=== PATIENT | female | born 1945 | race Caucasian/White ===

== ENCOUNTER 2016-05-06 16:01 | Inpatient (IN) | payer MEDICARE, BC ==
[2016-05-06] MEDS ORDERED: DILTIAZEM 5 MG/ML 5 ML VIAL IVP STA (16:42)
[2016-05-06] MEDS ORDERED: ADENOSINE 3 MG/ML 2 ML VIAL IVP STA ×3 (16:45→16:46)
[2016-05-06 16:58] LABS: Basophils % (A) 0 %; CH 30.1; CHCM 34.2; Eosinophils # (A) 0.5 k/uL (0-0.7); Eosinophils % (A) 5 %; HCT 41.1 % (34.0-46.0); HDW 2.51; HGB 13.8 gm/dL (11.4-16.0); Luc # (Auto) 0.26; Luc % (Auto) 2; Lymphocytes # (A) 2.5 k/uL (1.0-4.8); Lymphocytes % (A) 23 %; MCH 29.7 pg (25.0-35.0); MCHC 33.7 g/dL (31.0-37.0); MCV 88.3 fL (80.0-100.0); Mean Platelet Volume 8.7; Monocytes # (A) 0.5 k/uL (0-1.0); Monocytes % (A) 4 %; Neutrophils # (A) 6.9 k/uL (1.3-7.7); Neutrophils % (A) 65 %; RBC 4.66 m/uL (3.80-5.40); RDW 12.4 % (11.5-15.5); WBC 10.6 k/uL (3.8-10.6); WBC (Perox) 10.64
--- NOTE | 2016-05-06 16:59 | ED ---
General Adult HPI - General Chief complaint: Arrhythmia/Palpitations Stated complaint: Papitaltions Time Seen by Provider: 05/06/16 16:25 Source: patient, family, RN notes reviewed Mode of arrival: ambulatory Limitations: no limitations - History of Present Illness Initial comments: The chief complaint and history of present illness this is a 71-year-old female here with . The patient has had on-again off-again rapid heart beats. She's never been able to catch it in the doctor's office today when he started she's come the emergency room. Her heart rate was between 175 and 225. EKG shows what appears to be SVT. Patient was compared to receive a Adinosyn with crash cart at bedside. She reports she takes lisinopril with hydrochlorothiazide. She also takes alprazolam on occasion for nerves, she took it approximately 3 hours ago. No chest pain no sweats no dizziness only slight sensation of shortness of breath. This first started 18 months ago. Lately has been more frequent. - Related Data Home Medications Medication Instructions Recorded Confirmed ALPRAZolam [Xanax] 0.25 mg PO DAILY PRN 05/06/16 05/06/16 Aspirin EC [Ecotrin] 325 mg PO DAILY PRN 05/06/16 05/06/16 Lisinopril-Hctz 20-25 mg 1 tab PO DAILY 05/06/16 05/06/16 [Zestoretic 20-25] Allergies Allergy/AdvReac Type Severity Reaction Status Date / Time No Known Allergies Allergy Verified 05/06/16 17:04 Review of Systems ROS Statement: Those systems with pertinent positive or pertinent negative responses have been documented in the HPI. Review of systems no complaint of visual acuity changes no dizziness no headache no stiff neck no chest pain slight shortness of breath but not with exertion. Again no chest pain no radiation or chest pain. Mild low back discomfort. No nausea no vomiting no neuro deficits all systems were reviewed. Patient denies any chronic medical problems. Takes medication for high blood pressure only lisinopril with HCTZ. Alprazolam for anxiety as needed. She reports these episodes have happened in the past usually stop on their own 30- 60 minutes after it starts. She states she normally is on the anxious side prior to the beginning of such episodes. Patient denies diabetes cancer stroke or asthma. Denies any surgeries. Only history noncontributory. ALLERGIES none. Nonsmoker nondrinker ROS Other: All systems not noted in ROS Statement are negative. Past Medical History Past Medical History: Hypertension History of Any Multi-Drug Resistant Organisms: None Reported Past Surgical History: No Surgical Hx Reported Past Psychological History: Anxiety Smoking Status: Never smoker Past Alcohol Use History: None Reported Past Drug Use History: None Reported General Exam - General Exam Comments Initial Comments: General: The patient is awake and alert, complains of slight shortness of breath with rapid heart rate. Initial heart rate was between 125 and 225. Temp 97.4, respiratory rate 18 pulse ox 90% room air blood pressure 122/67.. Eye: Pupils are equal, round and reactive to light, extra-ocular movements are intact ; there is normal conjunctiva bilaterally. No signs of icterus. Ears, nose, mouth and throat: There are moist mucous membranes and no oral lesions. Neck: The neck is supple, there is no tenderness or JVD. Cardiovascular: Rapid heart rate, 175-225. Respiratory: Lungs are clear to auscultation, respirations are non-labored, breath sounds are equal. No wheezes, stridor, rales, or rhonchi. Gastrointestinal: Soft, non-distended, non-tender abdomen without masses or organomegaly noted. There is no rebound or guarding present. No CVA tenderness. Bowel sounds are unremarkable. Back: There is no tenderness to palpation in the midline. There is no obvious deformity. No rashes noted. Musculoskeletal: Normal ROM, no tenderness, There is no pedal edema. There is no calf tenderness or swelling. Sensation intact. Pulses equal bilaterally 2+. Neurological: CN II-XII intact, There are no obvious motor or sensory deficits. Coordination appears grossly intact. Speech is normal. Skin: Skin is warm and dry and no rashes or lesions are noted. Limitations: no limitations Course Vital Signs 05/06/16 05/06/16 05/06/16 16:09 16:25 17:04 Temperature 97.4 F L Pulse Rate 71 170 H Pulse Rate [ 203 H Installation Technician ] Respiratory 18 18 Rate Blood Pressure 122/67 102/72 O2 Sat by Pulse 98 96 Oximetry EKG Findings - EKG Comments: EKG Findings:: EKG was done at 1620 showing what appeared to be either SVT or A. fib. Rate 202. Nonspecific ST changes. QRS duration 78 QT to [address] Pablo Medical Decision Making - Medical Decision Making Received adenosin first 6 mg and [id number] and 12mg again.. After the second 12mg heart rate did slow, it appears the patient was in A. fib. No P waves are noted. The patient has been started on Cardizem, she received 10 mg slow IV push, followed by 5 mg IV drip. Her heart rate was already starting to slow in the 140-150 range. The case discussed with on-call power transmission engineer Dr. palma. EKGs to be sent to him at the office. Consultation requested. Patient will be started on low- dose heparin for new onset A. fib with RVR Patient was seen by Dr. Gupta in the emergency room. He recommends in addition of the Cardizem drip and amiodarone 150 with 0.5 mg/kg per hour until she converts to normal sinus rhythm. His heart rate drops to 16 Cardizem to be stopped as well. Labs show white count of 10 hemoglobin 13 hematocrit of 40, INR 1.0, potassium 4.0, BUN 21 creatinine 0.77 with a GFR greater than 60. Glucose 144. Troponin less than 0.012 Thyroid panel still pending this will be checked by the attendings. - Lab Data Result diagrams: 05/06/16 16:30 05/06/16 16:30 Lab Results 05/06/16 05/06/16 05/06/16 Range/Units 16:30 16:30 16:30 WBC 10.6 (3.8-10.6) k/uL RBC 4.66 (3.80-5.40) m/uL Hgb 13.8 (11.4-16.0) gm/dL Hct 41.1 (34.0-46.0) % MCV 88.3 (80.0-100.0) fL MCH 29.7 (25.0-35.0) pg MCHC 33.7 (31.0-37.0) g/dL RDW 12.4 (11.5-15.5) % Plt Count 286 (150-450) k/uL Neutrophils % 65 % Lymphocytes % 23 % Monocytes % 4 % Eosinophils % 5 % Basophils % 0 % Neutrophils # 6.9 (1.3-7.7) k/uL Lymphocytes # 2.5 (1.0-4.8) k/uL Monocytes # 0.5 (0-1.0) k/uL Eosinophils # 0.5 (0-0.7) k/uL Basophils # 0.0 (0-0.2) k/uL PT (9.0-12.0) sec INR (<1.1) APTT (22.0-30.0) sec Sodium 139 (137-145) mmol/L Potassium 4.0 (3.5-5.1) mmol/L Chloride 102 (98-107) mmol/L Carbon Dioxide 24 (22-30) mmol/L Anion Gap 13 mmol/L BUN 21 H (7-17) mg/dL Creatinine 0.77 (0.52-1.04) mg/dL Est GFR (MDRD) Af Amer >60 (>60 ml/min/1.73 sqM) Est GFR (MDRD) Non-Af >60 (>60 ml/min/1.73 sqM) Glucose 144 H (74-99) mg/dL Calcium 9.4 (8.4-10.2) mg/dL Magnesium 2.0 (1.6-2.3) mg/dL Total Bilirubin 0.9 (0.2-1.3) mg/dL AST 19 (14-36) U/L ALT 33 (9-52) U/L Alkaline Phosphatase 179 H (38-126) U/L Total Creatine Kinase 57 (30-135) U/L CK-MB (CK-2) 0.4 (0.0-2.4) ng/mL CK-MB (CK-2) Rel Index 0.7 Troponin I <0.012 (0.000-0.034) ng/mL Total Protein 7.4 (6.3-8.2) g/dL Albumin 4.1 (3.5-5.0) g/dL TSH 1.380 (0.465-4.680) mIU/L 05/06/16 Range/Units 16:30 WBC (3.8-10.6) k/uL RBC (3.80-5.40) m/uL Hgb (11.4-16.0) gm/dL Hct (34.0-46.0) % MCV (80.0-100.0) fL MCH (25.0-35.0) pg MCHC (31.0-37.0) g/dL RDW (11.5-15.5) % Plt Count (150-450) k/uL Neutrophils % % Lymphocytes % % Monocytes % % Eosinophils % % Basophils % % Neutrophils # (1.3-7.7) k/uL Lymphocytes # (1.0-4.8) k/uL Monocytes # (0-1.0) k/uL Eosinophils # (0-0.7) k/uL Basophils # (0-0.2) k/uL PT 10.3 (9.0-12.0) sec INR 1.0 (<1.1) APTT 24.0 (22.0-30.0) sec Sodium (137-145) mmol/L Potassium (3.5-5.1) mmol/L Chloride (98-107) mmol/L Carbon Dioxide (22-30) mmol/L Anion Gap mmol/L BUN (7-17) mg/dL Creatinine (0.52-1.04) mg/dL Est GFR (MDRD) Af Amer (>60 ml/min/1.73 sqM) Est GFR (MDRD) Non-Af (>60 ml/min/1.73 sqM) Glucose (74-99) mg/dL Calcium (8.4-10.2) mg/dL Magnesium (1.6-2.3) mg/dL Total Bilirubin (0.2-1.3) mg/dL AST (14-36) U/L ALT (9-52) U/L Alkaline Phosphatase (38-126) U/L Total Creatine Kinase (30-135) U/L CK-MB (CK-2) (0.0-2.4) ng/mL CK-MB (CK-2) Rel Index Troponin I (0.000-0.034) ng/mL Total Protein (6.3-8.2) g/dL Albumin (3.5-5.0) g/dL TSH (0.465-4.680) mIU/L Disposition Clinical Impression: Paroxysmal atrial fibrillation with rapid ventricular response Disposition: ADMITTED IP TO THIS HOSP Condition: Fair
[2016-05-06] MEDS ORDERED: DILTIAZEM 125 MG in SODIUM CHLORIDE 0.9% 100 ML IV ONE (17:00)
[2016-05-06 17:03] LABS: Prothrombin Time 10.3 sec (9.0-12.0)
[2016-05-06 17:09] LABS: ALT 33 U/L (9-52); AST 19 U/L (14-36); Alkaline Phosphatase 179 U/L (38-126); Anion Gap 13 mmol/L; Blood Urea Nitrogen 21 mg/dL (7-17); Calcium 9.4 mg/dL (8.4-10.2); Carbon Dioxide 24 mmol/L (22-30); Chloride 102 mmol/L (98-107); Glucose 144 mg/dL (74-99); Non-African American GFR(MDRD) >60 (>60 ml/min/1.73 sqM); Sodium 139 mmol/L (137-145); Total Bilirubin 0.9 mg/dL (0.2-1.3); Total Protein 7.4 g/dL (6.3-8.2)
[2016-05-06] MEDS ORDERED: HEPARIN SODIUM,PORCINE 5,000 UNIT/ML 1 ML VIAL IV ONE (17:13)
[2016-05-06] MEDS ORDERED: HEPARIN SODIUM,PORCINE/D5W PMX 25,000 UNIT in DEXTROSE/WATER 1 500ML.BAG IV SCH (17:15)
[2016-05-06 17:17] LABS: Creatine Kinase 57 U/L (30-135)
--- NOTE | 2016-05-06 17:29 | XR ---
EXAMINATION TYPE: XR chest 1V portable DATE OF EXAM: 05/06/2016 5:18 PM COMPARISON: NONE HISTORY: Palpitations and dysrhythmia TECHNIQUE: Single frontal view of the chest is obtained. FINDINGS: There is no heart failure nor confluent pneumonic infiltrate. There are no hilar masses. T here are chest leads. Costophrenic angles are clear. Bony thorax is intact. IMPRESSION: No active cardiopulmonary disease.
[2016-05-06 17:30] LABS: Creatine Kinase MB 0.4 ng/mL (0.0-2.4); Troponin I <0.012 ng/mL (0.000-0.034)
[2016-05-06] MEDS ORDERED: AMIODARONE 450 MG in DEXTROSE 5% IN WATER 250 ML IV ONE ×2 (17:40)
[2016-05-06] MEDS ORDERED: DEXTROSE 5% IN WATER 100 ML with AMIODARONE 150 MG IV ONE (17:40)
[2016-05-06] MEDS ORDERED: ACETAMINOPHEN TAB 325 MG TAB PO PRN (17:55)
[2016-05-06] MEDS ORDERED: NALOXONE 0.4 MG/ML 1 ML VIAL IV PRN (17:55)
[2016-05-06] MEDS ORDERED: ASPIRIN 325 MG TAB PO PRN (18:00)
[2016-05-06] MEDS ORDERED: ALPRAZolam 0.25 MG TAB PO PRN (18:00)
[2016-05-06] MEDS: SODIUM CHLORIDE 0.9% 1,000 ML IV SCH (19:10)
--- NOTE | 2016-05-06 20:01 | ED ---
Medical Decision Making - Lab Data Result diagrams: 05/06/16 16:30 05/06/16 16:30 Lab Results 05/06/16 05/06/16 05/06/16 Range/Units 16:30 16:30 16:30 WBC 10.6 (3.8-10.6) k/uL RBC 4.66 (3.80-5.40) m/uL Hgb 13.8 (11.4-16.0) gm/dL Hct 41.1 (34.0-46.0) % MCV 88.3 (80.0-100.0) fL MCH 29.7 (25.0-35.0) pg MCHC 33.7 (31.0-37.0) g/dL RDW 12.4 (11.5-15.5) % Plt Count 286 (150-450) k/uL Neutrophils % 65 % Lymphocytes % 23 % Monocytes % 4 % Eosinophils % 5 % Basophils % 0 % Neutrophils # 6.9 (1.3-7.7) k/uL Lymphocytes # 2.5 (1.0-4.8) k/uL Monocytes # 0.5 (0-1.0) k/uL Eosinophils # 0.5 (0-0.7) k/uL Basophils # 0.0 (0-0.2) k/uL PT (9.0-12.0) sec INR (<1.1) APTT (22.0-30.0) sec Sodium 139 (137-145) mmol/L Potassium 4.0 (3.5-5.1) mmol/L Chloride 102 (98-107) mmol/L Carbon Dioxide 24 (22-30) mmol/L Anion Gap 13 mmol/L BUN 21 H (7-17) mg/dL Creatinine 0.77 (0.52-1.04) mg/dL Est GFR (MDRD) Af Amer >60 (>60 ml/min/1.73 sqM) Est GFR (MDRD) Non-Af >60 (>60 ml/min/1.73 sqM) Glucose 144 H (74-99) mg/dL Calcium 9.4 (8.4-10.2) mg/dL Magnesium 2.0 (1.6-2.3) mg/dL Total Bilirubin 0.9 (0.2-1.3) mg/dL AST 19 (14-36) U/L ALT 33 (9-52) U/L Alkaline Phosphatase 179 H (38-126) U/L Total Creatine Kinase 57 (30-135) U/L CK-MB (CK-2) 0.4 (0.0-2.4) ng/mL CK-MB (CK-2) Rel Index 0.7 Troponin I <0.012 (0.000-0.034) ng/mL Total Protein 7.4 (6.3-8.2) g/dL Albumin 4.1 (3.5-5.0) g/dL TSH 1.380 (0.465-4.680) mIU/L 05/06/16 Range/Units 16:30 WBC (3.8-10.6) k/uL RBC (3.80-5.40) m/uL Hgb (11.4-16.0) gm/dL Hct (34.0-46.0) % MCV (80.0-100.0) fL MCH (25.0-35.0) pg MCHC (31.0-37.0) g/dL RDW (11.5-15.5) % Plt Count (150-450) k/uL Neutrophils % % Lymphocytes % % Monocytes % % Eosinophils % % Basophils % % Neutrophils # (1.3-7.7) k/uL Lymphocytes # (1.0-4.8) k/uL Monocytes # (0-1.0) k/uL Eosinophils # (0-0.7) k/uL Basophils # (0-0.2) k/uL PT 10.3 (9.0-12.0) sec INR 1.0 (<1.1) APTT 24.0 (22.0-30.0) sec Sodium (137-145) mmol/L Potassium (3.5-5.1) mmol/L Chloride (98-107) mmol/L Carbon Dioxide (22-30) mmol/L Anion Gap mmol/L BUN (7-17) mg/dL Creatinine (0.52-1.04) mg/dL Est GFR (MDRD) Af Amer (>60 ml/min/1.73 sqM) Est GFR (MDRD) Non-Af (>60 ml/min/1.73 sqM) Glucose (74-99) mg/dL Calcium (8.4-10.2) mg/dL Magnesium (1.6-2.3) mg/dL Total Bilirubin (0.2-1.3) mg/dL AST (14-36) U/L ALT (9-52) U/L Alkaline Phosphatase (38-126) U/L Total Creatine Kinase (30-135) U/L CK-MB (CK-2) (0.0-2.4) ng/mL CK-MB (CK-2) Rel Index Troponin I (0.000-0.034) ng/mL Total Protein (6.3-8.2) g/dL Albumin (3.5-5.0) g/dL TSH (0.465-4.680) mIU/L Critical Care Time Critical Care Time: Yes (Spoke with the attending, as well as kennel manager, at bedside multiple time) Total Critical Care Time: 40 Disposition Clinical Impression: Paroxysmal atrial fibrillation with rapid ventricular response Disposition: ADMITTED IP TO THIS HOSP Condition: Fair
[2016-05-06 20:59] VITALS: BMI 31.6
--- NOTE | 2016-05-06 21:06 | P.CRDCN ---
History of Present Illness Consult date: 05/06/16 History of present illness: This is a 71-year-old female with history of long-standing hypertension who has been experiencing intermittent palpitations for several months. These episodes will last for several minutes. However these episodes were never caught in the doctor's office. Today patient came with complaints of palpitations lasting about 3 hours. She was found to be in atrial fibrillation with rapid ventricular response. She was treated with IV Cardizem. Patient is still going at the rate of 170. I advised the emergency room to start patient on IV amiodarone with a bolus followed by drip. Patient denied any chest pain or shortness of breath. No history of any dizziness or syncope. Patient has history of anxiety and was being treated with exam and asked. She was also being treated with lisinopril hydrochlorothiazide for hypertension. She is also being initiated on IV heparin therapy. I discussed with patient and family about the need for long-term anticoagulation. She is a 66-year-old female with history of hypertension. Review of Systems As per the chart Past Medical History Past Medical History: Hypertension History of Any Multi-Drug Resistant Organisms: None Reported Past Surgical History: No Surgical Hx Reported Past Anesthesia/Blood Transfusion Reactions: No Reported Reaction Past Psychological History: Anxiety Smoking Status: Never smoker Past Alcohol Use History: None Reported Past Drug Use History: None Reported - Past Family History Brother(s) Family Medical History: Cancer, Diabetes Mellitus Additional Family Medical History / Comment(s): Colon cancer, at 58 Medications and Allergies Home Medications Medication Instructions Recorded Confirmed Type ALPRAZolam [Xanax] 0.25 mg PO DAILY PRN 05/06/16 05/06/16 History Aspirin EC [Ecotrin] 325 mg PO DAILY PRN 05/06/16 05/06/16 History Lisinopril-Hctz 20-25 mg 1 tab PO DAILY 05/06/16 05/06/16 History [Zestoretic 20-25] Allergies Allergy/AdvReac Type Severity Reaction Status Date / Time No Known Allergies Allergy Verified 05/06/16 17:04 Physical Exam Vitals: Vital Signs Temp Pulse Pulse Resp BP BP Pulse Ox 05/06/16 19:33 97.8 F 76 16 116/59 94 L 05/06/16 19:13 97.4 F L 86 18 108/57 97 05/06/16 18:51 80 18 100/57 97 05/06/16 18:38 160 H 18 96/63 95 05/06/16 18:00 170 H 18 125/54 97 Intake and Output 05/06/16 05/06/16 05/06/16 06:59 14:59 22:59 Other: Weight 88.9 kg Patient Weight 05/07/16 06:59 Weight 88.9 kg GENERAL EXAM: Patient is alert and oriented and doesn't appear to be in any acute distress HEENT: Normocephalic. Normal reaction of pupils, equal size, normal range of extraocular motion. No erythema or exudates in the throat. NECK: No masses, no nuchal rigidity. CHEST: No chest wall deformity. LUNGS: Equal air entry with no crackles or wheeze. HEART: S1 and S2 normal with no audible mumurs or gallops. Irregular rhythm. ABDOMEN: No hepatosplenomegaly, normal bowel sounds, no guarding or rigidity. SKIN: No rashes CENTRAL NERVOUS SYSTEM: No focal deficits. EXTREMITIES: No cyanosis, clubbing or edema. Results 05/06/16 16:30 05/06/16 16:30 Current Medications Generic Name Dose Route Start Last Admin Trade Name Freq PRN Reason Stop Dose Admin Acetaminophen 650 mg 05/06/16 17:55 Tylenol Tab PO Q6HR PRN Mild Pain or Fever > 100.5 Alprazolam 0.25 mg 05/06/16 18:00 Xanax PO DAILY PRN Anxiety Aspirin 325 mg 05/06/16 18:00 Aspirin PO DAILY PRN Pain Lisinopril/HCTZ 1 each 05/07/16 09:00 Zestoretic 20-25 PO DAILY DICK Diltiazem HCl 125 mg/ Sodium 125 mls @ 5 mls/hr 05/06/16 17:00 05/06/16 17:00 Chloride IV 05/07/16 16:59 5 mg/hr .Q24H ONE 5 mls/hr 5 MG/HR Administration Heparin Sodium/Dextrose 25,000 500 mls @ 19.59 mls/hr 05/06/16 17:15 18:11 unit/ IV Solution IV 12 units/kg/hr .Q24H DICK 19.59 mls/hr Protocol Administration 12 UNITS/KG/HR Amiodarone HCl 450 mg/ 259 mls @ 34.53 mls/hr 05/06/16 17:40 05/06/16 18:18 Dextrose/Water IV 05/07/16 01:10 1 mg/min .Q7H31M ONE 34.53 mls/hr Protocol Administration 1 MG/MIN Sodium Chloride 1,000 mls @ 80 mls/hr 05/06/16 18:00 05/06/16 19:10 Saline 0.9% IV 80 mls/hr .[id number] DICK Administration Naloxone HCl 0.2 mg 05/06/16 17:55 Narcan IV Q2M PRN Opioid Reversal Pantoprazole Sodium 40 mg 05/07/16 09:00 Protonix IV DAILY DICK Intake and Output 05/06/16 05/06/16 05/06/16 06:59 14:59 22:59 Other: Weight 88.9 kg Patient Weight 05/07/16 06:59 Weight 88.9 kg EKG Interpretations (text) Atrial fibrillation with rapid ventricular response Assessment and Plan (1) Hypertension Status: Acute (2) Paroxysmal atrial fibrillation with rapid ventricular response Status: Chronic (3) Chronic anxiety Status: Chronic Plan: Patient is on IV heparin and Cardizem. I'm going to give her a bolus of amiodarone followed by drip. Echocardiogram will be done. Thyroid function studies will be obtained. Patient most probably be started on a new anticoagulant therapy. If things are stable and if she were to convert to sinus rhythm, patient could be discharged home tomorrow. May consider for either Rythmol or flecainide in the long-run for prevention of atrial fibrillation.
[2016-05-06 23:38] LABS: Creatine Kinase 48 U/L (30-135)
[2016-05-06 23:51] LABS: Creatine Kinase MB 0.6 ng/mL (0.0-2.4); Troponin I <0.012 ng/mL (0.000-0.034)
[2016-05-07] MEDS ORDERED: HEPARIN SODIUM,PORCINE 5,000 UNIT/ML 1 ML VIAL IV PRN (02:38)
[2016-05-07] MEDS ORDERED: AMIODARONE 450 MG in DEXTROSE 5% IN WATER 250 ML IV SCH ×2 (02:45)
[2016-05-07] MEDS: SODIUM CHLORIDE 0.9% 1,000 ML IV SCH (07:17)
[2016-05-07 07:27] LABS: Creatine Kinase 44 U/L (30-135)
[2016-05-07 07:38] LABS: Creatine Kinase MB 0.6 ng/mL (0.0-2.4); Troponin I <0.012 ng/mL (0.000-0.034)
[2016-05-07] MEDS ORDERED: PANTOPRAZOLE 40 MG/10 ML VIAL IV SCH (09:00)
[2016-05-07] MEDS ORDERED: LISINOPRIL-HCTZ 20-25 MG 1 EACH TAB PO SCH (09:00)
[2016-05-07] MEDS: PROPAFENONE 150 MG TAB PO SCH ×2 (09:56→16:39)
--- NOTE | 2016-05-07 10:15 | ECHOF ---
Referral Reason:Atrial Fib MEASUREMENTS -------- HEIGHT: 167.6 cm WEIGHT: 88.5 kg BP: 104/56 RVIDd: 3.0 cm (< 3.3) IVSd: 0.8 cm (0.6 - 1.1) LVIDd: 5.0 cm (3.9 - 5.3) LVPWd: 0.8 cm (0.6 - 1.1) IVSs: 1.6 cm LVIDs: 3.2 cm LVPWs: 1.4 cm LA Diam: 3.4 cm (2.7 - 3.8) LAESV Index (A-L): 20.32 ml/m Ao Diam: 2.8 cm (2.0 - 3.7) AV Cusp: 1.8 cm (1.5 - 2.6) LA Diam: 3.2 cm (2.7 - 3.8) MV EXCURSION: 13.536 mm (> 18.000) MV EF SLOPE: 107 mm/s (70 - 150) EPSS: 0.2 cm MV E Deep: 1.16 m/s MV DecT: 185 ms MV A Deep: 1.07 m/s MV E/A Ratio: 1.08 RAP: 5.00 mmHg RVSP: 33.54 mmHg FINDINGS -------- Sinus rhythm. This was a technically good study. Left ventricular wall thickness is normal. Overall left ventricular systolic function is normal with, an EF between 55 - 60 %. The right ventricle is normal in size. Normal LA size by volume 22+/-6 ml/m2. The right atrium is normal in size. The aortic valve is trileaflet and appears structurally normal. Mild mitral annular calcification present. Mild mitral regurgitation is present. Mild tricuspid regurgitation present. Right ventricular systolic pressure is normal at < 35 mmHg. Pulmonic valve appears structurally normal. The aortic root size is normal. Normal inferior vena cava with normal inspiratory collapse consistent with estimated right atrial pressure of 5 mmHg. There is no pericardial effusion. CONCLUSIONS -------- 1. Sinus rhythm. 2. Mild mitral regurgitation is present. 3. Mild tricuspid regurgitation present. 4. Right ventricular systolic pressure is normal at < 35 mmHg. 5. Pulmonic valve appears structurally normal. 6. The aortic root size is normal. 7. There is no pericardial effusion. 8. This was a technically good study. 9. Left ventricular wall thickness is normal. 10. Overall left ventricular systolic function is normal with, an EF between 55 - 60 %. 11. The right ventricle is normal in size. 12. Normal LA size by volume 22+/-6 ml/m2. 13. The right atrium is normal in size. 14. The aortic valve is trileaflet and appears structurally normal. 15. Mild mitral annular calcification present. ADVISORY INTERN: Anita Swan RDCS
[2016-05-07 11:42] VITALS: TEMP 97.7
[2016-05-07] MEDS ORDERED: RIVAROXABAN 10 MG TAB PO SCH ×2 (12:15→17:30)
--- NOTE | 2016-05-07 12:21 | P.PN ---
Subjective Principal diagnosis: Urbano francis This is a 72-year-old female with history of hypertension, who has been experiencing intermittent palpitations for several months. On presentation here patient was found to be in atrial fibrillation with a rapid ventricular response. She was treated with adenosine as well as IV Cardizem, currently in normal sinus rhythm. She was initiated on IV amiodarone through the night last night along with IV heparin. Echocardiogram with Doppler study was performed which revealed normal left ventricular systolic function. At the time of my examination this morning, patient feels well, denies any palpitations , breathing is stable. We will start the patient on Rythmol 150 mg by mouth 3 times a day along with xarelto 20 mg daily. She may be able to be discharged home later today to follow-up with Dr. Machado in the office post discharge. Objective - Vital Signs Vital signs: Vital Signs Temp 97.7 F 05/07/16 11:00 Pulse 65 05/07/16 11:00 Resp 19 05/07/16 11:00 BP 116/63 05/07/16 11:00 Pulse Ox 100 05/07/16 11:00 Intake & Output 05/06/16 05/07/16 05/07/16 18:59 06:59 18:59 Intake Total 1731.598 118 Output Total 1175 400 Balance 556.598 -282 Weight 88.9 kg Intake: IV 760 Sodium Chloride 0.9% 1, 760 000 ml @ 80 mls/hr IV . [id number] [facility] Rx#:[id number] Intake, IV Titration 449.598 Amount Amiodarone 450 mg In 206.029 Dextrose 5% in Water 250 ml @ 1 MG/MIN 34.53 mls/ hr IV .Q7H31M [facility] Rx#: [id number] Heparin Sodium,Porcine/ 243.569 D5w Pmx 25,000 unit In Dextrose/Water 1 500ml. bag @ 12 UNITS/KG/HR 19. 59 mls/hr IV .Q24H [facility] Rx #:[id number] Oral 522 118 Output: Urine 1175 400 Other: Voiding Method Toilet Toilet - Exam PHYSICAL EXAMINATION: HEENT: Head is atraumatic, normocephalic. Pupils equal, round. Neck is supple. There is no elevated jugular venous pressure. HEART EXAMINATION: Heart S1, S2 normal. No murmur or gallop heard. CHEST EXAMINATION: Lungs are clear to auscultation and precussion. No chest wall tenderness is noted on palpation or with deep breathing. ABDOMEN: Soft, nontender. Bowel sounds are heard. No organomegaly noted. EXTREMITIES: 2+ peripheral pulses with no evidence of peripheral edema and no calf tenderness noted. NEUROLOGIC patient is awake, alert and oriented -3. . - Labs CBC & Chem 7: 05/06/16 16:30 05/06/16 16:30 Labs: Abnormal Lab Results - Last 24 Hours (Table) 05/07/16 05/07/16 Range/Units 00:54 08:21 APTT 32.2 H 46.4 H (22.0-30.0) sec Assessment and Plan (1) Hypertension Status: Acute (2) Paroxysmal atrial fibrillation with rapid ventricular response Status: Chronic Plan: Cardiology's perspective, patient has been started on Rythmol 150 mg by mouth every 8 hourly along with xarelto 20 mg daily. Once the amiodarone drip has infused, patient may be able to be discharged today, a follow-up appointment will be made with Dr. Machado in the office post discharge. DNP note has been reviewed, I agree with a documented findings and plan of care. Patient was seen and examined.
--- NOTE | 2016-05-07 12:24 | HP ---
DATE OF ADMISSION: 05/06/2016 PRESENTING COMPLAINT: Palpitation. HISTORY OF PRESENTING COMPLAINT: This is a very pleasant 71-year-old patient of Dr. Chandu Burton. Chronic stable conditions include hypertension, anxiety. Patient has had palpitations off and on since seeing Dr. Burton, but never could be captured. The patient had a long stretch yesterday of the same with the heart racing, some chest tightness. Presented to the ER and found to be in atrial flutter fibrillation. The patient was put on a Cardizem drip and also given Adenocard in the ER and also was put on amiodarone drip. Patient later converted to sinus rhythm. Patient has also been started on Xarelto. REVIEW OF SYSTEMS: CONSTITUTIONAL: Tired. HEENT: None. RESPIRATORY: As above. CARDIOVASCULAR: As above. GASTROINTESTINAL: None. GENITOURINARY: None. MUSCULOSKELETAL: None. DERMATOLOGICAL: None. HEMATOLOGICAL: None. LYMPHATICS: None. PSYCHIATRY: None. NEUROLOGICAL: None. Past medical history of hypertension, anxiety. PAST SURGICAL HISTORY: None. SOCIAL HISTORY: . Retired from [employer]. Does not smoke or drink alcohol. FAMILY HISTORY: Diabetes, colon cancer. HOME MEDICATIONS: 1. Zestoretic 20/25 one tablet daily. 2. Xanax 0.25 p.o. daily p.r.n. ALLERGIES: None. On examination, temperature 97.4, pulse 170 on presentation, respirations 18, blood pressure 102/72, pulse ox 96% on 2 L. GENERAL APPEARANCE: Sitting up, not in distress. EYES: Pupils equal. Conjunctivae normal. HEENT: External appearance of the nose and ears normal. Oral cavity normal. NECK: JVD not raised. Mass not palpable. RESPIRATORY: Effort normal. Lungs are clear. CARDIOVASCULAR: First and second sounds normal. No edema. ABDOMEN: Soft, nontender. Liver and spleen not palpable. LYMPHATIC: No lymph nodes palpable of the neck or axillae. PSYCHIATRY: Alert and oriented x3. Mood and affect normal. NEUROLOGICAL: Pupils equal. Cranial nerves grossly intact. Power and sensation grossly intact. INVESTIGATIONS: White count 10.6. Potassium 4. BUN 21, creatinine 0.77. Troponin negative. TSH normal. EKG atrial fibrillation. ASSESSMENT: 1. Paroxysmal atrial fibrillation with rapid ventricular rate, has been recurrent for a while. 2. Essential hypertension. 3. Anxiety, not otherwise specified. 4. Obesity; body mass index 31.6. PLAN: Patient was initially put on Cardizem drip then IV amiodarone and patient subsequently converted to sinus rhythm. The patient started on Xarelto. Seen by Cardiology. Care was discussed with the patient. Questions were answered.
[2016-05-07 18:15] VITALS: BP 122/73; RESP 18
[2016-05-07 18:17] VITALS: PULSE 75
[2016-05-08] MEDS ORDERED: PANTOPRAZOLE 40 MG TABLET PO SCH (07:30)
--- NOTE | 2016-05-09 08:46 | DS ---
DATE OF ADMISSION: 05/06/2016 DATE OF DISCHARGE: 05/07/2016 FINAL DIAGNOSES: 1. Paroxysmal atrial fibrillation with rapid ventricular rate, present on admission. 2. Essential hypertension. 3. Anxiety, not otherwise specified. 4. Obesity, body mass index of 31.6. CONSULTATIONS: Dr. Mendenhall. HOSPITAL COURSE: This patient presented with atrial fibrillation with rapid ventricular rate, did get Cardizem and amiodarone. switched back to normal sinus rhythm. A 2-D echocardiogram, ejection fraction of 55% to 60%. TSH was normal. On exam, lungs are clear. CARDIOVASCULAR: First and second seconds are normal. DISCHARGE MEDICATIONS: 1. Xanax 0.25 p.o. daily p.r.n. 2. Zestoretic 20/25 one tablet p.o. daily. 3. Rythmol 150 mg p.o. q.8. 4. Xarelto 20 mg with supper. Follow up with Dr. Burton in 1 week; follow up with Dr. Machado in 1 week. Lungs are clear. CARDIOVASCULAR: First and second sounds are normal.
== END 2016-05-07 19:00 | disposition home or self-care (01) | DRG 310 ==
LOC: EC 16:01 → 6SEL 17:56
PROVIDERS: ADMIT Hospitalist; ATTEND Hospitalist
DX: I48.0 Paroxysmal atrial fibrillation (principal); I48.92 Unspecified atrial flutter; I10 Essential (primary) hypertension; F41.9 Anxiety disorder, unspecified; E66.9 Obesity, unspecified; Z68.31 Body mass index [BMI] 31.0-31.9, adult; Z79.82 Long term (current) use of aspirin; Z79.899 Other long term (current) drug therapy
CPT/HCPCS: 36415; 71010; 80053; 82550; 82553; 83735; 84443; 84484; 85025; 85610; 85730; 93005; 93306; 94760; 96365; 96366; 96367; 96368; 96375; 96376; 99291

== ENCOUNTER → 2019-12-29 | Outpatient (CLI) | payer MEDICARE ==
--- NOTE | 2019-12-29 09:40 | US ---
EXAMINATION TYPE: US liver DATE OF EXAM: 12/29/2019 COMPARISON: NONE CLINICAL HISTORY: R74.8 ABN LIVER ENZYMES. EXAM MEASUREMENTS: Liver Length: 13.4 cm Gallbladder Wall: 0.3 cm CBD: 0.4 cm Right Kidney: 9.8 x 4.6 x 5.7 cm Pancreas: Tail obscured by overlying bowel gas Liver: wnl Gallbladder: wnl Evidence for sonographic Callahan's sign: No CBD: wnl Right Kidney: No hydronephrosis or masses seen IMPRESSION: No distinct abnormality appreciated.
== END | disposition home or self-care (01) ==
LOC: RADUSWWP 09:00
PROVIDERS: ATTEND Internal Medicine
DX: R74.8 Abnormal levels of other serum enzymes (principal)
CPT/HCPCS: 76705

== ENCOUNTER 2020-06-23 03:11 | Inpatient (IN) | payer MEDICARE ==
[2020-06-23] MEDS ORDERED: ACETAMINOPHEN TAB 500 MG TAB PO STA (03:42)
[2020-06-23] MEDS ORDERED: DEXAMETHASONE SOD PHOSPHATE 10 MG/ML 1 ML VIAL IV STA (03:42)
[2020-06-23] MEDS ORDERED: ALBUTEROL HFA INHALER INHALATION STA (03:42)
[2020-06-23] MEDS ORDERED: KETOROLAC 15 MG/ML 1 ML VIAL IVP STA (03:42)
[2020-06-23] MEDS ORDERED: ONDANSETRON 4 MG/2 ML VIAL IVP STA (03:42)
--- NOTE | 2020-06-23 03:46 | ED ---
Nausea/Vomiting/Diarrhea HPI - General Chief complaint: Nausea/Vomiting/Diarrhea Stated complaint: Abd Pain,nausea Time Seen by Provider: 06/23/20 03:31 Source: patient, RN notes reviewed, old records reviewed Mode of arrival: ambulatory Limitations: no limitations - History of Present Illness Initial comments: This is a 75-year-old female with persistent nausea vomiting diarrhea and. No abdominal pain. No cough or shortness of breath. She does have known sick contacts. Patient's been hot since Friday. MD complaint: nausea, vomiting, diarrhea, other (fever) Description of Vomiting: food contents Description of Diarrhea: water Location: diffuse Severity: moderate Severity scale (1-10): 4 Quality: cramping Consistency: constant Improves with: none Worsens with: none Associated Symptoms: nausea/vomiting, weakness - Related Data Home Medications Medication Instructions Recorded Confirmed ALPRAZolam [Xanax] 0.25 mg PO DAILY PRN 05/06/16 05/06/16 Lisinopril-Hctz 20-25 mg 1 tab PO DAILY 05/06/16 05/06/16 [Zestoretic 20-25] Previous Rx's Medication Instructions Recorded Propafenone [Rythmol] 150 mg PO Q8HR #90 tab 05/07/16 Rivaroxaban [Xarelto] 20 mg PO W/SUPPER #30 tab 05/07/16 Allergies Allergy/AdvReac Type Severity Reaction Status Date / Time No Known Allergies Allergy Verified 06/23/20 03:24 Review of Systems ROS Statement: Those systems with pertinent positive or pertinent negative responses have been documented in the HPI. ROS Other: All systems not noted in ROS Statement are negative. Past Medical History Past Medical History: Atrial Fibrillation, Hypertension History of Any Multi-Drug Resistant Organisms: None Reported Past Surgical History: No Surgical Hx Reported Past Anesthesia/Blood Transfusion Reactions: No Reported Reaction Past Psychological History: Anxiety Smoking Status: Never smoker Past Alcohol Use History: None Reported Past Drug Use History: None Reported - Past Family History Brother(s) Family Medical History: Cancer, Diabetes Mellitus Additional Family Medical History / Comment(s): Colon cancer, at 58 General Exam Limitations: no limitations General appearance: alert, in no apparent distress Head exam: Present: atraumatic, normocephalic, normal inspection Eye exam: Present: normal appearance, PERRL, EOMI. Absent: scleral icterus, conjunctival injection, periorbital swelling ENT exam: Present: normal exam, mucous membranes moist Neck exam: Present: normal inspection. Absent: tenderness, meningismus, lymphadenopathy Respiratory exam: Present: normal lung sounds bilaterally. Absent: respiratory distress, wheezes, rales, rhonchi, stridor Cardiovascular Exam: Present: normal rhythm, tachycardia, normal heart sounds. Absent: systolic murmur, diastolic murmur, rubs, gallop, clicks GI/Abdominal exam: Present: soft, normal bowel sounds. Absent: distended, tenderness, guarding, rebound, rigid Extremities exam: Present: normal inspection, full ROM, normal capillary refill. Absent: tenderness, pedal edema, joint swelling, calf tenderness Back exam: Present: normal inspection Neurological exam: Present: alert, oriented X3, CN II-XII intact Psychiatric exam: Present: normal affect, normal mood Skin exam: Present: warm, dry, intact, normal color. Absent: rash Course Vital Signs 06/23/20 03:25 Temperature 102.1 F H Pulse Rate 105 H Respiratory 20 Rate Blood Pressure 117/68 O2 Sat by Pulse 91 L Oximetry - Reevaluation(s) Reevaluation #1: 06/23/20 03:45 Medical record is reviewed Reevaluation #2: 06/23/20 04:46 Patient does have positive coronavirus, patient is informed questions answered Reevaluation #3: 06/23/20 04:46 Patient is improved with symptom management Medical Decision Making - Medical Decision Making 75 female with fever positive coronavirus hypoxic short of breath. Patient will be admitted for coronavirus nausea vomiting diarrhea, symptom management - Lab Data Result diagrams: 06/23/20 04:05 Lab Results 06/23/20 06/23/20 06/23/20 Range/Units 04:05 04:05 04:05 WBC 6.7 (3.8-10.6) k/uL RBC 4.37 (3.80-5.40) m/uL Hgb 13.6 (11.4-16.0) gm/dL Hct 38.5 (34.0-46.0) % MCV 88.1 (80.0-100.0) fL MCH 31.1 (25.0-35.0) pg MCHC 35.3 (31.0-37.0) g/dL RDW 11.6 (11.5-15.5) % Plt Count 183 (150-450) k/uL MPV 9.1 Neutrophils % 85 % Lymphocytes % 9 % Monocytes % 5 % Eosinophils % 0 % Basophils % 0 % Neutrophils # 5.7 (1.3-7.7) k/uL Lymphocytes # 0.6 L (1.0-4.8) k/uL Monocytes # 0.3 (0-1.0) k/uL Eosinophils # 0.0 (0-0.7) k/uL Basophils # 0.0 (0-0.2) k/uL PT 10.4 (9.0-12.0) sec INR 1.0 (<1.2) APTT 24.9 (22.0-30.0) sec Coronavirus (PCR) Detected A (Not Detectd) - EKG Data -: EKG Interpreted by Me (EKG shows sinus rhythm 83 TX 1:30 QRS 88 QTc 427) - Radiology Data Radiology results: report reviewed (Chest x-rays coronavirus pneumonia), image reviewed Disposition Clinical Impression: Coronavirus infection, Pneumonia due to COVID-19 virus, Fever, Hypoxia Disposition: ADMITTED IP TO THIS HOSP Condition: Fair Is patient prescribed a controlled substance at d/c from ED?: No Referrals: Chandu Burton MD [Primary Care Provider] - 1-2 days
[2020-06-23] MEDS ORDERED: ACETAMINOPHEN TAB 325 MG TAB PO PRN (03:59)
[2020-06-23] MEDS ORDERED: NALOXONE 0.4 MG/ML 1 ML VIAL IV PRN ×3 (03:59→14:06)
[2020-06-23] MEDS ORDERED: ONDANSETRON 4 MG/2 ML VIAL IVP PRN ×2 (03:59→07:29)
[2020-06-23] MEDS ORDERED: SODIUM CHLORIDE 0.9% 1,000 ML IV SCH (04:00)
[2020-06-23 04:25] LABS: Basophils % (A) 0 %; Eosinophils % (A) 0 %; HCT 38.5 % (34.0-46.0); HGB 13.6 gm/dL (11.4-16.0); Lymphocytes # (A) 0.6 k/uL (1.0-4.8); Lymphocytes % (A) 9 %; MCH 31.1 pg (25.0-35.0); MCHC 35.3 g/dL (31.0-37.0); MCV 88.1 fL (80.0-100.0); Mean Platelet Volume 9.1; Monocytes # (A) 0.3 k/uL (0-1.0); Monocytes % (A) 5 %; Neutrophils # (A) 5.7 k/uL (1.3-7.7); Neutrophils % (A) 85 %; Platelet Count 183 k/uL (150-450); RBC 4.37 m/uL (3.80-5.40); RDW 11.6 % (11.5-15.5); WBC 6.7 k/uL (3.8-10.6)
[2020-06-23 04:37] LABS: Partial Thromboplastin Time 24.9 sec (22.0-30.0); Prothrombin Time 10.4 sec (9.0-12.0)
[2020-06-23 04:52] LABS: ALT 17 U/L (4-34); AST 33 U/L (14-36); African American GFR (CKD) >90 (>60 ml/min/1.73 sqM); Albumin 3.7 g/dL (3.5-5.0); Alkaline Phosphatase 148 U/L (38-126); Anion Gap 9 mmol/L; Blood Urea Nitrogen 21 mg/dL (7-17); Calcium 8.4 mg/dL (8.4-10.2); Carbon Dioxide 25 mmol/L (22-30); Chloride 94 mmol/L (98-107); Glucose 131 mg/dL (74-99); LDH 606 U/L (313-618); Magnesium 1.8 mg/dL (1.6-2.3); Non-African American GFR(CKD) 81 (>60 ml/min/1.73 sqM); Potassium 3.8 mmol/L (3.5-5.1); Sodium 128 mmol/L (137-145); Total Protein 6.8 g/dL (6.3-8.2)
--- NOTE | 2020-06-23 05:09 | ED ---
Medical Decision Making - Medical Decision Making 75 female with coronavirus. With further consideration patient would rather receive ALEXSANDER treatment and discharged home, patient does not want hospital admission - Lab Data Result diagrams: 06/23/20 04:05 Lab Results 06/23/20 06/23/20 06/23/20 Range/Units 04:05 04:05 04:05 WBC 6.7 (3.8-10.6) k/uL RBC 4.37 (3.80-5.40) m/uL Hgb 13.6 (11.4-16.0) gm/dL Hct 38.5 (34.0-46.0) % MCV 88.1 (80.0-100.0) fL MCH 31.1 (25.0-35.0) pg MCHC 35.3 (31.0-37.0) g/dL RDW 11.6 (11.5-15.5) % Plt Count 183 (150-450) k/uL MPV 9.1 Neutrophils % 85 % Lymphocytes % 9 % Monocytes % 5 % Eosinophils % 0 % Basophils % 0 % Neutrophils # 5.7 (1.3-7.7) k/uL Lymphocytes # 0.6 L (1.0-4.8) k/uL Monocytes # 0.3 (0-1.0) k/uL Eosinophils # 0.0 (0-0.7) k/uL Basophils # 0.0 (0-0.2) k/uL PT 10.4 (9.0-12.0) sec INR 1.0 (<1.2) APTT 24.9 (22.0-30.0) sec Plasma Lactic Acid Terence 0.8 (0.7-2.0) mmol/L Coronavirus (PCR) (Not Detectd) 06/23/20 Range/Units 04:05 WBC (3.8-10.6) k/uL RBC (3.80-5.40) m/uL Hgb (11.4-16.0) gm/dL Hct (34.0-46.0) % MCV (80.0-100.0) fL MCH (25.0-35.0) pg MCHC (31.0-37.0) g/dL RDW (11.5-15.5) % Plt Count (150-450) k/uL MPV Neutrophils % % Lymphocytes % % Monocytes % % Eosinophils % % Basophils % % Neutrophils # (1.3-7.7) k/uL Lymphocytes # (1.0-4.8) k/uL Monocytes # (0-1.0) k/uL Eosinophils # (0-0.7) k/uL Basophils # (0-0.2) k/uL PT (9.0-12.0) sec INR (<1.2) APTT (22.0-30.0) sec Plasma Lactic Acid Terence (0.7-2.0) mmol/L Coronavirus (PCR) Detected A (Not Detectd) Disposition Clinical Impression: Coronavirus infection, Pneumonia due to COVID-19 virus, Fever, Hypoxia Disposition: ADMITTED IP TO THIS HOSP Condition: Fair Is patient prescribed a controlled substance at d/c from ED?: No Referrals: Chandu Burton MD [Primary Care Provider] - 1-2 days
[2020-06-23 05:12] LABS: C Reactive Protein 150.7 mg/L (<10.0)
--- NOTE | 2020-06-23 05:24 | XR ---
EXAM: XR Chest, 1 View CLINICAL HISTORY: Suspected COVID-19 pneumonia TECHNIQUE: Frontal view of the chest. COMPARISON: 05/06/16 FINDINGS: Lungs: Left basilar atelectasis and/or infiltrates with small left effusion. Pleural space: See above. Heart: The heart is at the upper limits of normal/mildly enlarged. Mediastinum: Unremarkable. Bones/joints: Unremarkable. IMPRESSION: 1. The heart is at the upper limits of normal/mildly enlarged. 2. Left basilar atelectasis and/or infiltrates with small left pleural effusion. PA and lateral views of the recommended for further evaluation.
[2020-06-23] MEDS ORDERED: BAMLANIVIMAB (EUA) 700 MG, ETESEVIMAB (EUA) 1,400 MG in SODIUM CHLORIDE 0.9% 50 ML IVPB ONE (06:00)
[2020-06-23] MEDS ORDERED: IBUPROFEN 400 MG TAB PO PRN ×2 (06:00→07:29)
--- NOTE | 2020-06-23 07:29 | ED ---
Medical Decision Making - Medical Decision Making 75 female to the ER for evaluation patient presents today for evaluation regards to coronavirus. Patient will be admitted if she is failing discharged with low blood pressure and low oxygen saturation - Lab Data Result diagrams: 06/23/20 04:05 06/23/20 04:05 Critical Care Time Critical Care Time: Yes Total Critical Care Time: 31 Disposition Clinical Impression: Coronavirus infection, Pneumonia due to COVID-19 virus, Fever, Hypoxia Disposition: ADMITTED IP TO THIS HOSP Condition: Fair
[2020-06-23] MEDS ORDERED: SODIUM CHLORIDE 0.9% 500 ML 500 ML IV ONE (07:30)
[2020-06-23] MEDS ORDERED: SODIUM CHLORIDE 0.9% 1,000 ML IV ONE (07:30)
[2020-06-23] MEDS: ENOXAPARIN 40 MG/0.4 ML SYRINGE SQ SCH (09:59)
[2020-06-23] MEDS: SODIUM CHLORIDE 0.9% 1,000 ML IV SCH ×3 (09:59→21:44)
--- NOTE | 2020-06-23 13:40 | P.CNPUL ---
History of Present Illness Consult date: 06/23/20 Requesting physician: Ayan Knutson Reason for consult: other Chief complaint: Nausea, vomiting, abdominal cramping. History of present illness: 75-year-old female who presented to the emergency department on June 23, with complaints of nausea, vomiting, diarrhea. She has not been feeling well for about 5 days. She initially thought she had the flu. Currently, she is on 2 L, and receiving some saline IV. Her symptoms started on Friday. She denies any shortness of breath, cough, chest pain, or other complaints like this. Because these GI complaints getting worse, she came in to be evaluated. She's also having some abdominal pain and cramping. She's not been able to hold much down in the way of food or fluid. The patient has a history of hypertension, and atrial fibrillation. She is on Rythmol, Xarelto, Zestoretic, and Xanax. White count 6.7, hemoglobin 13.6, hematocrit 38.5, platelet count 183,000. PT INR and PTT are normal. Sodium is 128, potassium 3.8, chloride 94, CO2 25, anion gap 9, BUN 21 and creatinine 0.74. LDH is 606. C-reactive protein is 151. For some reason I cannot pull up the x-ray to look at it but the report says that the heart is the upper limits of normal/mildly enlarged, and there is left basilar atelectasis and/or infiltrates with small left-sided effusion. Although, she is not having any pulmonary complaints at this time, she may be developing a COVID 19 pneumonitis. Review of Systems REVIEW OF SYSTEMS: CONSTITUTIONAL: Weakness, dehydration. NEUROLOGIC: [ Negative.] HEENT: [ Negative.] CARDIAC: [Negative.] PULMONARY: [Negative.] GI: Nausea, vomiting, and diarrhea. Poor oral intake. : [Negative.] RHEUMATOLOGIC: [ Negative.] IMMUNOLOGIC: [ Negative.] ENDOCRINE: [Negative. ] DERMATOLOGIC: [Negative.] Past Medical History Past Medical History: Atrial Fibrillation, Hypertension History of Any Multi-Drug Resistant Organisms: None Reported Past Surgical History: No Surgical Hx Reported Past Anesthesia/Blood Transfusion Reactions: No Reported Reaction Past Psychological History: Anxiety Smoking Status: Never smoker Past Alcohol Use History: None Reported Past Drug Use History: None Reported - Past Family History Brother(s) Family Medical History: Cancer, Diabetes Mellitus Additional Family Medical History / Comment(s): Colon cancer, at 58 Medications and Allergies Home Medications Medication Instructions Recorded Confirmed Type Lisinopril-Hctz 20-25 mg 1 tab PO DAILY 05/06/16 06/23/20 History [Zestoretic 20-25] Propafenone [Rythmol] 150 mg PO Q8HR #90 tab 05/07/16 06/23/20 Rx Rivaroxaban [Xarelto] 20 mg PO W/SUPPER #30 tab 05/07/16 06/23/20 Rx Allergies Allergy/AdvReac Type Severity Reaction Status Date / Time No Known Allergies Allergy Verified 06/23/20 08:07 Physical Exam Osteopathic Statement: *. No significant issues noted on an osteopathic structural exam other than those noted in the History and Physical/Consult. Vitals: Vital Signs Temp Pulse Resp BP Pulse Ox 06/23/20 10:30 66 16 90/47 95 06/23/20 10:00 67 19 111/61 95 06/23/20 09:30 71 14 107/54 95 06/23/20 09:00 73 19 93/56 94 L 06/23/20 08:30 76 10 L 90/45 93 L 06/23/20 08:00 78 17 103/65 95 06/23/20 07:30 74 18 80/53 95 06/23/20 07:29 93 L 06/23/20 07:27 98.0 F 74 18 80/53 89 L 06/23/20 07:00 75 28 H 84/49 85 L 06/23/20 05:50 99.4 F 75 18 91/46 91 L 06/23/20 03:25 102.1 F H 105 H 20 117/68 91 L Intake and Output 06/22/20 06/23/20 06/23/20 22:59 06:59 14:59 Other: Weight 84.368 kg No acute distress, oriented 3. Patient on O2 at 2 L, with saturations of 93%. HEENT examination is grossly unremarkable. Mucous membranes are moist. No oral lesions. Neck supple. Full range of motion. No adenopathy thyromegaly or neck vein distention. Cardiovascular examination reveals regular rhythm rate. S1-S2 normal. No S3 or S4. No discernible murmur noted. Heart rate 66 bpm. Lungs reveal clear breath sounds. Her sounds are equal bilaterally. No adventitious lung sounds including wheezes rhonchi or crackles. Abdomen soft, with hyperactive bowel sounds. No masses or tenderness. Extremities are intact. No cyanosis clubbing or edema. Skin is without rash or lesion. Neurologic examination is brief but nonfocal. Results - Laboratory Findings CBC and BMP: 06/23/20 04:05 06/23/20 04:05 PT/INR, D-dimer PT 10.4 sec (9.0-12.0) 06/23/20 04:05 INR 1.0 (<1.2) 06/23/20 04:05 Abnormal lab findings: Abnormal Labs 06/23/20 06/23/20 06/23/20 04:05 04:05 04:05 Lymphocytes # 0.6 L Sodium 128 L Chloride 94 L BUN 21 H Glucose 131 H Alkaline Phosphatase 148 H C-Reactive Protein 150.7 H Coronavirus (PCR) Detected A - Diagnostic Findings Chest x-ray: image reviewed Assessment and Plan Assessment: COVID 19 infection, with primary GI complaints. History of atrial fibrillation. History of hypertension. Lifelong nontobacco user. Hypovolemic hyponatremia. Plan: Plan dated 06/23/2020. The patient apparently received BAM/ETE. The patient also received Lovenox, albuterol inhaler, and Zofran. The patient should be hydrated. The patient might be able to be discharged from the emergency department if she's feeling better. She's really is not having any lung complaints at this time. Her oxygen might be able to be weaned off. Additional recommendations and suggestions are forthcoming. Prognosis is guarded. Time with Patient: Greater than 30
--- NOTE | 2020-06-23 14:06 | P.HPIM ---
History of Present Illness H&P Date: 06/23/20 Chief Complaint: vomiting This is a 75-year-old female with hx of hypertension, and atrial fibrillation presented with persistent nausea, vomiting as well as diarrhea for the past 5 days. No abdominal pain. No cough or shortness of breath. She's not been able to hold much food down over the past few days. Evaluation in the ER showed O2 sats dropping to 85% on RA, went up to the 90s on NC. White count 6.7, hemoglobin 13.6, hematocrit 38.5, platelet count 183,000. PT INR and PTT are normal. Sodium is 128, potassium 3.8, chloride 94, CO2 25, anion gap 9, BUN 21 and creatinine 0.74. LDH is 606. C-reactive protein is 151. CXR showed left basilar atelectasis and/or infiltrates with small left-sided effusion. Review of Systems Complete review of system was performed, pertinent positives per HPI, otherwise negative Past Medical History Past Medical History: Atrial Fibrillation, Hypertension History of Any Multi-Drug Resistant Organisms: None Reported Past Surgical History: No Surgical Hx Reported Past Anesthesia/Blood Transfusion Reactions: No Reported Reaction Past Psychological History: Anxiety Smoking Status: Never smoker Past Alcohol Use History: None Reported Past Drug Use History: None Reported - Past Family History Brother(s) Family Medical History: Cancer, Diabetes Mellitus Additional Family Medical History / Comment(s): Colon cancer, at 58 Medications and Allergies Home Medications Medication Instructions Recorded Confirmed Type Lisinopril-Hctz 20-25 mg 1 tab PO DAILY 05/06/16 06/23/20 History [Zestoretic 20-25] Propafenone [Rythmol] 150 mg PO Q8HR #90 tab 05/07/16 06/23/20 Rx Rivaroxaban [Xarelto] 20 mg PO W/SUPPER #30 tab 05/07/16 06/23/20 Rx Allergies Allergy/AdvReac Type Severity Reaction Status Date / Time No Known Allergies Allergy Verified 06/23/20 08:07 Physical Exam Vitals: Vital Signs Temp Pulse Resp BP Pulse Ox 06/23/20 07:29 93 L 06/23/20 07:27 98.0 F 74 18 80/53 89 L 06/23/20 05:50 99.4 F 75 18 91/46 91 L 06/23/20 03:25 102.1 F H 105 H 20 117/68 91 L Intake and Output 06/22/20 06/23/20 06/23/20 22:59 06:59 14:59 Other: Weight 84.368 kg Constitutional: No acute distress, conversant, pleasant Eyes:Anicteric sclerae, moist conjunctiva, no lid-lag, PERRLA, ENMT: Oropharynx clear, no erythema, exudates Neck: Supple, FROM, no masses, or JVD, No carotid bruits, No thyromegaly Lungs: Clear to auscultation, Clear to percussion, Normal respiratory effort, no accessory muscle use Cardiovascular: Heart regular in rate and rhythm, No murmurs, gallops, or rubs, No peripheral edema Abdominal: Soft, Nontender, no guarding, rebound or rigidity, Normoactive bowel sounds, No hepatomegaly, No splenomegaly, No palpable mass Skin: Normal temperature, tone, texture, turgor, no induration, No subcutaneous nodules, No rash, lesions, No ulcers Extremities: No digital cyanosis, No clubbing, Pedal pulses intact and symmetrical, Radial pulses intact and symmetrical, No calf tenderness Psychiatric: Alert and oriented to person, place and time, appropriate affect, intact judgement Neuro: Muscles Strength 5/5 in all 4 extremities, Sensation to light touch grossly present throughout, Cranial nerves II-XII grossly intact, no focal sensory deficits Results CBC & Chem 7: 06/23/20 04:05 06/23/20 04:05 Labs: Abnormal Lab Results - Last 24 Hours (Table) 06/23/20 06/23/20 06/23/20 Range/Units 04:05 04:05 04:05 Lymphocytes # 0.6 L (1.0-4.8) k/uL Sodium 128 L (137-145) mmol/L Chloride 94 L (98-107) mmol/L BUN 21 H (7-17) mg/dL Glucose 131 H (74-99) mg/dL Alkaline Phosphatase 148 H (38-126) U/L C-Reactive Protein 150.7 H (<10.0) mg/L Coronavirus (PCR) Detected A (Not Detectd) Assessment and Plan Plan: Covid 19 pneumonia Acute respiratory failure with hypoxia O2 to keep sats above 92% Pulm consulted, following. Decadron Nausea and diarrhea Symptomatic treatment Hyponatremia Likely due to above IV fluids Follow Na in am. Hypotension Hold bp meds for now Chronic atrial fibrillation Stable continue meds Admitted to inpatient expected length of stay more than 2 midnights. Anticipated discharge: 2-3 days. Anticipated disposition: home
[2020-06-23] MEDS: ALBUTEROL HFA INHALER INHALATION PRN (20:08)
[2020-06-23] MEDS: RIVAROXABAN 20 MG TAB PO SCH (20:17)
[2020-06-23] MEDS: ACETAMINOPHEN TAB 325 MG TAB PO PRN (20:17)
[2020-06-23] MEDS: PROPAFENONE 150 MG TAB PO SCH (20:17)
[2020-06-24] MEDS: PROPAFENONE 150 MG TAB PO SCH ×3 (02:00→17:57)
[2020-06-24] MEDS: SODIUM CHLORIDE 0.9% 1,000 ML IV SCH ×3 (02:00→14:36)
[2020-06-24] MEDS: DEXAMETHASONE SOD PHOSPHATE 10 MG/ML 1 ML VIAL IV SCH (07:14)
[2020-06-24] MEDS: ENOXAPARIN 40 MG/0.4 ML SYRINGE SQ SCH (07:14)
[2020-06-24] MEDS: ACETAMINOPHEN TAB 325 MG TAB PO PRN (07:14)
[2020-06-24] MEDS: ALBUTEROL HFA INHALER INHALATION PRN ×2 (07:52→21:16)
[2020-06-24 10:59] LABS: Basophils % (A) 0 %; Eosinophils % (A) 0 %; HCT 31.2 % (34.0-46.0); HGB 11.2 gm/dL (11.4-16.0); Lymphocytes # (A) 0.6 k/uL (1.0-4.8); Lymphocytes % (A) 7 %; MCH 32.4 pg (25.0-35.0); MCHC 35.8 g/dL (31.0-37.0); MCV 90.5 fL (80.0-100.0); Mean Platelet Volume 9.2; Monocytes # (A) 0.3 k/uL (0-1.0); Monocytes % (A) 3 %; Neutrophils # (A) 7.4 k/uL (1.3-7.7); Neutrophils % (A) 89 %; Platelet Count 159 k/uL (150-450); RBC 3.44 m/uL (3.80-5.40); RDW 11.7 % (11.5-15.5); WBC 8.3 k/uL (3.8-10.6)
[2020-06-24 11:12] LABS: ALT 14 U/L (4-34); AST 39 U/L (14-36); African American GFR (CKD) >90 (>60 ml/min/1.73 sqM); Albumin 2.4 g/dL (3.5-5.0); Alkaline Phosphatase 93 U/L (38-126); Anion Gap 4 mmol/L; Blood Urea Nitrogen 14 mg/dL (7-17); Calcium 7.3 mg/dL (8.4-10.2); Carbon Dioxide 24 mmol/L (22-30); Chloride 107 mmol/L (98-107); Glucose 107 mg/dL (74-99); Magnesium 1.9 mg/dL (1.6-2.3); Non-African American GFR(CKD) 86 (>60 ml/min/1.73 sqM); Phosphorus 2.2 mg/dL (2.5-4.5); Potassium 4.2 mmol/L (3.5-5.1); Sodium 135 mmol/L (137-145); Total Bilirubin 0.5 mg/dL (0.2-1.3)
--- NOTE | 2020-06-24 12:56 | P.PN ---
Subjective Progress Note Date: 06/24/20 Principal diagnosis: shortness of breath Patient is a 75-year-old female with A. fib anticoagulated on Xarelto and hypertension who presented to the ER with complaints of nausea, vomiting, and diarrhea. In the ER she underwent an extensive evaluation was ultimately found to be hypoxic with an O2 sat of 85% on room air. Labs were also unremarkable for sodium of 128. Chest x-ray showed left basilar atelectasis and infiltrate with a small left-sided pleural effusion. She tested positive for cough at 19. Inflammatory markers were mildly elevated. Initially the plan had been to discharge the patient home she was not hypoxic and she received Bam + ETE. However due to the hypoxemia and she was monitored overnight. She did receive to cope with vaccinations however the last one was on 06/22. She was started on Decadron, Lovenox, and bronchodilators. Pulmonary was consulted and agreed with current management. By the morning of 06/24 her sodium level had improved but her oxygen levels remained 86% on room air. He was determined that she would require further monitoring. Patient seen and examined at bedside. She states her breathing is better and she feels better than yesterday, denies any nausea, vomiting, or diarrhea. Understands that she needs to continue to be observed in the hospital. General: ill appearing, mild distress, appears at stated age Derm: warm, dry Head: atraumatic, normocephalic, symmetric Eyes: EOMI, no lid lag, anicteric sclera Mouth: no lip lesion, mucus membranes dry Cardiovascular: S1S2 reg, no murmur, positive posterior tibial pulse bilateral, Lungs: Decreased bs bilateral, no rhonchi, no rales , no accessory muscle use Abdominal: soft, nontender to palpation, no guarding, no appreciable organomegaly Ext: no gross muscle atrophy, no edema, no contractures Neuro: CN II-XI grossly intact, no focal neuro deficits Psych: Alert, oriented, appropriate affect COVID 19 pneumonitis, Acute hypoxic respiratory failure -Decadron -Pulmonary recommendations: With hypoxemia could consider Remdesivir -zinc, Vit C, Vit D - Xarelto Hyponatremia likely secondary to dehydration from diarrhea and nausea and vomiting - improved -Hydrochlorothiazide on hold -IV fluids decrease -Follow sodium levels Paroxysmal A. fib -Xarelto -Rythmol DVT prophylaxis: Xarelto Discussed with: Patient, nursing Anticipated discharge: 2-[address]: home A total of 35 minutes was spent on the care of this complex patient more than 50% of the time was spent in counseling and care coordination. Objective - Vital Signs Vital signs: Vital Signs Temp 99.8 F H 06/24/20 04:00 Pulse 72 06/24/20 04:00 Resp 17 06/24/20 04:00 BP 94/59 06/24/20 04:00 Pulse Ox 97 06/24/20 04:00 Intake & Output 06/23/20 06/24/20 06/24/20 18:59 06:59 18:59 Intake Total 1350 Balance 1350 Weight 84.368 kg Intake: Intake, IV Titration 1350 Amount Sodium Chloride 0.9% 1, 1350 000 ml @ 150 mls/hr IV . Q6H40M [facility] Rx#:[id number] Other: Voiding Method Toilet # Voids 1 - Labs CBC & Chem 7: 06/24/20 10:00 06/24/20 10:00
--- NOTE | 2020-06-24 14:33 | P.PN ---
Subjective Progress Note Date: 06/24/20 Principal diagnosis: Acute hypoxic respiratory failure secondary to covid 19 pneumonitis 75-year-old female who presented to the emergency department on June 23, with complaints of nausea, vomiting, diarrhea. She has not been feeling well for about 5 days. She initially thought she had the flu. Currently, she is on 2 L, and receiving some saline IV. Her symptoms started on Friday. She denies any shortness of breath, cough, chest pain, or other complaints like this. Because these GI complaints getting worse, she came in to be evaluated. She's also having some abdominal pain and cramping. She's not been able to hold much down in the way of food or fluid. The patient has a history of hypertension, and atrial fibrillation. She is on Rythmol, Xarelto, Zestoretic, and Xanax. White count 6.7, hemoglobin 13.6, hematocrit 38.5, platelet count 183,000. PT INR and PTT are normal. Sodium is 128, potassium 3.8, chloride 94, CO2 25, anion gap 9, BUN 21 and creatinine 0.74. LDH is 606. C-reactive protein is 151. For some reason I cannot pull up the x-ray to look at it but the report says that the heart is the upper limits of normal/mildly enlarged, and there is left basilar atelectasis and/or infiltrates with small left-sided effusion. Although, she is not having any pulmonary complaints at this time, she may be developing a COVID 19 pneumonitis. Patient was reevaluated today on 06/23/2020, remains in the observation unit, patient was seen by Dr. Quintero yesterday. Patient remains on 3 L nasal cannula, and when she was switched to room air her O2 saturation dropped down to 86%. Hence she is not quite ready to be discharged home today, we will reassess in the next 24 hours, and decide whether the patient would benefit from having home oxygen. Clinically, the patient feels great, she is relatively asymptomatic. CBC is relatively normal hemoglobin is 11.2. D-dimer 0.20. A left lites are normal. Again the patient has no clinical symptoms. Objective - Vital Signs Vital signs: Vital Signs Temp 98.0 F 06/24/20 10:12 Pulse 72 06/24/20 10:12 Resp 16 06/24/20 10:12 BP 97/61 06/24/20 10:12 Pulse Ox 86 L 06/24/20 10:12 Intake & Output 06/23/20 06/24/20 06/24/20 18:59 06:59 18:59 Intake Total 1350 Balance 1350 Weight 84.368 kg Intake: Intake, IV Titration 1350 Amount Sodium Chloride 0.9% 1, 1350 000 ml @ 150 mls/hr IV . Q6H40M [facility] Rx#:[id number] Other: Voiding Method Toilet # Voids 1 - Exam Physical Exam revealed a 75-year-old female in no distress. On 3 L nasal cannula. Head: Atraumatic, normocephalic. HEENT:[Neck is supple.] [No neck masses.] [No thyromegaly.] [No JVD.] Chest: [No medical chest expansion, crackles at the bases, no rhonchi and no wheezes. Cardiac Exam: [Normal S1 and S2, no S3 gallop, no murmur.] Abdomen: [Soft, nontender, no megaly, no rebound, no guarding, normal bowel sounds.] Extremities: [No clubbing, no edema, no cyanosis.] Neurological Exam: [No focal neurologic deficit.] - Labs CBC & Chem 7: 06/24/20 10:00 06/24/20 10:00 Labs: Abnormal Lab Results - Last 24 Hours (Table) 06/24/20 06/24/20 Range/Units 10:00 10:00 RBC 3.44 L (3.80-5.40) m/uL Hgb 11.2 L (11.4-16.0) gm/dL Hct 31.2 L (34.0-46.0) % Lymphocytes # 0.6 L (1.0-4.8) k/uL Sodium 135 L (137-145) mmol/L Glucose 107 H (74-99) mg/dL Calcium 7.3 L (8.4-10.2) mg/dL Phosphorus 2.2 L (2.5-4.5) mg/dL AST 39 H (14-36) U/L Total Protein 5.0 L (6.3-8.2) g/dL Albumin 2.4 L (3.5-5.0) g/dL Assessment and Plan Assessment: Impression: Acute hypoxic respiratory failure secondary to covid 19 pneumonitis. Hypovolemic hyponatremia. Paroxysmal atrial fibrillation. Benign essential hypertension. Lifelong nonsmoker. Recommendation: Continue oxygen Continue to Covid 19 cocktail. Patient did receive the BAM Patient is not ready to be discharged home mostly because of her low oxygen saturation and because of her fever. Consider discharge planning in the next 24 hours Time with Patient: Less than 30
[2020-06-24] MEDS: RIVAROXABAN 20 MG TAB PO SCH (17:57)
[2020-06-25] MEDS: PROPAFENONE 150 MG TAB PO SCH ×3 (00:49→17:21)
[2020-06-25] MEDS: SODIUM CHLORIDE 0.9% 1,000 ML IV SCH (01:58)
[2020-06-25] MEDS: ALPRAZolam 0.25 MG TAB PO PRN (09:03)
[2020-06-25] MEDS: SODIUM PHOSPHATE 10 MMOL in SODIUM CHLORIDE 0.9% 250 ML IVPB SCH ×2 (09:03→14:05)
[2020-06-25] MEDS: DEXAMETHASONE SOD PHOSPHATE 10 MG/ML 1 ML VIAL IV SCH (09:04)
[2020-06-25 09:14] LABS: HCT 31.6 % (37.2-46.3); HGB 10.5 g/dL (12.0-15.0); MCH 30.6 pg (27.0-32.0); MCHC 33.2 g/dL (32.0-37.0); MCV 92.1 fL (80.0-97.0); Mean Platelet Volume 11.6 fL (9.5-12.2); Platelet Count 175 X 10*3/uL (140-440); RBC 3.43 X 10*6/uL (4.10-5.20); RDW 11.8 % (11.5-14.5); WBC 8.52 X 10*3/uL (4.50-10.00)
[2020-06-25] MEDS: ALBUTEROL HFA INHALER INHALATION PRN ×2 (09:14→17:14)
[2020-06-25 09:20] VITALS: RESP 16
[2020-06-25 10:24] LABS: African American GFR (CKD) 104.1 (60.0-200.0); Albumin/Globulin Ratio 1.58 (1.60-3.17); BUN/Creat Ratio 21.67 Ratio (12.00-20.00); Calcium 7.9 mg/dL (8.7-10.3); Globulin 1.9 g/dL (1.6-3.3); Non-African American GFR(CKD) 89.8 (60.0-200.0); Potassium 3.7 mmol/L (3.5-5.5); Total Bilirubin 0.5 mg/dL (0.2-1.2); Total Protein 4.9 g/dL (6.2-8.2)
--- NOTE | 2020-06-25 11:40 | P.PN ---
Subjective Progress Note Date: 06/25/20 (delayed charting seen at 0900) Principal diagnosis: shortness of breath Patient is a 75-year-old female with A. fib anticoagulated on Xarelto and hypertension who presented to the ER with complaints of nausea, vomiting, and diarrhea. In the ER she underwent an extensive evaluation was ultimately found to be hypoxic with an O2 sat of 85% on room air. Labs were also unremarkable for sodium of 128. Chest x-ray showed left basilar atelectasis and infiltrate with a small left-sided pleural effusion. She tested positive for cough at 19. Inflammatory markers were mildly elevated. Initially the plan had been to discharge the patient home she was not hypoxic and she received Bam + ETE. However due to the hypoxemia and she was monitored overnight. She did receive her COVID vaccinations however the last one was on 06/22. She was started on Decadron, Lovenox, and bronchodilators. Pulmonary was consulted and agreed with current management. By the morning of 06/24 her sodium level had improved but her oxygen levels remained 86% on room air. He was determined that she would require further monitoring she was transitioned to inpatient. She continued to require 2L NC and was 83 % on RA on 06/24. Patient seen and examined at bedside. Upset, anxious, did not sleep well last night, does not want to be in the hospital anymore. We discussed the importance of monitoring her nutritional 24 hours to ensure that her oxygen levels do not worsen. If she continues to do well she'll be discharged home tomorrow with home oxygen. General: non toxic, no distress, appears at stated age Derm: warm, dry Head: atraumatic, normocephalic, symmetric Eyes: EOMI, no lid lag, anicteric sclera Mouth: no lip lesion, mucus membranes dry Cardiovascular: S1S2 reg, no murmur, positive posterior tibial pulse bilateral, Lungs: Decreased bs bilateral, no rhonchi, no rales , no accessory muscle use Abdominal: soft, nontender to palpation, no guarding, no appreciable organomegaly Ext: no gross muscle atrophy, no edema, no contractures Neuro: CN II-XI grossly intact, no focal neuro deficits Psych: Alert, oriented, appropriate affect COVID 19 pneumonitis, Acute hypoxic respiratory failure -Decadron -Pulmonary recommendations -zinc, Vit C, Vit D - Xarelto Hyponatremia likely secondary to dehydration from diarrhea and nausea and vomiting - improved -Hydrochlorothiazide on hold -IV fluids decrease -Follow sodium levels Paroxysmal A. fib -Xarelto -Rythmol DVT prophylaxis: Xarelto Discussed with: Patient, nursing Anticipated discharge: in AM Anticipated discharge place: home with oxygen A total of 25 minutes was spent on the care of this complex patient more than 50% of the time was spent in counseling and care coordination. Objective - Vital Signs Vital signs: Vital Signs Temp 98.0 F 06/25/20 08:00 Pulse 83 06/25/20 08:00 Resp 16 06/25/20 08:00 BP 103/65 06/25/20 08:00 Pulse Ox 92 L 06/25/20 08:00 Intake & Output 06/24/20 06/25/20 06/25/20 18:59 06:59 18:59 Other: # Voids 1 - Labs CBC & Chem 7: 06/25/20 05:49 06/25/20 05:49 Labs: Abnormal Lab Results - Last 24 Hours (Table) 06/24/20 06/25/20 06/25/20 Range/Units 10:00 05:49 05:49 RBC 3.43 L (4.10-5.20) X 10*6/uL Hgb 10.5 L (12.0-15.0) g/dL Hct 31.6 L (37.2-46.3) % BUN/Creatinine Ratio 21.67 H (12.00-20.00) Ratio Calcium 7.9 L (8.7-10.3) mg/dL Lactate Dehydrogenase 256 H (120-246) U/L Total Protein 4.9 L (6.2-8.2) g/dL Albumin 3.00 L (3.80-4.90) g/dL Albumin/Globulin Ratio 1.58 L (1.60-3.17) g/dL Procalcitonin 0.57 H (0.02-0.09) ng/mL
[2020-06-25 12:16] LABS: Anion Gap 7.7 mmol/L (4.00-12.00); C Reactive Protein 9.5 mg/dL (0.0-0.8); Carbon Dioxide 24.3 mmol/L (21.6-31.8)
--- NOTE | 2020-06-25 13:36 | P.PN ---
Subjective Progress Note Date: 06/25/20 Principal diagnosis: COVID 19 infection. 75-year-old female who presented to the emergency department on June 23, with complaints of nausea, vomiting, diarrhea. She has not been feeling well for about 5 days. She initially thought she had the flu. Currently, she is on 2 L, and receiving some saline IV. Her symptoms started on Friday. She denies any shortness of breath, cough, chest pain, or other complaints like this. Because these GI complaints getting worse, she came in to be evaluated. She's also having some abdominal pain and cramping. She's not been able to hold much down in the way of food or fluid. The patient has a history of hypertension, and atrial fibrillation. She is on Rythmol, Xarelto, Zestoretic, and Xanax. White count 6.7, hemoglobin 13.6, hematocrit 38.5, platelet count 183,000. PT INR and PTT are normal. Sodium is 128, potassium 3.8, chloride 94, CO2 25, anion gap 9, BUN 21 and creatinine 0.74. LDH is 606. C-reactive protein is 151. For some reason I cannot pull up the x-ray to look at it but the report says that the heart is the upper limits of normal/mildly enlarged, and there is left basilar atelectasis and/or infiltrates with small left-sided effusion. Although, she is not having any pulmonary complaints at this time, she may be developing a COVID 19 pneumonitis. Patient was reevaluated today on 06/23/2020, remains in the observation unit, patient was seen by Dr. Quintero yesterday. Patient remains on 3 L nasal cannula, and when she was switched to room air her O2 saturation dropped down to 86%. Hence she is not quite ready to be discharged home today, we will reassess in the next 24 hours, and decide whether the patient would benefit from having home oxygen. Clinically, the patient feels great, she is relatively asymptomatic. CBC is relatively normal hemoglobin is 11.2. D-dimer 0.20. A left lites are normal. Again the patient has no clinical symptoms. Progress note dated 06/25/2020. The patient was seen by me on June 23, and consultation. The patient came in with primarily GI complaints including nausea, vomiting, and diarrhea. She really did not have any pulmonary issues at all. She did test positive for coronavirus. She was seen by my partner yesterday. Clinically, she's feeling better. She is on 2 L. She is receiving saline at 75 mL an hour. Her only complaint today was that she was having issues with sleeping at night. White count 3.52, he will become 0.5, hematocrit 31.6, and platelet count 175,000. Sodium 138, potassium 3.7, chlorides 106, CO2 24, anion gap is 8, BUN 13, and creatinine 0.6. LDH is down to 256 from 606, and C-reactive protein is 9.5, down from 151. Objective - Vital Signs Vital signs: Vital Signs Temp 98.0 F 06/25/20 08:00 Pulse 83 06/25/20 08:00 Resp 16 06/25/20 08:00 BP 103/65 06/25/20 08:00 Pulse Ox 92 L 06/25/20 08:00 Intake & Output 06/24/20 06/25/20 06/25/20 18:59 06:59 18:59 Other: # Voids 1 - Exam No acute distress, oriented 3. Saturations 92% on 2 L. Respiratory distress. HEENT examination is grossly unremarkable. Mucous membranes are moist. No oral lesions. Neck supple. Full range of motion. No adenopathy thyromegaly or neck vein distention. Cardiovascular examination reveals regular rhythm rate. S1-S2 normal. No S3 or S4. No discernible murmur noted. Heart rate 83 bpm. Lungs reveal clear bilateral breath sounds. Breath sounds are equal bilaterally. There are no wheezes, rhonchi, or crackles. Abdomen soft bowel sounds are heard. No masses or tenderness. Extremities are intact. No cyanosis clubbing or edema. Skin is without rash or lesion. Neurologic examination is brief but nonfocal. - Labs CBC & Chem 7: 06/25/20 05:49 06/25/20 05:49 Labs: Abnormal Lab Results - Last 24 Hours (Table) 06/24/20 06/25/20 06/25/20 Range/Units 10:00 05:49 05:49 RBC 3.43 L (4.10-5.20) X 10*6/uL Hgb 10.5 L (12.0-15.0) g/dL Hct 31.6 L (37.2-46.3) % BUN/Creatinine Ratio 21.67 H (12.00-20.00) Ratio Calcium 7.9 L (8.7-10.3) mg/dL Lactate Dehydrogenase 256 H (120-246) U/L C-Reactive Protein 9.5 H (0.0-0.8) mg/dL Total Protein 4.9 L (6.2-8.2) g/dL Albumin 3.00 L (3.80-4.90) g/dL Albumin/Globulin Ratio 1.58 L (1.60-3.17) g/dL Procalcitonin 0.57 H (0.02-0.09) ng/mL Assessment and Plan Assessment: COVID 19 infection, with primary GI complaints. History of atrial fibrillation. History of hypertension. Lifelong nontobacco user. Hypovolemic hyponatremia. Plan: Plan dated 06/23/2020. The patient apparently received BAM/ETE. The patient also received Lovenox, albuterol inhaler, and Zofran. The patient should be hydrated. The patient might be able to be discharged from the emergency department if she's feeling better. She's really is not having any lung complaints at this time. Her o xygen might be able to be weaned off. Additional recommendations and suggestions are forthcoming. Prognosis is guarded. Plan dated 06/25/2020. The patient remains on oxygen therapy. Saturations are in the low 90s. He is really not having much in the way of pulmonary complaints. Most of her issues with GI in nature. They have improved is wall. The patient did receive BAM. She remains on the appropriate medications. We'll continue to follow. She is on Decadron. Time with Patient: Less than 30
[2020-06-25] MEDS: RIVAROXABAN 20 MG TAB PO SCH (17:21)
[2020-06-26] MEDS: PROPAFENONE 150 MG TAB PO SCH ×2 (00:07→08:12)
[2020-06-26] MEDS: ALPRAZolam 0.25 MG TAB PO PRN (00:14)
[2020-06-26 02:54] VITALS: PULSE 70
[2020-06-26] MEDS: DEXAMETHASONE SOD PHOSPHATE 10 MG/ML 1 ML VIAL IV SCH (08:12)
[2020-06-26 08:47] VITALS: BP 132/76; TEMP 97.7
[2020-06-26] MEDS: ALBUTEROL HFA INHALER INHALATION PRN (11:52)
--- NOTE | 2020-06-26 14:14 | P.PN ---
Subjective Progress Note Date: 06/26/20 Principal diagnosis: Acute hypoxic respiratory failure secondary to covid 19 pneumonitis 75-year-old female who presented to the emergency department on June 23, with complaints of nausea, vomiting, diarrhea. She has not been feeling well for about 5 days. She initially thought she had the flu. Currently, she is on 2 L, and receiving some saline IV. Her symptoms started on Friday. She denies any shortness of breath, cough, chest pain, or other complaints like this. Because these GI complaints getting worse, she came in to be evaluated. She's also having some abdominal pain and cramping. She's not been able to hold much down in the way of food or fluid. The patient has a history of hypertension, and atrial fibrillation. She is on Rythmol, Xarelto, Zestoretic, and Xanax. White count 6.7, hemoglobin 13.6, hematocrit 38.5, platelet count 183,000. PT INR and PTT are normal. Sodium is 128, potassium 3.8, chloride 94, CO2 25, anion gap 9, BUN 21 and creatinine 0.74. LDH is 606. C-reactive protein is 151. For some reason I cannot pull up the x-ray to look at it but the report says that the heart is the upper limits of normal/mildly enlarged, and there is left basilar atelectasis and/or infiltrates with small left-sided effusion. Although, she is not having any pulmonary complaints at this time, she may be developing a COVID 19 pneumonitis. Patient was reevaluated today on 06/23/2020, remains in the observation unit, patient was seen by Dr. Quintero yesterday. Patient remains on 3 L nasal cannula, and when she was switched to room air her O2 saturation dropped down to 86%. Hence she is not quite ready to be discharged home today, we will reassess in the next 24 hours, and decide whether the patient would benefit from having home oxygen. Clinically, the patient feels great, she is relatively asymptomatic. CBC is relatively normal hemoglobin is 11.2. D-dimer 0.20. A left lites are normal. Again the patient has no clinical symptoms. The patient was seen by me on June 23, and consultation. The patient came in with primarily GI complaints including nausea, vomiting, and diarrhea. She really did not have any pulmonary issues at all. She did test positive for coronavirus. She was seen by my partner yesterday. Clinically, she's feeling better. She is on 2 L. She is receiving saline at 75 mL an hour. Her only complaint today was that she was having issues with sleeping at night. White count 3.52, he will become 0.5, hematocrit 31.6, and platelet count 175,000. Sodium 138, potassium 3.7, chlorides 106, CO2 24, anion gap is 8, BUN 13, and creatinine 0.6. LDH is down to 256 from 606, and C-reactive protein is 9.5, down from 151. Reevaluated today on 06/26/2020, patient seems to be doing better, her O2 saturations 92% on 2 L. Patient is relatively asymptomatic. CBC is relatively normal hemoglobin is 10.5. electrlytes are normal. LDH is 256 and pro- calcitonin 0.57. Chest x-ray showed minimal left basilar atelectasis or infiltrate, this was her chest x-ray on admission, no follow-up chest x-ray was done since the patient is clinically improving. Patient is going to be discharged home today, and I believe she would benefit from having home oxygen. Objective - Vital Signs Vital signs: Vital Signs Temp 97.7 F 06/26/20 08:46 Pulse 70 06/26/20 08:46 Resp 16 06/26/20 08:46 BP 132/76 06/26/20 08:46 Pulse Ox 92 L 06/26/20 09:13 Intake & Output 06/25/20 06/26/20 06/26/20 18:59 06:59 18:59 Other: Voiding Method Toilet # Voids 2 - Exam Physical Exam revealed a 75-year-old female in no distress. On 2 L nasal cannula. Head: Atraumatic, normocephalic. HEENT:[Neck is supple.] [No neck masses.] [No thyromegaly.] [No JVD.] Chest: [Symmetrical chest expansion, crackles at the bases, no rhonchi and no wheezes. Cardiac Exam: [Normal S1 and S2, no S3 gallop, no murmur.] Abdomen: [Soft, nontender, no megaly, no rebound, no guarding, normal bowel sounds.] Extremities: [No clubbing, no edema, no cyanosis.] Neurological Exam: [No focal neurologic deficit.] Psychiatric: Normal mood affect and normal mental status examination. Skin: No rashes. - Labs CBC & Chem 7: 06/25/20 05:49 06/25/20 05:49 Assessment and Plan Assessment: Impression: Acute hypoxic respiratory failure secondary to covid 19 pneumonitis. Hypovolemic hyponatremia. Paroxysmal atrial fibrillation. Benign essential hypertension. Lifelong nonsmoker. Recommendation: Continue oxygen Continue to Covid 19 cocktail. Patient did receive the BAM Follow-up on outpatient basis in 2 weeks cleared to be discharged home on oxygen and continue the Covid 19 cocktail. Time with Patient: Less than 30
--- NOTE | 2020-06-27 22:10 | P.DS ---
Providers Date of admission: 06/23/20 14:06 Expected date of discharge: 06/26/20 Attending physician: Gage Arvizu Consults: 06/23/20 03:59 Consult Physician Routine Consulting Provider: Ghanshyam Noonan Consult Reason/Comments: covid Do you want consulting provider notified?: Yes Primary care physician: [facility] Course: Presenting complaint: shortness of breath Hospital course Patient is a 75-year-old female, who follows with with A. fib anticoagulated on Xarelto and hypertension who presented to the ER with complaints of nausea, vomiting, and diarrhea. In the ER she underwent an extensive evaluation was ultimately found to be hypoxic with an O2 sat of 85% on room air. Labs were also unremarkable for sodium of 128. Chest x-ray showed left basilar atelectasis and infiltrate with a small left-sided pleural effusion. She tested positive for COVID 19. Inflammatory markers were mildly elevated. Initially the plan had been to discharge the patient home she was not hypoxic and she received Bam + ETE. However due to the hypoxemia and she was monitored overnight. She did receive her COVID vaccinations however the last one was on 06/22. She was started on Decadron, Lovenox, and bronchodilators. Pulmonary was consulted and agreed with current management. By the morning of 06/24 her sodium level had improved but her oxygen levels remained 86% on room air. He was determined that she would require further monitoring she was transitioned to inpatient. She continued to require 2L NC and was 83 % on RA on 06/24. Today: Feeling much better. Oral intake fair. Pulse ox 92% on 2 L keen to go home. Care discussed with the patient. Coordinated with counseling case manager for home oxygen. Discussion and discharge planning more than 35 minutes Consultation: Dr. Quintero and partners from pulmonary On exam: Vitals: 97.7, 70, 16, 132/76, 92% on 2 L General appearance: Sitting up, comfortable Psychiatry: AO 3 Lungs: Fair air entry INVESTIGATIONS, reviewed in the clinical context: WBC 8.5 hemoglobin 10.5 platelets 135 potassium 3.7 creatinine 0.6 D-dimer 0.2 pro-calcitonin 0.57 CRP 9.5 Coronavirus [PCR] detected EKG: Nonspecific ST-T segment changes Assessment and plan: COVID 19 pneumonitis, causing Acute hypoxic respiratory failure -Decadron zinc, Vit C, Vit D Xarelto Acute hypoxic respiratory failure secondary to: 19 pneumonitis. Supplement oxygen. Hyponatremia likely secondary to dehydration from diarrhea and nausea and vomiting Improved with IV fluids Paroxysmal A. fib -Xarelto,Rythmol Normocytic anemia secondary to acute COVID 19 pneumonitis Hypoalbuminemia, acute phase reactant Disposition: Home Patient Condition at Discharge: Fair Plan - Discharge Summary Discharge Rx Participant: No New Discharge Prescriptions: New Ascorbic Acid [Vitamin C] 1,000 mg PO DAILY #30 tablet Ergocalciferol (Vitamin D2) [Vitamin D2 (400 Iu)] 10 mcg PO DAILY #30 tab dexAMETHasone [Dexamethasone] 6 mg PO DAILY #21 tablet Albuterol Inhaler [Ventolin Hfa Inhaler] 2 puff INHALATION RT-Q6H PRN #1 puff PRN Reason: Shortness Of Breath Or Wheezing Zinc Sulfate 50 mg PO DAILY #30 capsule Continue Propafenone [Rythmol] 150 mg PO Q8HR #90 tab Rivaroxaban [Xarelto] 20 mg PO W/SUPPER #30 tab No Action Lisinopril-Hctz 20-25 mg [Zestoretic 20-25] 1 tab PO DAILY Discharge Medication List Lisinopril-Hctz 20-25 mg [Zestoretic 20-25] 1 tab PO DAILY 05/06/16 [History] Propafenone [Rythmol] 150 mg PO Q8HR #90 tab 05/07/16 [Rx] Rivaroxaban [Xarelto] 20 mg PO W/SUPPER #30 tab 05/07/16 [Rx] Albuterol Inhaler [Ventolin Hfa Inhaler] 2 puff INHALATION RT-Q6H PRN #1 puff 06/26/20 [Rx] Ascorbic Acid [Vitamin C] 1,000 mg PO DAILY #30 tablet 06/26/20 [Rx] Ergocalciferol (Vitamin D2) [Vitamin D2 (400 Iu)] 10 mcg PO DAILY #30 tab 06/26/20 [Rx] Zinc Sulfate 50 mg PO DAILY #30 capsule 06/26/20 [Rx] dexAMETHasone [Dexamethasone] 6 mg PO DAILY #21 tablet 06/26/20 [Rx] Follow up Appointment(s)/Referral(s): [facility] [NON-STAFF] - As Needed (Supplier of Home Oxygen) Chay Quintero DO [Doctor of Osteopathic Medicine] - 07/25/20 10:00 am Eve Forman MD [STAFF PHYSICIAN] - 1-2 Days Patient Instructions/Handouts: Albuterol (By breathing), Zinc Sulfate (By mouth), Ascorbic Acid (By mouth), Ergocalciferol (By mouth), Dexamethasone (By mouth), Coronavirus Disease 2019 (COVID-19), Hypoxia (GEN) Activity/Diet/Wound Care/Special Instructions: isolation instructions incentive spirometer home oxygen - 3 l
--- NOTE | 2020-07-07 08:21 | CDI ---
Documentation Clarification Form Date: 07/07/20 From: Maddison Malloy Phone: Admit Date: 06/23/2020 02:06:00 PM Patient Name: Krystyna Braun Visit Number: [id number] Discharge Date: 06/26/2020 12:50:00 PM ATTENTION: The Clinical Documentation Specialists (CDI) and [facility] Coding Staff appreciate your assistance in clarifying documentation. Please respond to the clarification below the line at the bottom and electronically sign. The CDI & [facility] Coding staff will review the response and follow-up if needed. Please note: Queries are made part of the Legal Health Record. If you have any questions, please contact the author of this message via ITS. Dr. Gage Arvizu, Diarrhea is documented in the ED Note and H&P and patient is noted to have COVID. Please clarify if there is a relationship between the diagnosis and COVID. History/Risk Factors: HTN, A fib Clinical Indicators: This is a 75-year-old female with hx of hypertension, and atrial fibrillation presented with persistent nausea, vomiting as well as diarrhea for the past 5 days. Treatment: IV Bamlanivimab, IV Dexamethasone, IV fluids Please clarify the relationship, if any, which is clinically appropriate for this patient: [ ] COVID gastroenteritis [ ] Diarrhea [ ] Other explanation of clinical findings (please specify) [ ] Unable to determine (no explanation for clinical findings) Possible COVID gastroenteritis MTDD
== END 2020-06-26 12:50 | disposition home or self-care (01) | DRG 177 ==
LOC: EC 03:11 → 5NMEDONC 03:59 → INTOOBSV 03:59 → OBSVTOIN 14:06 → 1SOBS 17:47 → 6NMEDSUR 06-24 14:19
PROVIDERS: ADMIT Hospitalist; ATTEND Hospitalist
PROC: XW033F6 Introduction of Bamlanivimab Monoclonal Antibody into Peripheral Vein, Percutaneous Approach, New Technology Group 6 (ICD-10-PCS; principal; 2020-06-23)
DX: U07.1 COVID-19 (principal); J12.82 Pneumonia due to coronavirus disease 2019; J96.01 Acute respiratory failure with hypoxia; E87.1 Hypo-osmolality and hyponatremia; J90 Pleural effusion, not elsewhere classified; A08.39 Other viral enteritis; E88.09 Other disorders of plasma-protein metabolism, not elsewhere classified; I95.9 Hypotension, unspecified; I48.0 Paroxysmal atrial fibrillation; E86.1 Hypovolemia; E86.0 Dehydration; I10 Essential (primary) hypertension; D64.9 Anemia, unspecified; F41.9 Anxiety disorder, unspecified; Z79.01 Long term (current) use of anticoagulants; Z79.899 Other long term (current) drug therapy; Z80.0 Family history of malignant neoplasm of digestive organs; Z83.3 Family history of diabetes mellitus
CPT/HCPCS: 36415; 71045; 80053; 83605; 83615; 83735; 84100; 84145; 85025; 85027; 85379; 85610; 85730; 86140; 87635; 93005; 94640; 94760; 96361; 96372; 96374; 96375; 99285

== ENCOUNTER 2023-02-14 05:49 | Emergency (ER) | payer MEDICARE ==
[2023-02-14] MEDS ORDERED: ORPHENADRINE 30 MG/ML 2 ML VIAL IVP STA (06:20)
[2023-02-14] MEDS ORDERED: DEXAMETHASONE SOD PHOSPHATE 10 MG/ML 1 ML VIAL IVP STA (06:20)
[2023-02-14] MEDS ORDERED: KETOROLAC 15 MG/ML 1 ML VIAL IVP STA (06:20)
[2023-02-14 06:39] VITALS: RESP 18; TEMP 98.3
[2023-02-14 06:42] LABS: Basophils % (A) 0 %; Eosinophils # (A) 0.4 k/uL (0-0.7); Eosinophils % (A) 3 %; HGB 11.6 gm/dL (11.4-16.0); Lymphocytes # (A) 1.7 k/uL (1.0-4.8); Lymphocytes % (A) 14 %; MCH 29.5 pg (25.0-35.0); MCHC 33.2 g/dL (31.0-37.0); MCV 88.9 fL (80.0-100.0); Mean Platelet Volume 8.7; Monocytes # (A) 0.6 k/uL (0-1.0); Monocytes % (A) 5 %; Neutrophils # (A) 9.6 k/uL (1.3-7.7); Neutrophils % (A) 77 %; Platelet Count 321 k/uL (150-450); RBC 3.94 m/uL (3.80-5.40); RDW 14.1 % (11.5-15.5); WBC 12.5 k/uL (3.8-10.6)
--- NOTE | 2023-02-14 06:43 | ED ---
Arrhythmia/Palpitations HPI - General Chief Complaint: Arrhythmia/Palpitations Stated Complaint: A-Fib, Headache Time Seen by Provider: 02/14/23 06:07 Source: patient, RN notes reviewed Mode of arrival: wheelchair Limitations: no limitations - History of Present Illness Initial Comments: This is a 78-year-old female who presents to the emergency department with palpitations and right groin pain. States that she was diagnosed with sciatica 3 weeks ago and the pain has since persisted. She was given a prescription for prednisone, however symptoms have not improved. Pain is in the right groin. She does have some radiation down the back of the leg terminating above the knee. However, pain is primarily in the right groin. Denies any pain in the ba ck. Denies any injuries or history of sciatica. She states that this morning the pain became severe and she felt like her heart was racing and she is concerned that she went into atrial fibrillation. She was diagnosed with atrial fibrillation for 5 years ago, but has not had any recent problems with this. States that she just saw her ship manager, Dr. Hand, 2 weeks ago, and she was found to be doing well. She is taking [id number] ibuprofen and Tylenol with no relief in symptoms. MD Complaint: rapid heart beat, palpitations - Related Data Home Medications Medication Instructions Recorded Confirmed Lisinopril-Hctz 20-25 mg 1 tab PO DAILY 05/06/16 02/14/23 [Zestoretic 20-25] Nystatin 100,000 Unit/gm Powd 1 applic TOPICAL BID PRN 02/14/23 02/14/23 [Mycostatin Powder] Previous Rx's Medication Instructions Recorded Propafenone [Rythmol] 150 mg PO Q8HR #90 tab 05/07/16 Rivaroxaban [Xarelto] 20 mg PO W/SUPPER #30 tab 05/07/16 Albuterol Inhaler [Ventolin Hfa 2 puff INHALATION RT-Q6H PRN #1 06/26/20 Inhaler] puff Ketorolac [Toradol] 10 mg PO Q6HR PRN #15 tab 02/14/23 methocarbamoL [Robaxin-750] 1,500 mg PO TID PRN #30 tab 02/14/23 Allergies Allergy/AdvReac Type Severity Reaction Status Date / Time No Known Allergies Allergy Verified 02/14/23 09:41 Review of Systems ROS Statement: Those systems with pertinent positive or pertinent negative responses have been documented in the HPI. ROS Other: All systems not noted in ROS Statement are negative. Past Medical History Past Medical History: Atrial Fibrillation, Hypertension History of Any Multi-Drug Resistant Organisms: None Reported Past Surgical History: No Surgical Hx Reported Past Anesthesia/Blood Transfusion Reactions: No Reported Reaction Past Psychological History: Anxiety Smoking Status: Never smoker Past Alcohol Use History: None Reported Past Drug Use History: None Reported - Past Family History Brother(s) Family Medical History: Cancer, Diabetes Mellitus Additional Family Medical History / Comment(s): Colon cancer, at 58 General Exam Limitations: no limitations General appearance: alert, in no apparent distress Head exam: Present: atraumatic, normocephalic, normal inspection Respiratory exam: Present: normal lung sounds bilaterally. Absent: respiratory distress, wheezes, rales, rhonchi, stridor Cardiovascular Exam: Present: regular rate, normal rhythm, normal heart sounds. Absent: systolic murmur, diastolic murmur, rubs, gallop, clicks GI/Abdominal exam: Present: soft, tenderness (Right groin), normal bowel sounds. Absent: distended Back exam: Present: normal inspection, full ROM. Absent: tenderness Neurological exam: Present: alert, oriented X3, CN II-XII intact Psychiatric exam: Present: normal affect, normal mood Skin exam: Present: warm, dry, intact, normal color. Absent: rash Course Vital Signs 02/14/23 02/14/23 02/14/23 06:01 07:38 10:02 Temperature 98.3 F Pulse Rate 85 75 87 Respiratory 18 18 18 Rate Blood Pressure 135/66 125/69 106/64 O2 Sat by Pulse 98 96 93 L Oximetry Medical Decision Making - Medical Decision Making This is a 78-year-old female who presents to the emergency department for pain in the right groin and palpitations. Was pt. sent in by a medical professional or institution? @ -No Did you speak to anyone other than the patient for history? @ -No Did you review nursing and triage notes? @ -Yes, and I agree, it is accurate with regards to the patient's symptoms. Were old charts reviewed? @ -No Differential Diagnosis? @ -Differential Palpitations: Ventricular arrhythmias, atrial arrhythmias, myocardial infarction, anemia, thyrotoxicosis, electrolyte imbalance, hypokalemia, pulmonary embolism, pulmonary disease, drugs, alcohol, anxiety, stress.... This is not meant to be an all-inclusive list. EKG interpreted by me (3pts min.)? @ -EKG interpreted by me demonstrating the following: Sinus rhythm. V entricular rate 74 beats per minute, PA interval 147 ms, QRS duration 86 ms, QTc 412 ms. X-rays interpreted by me (1pt min.)? @ -Chest x-ray obtained, my interpretation identifies no localized consolidations or infiltrates. CT interpreted by me (1pt min.)? @ -Computed tomography scan of the abdomen and pelvis and right hip obtained. My interpretation identifies thickening of the right obturator with fat stranding. I did not identify any evidence of bowel wall thickening or free air. U/S interpreted by me (1pt. min.)? @ -Not obtained What testing was considered but not performed? (CT, X-rays, U/S, labs)? Why? @ -None What meds were considered but not given? Why? @ -None Did you discuss the management of the patient with other professionals? @ -Yes, Dr. Callahan, orthopedics, who did not believe computed tomography scan findings to be related to an infection, and advised that this is likely related to a muscle strain. Did you reconcile home meds? @ -No Was smoking cessation discussed for >3mins.? @ -No Was critical care preformed (if so, how long)? @ -No Were there social determinants of health that impacted care today? How? (Homelessness, low income, unemployed, alcoholism, drug addiction, transportation, low edu. Level, literacy, decrease access to med. care, fci, rehab)? @ -No Was there de-escalation of care discussed even if they declined? (Discuss DNR or withdrawal of care, Hospice)? @ -No What co-morbidities impacted this encounter? (DM, HTN, Smoking, COPD, CAD, Cancer, CVA, Hep., AIDS, mental health diagnosis, sleep apnea, morbid obesity)? @ -Atrial fibrillation, HTN Was patient admitted / discharged? @ -Discharged. Lab work obtained revealing leukocytosis. CRP elevated at 6.3. Alkaline phosphatase is mildly elevated, however it has been elevated in the past. Lab work was otherwise unremarkable. Given that her symptoms are worsening with no improvement in any medications, and because pain is primarily in the lower abdomen and groin, will proceed with a computed tomography scan of the abdomen and pelvis to evaluate for any other irregularities. CT scan demonstrates asymmetric wall thickening of the right obturator internus with mild fat stranding. There is some fat stranding extending into the lateral right adnexa, right external iliac chain, and upper right adductors. The etiology is unclear. They advised consideration of soft tissue injury/muscle strain. There are no specific features to suggest a septic arthritis. There is noted to be right inguinal adenopathy measuring up to 2.2 cm and consideration of neoplasm/lymphoma is advised. Case discussed with Dr. Callahan, orthopedics. He did not believe findings related to infection and states that this is likely a soft tissue injury. Findings reviewed with the patient. Her symptoms are well controlled in the emergency department and she felt stable for discharge home. Rx for Toradol and Robaxin provided with dosing instructions reviewed. She was given very strict return parameters and information for orthopedic follow-up. Patient discharged home in stable condition. Undiagnosed new problem with uncertain prognosis? @ -None Drug Therapy requiring intensive monitoring for toxicity (Heparin, Nitro, Insulin, Cardizem)? @ -None Were any procedures done? @ -None Diagnosis/symptom? @ -Right groin pain, muscle inflammation Acute, or Chronic, or Acute on Chronic? @ -Acute Uncomplicated (without systemic symptoms) or Complicated (systemic symptoms)? @ -Uncomplicated Side effects of treatment? @ -None Exacerbation, Progression, or Severe Exacerbation] @ -Not applicable Poses a threat to life or bodily function? @ -Unlikely, however this will depend on the severity of her pain. Return precautions reviewed in depth, the patient is instructed to return to the emergency department with any new, worsening, or concerning symptoms. Patient verbalized understanding. This case was discussed in detail with the attending ED physician, Dr. Rodriguez. Presentation, findings, and treatment plan discussed in detail as well. - Lab Data Result diagrams: 02/14/23 06:31 02/14/23 06:31 Lab Results 02/14/23 02/14/23 02/14/23 Range/Units 06:31 06:31 06:31 WBC 12.5 H (3.8-10.6) k/uL RBC 3.94 (3.80-5.40) m/uL Hgb 11.6 (11.4-16.0) gm/dL Hct 35.0 (34.0-46.0) % MCV 88.9 (80.0-100.0) fL MCH 29.5 (25.0-35.0) pg MCHC 33.2 (31.0-37.0) g/dL RDW 14.1 (11.5-15.5) % Plt Count 321 (150-450) k/uL MPV 8.7 Neutrophils % 77 % Lymphocytes % 14 % Monocytes % 5 % Eosinophils % 3 % Basophils % 0 % Neutrophils # 9.6 H (1.3-7.7) k/uL Lymphocytes # 1.7 (1.0-4.8) k/uL Monocytes # 0.6 (0-1.0) k/uL Eosinophils # 0.4 (0-0.7) k/uL Basophils # 0.0 (0-0.2) k/uL ESR (0-30) mm/Hr PT 11.4 (10.0-12.5) sec INR 1.0 (<1.2) APTT 26.1 (22.0-30.0) sec Sodium (137-145) mmol/L Potassium (3.5-5.1) mmol/L Chloride (98-107) mmol/L Carbon Dioxide (22-30) mmol/L Anion Gap mmol/L BUN (7-17) mg/dL Creatinine (0.52-1.04) mg/dL Est GFR (CKD-EPI)AfAm (>60 ml/min/1.73 sqM) Est GFR (CKD-EPI)NonAf (>60 ml/min/1.73 sqM) Glucose (74-99) mg/dL Calcium (8.4-10.2) mg/dL Magnesium (1.6-2.3) mg/dL Total Bilirubin (0.2-1.3) mg/dL AST (14-36) U/L ALT (4-34) U/L Alkaline Phosphatase (38-126) U/L Troponin I (0.000-0.034) ng/mL C-Reactive Protein (<1.0) mg/dL Total Protein (6.3-8.2) g/dL Albumin (3.5-5.0) g/dL Urine Color Light Yellow Urine Appearance Clear (Clear) Urine pH 5.5 (5.0-8.0) Ur Specific Hamer >1.050 H (1.001-1.035) Urine Protein Negative (Negative) Urine Glucose (UA) Negative (Negative) Urine Ketones Negative (Negative) Urine Blood Negative (Negative) Urine Nitrite Negative (Negative) Urine Bilirubin Negative (Negative) Urine Urobilinogen <2.0 (<2.0) mg/dL Ur Leukocyte Esterase Large H (Negative) Urine RBC 6 H (0-5) /hpf Urine WBC 12 H (0-5) /hpf Ur Squamous Epith Cells 1 (0-4) /hpf Urine Mucus Rare H (None) /hpf 02/14/23 02/14/23 02/14/23 Range/Units 06:31 06:31 06:31 WBC (3.8-10.6) k/uL RBC (3.80-5.40) m/uL Hgb (11.4-16.0) gm/dL Hct (34.0-46.0) % MCV (80.0-100.0) fL MCH (25.0-35.0) pg MCHC (31.0-37.0) g/dL RDW (11.5-15.5) % Plt Count (150-450) k/uL MPV Neutrophils % % Lymphocytes % % Monocytes % % Eosinophils % % Basophils % % Neutrophils # (1.3-7.7) k/uL Lymphocytes # (1.0-4.8) k/uL Monocytes # (0-1.0) k/uL Eosinophils # (0-0.7) k/uL Basophils # (0-0.2) k/uL ESR 61 H (0-30) mm/Hr PT (10.0-12.5) sec INR (<1.2) APTT (22.0-30.0) sec Sodium 136 L (137-145) mmol/L Potassium 3.8 (3.5-5.1) mmol/L Chloride 101 (98-107) mmol/L Carbon Dioxide 25 (22-30) mmol/L Anion Gap 10 mmol/L BUN 20 H (7-17) mg/dL Creatinine 0.85 (0.52-1.04) mg/dL Est GFR (CKD-EPI)AfAm 77 (>60 ml/min/1.73 sqM) Est GFR (CKD-EPI)NonAf 67 (>60 ml/min/1.73 sqM) Glucose 105 H (74-99) mg/dL Calcium 9.1 (8.4-10.2) mg/dL Magnesium 2.0 (1.6-2.3) mg/dL Total Bilirubin 0.7 (0.2-1.3) mg/dL AST 26 (14-36) U/L ALT 30 (4-34) U/L Alkaline Phosphatase 215 H (38-126) U/L Troponin I <0.012 (0.000-0.034) ng/mL C-Reactive Protein (<1.0) mg/dL Total Protein 6.5 (6.3-8.2) g/dL Albumin 3.5 (3.5-5.0) g/dL Urine Color Urine Appearance (Clear) Urine pH (5.0-8.0) Ur Specific Hamer (1.001-1.035) Urine Protein (Negative) Urine Glucose (UA) (Negative) Urine Ketones (Negative) Urine Blood (Negative) Urine Nitrite (Negative) Urine Bilirubin (Negative) Urine Urobilinogen (<2.0) mg/dL Ur Leukocyte Esterase (Negative) Urine RBC (0-5) /hpf Urine WBC (0-5) /hpf Ur Squamous Epith Cells (0-4) /hpf Urine Mucus (None) /hpf 02/14/23 Range/Units 06:31 WBC (3.8-10.6) k/uL RBC (3.80-5.40) m/uL Hgb (11.4-16.0) gm/dL Hct (34.0-46.0) % MCV (80.0-100.0) fL MCH (25.0-35.0) pg MCHC (31.0-37.0) g/dL RDW (11.5-15.5) % Plt Count (150-450) k/uL MPV Neutrophils % % Lymphocytes % % Monocytes % % Eosinophils % % Basophils % % Neutrophils # (1.3-7.7) k/uL Lymphocytes # (1.0-4.8) k/uL Monocytes # (0-1.0) k/uL Eosinophils # (0-0.7) k/uL Basophils # (0-0.2) k/uL ESR (0-30) mm/Hr PT (10.0-12.5) sec INR (<1.2) APTT (22.0-30.0) sec Sodium (137-145) mmol/L Potassium (3.5-5.1) mmol/L Chloride (98-107) mmol/L Carbon Dioxide (22-30) mmol/L Anion Gap mmol/L BUN (7-17) mg/dL Creatinine (0.52-1.04) mg/dL Est GFR (CKD-EPI)AfAm (>60 ml/min/1.73 sqM) Est GFR (CKD-EPI)NonAf (>60 ml/min/1.73 sqM) Glucose (74-99) mg/dL Calcium (8.4-10.2) mg/dL Magnesium (1.6-2.3) mg/dL Total Bilirubin (0.2-1.3) mg/dL AST (14-36) U/L ALT (4-34) U/L Alkaline Phosphatase (38-126) U/L Troponin I (0.000-0.034) ng/mL C-Reactive Protein 6.3 H (<1.0) mg/dL Total Protein (6.3-8.2) g/dL Albumin (3.5-5.0) g/dL Urine Color Urine Appearance (Clear) Urine pH (5.0-8.0) Ur Specific Hamer (1.001-1.035) Urine Protein (Negative) Urine Glucose (UA) (Negative) Urine Ketones (Negative) Urine Blood (Negative) Urine Nitrite (Negative) Urine Bilirubin (Negative) Urine Urobilinogen (<2.0) mg/dL Ur Leukocyte Esterase (Negative) Urine RBC (0-5) /hpf Urine WBC (0-5) /hpf Ur Squamous Epith Cells (0-4) /hpf Urine Mucus (None) /hpf - Radiology Data Radiology results: report reviewed, image reviewed Disposition Clinical Impression: Atrial fibrillation, Right groin pain, Muscle inflammation Disposition: HOME SELF-CARE Instructions (If sedation given, give patient instructions): Groin Pain (ED) Additional Instructions: Return to the emergency department with any new, worsening, or concerning symptoms. Take the Toradol with Tylenol as needed for pain relief. If you duke se to take the Toradol, do not take any other anti-inflammatories such as ibuprofen, take one or the other. You can take the Robaxin as 1-2 tablets 3-4 times daily for pain relief. Be aware that both the Robaxin may make you drowsy. Contact orthopedics as listed below for a follow-up appointment. Follow up with your primary care provider in 1-2 days. Prescriptions: methocarbamoL [Robaxin-750] 1,500 mg PO TID PRN #30 tab PRN Reason: Pain Ketorolac [Toradol] 10 mg PO Q6HR PRN #15 tab PRN Reason: Pain Is patient prescribed a controlled substance at d/c from ED?: No Referrals: Yordan Prescott MD [Primary Care Provider] - 1-2 days Rosendo Callahan MD [STAFF PHYSICIAN] - 1-2 days
[2023-02-14 06:51] LABS: ALT 30 U/L (4-34); AST 26 U/L (14-36); African American GFR (CKD) 77 (>60 ml/min/1.73 sqM); Albumin 3.5 g/dL (3.5-5.0); Alkaline Phosphatase 215 U/L (38-126); Anion Gap 10 mmol/L; Blood Urea Nitrogen 20 mg/dL (7-17); Calcium 9.1 mg/dL (8.4-10.2); Carbon Dioxide 25 mmol/L (22-30); Chloride 101 mmol/L (98-107); Glucose 105 mg/dL (74-99); Non-African American GFR(CKD) 67 (>60 ml/min/1.73 sqM); Partial Thromboplastin Time 26.1 sec (22.0-30.0); Potassium 3.8 mmol/L (3.5-5.1); Prothrombin Time 11.4 sec (10.0-12.5); Sodium 136 mmol/L (137-145); Total Bilirubin 0.7 mg/dL (0.2-1.3); Total Protein 6.5 g/dL (6.3-8.2)
--- NOTE | 2023-02-14 07:40 | XR ---
EXAMINATION TYPE: XR chest 2V DATE OF EXAM: 02/14/2023 COMPARISON: 08/05/2021 HISTORY: Shortness of breath TECHNIQUE: Frontal and lateral views of the chest are obtained. FINDINGS: Scattered senescent parenchymal changes noted. Hyperinflation compatible with COPD. No evidence for infiltrate. No evidence for atelectasis. Heart size is stable. Mediastinal structures are stable and grossly unremarkable. No evidence for hilar prominence. Degenerative changes dorsal spine. IMPRESSION: 1. No evidence for acute pulmonary disease.
--- NOTE | 2023-02-14 08:30 | CT ---
EXAMINATION TYPE: CT abdomen pelvis w con, CT hip RT wo con DATE OF EXAM: 02/14/2023 COMPARISON: NONE HISTORY: 78-year-old female RLQ pain, Right groin pain TECHNIQUE: Contiguous axial scanning of the abdomen and pelvis following administration of 100 ml Iso evette 300 IV contrast. Additional scanning of the right hip without contrast. Delayed images through th e kidneys and coronal/sagittal reconstructions performed. CT DLP: 1656.1 (accession [id number]), 683.1 (accession [id number]) mGycm Automated exposure control for dose reduction was used. FINDINGS: ABDOMEN AND PELVIS: LUNG BASES: Heart borderline in size. Strandy atelectasis in both lower lungs. No pleural effusion. LIVER/GB: No significant abnormality is appreciated. PANCREAS: No significant abnormality is seen. SPLEEN: Nonspecific 1.2 cm calcification. Also, a 1.2 cm hypodense lesion inferiorly, possible cyst. ADRENALS: No significant abnormality is seen. KIDNEYS: No significant abnormality is seen. BOWEL: Small hiatal hernia. No dilated small bowel, free fluid, free air. Mild to moderate stool alexx en. Normal appendix. Sigmoid diverticulosis. No pericolonic inflammatory change. LYMPH NODES: Some clustered midabdominal mesenteric lymph nodes measuring up to 1.1 cm thick. Mild sc attered harry mesentery throughout. Retroperitoneal adenopathy especially below the level of the renal arteries measuring up to 1.8 cm. Right common iliac chain lymph node 1.2 cm. Left external iliac chain lymph node 1.2 cm. Right internal iliac chain lymph node 1.0 cm. Right external iliac chain lymph node 1.6 cm. Right inguinal lymph node 2.2 cm. OTHER: No significant abnormality is seen. PELVIS: Mild fat stranding right external iliac chain region and right adnexa. Mild asymmetric thicke aryan right obturator internus muscle up to 1.7 cm versus 1.0 cm on the contralateral side. Mild fat s tranding in the region of the upper right adductors. Bladder is urine distended. Uterus small antever sergio. Both ovaries are visualized. BONES: Hypertrophic facet arthropathy mid to lower lumbar spine. Baastrup's disease. Moderate degenerative d isc disease L5-S1. Degenerative grade 1 anterolisthesis L4-L5. RIGHT HIP: Asymmetric fat stranding and some soft tissue thickening of right-sided structures as mentioned above . No significant joint effusion is seen. There is mild degenerative change at the right hip. No acute fracture, subluxation, dislocation identified. IMPRESSION: 1. ASYMMETRIC THICKENING OF THE RIGHT OBTURATOR INTERNUS WITH MILD FAT STRANDING. SOME FAT STRANDING EXTENDS INTO THE LATERAL RIGHT ADNEXA, RIGHT EXTERNAL ILIAC CHAIN, AND UPPER RIGHT ADDUCTORS. THE NEVIN OLOGY IS UNCLEAR. CONSIDER SOFT TISSUE INJURY/MUSCLE STRAIN. INFECTIOUS ETIOLOGY CAN'T BE EXCLUDED ON CLINICAL BASIS. NOTE THAT THERE ARE NO SPECIFIC FEATURES THAT WOULD INDICATE SEPTIC ARTHRITIS OF THE RIGHT HIP AT THIS TIME. FOLLOW-UP CLINICALLY INDICATED. 2. HOWEVER, GIVEN THE MESENTERIC, RETROPERITONEAL, RIGHT ILIAC CHAIN, RIGHT-SIDED PELVIC, AND RIGHT I NGUINAL ADENOPATHY MEASURING UP TO 2.2 CM, CONSIDER NEOPLASM/LYMPHOMA A POSSIBLE ETIOLOGY. 3. SIGMOID DIVERTICULOSIS WITHOUT ACUTE DIVERTICULITIS.
[2023-02-14] MEDS ORDERED: MORPHINE SULFATE 4 MG/ML SYRINGE IVP STA (09:43)
[2023-02-14 10:09] VITALS: BP 106/64; PULSE 87
[2023-02-14 10:28] LABS: Appearance,Urine Clear (Clear); Bilirubin,Urine Negative (Negative); Blood,Urine Negative (Negative); Color,Urine Light Yellow; Glucose,Urine (UA) Negative (Negative); Ketones,Urine Negative (Negative); Leukocyte Esterase,Urine Large (Negative); Mucus,Urine Rare /hpf; Nitrite,Urine Negative (Negative); PH, Urine 5.5 (5.0-8.0); Protein,Urine Negative (Negative); RBC,Urine 6 /hpf (0-5); Squamous Epithelial Cell,Urine 1 /hpf (0-4); Urobilinogen,Urine <2.0 mg/dL (<2.0); WBC,Urine 12 /hpf (0-5)
[2023-02-14 10:33] LABS: Specific Gravity,Urine >1.050 (1.001-1.035)
== END 2023-02-14 10:27 | disposition home or self-care (01) ==
LOC: EC 05:49
DX: I48.91 Unspecified atrial fibrillation (principal); R10.30 Lower abdominal pain, unspecified; M60.9 Myositis, unspecified; I10 Essential (primary) hypertension; F41.9 Anxiety disorder, unspecified; Z79.899 Other long term (current) drug therapy
CPT/HCPCS: 36415; 93005; 80053; 85652; 83735; 84484; 85025; 85610; 85730; 86140; 81001; 71046; 74177; 73700; 99285; 96374; 96375 ×3; J2270; J1100; J2360; J1885; Q9967

== ENCOUNTER 2023-02-18 06:39 | Observation (INO) | payer MEDICARE ==
[2023-02-18] MEDS ORDERED: HYDROmorphone 0.5 MG/0.5 ML SYRINGE IVP STA (07:23)
[2023-02-18] MEDS ORDERED: KETOROLAC 15 MG/ML 1 ML VIAL IVP STA (07:23)
--- NOTE | 2023-02-18 07:31 | ED ---
General Adult HPI - General Chief complaint: Extremity Problem,Nontraumatic Stated complaint: Right hip pain Time Seen by Provider: 02/18/23 07:00 Source: patient, RN notes reviewed, old records reviewed Mode of arrival: wheelchair Limitations: no limitations - History of Present Illness Initial comments: This is a 78-year-old female who presents to the emergency department complaining of right groin pain for a month. Patient states slowly gotten wor se. Patient states she's tried steroids and has not helped. Patient states that a CT of her abdomen and pelvis as well as her hip. Patient states she saw an orthopedic surgeon who told her that if it doesn't get better she's to come to the emergency department and get admitted so that they can order an MRI. Patient denies any fever chills. Patient denies any injury. Patient states she's been on [place] and that is only helped a very short period of time. Patient states so bad that she thinks she can no longer lay down for an MRI she has some pain medicines. - Related Data Home Medications Medication Instructions Recorded Confirmed Lisinopril-Hctz 20-25 mg 1 tab PO DAILY 05/06/16 02/14/23 [Zestoretic 20-25] Nystatin 100,000 Unit/gm Powd 1 applic TOPICAL BID PRN 02/14/23 02/14/23 [Mycostatin Powder] Previous Rx's Medication Instructions Recorded Propafenone [Rythmol] 150 mg PO Q8HR #90 tab 05/07/16 Rivaroxaban [Xarelto] 20 mg PO W/SUPPER #30 tab 05/07/16 Albuterol Inhaler [Ventolin Hfa 2 puff INHALATION RT-Q6H PRN #1 06/26/20 Inhaler] puff Ketorolac [Toradol] 10 mg PO Q6HR PRN #15 tab 02/14/23 methocarbamoL [Robaxin-750] 1,500 mg PO TID PRN #30 tab 02/14/23 Allergies Allergy/AdvReac Type Severity Reaction Status Date / Time sulfamethoxazole Allergy Nausea & Verified 02/18/23 07:02 [From Bactrim] Vomiting & Diarrhea trimethoprim [From Bactrim] Allergy Nausea & Verified 02/18/23 07:02 Vomiting & Diarrhea Review of Systems ROS Statement: Those systems with pertinent positive or pertinent negative responses have been documented in the HPI. ROS Other: All systems not noted in ROS Statement are negative. Past Medical History Past Medical History: Atrial Fibrillation, Hypertension History of Any Multi-Drug Resistant Organisms: None Reported Past Surgical History: No Surgical Hx Reported Past Anesthesia/Blood Transfusion Reactions: No Reported Reaction Past Psychological History: Anxiety Smoking Status: Never smoker Past Alcohol Use History: None Reported Past Drug Use History: None Reported - Past Family History Brother(s) Family Medical History: Cancer, Diabetes Mellitus Additional Family Medical History / Comment(s): Colon cancer, at 58 General Exam - General Exam Comments Initial Comments: GENERAL: Patient is well-developed and well-nourished. Patient is nontoxic and well- hydrated and is in moderate distress. ENT: Neck is soft and supple. No significant lymphadenopathy is noted. Oropharynx is clear. Moist mucous membranes. Neck has full range of motion without eliciting any pain. EYES: The sclera were anicteric and conjunctiva were pink and moist. Extraocular movements were intact and pupils were equal round and reactive to light. Eyelids were unremarkable. PULMONARY: Unlabored respirations. Good breath sounds bilaterally. No audible rales rhonchi or wheezing was noted. CARDIOVASCULAR: There is a regular rate and rhythm without any murmurs gallops or rubs. ABDOMEN: Soft and nontender with normal bowel sounds. SKIN: Skin is clear with no lesions or rashes and otherwise unremarkable. NEUROLOGIC: Patient is alert and oriented x3. Cranial nerves II through XII are grossly intact. Motor and sensory are also intact. Normal speech, volume and content. Symmetrical smile. Straight leg test is negative. MUSCULOSKELETAL: Normal extremities with adequate strength and full range of motion. Any movement of the right hip seems to hurt her however she does have full range of motion with pain LYMPHATICS: No significant lymphadenopathy is noted PSYCHIATRIC: Normal psychiatric evaluation. Limitations: no limitations Course Vital Signs 02/18/23 02/18/23 07:00 08:34 Temperature 98.5 F Pulse Rate 79 84 Respiratory 18 18 Rate Blood Pressure 125/75 116/74 O2 Sat by Pulse 96 95 Oximetry Medical Decision Making - Medical Decision Making Was pt. sent in by a medical professional or institution (, [facility], PBX INSTALLER, urgent care, hospital, or fdc...) When possible be specific @ -Patient was sent in by Dr. Pasia Did you speak to anyone other than the patient for history (EMS, parent, family, police, friend...)? What history was obtained from this source @ -No Did you review nursing and triage notes (agree or disagree)? Why? @ -I reviewed and agree with nursing and triage notes Were old charts reviewed (outside hosp., previous admission, EMS record, old EKG, old radiological studies, urgent care reports/EKG's, fdc records)? Report findings @ -I reviewed prior charts prior laboratory prior CAT scans in this patient Differential Diagnosis (chest pain, altered mental status, abdominal pain women, abdominal pain men, vaginal bleeding, weakness, fever, dyspnea, syncope, headache, dizziness, GI bleed, back pain, seizure, CVA, palpatations, mental health, musculoskeletal)? @ -Differential Musculoskeletal Muscular strain, contusion, ligament sprain, fracture, arthritis, septic arthritis, bursitis, cellulitis, muscle spasm, nerve compression, DVT, arterial occlusion, herpes zoster, electrolyte abnormality, tumor.... This is not meant to be in all inclusive list EKG interpreted by me (3pts min.). @ -As above X-rays interpreted by me (1pt min.). @ -None done CT interpreted by me (1pt min.). @ -None done U/S interpreted by me (1pt. min.). @ -None done What testing was considered but not performed or refused? (CT, X-rays, U/S, labs)? Why? @ -None What meds were considered but not given or refused? Why? @ -None Did you discuss the management of the patient with other professionals (professionals i.e. , PA, PBX INSTALLER, lab, RT, psych nurse, social services designee, mortgage advisor, teacher, commissioned fire officer, nurse outreach case manager)? Give summary @ -Spoke with some physicians he agreed to admit the patient and the patient wrote admitting orders Was smoking cessation discussed for >3mins.? @ -No Was critical care preformed (if so, how long)? @ -No Were there social determinants of health that impacted care today? How? (Homelessness, low income, unemployed, alcoholism, drug addiction, transportation, low edu. Level, literacy, decrease access to med. care, care home, rehab)? @ -No Was there de-escalation of care discussed even if they declined (Discuss DNR or withdrawal of care, Hospice)? DNR status @ -No What co-morbidities impacted this encounter? (DM, HTN, Smoking, COPD, CAD, Cancer, CVA, ARF, Chemo, Hep., AIDS, mental health diagnosis, sleep apnea, morbid obesity)? @ -None Was patient admitted / discharged? Hospital course, mention meds given and route, prescriptions, significant lab abnormalities, going to OR and other pertinent info. @ -Patient's CAT scan was reviewed which shows some stranding around the muscles it could be infectious in nature since her symptoms started him on Friday gotten progressively worse and it was decided that the patient will be admitted Dr. Crowder will see an inpatient order an MRI and I will also consult Dr. Camacho the infectious disease doctor. Undiagnosed new problem with uncertain prognosis? @ -No Drug Therapy requiring intensive monitoring for toxicity (Heparin, Nitro, Insulin, Cardizem)? @ -No Were any procedures done? @ -No Diagnosis/symptom? @ -Leg pain Acute, or Chronic, or Acute on Chronic? @ -Acute Uncomplicated (without systemic symptoms) or Complicated (systemic symptoms)? @ -Complicated Side effects of treatment? @ -No Exacerbation, Progression, or Severe Exacerbation? @ -No Poses a threat to life or bodily function? How? (Chest pain, [place], [place], pneumonia, PE, COPD, DKA, ARF, appy, cholecystitis, CVA, Diverticulitis, Homicidal, Suicidal, threat to staff... and all critical care pts) @ -No - Lab Data Result diagrams: 02/18/23 07:44 02/18/23 07:44 Lab Results 02/18/23 02/18/23 Range/Units 07:44 07:44 WBC 10.8 H (3.8-10.6) k/uL RBC 3.81 (3.80-5.40) m/uL Hgb 11.3 L (11.4-16.0) gm/dL Hct 34.1 (34.0-46.0) % MCV 89.4 (80.0-100.0) fL MCH 29.7 (25.0-35.0) pg MCHC 33.2 (31.0-37.0) g/dL RDW 13.9 (11.5-15.5) % Plt Count 285 (150-450) k/uL MPV 8.7 Neutrophils % 78 % Lymphocytes % 11 % Monocytes % 5 % Eosinophils % 4 % Basophils % 0 % Neutrophils # 8.5 H (1.3-7.7) k/uL Lymphocytes # 1.2 (1.0-4.8) k/uL Monocytes # 0.6 (0-1.0) k/uL Eosinophils # 0.4 (0-0.7) k/uL Basophils # 0.0 (0-0.2) k/uL Sodium 133 L (137-145) mmol/L Potassium 3.9 (3.5-5.1) mmol/L Chloride 100 (98-107) mmol/L Carbon Dioxide 26 (22-30) mmol/L Anion Gap 7 mmol/L BUN 23 H (7-17) mg/dL Creatinine 0.76 (0.52-1.04) mg/dL Est GFR (CKD-EPI)AfAm 88 (>60 ml/min/1.73 sqM) Est GFR (CKD-EPI)NonAf 76 (>60 ml/min/1.73 sqM) Glucose 101 H (74-99) mg/dL Calcium 8.7 (8.4-10.2) mg/dL Total Bilirubin 0.9 (0.2-1.3) mg/dL AST 23 (14-36) U/L ALT 20 (4-34) U/L Alkaline Phosphatase 193 H (38-126) U/L C-Reactive Protein 13.0 H (<1.0) mg/dL Total Protein 6.2 L (6.3-8.2) g/dL Albumin 3.3 L (3.5-5.0) g/dL Disposition Clinical Impression: Inguinal pain Disposition: ADMITTED IP TO THIS HOSP Referrals: Yordan Prescott MD [Primary Care Provider] - 1-2 days Time of Disposition: 10:37
[2023-02-18 08:03] LABS: Basophils % (A) 0 %; Eosinophils # (A) 0.4 k/uL (0-0.7); Eosinophils % (A) 4 %; HCT 34.1 % (34.0-46.0); HGB 11.3 gm/dL (11.4-16.0); Lymphocytes # (A) 1.2 k/uL (1.0-4.8); Lymphocytes % (A) 11 %; MCH 29.7 pg (25.0-35.0); MCHC 33.2 g/dL (31.0-37.0); MCV 89.4 fL (80.0-100.0); Mean Platelet Volume 8.7; Monocytes # (A) 0.6 k/uL (0-1.0); Monocytes % (A) 5 %; Neutrophils # (A) 8.5 k/uL (1.3-7.7); Neutrophils % (A) 78 %; Platelet Count 285 k/uL (150-450); RBC 3.81 m/uL (3.80-5.40); RDW 13.9 % (11.5-15.5); WBC 10.8 k/uL (3.8-10.6)
[2023-02-18 08:22] LABS: ALT 20 U/L (4-34); AST 23 U/L (14-36); African American GFR (CKD) 88 (>60 ml/min/1.73 sqM); Albumin 3.3 g/dL (3.5-5.0); Alkaline Phosphatase 193 U/L (38-126); Anion Gap 7 mmol/L; Blood Urea Nitrogen 23 mg/dL (7-17); Calcium 8.7 mg/dL (8.4-10.2); Carbon Dioxide 26 mmol/L (22-30); Chloride 100 mmol/L (98-107); Glucose 101 mg/dL (74-99); Non-African American GFR(CKD) 76 (>60 ml/min/1.73 sqM); Potassium 3.9 mmol/L (3.5-5.1); Sodium 133 mmol/L (137-145); Total Bilirubin 0.9 mg/dL (0.2-1.3); Total Protein 6.2 g/dL (6.3-8.2)
[2023-02-18] MEDS ORDERED: SODIUM CHLORIDE 0.9% 1,000 ML IV ONE (10:37)
[2023-02-18] MEDS: KETOROLAC 15 MG/ML 1 ML VIAL IVP SCH ×2 (11:20→18:44)
--- NOTE | 2023-02-18 11:28 | P.CNOR ---
History of Present Illness - [facility] Consult date: 02/18/23 History of present illness: The patient is a very pleasant relatively healthy 78-year-old female who is presently in the emergency department with intractable right side hip, buttock and leg pain. I saw the patient in the office yesterday in regards to these complaints. According to the patient she has had several weeks of progressively worsening, atraumatic right hip and buttock pain. She was seen in the ER previously were x-rays and a computed tomography scan showed no structural pathology but there was some concern about the possibility of septic arthritis as well as multiple enlarged lymph nodes. The patient was discharged from the emergency department. I first met the patient and was made aware of the patient yesterday when she presented to my office with the previously mentioned complaints. She had pain out of proportion. She had pain with any attempts at passive range of motion of the hip. She had no other systemic symptoms or immunosuppressive issues putting her to higher risk for infection. She has never had any surgery on her right hip. Our plan yesterday was to proceed with an MRI of the hip, lab work, and a referral to a spine doctor. The patient had progressively worsening pain and instructed to present to the ER. At the time of my evaluation the patient is resting comfortably as she states she is just had pain medication. She continues to have right-sided hip, groin, and buttock pain. She denies fevers or chills. Past Medical History Past Medical History: Atrial Fibrillation, Hypertension History of Any Multi-Drug Resistant Organisms: None Reported Past Surgical History: No Surgical Hx Reported Past Anesthesia/Blood Transfusion Reactions: No Reported Reaction Past Psychological History: Anxiety Smoking Status: Never smoker Past Alcohol Use History: None Reported Past Drug Use History: None Reported - Past Family History Brother(s) Family Medical History: Cancer, Diabetes Mellitus Additional Family Medical History / Comment(s): Colon cancer, at 58 Medications and Allergies Home Medications Medication Instructions Recorded Confirmed Type Lisinopril-Hctz 20-25 mg 1 tab PO DAILY 05/06/16 02/18/23 History [Zestoretic 20-25] Propafenone [Rythmol] 150 mg PO Q8HR #90 tab 05/07/16 02/18/23 Rx Rivaroxaban [Xarelto] 20 mg PO W/SUPPER #30 tab 05/07/16 02/18/23 Rx Albuterol Inhaler [Ventolin Hfa 2 puff INHALATION RT-Q6H PRN #1 06/26/20 02/18/23 Rx Inhaler] puff Ketorolac [Toradol] 10 mg PO Q6HR PRN #15 tab 02/14/23 02/18/23 Rx Nystatin 100,000 Unit/gm Powd 1 applic TOPICAL BID PRN 02/14/23 02/18/23 History [Mycostatin Powder] methocarbamoL [Robaxin-750] 1,500 mg PO TID PRN #30 tab 02/14/23 02/18/23 Rx Allergies Allergy/AdvReac Type Severity Reaction Status Date / Time sulfamethoxazole Allergy Nausea & Verified 02/18/23 11:10 [From Bactrim] Vomiting & Diarrhea trimethoprim [From Bactrim] Allergy Nausea & Verified 02/18/23 11:10 Vomiting & Diarrhea Physical Examination The patient is resting comfortably on the [facility]. She is alert and able to answer questions. She is in minimal distress. Her head is normocephalic and atraumatic. She demonstrates nonlabored breathing with symmetric chest expansion. Her abdomen is nonobese. A focused examination the right lower extremity was conducted. On inspection there is no erythema or warmth of the skin overlying the anterior lateral aspect of the hip. There are no surgical scars. She has minimal pain with logroll of the hip. She does have some discomfort with flexion of the hip to 90 and passive internal and external rotation. Her thigh and calf are soft. She is able to actively plantarflex and dorsiflex her ankle and her toes. Results I reviewed the imaging of the hip from my office as well as her prior computed tomography scan. These show minimal arthritic changes, no fracture and no sign of metastatic disease. The radiologist on the report of the computed tomography scan noted multiple enlarged lymph nodes and could not rule out malignancy. Her lab work was also reviewed and showed a slightly elevated white count, elevated CRP, and elevated alkaline phosphatase. - Labs Labs: Abnormal Lab Results - Last 24 Hours (Table) 02/18/23 02/18/23 Range/Units 07:44 07:44 WBC 10.8 H (3.8-10.6) k/uL Hgb 11.3 L (11.4-16.0) gm/dL Neutrophils # 8.5 H (1.3-7.7) k/uL Sodium 133 L (137-145) mmol/L BUN 23 H (7-17) mg/dL Glucose 101 H (74-99) mg/dL Alkaline Phosphatase 193 H (38-126) U/L C-Reactive Protein 13.0 H (<1.0) mg/dL Total Protein 6.2 L (6.3-8.2) g/dL Albumin 3.3 L (3.5-5.0) g/dL H & H 02/18/23 Range/Units 07:44 Hgb 11.3 L (11.4-16.0) gm/dL Hct 34.1 (34.0-46.0) % Result Diagrams: 02/18/23 07:44 02/18/23 07:44 Assessment and Plan Assessment: Intractable right hip and buttock pain, atraumatic Plan: I had a long discussion on the potential causes of the patient's intractable hip pain. I would like to proceed with an MRI with and without contrast of the right hip to rule out structural pathology around the hip. I think it is u nlikely that the patient has a spontaneously septic hip joint, but if the MRI shows an effusion I would recommend an interventional radiology consultation for aspiration of the hip joint. If the MRI is normal I would recommend a spine consultation to rule out her back as a potential source of referred pain to her leg. I will also defer to the primary service regarding workup of the enlarged lymph nodes seen on the computed tomography scan ordered at her previous ER visit as this could also be a potential source of her intractable pain. We will continue to follow and make recommendations as her imaging studies become available. Time with Patient: Greater than 30
[2023-02-18] MEDS ORDERED: MORPHINE SULFATE 2 MG/ML SYRINGE IVP PRN (14:50)
[2023-02-18] MEDS ORDERED: LORazepam 2 MG/ML INJ IV PRN (14:50)
--- NOTE | 2023-02-18 15:00 | P.HPIM ---
History of Present Illness H&P Date: 02/18/23 78-year-old female with PMH of hypertension, atrial fibrillation presents to the ED for right lower extremity pain. Pain ongoing for the past month progressively getting worse. Describes the pain as dull in nature in the inguinal region. Pain is 10/10 in severity. Aggravated with weight bearing. Sometimes experiences sharp and stabbing pain behind the buttocks radiating down the leg. Reports some nausea but no vomiting. No fever or chills. No weight loss. No changes in urination or bowel habits. No C-scope, mammogram or PAP smear. Underwent recent CT which showed retroperitoneal adenopathy. R common ilac 1.2 cm. L exernal iliac 1.2 cm. R internal iliac 1.0 cm. R external iliac node 1.6 cm. R inguinal node 2.2 cm. Also showed L5 S1 DJD, grade 1 anterolisthesis L4 L5. Asymmetric thickening right obturator internus with fat stranding. CBC showed WBC count 10.8. CMP Na 133, BUN 23, glu 101, alk phos 193, alb 3.3 CRP 13 Pertinent positives and negatives as discussed in HPI, a complete review of systems was performed and all other systems are negative. General: non toxic, no distress, appears at stated age Derm: warm, dry Head: atraumatic, normocephalic, symmetric Eyes: EOMI, no lid lag, anicteric sclera Cardiovascular: S1S2 reg, no murmur Lungs: CTA bilateral, no rhonchi, no rales , no accessory muscle use Ext: no gross muscle atrophy, no edema, no contractures Neuro: no focal neuro defi in the leftcits Psych: Alert, oriented, appropriate affect Based on my assessment of this patient, this patient meets a high complexity level of care. Patient has an acute diagnosis of intractable RLE pain that poses a threat to life or bodily function. Found to have right obturator iternus thickening and retroperitoneal LAD. Left lower extremity pain: Differentials include sciatica, septic arthritis of the hip, OA of the hip, malignancy, infectious cause. Elevated inflammatory markers (CRP). MRI R hip w/wo ordered. Add MRI A/P w/wo contrast. No clear indication for antibiotics for now. Morphine 2 mg IV Q4H PRN. Orthopedic surgery and ID consulted. Retroperitoneal adenopathy: May need IR biopsy. Thickened right obturator inturnus L5 S1 DJD Leukocytosis: No clear source of infection. Atrial fibrillation: Xarelto 20 mg PO QHS. Propagenone 150 mg PO TID. Hypertension CODE STATUS: FULL CODE DVT Prophylaxis: Xarelto GI Prophylaxis: Designated medical POA if patient is not able to make medical decisions for themselves: . I have reviewed the following cost consultant notes: I have reviewed the results of the following tests: As above. I have ordered the following tests: MRI A/P I have discussed the care of this patient with the following independent histor que: I have independently interpreted the following test below: I have discussed the management of this patient with the following physician: This patient has a high risk of morbidity due to the following reasons: Patient requires IV narcotics which requires intensive monitoring for respiratory depression. Past Medical History Past Medical History: Atrial Fibrillation, Hypertension History of Any Multi-Drug Resistant Organisms: None Reported Past Surgical History: No Surgical Hx Reported Past Anesthesia/Blood Transfusion Reactions: No Reported Reaction Past Psychological History: Anxiety Smoking Status: Never smoker Past Alcohol Use History: None Reported Past Drug Use History: None Reported - Past Family History Brother(s) Family Medical History: Cancer, Diabetes Mellitus Additional Family Medical History / Comment(s): Colon cancer, at 58 Medications and Allergies Home Medications Medication Instructions Recorded Confirmed Type Lisinopril-Hctz 20-25 mg 1 tab PO DAILY 05/06/16 02/18/23 History [Zestoretic 20-25] Propafenone [Rythmol] 150 mg PO Q8HR #90 tab 05/07/16 02/18/23 Rx Rivaroxaban [Xarelto] 20 mg PO W/SUPPER #30 tab 05/07/16 02/18/23 Rx Albuterol Inhaler [Ventolin Hfa 2 puff INHALATION RT-Q6H PRN #1 06/26/20 02/18/23 Rx Inhaler] puff Ketorolac [Toradol] 10 mg PO Q6HR PRN #15 tab 02/14/23 02/18/23 Rx Nystatin 100,000 Unit/gm Powd 1 applic TOPICAL BID PRN 02/14/23 02/18/23 History [Mycostatin Powder] methocarbamoL [Robaxin-750] 1,500 mg PO TID PRN #30 tab 02/14/23 02/18/23 Rx Allergies Allergy/AdvReac Type Severity Reaction Status Date / Time sulfamethoxazole Allergy Nausea & Verified 02/18/23 11:10 [From Bactrim] Vomiting & Diarrhea trimethoprim [From Bactrim] Allergy Nausea & Verified 02/18/23 11:10 Vomiting & Diarrhea Physical Exam Vitals: Vital Signs Temp Pulse Resp BP Pulse Ox 02/18/23 08:34 84 18 116/74 95 02/18/23 07:00 98.5 F 79 18 125/75 96 Intake and Output 02/17/23 02/18/23 02/18/23 22:59 06:59 14:59 Other: Weight 77.111 kg Results CBC & Chem 7: 02/18/23 07:44 02/18/23 07:44 Labs: Abnormal Lab Results - Last 24 Hours (Table) 02/18/23 02/18/23 Range/Units 07:44 07:44 WBC 10.8 H (3.8-10.6) k/uL Hgb 11.3 L (11.4-16.0) gm/dL Neutrophils # 8.5 H (1.3-7.7) k/uL Sodium 133 L (137-145) mmol/L BUN 23 H (7-17) mg/dL Glucose 101 H (74-99) mg/dL Alkaline Phosphatase 193 H (38-126) U/L C-Reactive Protein 13.0 H (<1.0) mg/dL Total Protein 6.2 L (6.3-8.2) g/dL Albumin 3.3 L (3.5-5.0) g/dL
[2023-02-18] MEDS: HYDROmorphone 0.5 MG/0.5 ML SYRINGE IVP PRN (15:54)
[2023-02-18] MEDS: PROPAFENONE 150 MG TAB PO SCH (17:25)
[2023-02-18] MEDS ORDERED: RIVAROXABAN 20 MG TAB PO SCH (17:30)
--- NOTE | 2023-02-18 20:40 | MR ---
EXAM: MR hip RT wo/w con DATE OF EXAM: 02/18/2023 COMPARISON: CT abdomen pelvis and CT right hip 02/14/2023 HISTORY: Pain out of proportion, Evaluate for pathology TECHNIQUE: Multiplanar, multisequence images of the bony pelvis and right hip were acquired without a nd with contrast. FINDINGS: BONES/MARROW: Abnormal nonlinear patchy low T1 signal and intermediate/high T2 signal throughout the right hemipelvis, demonstrating mild postcontrast enhancement, most consistent with neoplasm. No line ar signal abnormality to suggest radiographically occult fracture. The bilateral femurs, left hemipel vis, and visualized lumbar spine demonstrate normal bone marrow signal and enhancement pattern. No lashawn int effusion. LABRUM: Grossly intact, given the limitations of a nonarthrographic exam. SOFT TISSUES: Within the right hemipelvis adjacent to the medial wall of the acetabulum, there is an enhancing soft tissue mass with approximate measurements of 4.0 x 1.2 x 6.6 cm (AP x TV x CC), most c onsistent with neoplasm. Large degree of reactive edema in the iliacus and adductor musculature. Incr eased signal of the gluteus medius/minimus tendons, relating to tendinosis. No bursal distention. No fluid collection. NEUROVASCULAR: Visualized neurovascular structures are normal. OTHER: Visualized intraperitoneal structures are normal.. No mass. Redemonstration of multiple enlarg ed right iliac and right inguinal lymph nodes, the largest measuring approximately 1.9 cm in short ax is located within the right inguinal region; lymphadenopathy better evaluated on the recent CT. IMPRESSION: 1. 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 Correlate with medical history. 2. Right iliac and inguinal lymphadenopathy, some of which are amenable to image guided biopsy. 3. No discrete linear insufficiency fracture. 4. Reactive edema throughout the right iliacus and right adductor musculature. 5. Right gluteus medius/minimus tendinosis
[2023-02-19] MEDS: KETOROLAC 15 MG/ML 1 ML VIAL IVP SCH ×5 (00:25→22:52)
[2023-02-19] MEDS: PROPAFENONE 150 MG TAB PO SCH ×4 (01:10→22:52)
[2023-02-19] MEDS: HYDROmorphone 0.5 MG/0.5 ML SYRINGE IVP PRN ×2 (04:33→22:58)
--- NOTE | 2023-02-19 06:39 | P.PN ---
Progress Note - Text Progress Note Date: 02/19/23 The MRI of the right hip shows a large mass most consistent with a neoplasm. There is no sign of fracture or infection around the hip. I will defer to the primary team for further work-up, management/treatment of the mass and pain control as this is outside of my scope of practice. I will sign off at this time.
--- NOTE | 2023-02-19 08:33 | P.CONS ---
History of Present Illness - Reason for Consult Consult date: 02/18/23 - History of Present Illness Patient is a 78-year-old female with a past medical history significant for atrial fibrillation hypertension anxiety presenting to the hospital with intractable right hip pain apparently patient's symptom has been going on for about 2 to 3 weeks pain has been mostly to the right gluteal and right hip area patient denies any history of any trauma and no fall patient describes the pain to be sharp moderate in intensity no significant radiation denies any weakness in the leg no bowel or bladder problem patient denies having any fever or any chills with the symptoms the patient was evaluated on presentation to the hospital patient was afebrile patient did have white count of 10.8 with a left shift creatinine 0.76 liver exams are normal patient apparently did have a recent right hip CT done on 02/14/2023 there was evidence of asymmetric thickening of the right obturator internus with mild fat stranding some fat stranding extending into the lateral right adnexa with concern for possible right hip septic arthritis infectious disease was consulted for further management patient has been evaluated by orthopedics and MRI of the hip has been ordered pending completion blood cultures obtained which are currently pending as well as inflammatory markers Past Medical History Past Medical History: Atrial Fibrillation, Hypertension History of Any Multi-Drug Resistant Organisms: None Reported Past Surgical History: No Surgical Hx Reported Past Anesthesia/Blood Transfusion Reactions: No Reported Reaction Past Psychological History: Anxiety Smoking Status: Never smoker Past Alcohol Use History: None Reported Past Drug Use History: None Reported - Past Family History Brother(s) Family Medical History: Cancer, Diabetes Mellitus Additional Family Medical History / Comment(s): Colon cancer, at 58 Medications and Allergies Home Medications Medication Instructions Recorded Confirmed Type Lisinopril-Hctz 20-25 mg 1 tab PO DAILY 05/06/16 02/18/23 History [Zestoretic 20-25] Propafenone [Rythmol] 150 mg PO Q8HR #90 tab 05/07/16 02/18/23 Rx Rivaroxaban [Xarelto] 20 mg PO W/SUPPER #30 tab 05/07/16 02/18/23 Rx Albuterol Inhaler [Ventolin Hfa 2 puff INHALATION RT-Q6H PRN #1 06/26/20 02/18/23 Rx Inhaler] puff Ketorolac [Toradol] 10 mg PO Q6HR PRN #15 tab 02/14/23 02/18/23 Rx Nystatin 100,000 Unit/gm Powd 1 applic TOPICAL BID PRN 02/14/23 02/18/23 History [Mycostatin Powder] methocarbamoL [Robaxin-750] 1,500 mg PO TID PRN #30 tab 02/14/23 02/18/23 Rx Allergies Allergy/AdvReac Type Severity Reaction Status Date / Time sulfamethoxazole Allergy Nausea & Verified 02/18/23 11:10 [From Bactrim] Vomiting & Diarrhea trimethoprim [From Bactrim] Allergy Nausea & Verified 02/18/23 11:10 Vomiting & Diarrhea Physical Exam Vitals: Vital Signs Temp Pulse Resp BP Pulse Ox 02/18/23 08:34 84 18 116/74 95 02/18/23 07:00 98.5 F 79 18 125/75 96 Intake and Output 02/17/23 02/18/23 02/18/23 22:59 06:59 14:59 Other: Weight 77.111 kg Results CBC & Chem 7: 02/18/23 07:44 02/18/23 07:44 Labs: Abnormal Lab Results - Last 24 Hours (Table) 02/18/23 02/18/23 Range/Units 07:44 07:44 WBC 10.8 H (3.8-10.6) k/uL Hgb 11.3 L (11.4-16.0) gm/dL Neutrophils # 8.5 H (1.3-7.7) k/uL Sodium 133 L (137-145) mmol/L BUN 23 H (7-17) mg/dL Glucose 101 H (74-99) mg/dL Alkaline Phosphatase 193 H (38-126) U/L C-Reactive Protein 13.0 H (<1.0) mg/dL Total Protein 6.2 L (6.3-8.2) g/dL Albumin 3.3 L (3.5-5.0) g/dL Assessment and Plan Plan: 1patient presented to the hospital with intractable right hip pain in this patient without any history of any trauma did have a CT of the right hip on 02/14/2023 with significant abnormality and concern for possible septic arthritis, patient likely denies behaving as such with no fever no elevated white count however cannot entirely excluded 2-I have requested for blood cultures and extremity markers and results will be followed 3-await MRI of the right hip area to better define the right pathology and need for aspiration and cultures 4as the patient does not look toxic we will hold on adding any systemic antibiotic therapy to increase the yield of any cultures Plan of care discussed with admitting team We will follow on clinical condition and cultures to further adjust medication if needed Thank you for this consultation we will follow the patient along with you Dictation was produced using [employer] dictation software. please excuse any grammatical, word or spelling errors. Time with Patient: Greater than 30
[2023-02-19] MEDS: LISINOPRIL-HCTZ 20-25 MG 1 EACH TAB PO SCH (08:59)
[2023-02-19 10:57] LABS: Basophils % (A) 0 %; Eosinophils # (A) 0.4 k/uL (0-0.7); Eosinophils % (A) 4 %; HGB 10.1 gm/dL (11.4-16.0); Lymphocytes # (A) 1.3 k/uL (1.0-4.8); Lymphocytes % (A) 13 %; MCH 29.4 pg (25.0-35.0); MCHC 32.7 g/dL (31.0-37.0); MCV 89.9 fL (80.0-100.0); Mean Platelet Volume 8.8; Monocytes # (A) 0.6 k/uL (0-1.0); Monocytes % (A) 6 %; Neutrophils # (A) 7.8 k/uL (1.3-7.7); Neutrophils % (A) 76 %; Platelet Count 235 k/uL (150-450); RBC 3.45 m/uL (3.80-5.40); RDW 13.7 % (11.5-15.5); WBC 10.3 k/uL (3.8-10.6)
--- NOTE | 2023-02-19 12:56 | P.PN ---
Subjective Progress Note Date: 02/19/23 78-year-old female with PMH of hypertension, atrial fibrillation presents to the ED for right lower extremity pain. Pain ongoing for the past month progressively getting worse. Describes the pain as dull in nature in the inguinal region. Pain is 10/10 in severity. Aggravated with weight bearing. Sometimes experiences sharp and stabbing pain behind the buttocks radiating down the leg. Reports some nausea but no vomiting. No fever or chills. No weight loss. No changes in urination or bowel habits. No C-scope, mammogram or PAP smear. Underwent recent CT which showed retroperitoneal adenopathy. R common ilac 1.2 cm. L exernal iliac 1.2 cm. R internal iliac 1.0 cm. R external iliac node 1.6 cm. R inguinal node 2.2 cm. Also showed L5 S1 DJD, grade 1 anterolisthesis L4 L5. Asymmetric thickening ri ght obturator internus with fat stranding. CBC showed WBC count 10.8. CMP Na 133, BUN 23, glu 101, alk phos 193, alb 3.3 CRP 13 02/19 Patient was seen and examined. Clinical condition unchanged. MRI right hip shows 4 x 1.2 x 6.6 soft tissue mass medial to the acetabulum with abnormal marrow signal throughout the right hemipelvis, LAD, reactive edema of the right iliacus and adductor muscles. CBC Hg 10.1. CRP 8.4. General: non toxic, no distress, appears at stated age Derm: warm, dry Head: atraumatic, normocephalic, symmetric Eyes: EOMI, no lid lag, anicteric sclera Cardiovascular: good distal perfusion in all 4 extremities. Lungs: breathing comfortably, no accessory muscle use Ext: no gross muscle atrophy, no edema, no contractures Neuro: no focal neuro deficits Psych: Alert, oriented, appropriate affect Based on my assessment of this patient, this patient meets a moderate complexity level of care. Patient has an acute diagnosis of intractable RLE pain that poses a threat to life or bodily function. Found to have right obturator iternus thickening and retroperitoneal LAD. MRI concerning for malignancy. RLE pain: Malignancy probable on MRI. Morphine 2 mg IV Q4H PRN. Oncology consulted. Will likely need biopsy. Stop Xarelto in the meantime. Retroperitoneal adenopathy Right hemipelvic mass L5 S1 DJD Atrial fibrillation: Propagenone 150 mg PO TID. Hypertension CODE STATUS: FULL CODE DVT Prophylaxis: SCD GI Prophylaxis: Designated medical POA if patient is not able to make medical decisions for themselves: . I have reviewed the following sales representative consultant notes: Ortho note. I have reviewed the results of the following tests: CRP, MRI hip I have ordered the following tests: I have discussed the care of this patient with the following independent historian: I have independently interpreted the following test below: I have discussed the management of this patient with the following physician: Objective - Vital Signs Vital signs: Vital Signs Temp 98.5 F 02/19/23 07:47 Pulse 85 02/19/23 07:47 Resp 16 02/19/23 07:47 BP 118/68 02/19/23 07:47 Pulse Ox 96 02/19/23 07:47 FiO2 Intake & Output 02/18/23 02/19/23 02/19/23 18:59 06:59 18:59 Weight 77.111 kg Other: Voiding Method Toilet # Voids 1 - Labs CBC & Chem 7: 02/19/23 10:30 02/18/23 07:44 Labs: Abnormal Lab Results - Last 24 Hours (Table) 02/19/23 02/19/23 Range/Units 10:30 10:30 RBC 3.45 L (3.80-5.40) m/uL Hgb 10.1 L (11.4-16.0) gm/dL Hct 31.0 L (34.0-46.0) % Neutrophils # 7.8 H (1.3-7.7) k/uL C-Reactive Protein 8.4 H (<1.0) mg/dL
[2023-02-19] MEDS ORDERED: RX INFO: IV CONTRAST WAS GIVEN 1 EACH MISC MISCELLANE PRN (16:12)
--- NOTE | 2023-02-19 18:11 | CT ---
EXAMINATION TYPE: CT chest w con CT DLP: 314.6 mGycm, Automated exposure control for dose reduction was used. DATE OF EXAM: 02/19/2023 5:20 PM COMPARISON: CT 02/14/2023. CLINICAL INDICATION:Female, 78 years old with history of pelvis mass, staging; PHH, pelvic mass, r/o mets to lungs TECHNIQUE: Multiple axial images were obtained through the chest. Sagittal and coronal reformats were created for review. Contrast used:100 mL of Isovue 300 with IV Contrast (None if empty) Oral contrast used: (None if empty) FINDINGS: LUNGS/ PLEURA: The lung parenchyma appears unremarkable. No pulmonary nodules. No focal consolidatio n, pneumothorax or pleural effusion. AIRWAY: Patent and unremarkable. HEART: Size within normal limits. Mild atherosclerosis of the coronary arteries. MEDIASTINUM: No gross evidence of adenopathy. VASCULATURE: No aortic aneurysm. MUSCULOSKELETAL: No acute osseous abnormalities SOFT TISSUES/LYMPH NODES: Unremarkable. LOWER NECK: No significant findings. UPPER ABDOMEN: Small hiatal hernia. IMPRESSION: No evidence for pulmonary nodules too suggest metastatic disease at this time. No lymphad enopathy visualized.
[2023-02-20 04:00] LABS: Erythrocyte Sedimentation Rate 35 mm/Hr (0-30)
[2023-02-20] MEDS: KETOROLAC 15 MG/ML 1 ML VIAL IVP SCH ×4 (06:26→22:02)
--- NOTE | 2023-02-20 07:25 | P.CONS ---
History of Present Illness - Reason for Consult Consult date: 02/19/23 abnormal MRI Requesting physician: Joaquin Casas - Chief Complaint right hip and groin pain - History of Present Illness Patient is a 78-year-old female who presented to the emergency room with worsening right hip and right groin pain over the last 1 month. Patient denies any bowel changes. Denies vaginal bleeding/discharge. Denies urinary symptoms. Reports she has not had screening mammograms or colonoscopies in the past. Patient was seen in the ER on 02/[address] abdomen pelvis which revealed asymmetric thickening of the right obturator internus with mild fat stranding. Some fat stranding extends to the lateral right adnexa, right external iliac chain, and right upper adductors. Mesenteric retroperitoneal right iliac chain right-sided pelvic, and right inguinal adenopathy measuring up to 2.2 cm noted. This was orignally thought to be a possible muscle strain. 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 Right iliac and inguinal lymphadenopathy. Reactive edema throughout the right iliacus and right adductor musculature. Review of Systems 10 point ROS is negative except as stated in the HPI Past Medical History Past Medical History: Atrial Fibrillation, Hypertension History of Any Multi-Drug Resistant Organisms: None Reported Past Surgical History: No Surgical Hx Reported Past Anesthesia/Blood Transfusion Reactions: No Reported Reaction Past Psychological History: Anxiety Smoking Status: Never smoker Past Alcohol Use History: Rare Past Drug Use History: None Reported - Past Family History Brother(s) Family Medical History: Cancer, Diabetes Mellitus Additional Family Medical History / Comment(s): Colon cancer, at 58 Medications and Allergies Home Medications Medication Instructions Recorded Confirmed Type Lisinopril-Hctz 20-25 mg 1 tab PO DAILY 05/06/16 02/18/23 History [Zestoretic 20-25] Propafenone [Rythmol] 150 mg PO Q8HR #90 tab 05/07/16 02/18/23 Rx Rivaroxaban [Xarelto] 20 mg PO W/SUPPER #30 tab 05/07/16 02/18/23 Rx Albuterol Inhaler [Ventolin Hfa 2 puff INHALATION RT-Q6H PRN #1 06/26/20 02/18/23 Rx Inhaler] puff Ketorolac [Toradol] 10 mg PO Q6HR PRN #15 tab 02/14/23 02/18/23 Rx Nystatin 100,000 Unit/gm Powd 1 applic TOPICAL BID PRN 02/14/23 02/18/23 History [Mycostatin Powder] methocarbamoL [Robaxin-750] 1,500 mg PO TID PRN #30 tab 02/14/23 02/18/23 Rx Allergies Allergy/AdvReac Type Severity Reaction Status Date / Time sulfamethoxazole Allergy Nausea & Verified 02/18/23 11:10 [From Bactrim] Vomiting & Diarrhea trimethoprim [From Bactrim] Allergy Nausea & Verified 02/18/23 11:10 Vomiting & Diarrhea Physical Exam Vitals: Vital Signs Temp Pulse Pulse Resp BP BP Pulse Ox 02/19/23 18:17 98.2 F 80 16 139/87 99 02/19/23 16:37 99.5 F 79 18 129/62 98 02/19/23 07:47 98.5 F 85 16 118/68 96 02/19/23 02:31 98.3 F 82 16 118/56 92 L 02/19/23 02:00 82 Intake and Output 02/19/23 02/19/23 02/19/23 06:59 14:59 22:59 Other: Voiding Method Toilet - Constitutional General appearance: no acute distress - EENT Eyes: anicteric sclerae, EOMI ENT: hearing grossly normal - Neck Neck: no lymphadenopathy - Respiratory Respiratory: bilateral: CTA - Cardiovascular Rhythm: regular Heart sounds: normal: S1, S2 - Gastrointestinal General gastrointestinal: soft, no tenderness - Integumentary Integumentary: no cyanotic - Neurologic grossly intact - Musculoskeletal tenderness to right groin, decreased ROM right hip. - Psychiatric Psychiatric: A&O x's 3 Results CBC & Chem 7: 02/19/23 10:30 02/18/23 07:44 Labs: Abnormal Lab Results - Last 24 Hours (Table) 02/19/23 02/19/23 02/19/23 Range/Units 10:30 10:30 16:23 RBC 3.45 L (3.80-5.40) m/uL Hgb 10.1 L (11.4-16.0) gm/dL Hct 31.0 L (34.0-46.0) % Neutrophils # 7.8 H (1.3-7.7) k/uL Lactate Dehydrogenase 443 H (120-246) U/L C-Reactive Protein 8.4 H (<1.0) mg/dL Comments: MRI hip reviewed CT scan - abdomen: report reviewed CT scan - pelvis: report reviewed Assessment and Plan (1) Inguinal pain Current Visit: Yes Status: Acute Priority: High Code(s): R10.30 - LOWER ABDOMINAL PAIN, UNSPECIFIED SNOMED Code(s): 871066408 Plan: Inguinal pain/hemipelvic mass: -Presented with worsening right hip and right groin pain over the last 1 month. -CT abdomen pelvis obtained on 02/14 revealed asymmetric thickening of the right obturator internus with mild fat stranding. Some fat stranding extends to the lateral right adnexa, right external iliac chain, and right upper adductors. Mesenteric retroperitoneal right iliac chain right-sided pelvic, and right inguinal adenopathy measuring up to 2.2 cm noted. 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 Right iliac and inguinal lymphadenopathy. Reactive edema throughout the right iliacus and right adductor musculature -Findings and concerns for malignancy were discussed with patient -General surgery consult was placed for excisional LN biopsy -LDH ordered -Will obtain CT chest and bone scan for staging Attests: I have seen and examined pt, performed H&P, developed impression and plan of care. Discussed with dictator. Agree with documentation, dictated as a scribe
[2023-02-20] MEDS: LISINOPRIL-HCTZ 20-25 MG 1 EACH TAB PO SCH (08:37)
[2023-02-20] MEDS: PROPAFENONE 150 MG TAB PO SCH ×3 (08:37→22:02)
--- NOTE | 2023-02-20 12:59 | P.GSCN ---
History of Present Illness Consult date: 02/20/23 History of present illness: CHIEF COMPLAINT: Right hip and groin pain Reason for consult: Excisional biopsy of right inguinal lymph node HISTORY OF PRESENT ILLNESS: This is a 78-year-old female who presented to the hospital with complaints of right groin pain that radiates down the right leg for the past 1 month. Patient seen by orthopedic service and MRI of the right hip Reported findings most consistent with neoplasm involving the right hemipelvis. Consists of abnormal marrow signal throughout the right hemipelvis and adjacent enhancing soft tissue mass along the medial wall of the right acetabulum. Right iliac and inguinal lymphadenopathy. Surgical service has been consulted for an excisional biopsy of the right inguinal lymph node. Patient is scheduled for bone scan today. She is followed by oncology service. She does have a history of atrial fibrillation. Her last dose of Xarelto was 02/18/2023. PAST MEDICAL HISTORY: See below PAST SURGICAL HISTORY: See below MEDICATIONS: See below ALLERGIES: See below SOCIAL HISTORY: No illicit drug use. REVIEW OF SYSTEMS: CONSTITUTIONAL: Denies fever or chills. HEENT: Denies blurred vision, vision changes, or eye pain. Denies hemoptysis CARDIOVASCULAR: Denies chest pain or pressure. RESPIRATORY: No shortness of breath. GASTROINTESTINAL: See HPI for pertinent findings HEMATOLOGIC: Denies bleeding disorders. GENITOURINARY: Denies any blood in urine or increased urinary frequency. SKIN: Denies pruitis. Denies rash. PHYSICAL EXAM: VITAL SIGNS: Reviewed GENERAL: Well-developed in no acute distress. HEENT: No sclera icterus. Extraocular movements grossly intact. Moist buccal mucosa. Head is atraumatic, normocephalic. No nasal drainage. ABDOMEN: Soft. Nondistended. Nontender NEUROLOGIC: Alert and oriented. Cranial nerves II through XII grossly intact. Extremities: Mild tenderness to palpation to the right groin. no palpable Lymph nodes on my exam LABORATORY DATA: WBC 10.3 HGB 10.1 Plt 235 Sodium 133 potassium 3.9 creatinine 0.76 IMAGING: Right HIP MRI REPORTS FINDINGS MOST CONSISTENT WITH NEOPLASM INVOLVING THE RIGHT HEMIPELVIS, CONSISTS OF ABNORMAL MARROW SIGNAL THROUGHOUT THE RIGHT HEMIPELVIS AND ADJACENT ENHANCING SOFT TISSUE MASS ALONG THE MEDIAL WALL OF THE ACETABULUM. RIGHT ILIAC AND INGUINAL LYMPHADENOPATHY, SOME OF WHICH ARE AMENABLE TO IMAGE G UIDED BIOPSY. NO DISCRETE LINEAR INSUFFICIENCY FRACTURE. ASSESSMENT: 1. Right inguinal plain 2. 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 Right iliac and inguinal lymphadenopathy PLAN: -Consult interventional radiology for possible biopsy of mass in the right hemipelvis -Continue supportive care Thank you for this consultation Physician Mat Cleaning Machine Operator note has been reviewed by physician. Signing provider agrees with the documented findings, assessment, and plan of care. Past Medical History Past Medical History: Atrial Fibrillation, Hypertension History of Any Multi-Drug Resistant Organisms: None Reported Past Surgical History: No Surgical Hx Reported Past Anesthesia/Blood Transfusion Reactions: No Reported Reaction Past Psychological History: Anxiety Smoking Status: Never smoker Past Alcohol Use History: Rare Past Drug Use History: None Reported - Past Family History Brother(s) Family Medical History: Cancer, Diabetes Mellitus Additional Family Medical History / Comment(s): Colon cancer, at 58 Medications and Allergies Home Medications Medication Instructions Recorded Confirmed Type Lisinopril-Hctz 20-25 mg 1 tab PO DAILY 05/06/16 02/18/23 History [Zestoretic 20-25] Propafenone [Rythmol] 150 mg PO Q8HR #90 tab 05/07/16 02/18/23 Rx Rivaroxaban [Xarelto] 20 mg PO W/SUPPER #30 tab 05/07/16 02/18/23 Rx Albuterol Inhaler [Ventolin Hfa 2 puff INHALATION RT-Q6H PRN #1 06/26/20 02/18/23 Rx Inhaler] puff Ketorolac [Toradol] 10 mg PO Q6HR PRN #15 tab 02/14/23 02/18/23 Rx Nystatin 100,000 Unit/gm Powd 1 applic TOPICAL BID PRN 02/14/23 02/18/23 History [Mycostatin Powder] methocarbamoL [Robaxin-750] 1,500 mg PO TID PRN #30 tab 02/14/23 02/18/23 Rx Allergies Allergy/AdvReac Type Severity Reaction Status Date / Time sulfamethoxazole Allergy Nausea & Verified 02/18/23 11:10 [From Bactrim] Vomiting & Diarrhea trimethoprim [From Bactrim] Allergy Nausea & Verified 02/18/23 11:10 Vomiting & Diarrhea Surgical - Exam Vital Signs Temp Pulse Resp BP Pulse Ox 98.5 F 79 18 125/75 96 02/18/23 07:00 02/18/23 07:00 02/18/23 07:00 02/18/23 07:00 02/18/23 07:00 Results - Labs 02/19/23 10:30 02/18/23 07:44 Abnormal Lab Results - Last 24 Hours (Table) 02/19/23 02/19/23 Range/Units 10:30 16:23 ESR 35 H (0-30) mm/Hr Lactate Dehydrogenase 443 H (120-246) U/L
--- NOTE | 2023-02-20 14:39 | NM ---
EXAMINATION TYPE: NM bone scan whole body DATE OF EXAM: 02/20/2023 COMPARISON: NONE CLINICAL INDICATION: Female, 78 years old with history of pelvic mass, staging; Delayed whole-body scanning was performed following the injection of 25.2 mCi Tc 99m MDP. Images acq uired 6 hours post injection. FINDINGS: Abnormal increased radiotracer accumulation involving the right superior pubic ramus, right ischium, right acetabulum possibly the right femoral head. Posterior calvarial uptake noted. Increased uptake right iliosacral region. Right inferior pubic ramus also has increased signal. Degenerative uptake ab out the shoulders ankles and knees. Bilateral shoulder uptake seen degenerative in nature. Focal incr eased uptake L5. IMPRESSION: Possible metastatic or neoplastic uptake within the right hemipelvis. Increased uptake posterior calv arium and L5 as well.
--- NOTE | 2023-02-20 15:47 | P.PN ---
Subjective Progress Note Date: 02/19/23 Principal diagnosis: reason for follow-up is right hip pain question of septic arthritis Patient is a 78-year-old female with a past medical history significant for atrial fibrillation hypertension anxiety presenting to the hospital with intractable right hip pain with abnormal CT as an outpatient admitted to the hospital for further workup On today's evaluation that is02/19/2023, the patient remains to be febrile, the patient is breathing comfortably on room air. The patient denies having any shortness of breath no chest pain or cough, patient denies Abdominal pain, no nausea/vomiting or diarrhea, the patient pain to the right hip is controlled with pain medication Patient did have a white count of 10.3, sed rate is 35 CRP is 8.4, patient did have MRI of the hip concerning for enhancing soft tissue mass along the medial wall of right is to follow hematology oncology consulted Objective - Vital Signs Vital signs: Vital Signs Temp 98.5 F 02/19/23 07:47 Pulse 85 02/19/23 07:47 Resp 16 02/19/23 07:47 BP 118/68 02/19/23 07:47 Pulse Ox 96 02/19/23 07:47 FiO2 Intake & Output 02/18/23 02/19/23 02/19/23 18:59 06:59 18:59 Weight 77.111 kg Other: Voiding Method Toilet # Voids 1 - Labs CBC & Chem 7: 02/19/23 10:30 02/18/23 07:44 Assessment and Plan (1) Right hip pain Current Visit: Yes Status: Acute Code(s): M25.551 - PAIN IN RIGHT HIP SNOMED Code(s): 29757844 (2) Abnormal MRI Current Visit: Yes Status: Acute Code(s): R93.89 - ABNORMAL FINDINGS ON DX IMAGING OF OTH BODY STRUCTURES SNOMED Code(s): 868236907 Plan: 1patient presented to the hospital with intractable right hip pain in this patient without any history of any trauma did have a CT of the right hip on 02/14/2023 with significant abnormality and concern for possible septic arthritis, patient likely denies behaving as such with no fever no elevated white count however cannot entirely excluded 2- blood cultures are currently pending, inflammatory markers mildly elevated 3- MRI of the right hip area concerning for possible enhancing mass and the patient benefit from biopsy for better definition of underlying condition Dictation was produced using [employer] software. please excuse any grammatical, word or spelling errors. Time with Patient: Less than 30
--- NOTE | 2023-02-20 15:49 | P.PN ---
Subjective Progress Note Date: 02/20/23 Principal diagnosis: reason for follow-up is right hip pain question of septic arthritis Patient is a 78-year-old female with a past medical history significant for atrial fibrillation hypertension anxiety presenting to the hospital with intractable right hip pain with abnormal CT as an outpatient admitted to the hospital for further workup On today's evaluation that is 02/20/2023, the patient denies any fever or any chills, the patient is breathing comfortably on room air and denies any shortness of breath, the patient denies any chest pain, no cough or sputum production, patient denies nausea/vomiting /diarrhea and no abdominal pain, the patient denies any worsening pain to the right hip area Patient did have a white count of 10.3, sed rate is 35 CRP is 8.4 as of 02/19/2023, patient did have MRI of the hip concerning for enhancing soft tissue mass along the medial wall of right Acetabulum Objective - Vital Signs Vital signs: Vital Signs Temp 98.0 F 02/20/23 07:00 Pulse 78 02/20/23 07:00 Resp 16 02/20/23 07:00 BP 119/74 02/20/23 07:00 Pulse Ox 91 L 02/20/23 07:00 FiO2 Intake & Output 02/19/23 02/20/23 02/20/23 18:59 06:59 18:59 Intake Total 118 Balance 118 Intake: Oral 118 Other: Voiding Method Toilet # Voids 2 - Exam elderly female lying in bed in no distress unlabored breathing - Labs CBC & Chem 7: 02/19/23 10:30 02/18/23 07:44 Labs: Abnormal Lab Results - Last 24 Hours (Table) 02/19/23 02/19/23 Range/Units 10:30 16:23 ESR 35 H (0-30) mm/Hr Lactate Dehydrogenase 443 H (120-246) U/L Assessment and Plan (1) Abnormal MRI Current Visit: Yes Status: Acute Code(s): R93.89 - ABNORMAL FINDINGS ON DX IMAGING OF OTH BODY STRUCTURES SNOMED Code(s): 848617081 (2) Right hip pain Current Visit: Yes Status: Acute Code(s): M25.551 - PAIN IN RIGHT HIP SNOMED Code(s): 78070636 Plan: 1patient presented to the hospital with intractable right hip pain in this patient without any history of any trauma did have a CT of the right hip on 02/14/2023 with significant abnormality and concern for possible septic arthritis, patient likely denies behaving as such with no fever no elevated whit e count however cannot entirely excluded 2- blood cultures are so far pending, inflammatory markers mildly elevated 3- MRI of the right hip area concerning for possible enhancing mass and the patient benefit from biopsy for better definition of underlying condition, we should also be sent for cultures for now will monitor the patient closely off antibiotic therapy Dictation was produced using [employer] [place] dictation software. please excuse any grammatical, word or spelling errors. Time with Patient: Less than 30
[2023-02-20] MEDS: HYDROmorphone 0.5 MG/0.5 ML SYRINGE IVP PRN (17:19)
--- NOTE | 2023-02-20 18:03 | P.PN ---
Subjective Progress Note Date: 02/20/23 78-year-old female with PMH of hypertension, atrial fibrillation presents to the ED for right lower extremity pain. Pain ongoing for the past month progressively getting worse. Describes the pain as dull in nature in the inguinal region. Pain is 10/10 in severity. Aggravated with weight bearing. Sometimes experiences sharp and stabbing pain behind the buttocks radiating down the leg. Reports some nausea but no vomiting. No fever or chills. No weight loss. No changes in urination or bowel habits. No C-scope, mammogram or PAP smear. Underwent recent CT which showed retroperitoneal adenopathy. R common ilac 1.2 cm. L exernal iliac 1.2 cm. R internal iliac 1.0 cm. R external iliac node 1.6 cm. R inguinal node 2.2 cm. Also showed L5 S1 DJD, grade 1 anterolisthesis L4 L5. Asymmetric thickening ri ght obturator internus with fat stranding. CBC showed WBC count 10.8. CMP Na 133, BUN 23, glu 101, alk phos 193, alb 3.3 CRP 13 02/19 Patient was seen and examined. Clinical condition unchanged. MRI right hip shows 4 x 1.2 x 6.6 soft tissue mass medial to the acetabulum with abnormal marrow signal throughout the right hemipelvis, LAD, reactive edema of the right iliacus and adductor muscles. CBC Hg 10.1. CRP 8.4. 02/20 Patient was seen and examined this morning. Continues to require Dilaudid for pain control. CT chest negative for malignancy. Plans for bone scan later on this afternoon. Surgery consulted for core LN biopsy. LDH 44.3. General: non toxic, no distress, appears at stated age Derm: warm, dry Head: atraumatic, normocephalic, symmetric Eyes: EOMI, no lid lag, anicteric sclera Cardiovascular: good distal perfusion in all 4 extremities. Lungs: breathing comfortably, no accessory muscle use Ext: no gross muscle atrophy, no edema, no contractures Neuro: no focal neuro deficits Psych: Alert, oriented, appropriate affect Based on my assessment of this patient, this patient meets a moderate complexity level of care. Patient has an acute diagnosis of intractable RLE pain that poses a threat to life or bodily function. Found to have right obturator iternus thickening and retroperitoneal LAD. MRI concerning for malignancy. RLE pain: Malignancy probable on MRI. Morphine 2 mg IV Q4H PRN. Oncology consulted. Will likely need biopsy. Stop Xarelto in the meantime. Retroperitoneal adenopathy Right hemipelvic mass: Bone scan pending. Plans to consult surgery for core LN b iopsy. L5 S1 DJD Atrial fibrillation: Propagenone 150 mg PO TID. Hypertension CODE STATUS: FULL CODE DVT Prophylaxis: SCD GI Prophylaxis: Designated medical POA if patient is not able to make medical decisions for themselves: . I have reviewed the following biometrics consultant notes: Surgery, ID note. I have reviewed the results of the following tests: CT chest. LDH. I have ordered the following tests: I have discussed the care of this patient with the following independent historian: I have independently interpreted the following test below: I have discussed the management of this patient with the following physician: Discussed with Lynette GILLETTE regarding the plan. Objective - Vital Signs Vital signs: Vital Signs Temp 98.0 F 02/20/23 15:00 Pulse 77 02/20/23 15:00 Resp 16 02/20/23 15:00 BP 104/62 02/20/23 15:00 Pulse Ox 93 L 02/20/23 15:00 FiO2 Intake & Output 02/19/23 02/20/23 02/20/23 18:59 06:59 18:59 Intake Total 358 Balance 358 Intake: Oral 358 Other: Voiding Method Toilet # Voids 2 3 - Labs CBC & Chem 7: 02/19/23 10:30 02/18/23 07:44 Labs: Abnormal Lab Results - Last 24 Hours (Table) 02/19/23 Range/Units 10:30 ESR 35 H (0-30) mm/Hr Microbiology - Last 24 Hours (Table) 02/19/23 10:30 Blood Culture - Preliminary Blood
[2023-02-20 18:22] LABS: Prothrombin Time 10.9 sec (10.0-12.5)
--- NOTE | 2023-02-20 20:50 | P.PN ---
Subjective Progress Note Date: 02/20/23 At today's visit patient is resting company in bed. Patient is reporting persisting right groin pain. Patient is scheduled for bone scan this afternoon Objective - Vital Signs Vital signs: Vital Signs Temp 98.0 F 02/20/23 15:00 Pulse 77 02/20/23 15:00 Resp 16 02/20/23 15:00 BP 104/62 02/20/23 15:00 Pulse Ox 93 L 02/20/23 15:00 FiO2 Intake & Output 02/20/23 02/20/23 02/21/23 06:59 18:59 06:59 Intake Total 598 Balance 598 Intake: Oral 598 Other: Voiding Method Toilet # Voids 2 3 - Constitutional General appearance: Present: no acute distress - EENT Eyes: Present: anicteric sclerae, EOMI ENT: Present: hearing grossly normal - Respiratory Details: breathing is even and unlabored - Cardiovascular Details: skin warm and dry - Integumentary Integumentary: Absent: cyanotic - Neurologic Neurologic Comment(s): grossly intact - Musculoskeletal Musculoskeletal Comment(s): right gron pain, decreased ROM RLE - Psychiatric Psychiatric: Present: A&O x's 3 - Labs CBC & Chem 7: 02/19/23 10:30 02/18/23 07:44 Labs: Abnormal Lab Results - Last 24 Hours (Table) 02/19/23 Range/Units 10:30 ESR 35 H (0-30) mm/Hr Microbiology - Last 24 Hours (Table) 02/19/23 10:30 Blood Culture - Preliminary Blood Assessment and Plan (1) Inguinal pain Current Visit: Yes Status: Acute Priority: High Code(s): R10.30 - LOWER ABDOMINAL PAIN, UNSPECIFIED SNOMED Code(s): 473308559 Plan: Inguinal pain/hemipelvic mass: -Presented with worsening right hip and right groin pain over the last 1 month. -CT abdomen pelvis obtained on 02/14 revealed asymmetric thickening of the right obturator internus with mild fat stranding. Some fat stranding extends to the lateral right adnexa, right external iliac chain, and right upper adductors. Mesenteric retroperitoneal right iliac chain right-sided pelvic, and right inguinal adenopathy measuring up to 2.2 cm noted. 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 Right iliac and inguinal lymphadenopathy. Reactive edema throughout the right iliacus and right adductor musculature. Findings and concerns for malignancy were discussed with patient -General surgery consult was placed for excisional LN biopsy. Surgery has placed consult to IR for LN biopsy. As there is concern for possible lymphoma, excisional LN biopsy would be preferred. -LDH elevated, 443 -CT chest and bone scan obtained for staging. Bone scan scheduled for this afternoon. CT chest negative for metastatic disease. Results discussed with patient and spouse
[2023-02-21] MEDS: oxyCODONE-APAP 7.5-325MG 1 EACH TAB PO PRN ×2 (03:11→13:04)
[2023-02-21] MEDS: KETOROLAC 15 MG/ML 1 ML VIAL IVP SCH ×3 (04:27→17:08)
[2023-02-21] MEDS: LISINOPRIL-HCTZ 20-25 MG 1 EACH TAB PO SCH (08:59)
[2023-02-21] MEDS: PROPAFENONE 150 MG TAB PO SCH ×2 (08:59→17:20)
[2023-02-21 10:49] VITALS: RESP 16
--- NOTE | 2023-02-21 12:41 | US ---
ULTRASOUND GUIDED CORE BIOPSY RIGHT PELVIC\GROIN MASS: CLINICAL HISTORY: Right groin lymphadenopathy FINDINGS: The procedure was explained to the patient. The risks, complications, benefits and alternatives were discussed and any questions were answered. Informed consent was obtained. Patient was placed supin e on the ultrasound table and prepped and draped in the usual sterile fashion. Utilizing a 18-gauge core biopsy needle, two passes were made into the enlarged right groin lymph nodes. Patient was stable throughout the procedure. Pathology is pending. All elements of maximal barrier sterile technique were utilized. IMPRESSION: 1. Successful ultrasound guided biopsy right groin lymphadenopathy.
--- NOTE | 2023-02-21 13:20 | P.DS ---
Providers Date of admission: 02/18/23 10:37 Expected date of discharge: 02/21/23 Attending physician: Richie Valencia MD Consults: 02/18/23 10:37 Consult Physician Urgent Consulting Provider: Abhilash Crowder Consult Reason/Comments: Inguinal pain Do you want consulting provider notified?: Yes Consult Physician Urgent Consulting Provider: Maggy Camacho Consult Reason/Comments: Inguinal pain with stranding around the muscles Do you want consulting provider notified?: Yes 02/19/23 09:20 Consult Physician Urgent Consulting Provider: Varghese Garcia Consult Reason/Comments: possible Neoplasm on MRI Do you want consulting provider notified?: Yes 02/20/23 08:13 Consult Physician Routine Consulting Provider: Brandie Galvez Consult Reason/Comments: excisional biopsy right inguinal Lymph node Do you want consulting provider notified?: Yes Primary care physician: [facility] Course: 78-year-old female with PMH of hypertension, atrial fibrillation presents to the ED for right lower extremity pain. Pain ongoing for the past month progressively getting worse. Describes the pain as dull in nature in the inguinal region. Pain is 10/10 in severity. Aggravated with weight bearing. Sometimes experiences sharp and stabbing pain behind the buttocks radiating down the leg. Reports some nausea but no vomiting. No fever or chills. No weight loss. No changes in urination or bowel habits. No C-scope, mammogram or PAP smear. Underwent recent CT which showed retroperitoneal adenopathy. R common ilac 1.2 cm. L exernal iliac 1.2 cm. R internal iliac 1.0 cm. R external iliac node 1.6 cm. R inguinal node 2.2 cm. Also showed L5 S1 DJD, grade 1 anterolisthesis L4 L5. Asymmetric thickening right obturator internus with fat stranding. CBC showed WBC count 10.8. CMP Na 133, BUN 23, glu 101, alk phos 193, alb 3.3 CRP 13 MRI right hip shows 4 x 1.2 x 6.6 soft tissue mass medial to the acetabulum with abnormal marrow signal throughout the right hemipelvis, LAD, reactive edema of the right iliacus and adductor muscles. Bone scan showed uptake within the right hemipelvis and uptake in the posterior calvarium and L5. She underwent core LN biopsy with IR. Advised to follow up with Dr. Castellon for results of the biopsy and further workup/management. Pertinent tests: As above. Pertinent procedures: LN core biopsy General: non toxic, no distress, appears at stated age Derm: warm, dry Head: atraumatic, normocephalic, symmetric Eyes: EOMI, no lid lag, anicteric sclera Cardiovascular: good distal perfusion in all 4 extremities. Lungs: breathing comfortably, no accessory muscle use Ext: no gross muscle atrophy, no edema, no contractures Neuro: no focal neuro deficits Psych: Alert, oriented, appropriate affect Discharge Diagnosis: R inguinal pain Retroperitoneal adenopathy Right hemipelvic mass L5 S1 DJD Atrial fibrillation Hypertension This complex discharge took 35 minutes to complete. Patient Condition at Discharge: Stable Plan - Discharge Summary New Discharge Prescriptions: New oxyCODONE HCL/ACETAMINOPHEN [Percocet 10-325 mg] 1 tab PO Q4HR PRN 3 Days #18 tab PRN Reason: Severe Pain (Scale 7 To 10) Continue Lisinopril-Hctz 20-25 mg [Zestoretic 20-25] 1 tab PO DAILY Propafenone [Rythmol] 150 mg PO Q8HR #90 tab Rivaroxaban [Xarelto] 20 mg PO W/SUPPER #30 tab Nystatin 100,000 Unit/gm Powd [Mycostatin Powder] 1 applic TOPICAL BID PRN PRN Reason: Rash methocarbamoL [Robaxin-750] 1,500 mg PO TID PRN #30 tab PRN Reason: Pain Ketorolac [Toradol] 10 mg PO Q6HR PRN #15 tab PRN Reason: Pain Albuterol Inhaler [Ventolin Hfa Inhaler] 2 puff INHALATION RT-Q6H PRN #1 puff PRN Reason: Shortness Of Breath Or Wheezing Discharge Medication List Lisinopril-Hctz 20-25 mg [Zestoretic 20-25] 1 tab PO DAILY 05/06/16 [History] Propafenone [Rythmol] 150 mg PO Q8HR #90 tab 05/07/16 [Rx] Rivaroxaban [Xarelto] 20 mg PO W/SUPPER #30 tab 05/07/16 [Rx] Albuterol Inhaler [Ventolin Hfa Inhaler] 2 puff INHALATION RT-Q6H PRN #1 puff 06/26/20 [Rx] Nystatin 100,000 Unit/gm Powd [Mycostatin Powder] 1 applic TOPICAL BID PRN 02/14/23 [History] methocarbamoL [Robaxin-750] 1,500 mg PO TID PRN #30 tab 02/14/23 [Rx] Ketorolac [Toradol] 10 mg PO Q6HR PRN #15 tab 02/21/23 [Rx] oxyCODONE HCL/ACETAMINOPHEN [Percocet 10-325 mg] 1 tab PO Q4HR PRN 3 Days #18 tab 02/21/23 [Rx] Follow up Appointment(s)/Referral(s): Venancio Castellon [STAFF PHYSICIAN] - 1 Week Yordan Prescott MD [Primary Care Provider] - 1-2 days Activity/Diet/Wound Care/Special Instructions: Restart Xarelto tomorrow. Follow up with Dr. Castellon for results of the biopsy and further workup and treatment. Discharge Disposition: HOME SELF-CARE
[2023-02-21 13:32] VITALS: BP 107/68; PULSE 72; TEMP 98
--- NOTE | 2023-02-21 15:24 | P.PN ---
Subjective Progress Note Date: 02/21/23 CHIEF COMPLAINT: Right groin pain HISTORY OF PRESENT ILLNESS: Patient scheduled for tissue biopsy of the mass in the hemipelvis by interventional radiology today. Her pain is controlled. She has been up and ambulating. PHYSICAL EXAM: VITAL SIGNS: Reviewed GENERAL: Well-developed in no acute distress. HEENT: No sclera icterus. Extraocular movements grossly intact. Moist buccal mucosa. Head is atraumatic, normocephalic. Hears conversational speech. No nasal drainage. NECK: Supple without lymphadenopathy. CHEST: Non-labored respirations and equal bilateral excursions. CARDIOVASCULAR: Palpable 2+ radial pulses. ABDOMEN: Soft. Nondistended. Nontender. MUSCULOSKELETAL: No clubbing or cyanosis. NEUROLOGIC: No focal or lateralizing signs. Cranial nerves II through XII grossly intact. PSYCH: Appropriate affect. Alert and oriented to person, place and time. SKIN: Well perfused. Good skin turgor. ASSESSMENT: 1. Right groin pain 2. 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 Right iliac and inguinal lymphadenopathy PLAN: -Patient scheduled for biopsy with IR service of the mass in the hemipelvis -Continue supportive care -If excisional lymph node biopsy is still required patient can follow up with Dr. Galvez in the outpatient setting Physician Gas Line Repairer note has been reviewed by physician. Signing provider agrees with the documented findings, assessment, and plan of care. Objective - Vital Signs Vital signs: Vital Signs Temp 97.9 F 02/21/23 07:00 Pulse 70 02/21/23 07:00 Resp 16 02/21/23 07:00 BP 104/66 02/21/23 07:00 Pulse Ox 92 L 02/21/23 07:00 FiO2 Intake & Output 02/20/23 02/21/23 02/21/23 18:59 06:59 18:59 Intake Total 598 240 Balance 598 240 Intake: Oral 598 240 Other: Voiding Method Toilet # Voids 3 2 - Labs CBC & Chem 7: 02/19/23 10:30 02/18/23 07:44 Labs: Microbiology - Last 24 Hours (Table) 02/19/23 10:30 Blood Culture - Preliminary Blood
--- NOTE | 2023-02-22 09:47 | P.PN ---
Subjective Progress Note Date: 02/21/23 At today's visit patient is resting comfortably in bed. Patient is reporting persisting right groin pain. S/p biopsy of right inguinal LN. Objective - Vital Signs Vital signs: Vital Signs Temp 98.0 F 02/21/23 13:14 Pulse 72 02/21/23 13:14 Resp 16 02/21/23 13:14 BP 107/68 02/21/23 13:14 Pulse Ox 96 02/21/23 13:14 FiO2 Intake & Output 02/21/23 02/21/23 02/22/23 06:59 18:59 06:59 Intake Total 358 Balance 358 Intake: Oral 358 Other: Voiding Method Toilet # Voids 2 3 - Constitutional General appearance: Present: no acute distress - EENT Eyes: Present: anicteric sclerae, EOMI ENT: Present: hearing grossly normal - Respiratory Details: breathing is even and unlabored - Cardiovascular Details: skin warm and dry - Integumentary Integumentary: Absent: cyanotic - Neurologic Neurologic Comment(s): grossly intact - Musculoskeletal Musculoskeletal Comment(s): right groin tenderness - Psychiatric Psychiatric: Present: A&O x's 3 - Labs CBC & Chem 7: 02/19/23 10:30 02/18/23 07:44 Labs: Microbiology - Last 24 Hours (Table) 02/19/23 10:30 Blood Culture - Preliminary Blood Assessment and Plan (1) Inguinal pain Status: Acute Priority: High Code(s): R10.30 - LOWER ABDOMINAL PAIN, UNSPECIFIED SNOMED Code(s): 943301586 Plan: Inguinal pain/hemipelvic mass: -Presented with worsening right hip and right groin pain over the last 1 month. -CT abdomen pelvis obtained on 02/14 revealed asymmetric thickening of the right obturator internus with mild fat stranding. Some fat stranding extends to the lateral right adnexa, right external iliac chain, and right upper adductors. Mesenteric retroperitoneal right iliac chain right-sided pelvic, and right inguinal adenopathy measuring up to 2.2 cm noted. 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 Right iliac and inguinal lymphadenopathy. Reactive edema throughout the right iliacus and right adductor musculature. Findings and concerns for malignancy were discussed with patient -General surgery consult was placed for excisional LN biopsy. Surgery placed consult to IR for LN biopsy. As there is concern for possible lymphoma, excisional LN biopsy would be preferred. S/p right inguinal LN biosy, path pending. Pending results patient may need referral for excisional biopsy if tissue sample insufficient -LDH elevated, 443 -CT chest and bone scan obtained for staging. Bone scan revealed possible metastatic or neoplastic uptake within the right hemipelvis. Increased uptake posterior calvarium and L5. CT chest negative for metastatic disease. Results discussed with patient and spouse -PET CT and clinic f/u will be scheduled upon discharge Attests: I have seen and examined pt, performed H&P, developed impression and plan of care. Discussed with dictator. Agree with documentation, dictated as a scribe
== END 2023-02-21 17:27 | disposition home or self-care (01) ==
LOC: EC 06:39 → 6NMEDSUR 10:37
PROVIDERS: ADMIT Student in an Organized Health Care Education/Training Program; ATTEND Student in an Organized Health Care Education/Training Program
DX: R10.31 Right lower quadrant pain (principal); R59.0 Localized enlarged lymph nodes; M25.551 Pain in right hip; R19.00 Intra-abdominal and pelvic swelling, mass and lump, unspecified site; M47.817 Spondylosis without myelopathy or radiculopathy, lumbosacral region; M43.16 Spondylolisthesis, lumbar region; R93.89 Abnormal findings on diagnostic imaging of other specified body structures; I48.91 Unspecified atrial fibrillation; I10 Essential (primary) hypertension; F41.9 Anxiety disorder, unspecified; Z79.01 Long term (current) use of anticoagulants; Z79.899 Other long term (current) drug therapy; Z88.2 Allergy status to sulfonamides
CPT/HCPCS: 96376 ×5; 96361 ×2; 96374; 96375; 99285; 36415; 80053; 85652; 83615; 85025 ×2; 85610; 86140 ×2; 87040; 20206; 76942; 71260; 73723; 78306; G0378 ×4; A9503; J2060; J1885 ×4; J1170 ×3; Q9967; A9585

== ENCOUNTER 2023-02-23 05:43 | Inpatient (IN) | payer MEDICARE ==
[2023-02-23] MEDS ORDERED: SODIUM CHLORIDE 0.9% 1,000 ML IV ONE ×2 (06:22→07:16)
--- NOTE | 2023-02-23 06:28 | ED ---
General Adult HPI - General Chief complaint: Abdominal Pain Stated complaint: Abdominal Pain Time Seen by Provider: 02/23/23 06:09 Source: patient, EMS, RN notes reviewed Mode of arrival: EMS Limitations: no limitations - History of Present Illness Initial comments: 78 year-old female with past medical history significant for atrial fibrillation, hypertension, anxiety presents to the emergency department with a chief complaint of nausea, vomiting, diarrhea. Patient reports that she had the sudden onset of her symptoms that prompted her to call the ambulance this morning. She reports she was recently discharged from this facility yesterday for right and evaluation. She reports that she has a biopsy that is pending. She reports that she felt stable enough for discharge. Once the pain medications wore off when she got home she felt increased nausea. She denies any known fever, chills, cough, chest pain, shortness of breath, dizziness, lightheadedness. She reports mild crampy abdominal pain that is provoked when she has to vomit. - Related Data Home Medications Medication Instructions Recorded Confirmed Lisinopril-Hctz 20-25 mg 1 tab PO DAILY 05/06/16 02/23/23 [Zestoretic 20-25] Nystatin 100,000 Unit/gm Powd 1 applic TOPICAL BID PRN 02/14/23 02/23/23 [Mycostatin Powder] ondansetron HCL [Zofran] 8 mg PO Q8HR PRN 02/23/23 02/23/23 Previous Rx's Medication Instructions Recorded Propafenone [Rythmol] 150 mg PO Q8HR #90 tab 05/07/16 Rivaroxaban [Xarelto] 20 mg PO W/SUPPER #30 tab 05/07/16 Albuterol Inhaler [Ventolin Hfa 2 puff INHALATION RT-Q6H PRN #1 06/26/20 Inhaler] puff methocarbamoL [Robaxin-750] 1,500 mg PO TID PRN #30 tab 02/14/23 Ketorolac [Toradol] 10 mg PO Q6HR PRN #15 tab 02/21/23 oxyCODONE HCL/ACETAMINOPHEN 1 tab PO Q4HR PRN 3 Days #18 tab 02/21/23 [Percocet 10-325 mg] Allergies Allergy/AdvReac Type Severity Reaction Status Date / Time sulfamethoxazole AdvReac Nausea & Verified 02/23/23 13:46 [From Bactrim] Vomiting & Diarrhea trimethoprim [From Bactrim] AdvReac Nausea & Verified 02/23/23 13:46 Vomiting & Diarrhea Review of Systems ROS Statement: Those systems with pertinent positive or pertinent negative responses have been documented in the HPI. ROS Other: All systems not noted in ROS Statement are negative. Past Medical History Past Medical History: Atrial Fibrillation, Hypertension History of Any Multi-Drug Resistant Organisms: None Reported Past Surgical History: No Surgical Hx Reported Past Anesthesia/Blood Transfusion Reactions: No Reported Reaction Past Psychological History: Anxiety Smoking Status: Never smoker Past Alcohol Use History: Rare Past Drug Use History: None Reported - Past Family History Brother(s) Family Medical History: Cancer, Diabetes Mellitus Additional Family Medical History / Comment(s): Colon cancer, at 58 General Exam - General Exam Comments Initial Comments: General: Alert, in no acute distress Head: atraumatic normocephalic. Eyes PERRL, EOMI intact, mucous membranes moist Respiratory: Lungs clear to auscultation bilaterally Cardiovascular: Heart rate regular rate and rhythm Abdominal: Soft without guarding or rebound Extremities: Normal inspection with full range of motion and normal capillary refill Neuroogic: alert and oriented 3, CN II-XII intact, able to ambulate with steady gait Skin: warm dry and intact with normal color : Vaginal exam with SHANNON Méndez present. External exam reveals hypopigmentation, there is a small lesion to the right labia majora. There is moderate skin breakdown to the labia majora and labia minora, trace amount of vaginal blood Limitations: no limitations Course Vital Signs 02/23/23 02/23/23 02/23/23 05:46 07:12 09:43 Temperature 98.2 F Pulse Rate 87 75 85 Respiratory 18 18 16 Rate Blood Pressure 96/55 98/49 114/68 O2 Sat by Pulse 95 91 L Oximetry 02/23/23 02/23/23 11:19 14:00 Temperature Pulse Rate 76 80 Respiratory 18 18 Rate Blood Pressure 112/55 125/78 O2 Sat by Pulse 91 L 90 L Oximetry - Reevaluation(s) Reevaluation #1: 02/23/23 08:32 Pt re-Evaluated. Patient resting comfortably, no acute distress. Aware awaiting laboratory studies Reevaluation #2: 02/23/23 12:[address] jacintoum is currently in the department to discuss the case. He agrees and accepts the patient for observation. EKG Findings - EKG Comments: EKG Findings:: I interpreted the following: EKG performed at 06:15 rate 86 bpm normal sinus rhythm NE interval 148, QRS duration 86, QT/QTc 350/393 Medical Decision Making - Medical Decision Making Was pt. sent in by a medical professional or institution ([facility], [facility], urgent care, hospital, or penitentiary...) When possible be specific @ -[No] Did you speak to anyone other than the patient for history (EMS, parent, family, police, friend...)? What history was obtained from this source @ -EMS, Did you review nursing and triage notes (agree or disagree)? Why? @ -[I reviewed and agree with nursing and triage notes] Were old charts reviewed (outside hosp., previous admission, EMS record, old EKG, old radiological studies, urgent care reports/EKG's, penitentiary records)? Report findings @ -[No old charts were reviewed] Differential Diagnosis (chest pain, altered mental status, abdominal pain women, abdominal pain men, vaginal bleeding, weakness, fever, dyspnea, syncope, headache, dizziness, GI bleed, back pain, seizure, CVA, palpatations, mental health, musculoskeletal)? @ -[not applicable] EKG interpreted by me (3pts min.). @ -[As above] X-rays interpreted by me (1pt min.). @ -[None done] CT interpreted by me (1pt min.). @ -yes U/S interpreted by me (1pt. min.). @ -[None done] What testing was considered but not performed or refused? (CT, X-rays, U/S, labs)? Why? @ -[None] What meds were considered but not given or refused? Why? @ -[None] Did you discuss the management of the patient with other professionals (professionals i.e. [facility], [facility], lab, RT, psych nurse, social research assistant, encyclopedia research worker, teacher, credit officer, case management specialist)? Give summary @ -Dr. Melton, who is in the department to evaluate the patient bedside and agrees to accept the patient for admission Was smoking cessation discussed for >3mins.? @ -[No] Was critical care preformed (if so, how long)? @ -[No] Were there social determinants of health that impacted care today? How? (Homelessness, low income, unemployed, alcoholism, drug addiction, transportation, low edu. Level, literacy, decrease access to med. care, skilled nursing, rehab)? @ -[No] Was there de-escalation of care discussed even if they declined (Discuss DNR or withdrawal of care, Hospice)? DNR status @ -[No] What co-morbidities impacted this encounter? (DM, HTN, Smoking, COPD, CAD, Cancer, CVA, ARF, Chemo, Hep., AIDS, mental health diagnosis, sleep apnea, morbid obesity)? @ -[None] Was patient admitted / discharged? Hospital course, mention meds given and route, prescriptions, significant lab abnormalities, going to OR and other pertinent info. @ -Admission. This is a 78-year-old female who presents the emergency department with a chief complaint of acute nausea, vomiting, diarrhea. Patient had a history and physical exam performed. Patient was initially hypotensive with blood pressures 90s over 50s. Heart rate is regular rate and rhythm, lungs clear to auscultation bilaterally abdomen with generalized tenderness however is soft. Provider was at the bedside during urinary catheter placement. External genitalia child is without some pigmentation. There is skin significant skin breakdown to the majora with trace vaginal blood. Patient mildly tender to palpation. Patient had laboratory studies which revealed WBC 17.2, hemoglobin 13.8 sodium 1 29, carbon dioxide 20 BUN 19, creatinine 0.85 lactic acid 2.5, analysis negative. C. diff negative. Covid influenza RSV negative. Stool culture is pending. I interpreted the following: CT imaging reveals diverticulosis or diverticulitis however shows acute colitis with mild wall thickening. I discussed the results in detail with the patient who verablized understanding and all questions were addressed. It is my decision to admit the patient with further observation soft fluid replenishment and pain control. Case is discussed with Dr. Rose is currently in the department and agrees and accepts the patient for admission. Case is discussed with Dr. tapia [facility] who agrees with plan of care Undiagnosed new problem with uncertain prognosis? @ -[No] Drug Therapy requiring intensive monitoring for toxicity (Heparin, Nitro, Insul in, Cardizem)? @ -[No] Were any procedures done? @ -[No] Diagnosis/symptom? @ -Nausea and Vomiting - Diarrhea -Colitis -Vaginal Pain Acute, or Chronic, or Acute on Chronic? @ -Acute Uncomplicated (without systemic symptoms) or Complicated (systemic symptoms)? @ -Uncomplicated Side effects of treatment? @ -[No] Exacerbation, Progression, or Severe Exacerbation? @ -[No] Poses a threat to life or bodily function? How? (Chest pain, USA, MD, pneumonia, PE, COPD, DKA, ARF, appy, cholecystitis, CVA, Diverticulitis, Homicidal, Suic idal, threat to staff... and all critical care pts) @ -yes - Lab Data Result diagrams: 02/23/23 06:31 02/23/23 06:31 Lab Results 02/23/23 02/23/23 02/23/23 Range/Units 06:31 06:31 06:31 WBC 17.2 H (3.8-10.6) k/uL RBC 4.74 (3.80-5.40) m/uL Hgb 13.8 D (11.4-16.0) gm/dL Hct 42.6 (34.0-46.0) % MCV 89.9 (80.0-100.0) fL MCH 29.1 (25.0-35.0) pg MCHC 32.4 (31.0-37.0) g/dL RDW 13.5 (11.5-15.5) % Plt Count 318 (150-450) k/uL MPV 9.7 Neutrophils % 88 % Lymphocytes % 7 % Monocytes % 3 % Eosinophils % 1 % Basophils % 0 % Neutrophils # 15.1 H (1.3-7.7) k/uL Lymphocytes # 1.3 (1.0-4.8) k/uL Monocytes # 0.6 (0-1.0) k/uL Eosinophils # 0.2 (0-0.7) k/uL Basophils # 0.0 (0-0.2) k/uL Sodium 129 L (137-145) mmol/L Potassium 4.8 (3.5-5.1) mmol/L Chloride 99 (98-107) mmol/L Carbon Dioxide 20 L (22-30) mmol/L Anion Gap 10 mmol/L BUN 19 H (7-17) mg/dL Creatinine 0.85 (0.52-1.04) mg/dL Est GFR (CKD-EPI)AfAm 77 (>60 ml/min/1.73 sqM) Est GFR (CKD-EPI)NonAf 67 (>60 ml/min/1.73 sqM) Glucose 156 H (74-99) mg/dL Lactic Ac Sepsis Rflx Plasma Lactic Acid Terence (0.7-2.0) mmol/L Calcium 8.2 L (8.4-10.2) mg/dL Total Bilirubin 1.2 (0.2-1.3) mg/dL AST 40 H (14-36) U/L ALT 15 (4-34) U/L Alkaline Phosphatase 188 H (38-126) U/L Total Protein 5.7 L (6.3-8.2) g/dL Albumin 2.7 L (3.5-5.0) g/dL Urine Color Light [place] Urine Appearance Clear (Clear) Urine pH 6.0 (5.0-8.0) Ur Specific [place] 1.020 (1.001-1.035) Urine Protein Trace H (Negative) Urine Glucose (UA) Negative (Negative) Urine Ketones Negative (Negative) Urine Blood Negative (Negative) Urine Nitrite Negative (Negative) Urine Bilirubin Negative (Negative) Urine Urobilinogen 4.0 (<2.0) mg/dL Ur Leukocyte Esterase Negative (Negative) C. difficile (EIA) Intrp (Negative) Influenza Type A (PCR) (Not Detectd) Influenza Type B (PCR) (Not Detectd) RSV (PCR) (Not Detectd) SARS-CoV-2 (PCR) (Not Detectd) 02/23/23 02/23/23 02/23/23 Range/Units 06:31 06:31 06:31 WBC (3.8-10.6) k/uL RBC (3.80-5.40) m/uL Hgb (11.4-16.0) gm/dL Hct (34.0-46.0) % MCV (80.0-100.0) fL MCH (25.0-35.0) pg MCHC (31.0-37.0) g/dL RDW (11.5-15.5) % Plt Count (150-450) k/uL MPV Neutrophils % % Lymphocytes % % Monocytes % % Eosinophils % % Basophils % % Neutrophils # (1.3-7.7) k/uL Lymphocytes # (1.0-4.8) k/uL Monocytes # (0-1.0) k/uL Eosinophils # (0-0.7) k/uL Basophils # (0-0.2) k/uL Sodium (137-145) mmol/L Potassium (3.5-5.1) mmol/L Chloride (98-107) mmol/L Carbon Dioxide (22-30) mmol/L Anion Gap mmol/L BUN (7-17) mg/dL Creatinine (0.52-1.04) mg/dL Est GFR (CKD-EPI)AfAm (>60 ml/min/1.73 sqM) Est GFR (CKD-EPI)NonAf (>60 ml/min/1.73 sqM) Glucose (74-99) mg/dL Lactic Ac Sepsis Rflx Plasma Lactic Acid Terence 2.5 H* (0.7-2.0) mmol/L Calcium (8.4-10.2) mg/dL Total Bilirubin (0.2-1.3) mg/dL AST (14-36) U/L ALT (4-34) U/L Alkaline Phosphatase (38-126) U/L Total Protein (6.3-8.2) g/dL Albumin (3.5-5.0) g/dL Urine Color Urine Appearance (Clear) Urine pH (5.0-8.0) Ur Specific [place] (1.001-1.035) Urine Protein (Negative) Urine Glucose (UA) (Negative) Urine Ketones (Negative) Urine Blood (Negative) Urine Nitrite (Negative) Urine Bilirubin (Negative) Urine Urobilinogen (<2.0) mg/dL Ur Leukocyte Esterase (Negative) C. difficile (EIA) Intrp Negative (Negative) Influenza Type A (PCR) Not Detected (Not Detectd) Influenza Type B (PCR) Not Detected (Not Detectd) RSV (PCR) Not Detected (Not Detectd) SARS-CoV-2 (PCR) Not Detected (Not Detectd) 02/23/23 Range/Units 07:07 WBC (3.8-10.6) k/uL RBC (3.80-5.40) m/uL Hgb (11.4-16.0) gm/dL Hct (34.0-46.0) % MCV (80.0-100.0) fL MCH (25.0-35.0) pg MCHC (31.0-37.0) g/dL RDW (11.5-15.5) % Plt Count (150-450) k/uL MPV Neutrophils % % Lymphocytes % % Monocytes % % Eosinophils % % Basophils % % Neutrophils # (1.3-7.7) k/uL Lymphocytes # (1.0-4.8) k/uL Monocytes # (0-1.0) k/uL Eosinophils # (0-0.7) k/uL Basophils # (0-0.2) k/uL Sodium (137-145) mmol/L Potassium (3.5-5.1) mmol/L Chloride (98-107) mmol/L Carbon Dioxide (22-30) mmol/L Anion Gap mmol/L BUN (7-17) mg/dL Creatinine (0.52-1.04) mg/dL Est GFR (CKD-EPI)AfAm (>60 ml/min/1.73 sqM) Est GFR (CKD-EPI)NonAf (>60 ml/min/1.73 sqM) Glucose (74-99) mg/dL Lactic Ac Sepsis Rflx Y Plasma Lactic Acid Terence (0.7-2.0) mmol/L Calcium (8.4-10.2) mg/dL Total Bilirubin (0.2-1.3) mg/dL AST (14-36) U/L ALT (4-34) U/L Alkaline Phosphatase (38-126) U/L Total Protein (6.3-8.2) g/dL Albumin (3.5-5.0) g/dL Urine Color Urine Appearance (Clear) Urine pH (5.0-8.0) Ur Specific [place] (1.001-1.035) Urine Protein (Negative) Urine Glucose (UA) (Negative) Urine Ketones (Negative) Urine Blood (Negative) Urine Nitrite (Negative) Urine Bilirubin (Negative) Urine Urobilinogen (<2.0) mg/dL Ur Leukocyte Esterase (Negative) C. difficile (EIA) Intrp (Negative) Influenza Type A (PCR) (Not Detectd) Influenza Type B (PCR) (Not Detectd) RSV (PCR) (Not Detectd) SARS-CoV-2 (PCR) (Not Detectd) Disposition Clinical Impression: Nausea and vomiting, Diarrhea, Colitis, Vaginal pain Disposition: ADMITTED IP TO THIS HOSP Condition: Fair Is patient prescribed a controlled substance at d/c from ED?: No Time of Disposition: 12:36
[2023-02-23 06:51] LABS: Basophils % (A) 0 %; Eosinophils # (A) 0.2 k/uL (0-0.7); Eosinophils % (A) 1 %; HCT 42.6 % (34.0-46.0); Lymphocytes # (A) 1.3 k/uL (1.0-4.8); Lymphocytes % (A) 7 %; MCH 29.1 pg (25.0-35.0); MCHC 32.4 g/dL (31.0-37.0); MCV 89.9 fL (80.0-100.0); Mean Platelet Volume 9.7; Monocytes # (A) 0.6 k/uL (0-1.0); Monocytes % (A) 3 %; Neutrophils # (A) 15.1 k/uL (1.3-7.7); Neutrophils % (A) 88 %; Platelet Count 318 k/uL (150-450); RBC 4.74 m/uL (3.80-5.40); RDW 13.5 % (11.5-15.5); WBC 17.2 k/uL (3.8-10.6)
[2023-02-23 06:55] LABS: HGB 13.8 gm/dL (11.4-16.0)
[2023-02-23 06:59] LABS: ALT 15 U/L (4-34); African American GFR (CKD) 77 (>60 ml/min/1.73 sqM); Anion Gap 10 mmol/L; Blood Urea Nitrogen 19 mg/dL (7-17); Calcium 8.2 mg/dL (8.4-10.2); Carbon Dioxide 20 mmol/L (22-30); Chloride 99 mmol/L (98-107); Glucose 156 mg/dL (74-99); Non-African American GFR(CKD) 67 (>60 ml/min/1.73 sqM); Sodium 129 mmol/L (137-145); Total Bilirubin 1.2 mg/dL (0.2-1.3)
[2023-02-23 07:04] LABS: AST 40 U/L (14-36); Albumin 2.7 g/dL (3.5-5.0); Alkaline Phosphatase 188 U/L (38-126); Potassium 4.8 mmol/L (3.5-5.1); Total Protein 5.7 g/dL (6.3-8.2)
[2023-02-23] MEDS ORDERED: HYDROmorphone 0.5 MG/0.5 ML SYRINGE IVP STA (09:28)
[2023-02-23] MEDS ORDERED: ONDANSETRON 4 MG/2 ML VIAL IVP STA (09:28)
--- NOTE | 2023-02-23 11:08 | CT ---
EXAMINATION TYPE: CT abdomen pelvis w con DATE OF EXAM: 02/23/2023 COMPARISON: 02/14/2023 INDICATION: Abdominal pain with Nausea, Vomiting and Diarrhea DLP: 1014.6 mGycm, Automated exposure control for dose reduction was used. CONTRAST: 100 ml mL of Isovue 300. Study performed without Oral Contrast TECHNIQUE: Axial images were obtained from above the diaphragm to the pubic rami in the axial plane a t 5 mm thick sections. Reconstructed images are reviewed on the computer in the coronal plane. FINDINGS: Limited CT sections are obtained the lung bases. Some minimal thickening along the posterior inferio r pleural margin may be present. There is a soft tissue density within the posterior left flank base chest. Series 201 image 1. This is partially visualized. CT ABDOMEN: Minimal ascites is adjacent to the liver and spleen. Liver: Normal Spleen: Calcifications are within the spleen Pancreas: Normal Adrenal glands: The adrenal glands are normal. Gallbladder: Normal Kidneys: No masses are evident. No hydronephrosis is present. No cysts are present. Delayed images were obtained through the kidneys, which remain unremarkable. Aorta: Normal Inferior vena cava: Normal. CT PELVIS: No free air is evident. Diffuse wall thickening within the colon predominantly within the descending colon and proximal sigmo id colon. A few diverticula are changes are within the sigmoid colon. Mild inflammatory changes are a djacent to the thickened colon. Findings appear more compatible with acute colitis. Small bowel loops appear unremarkable. Study is without oral contrast limiting bowel evaluation. Appendix: Normal as visualized. Urinary bladder: Normal. Genitourinary structures: Uterus and ovaries appear normal Osseous structures: No suspicious lytic or sclerotic lesions. IMPRESSION: 1. Diffuse wall thickening predominantly within the descending colon and proximal sigmoid colon. Luis e milder wall thickening is within more proximal distal colon. Correlate for acute colitis.
[2023-02-23] MEDS ORDERED: NALOXONE 0.4 MG/ML 1 ML VIAL IV PRN (12:36)
[2023-02-23 14:06] LABS: Appearance,Urine Clear (Clear); Color,Urine Light Orange; Protein,Urine Trace (Negative)
[2023-02-23 14:07] LABS: Bilirubin,Urine Negative (Negative); Blood,Urine Negative (Negative); Glucose,Urine (UA) Negative (Negative); Ketones,Urine Negative (Negative); Leukocyte Esterase,Urine Negative (Negative); Nitrite,Urine Negative (Negative)
--- NOTE | 2023-02-23 15:05 | P.HPIM ---
History of Present Illness H&P Date: 02/23/23 78-year-old female with PMH of hypertension, atrial fibrillation presents to the ED for N/V and diarrhea. Recently discharge after workup for R hip pain. 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 Got a core LN biopsy with IR prior to discharge on 02/21/23. Patient started to feel nauseated the day after discharge. This morning had multiple episodes of watery diarrhea which prompted her to call EMS. In the ED she underwent extensive evaluation: BP as low as 96/55. CBC WBC 17.2. CMP Na 129, bicarb 20, BUN 19, glucose 156, Ca 8.2, ASST 40, alk phos 188, albumin 2.7. UA trace protein. C. diff negative. COVID 19, Flu, RSV negative. Lactic acid 2.5. CT AP consistent with acute sigmoid colitis. Admitted for further management of symptoms. General: non toxic, no distress, appears at stated age Derm: warm, dry Head: atraumatic, normocephalic, symmetric Eyes: EOMI, no lid lag, anicteric sclera Cardiovascular: S1S2 reg, no murmur Lungs: CTA BL, no rhonchi, no rales , no accessory muscle use Abdominal: soft, nontender to palpation, no guarding, no appreciable organomegaly Ext: no gross muscle atrophy, no edema, no contractures Neuro: no focal neuro deficits Psych: Alert, oriented, appropriate affect Based on my assessment of this patient, this patient meets a high complexity level of care. Patient has an acute diagnosis of acute colitis that poses a threat to life or bodily function. Acute colitis: Does not meet sepsis criteria. C. difficile negative. Start Zosyn 3.375 g IV TID. Obtain stool culture and lactoferrin. Zofran 4 mg IV Q8H PRN for N/V. NS at 75 cc/hr. Hypotension: Fluid responsive. IV hydration as above. Hyponatremia: Dehydration. IV hydration as above. Lactic acidosis: Related to above. IV hydration as above. Right hip mass: Follow up with Oncology for pathology results of IR core LN biopsy. CODE STATUS: FULL CODE DVT Prophylaxis: Xarelto GI Prophylaxis: Designated medical POA if patient is not able to make medical decisions for themselves: I have reviewed the following philatelic consultant notes: I have reviewed the results of the following tests: As above. I have ordered the following tests: As above. I have discussed the care of this patient with the following independent historian: I have independently interpreted the following test below: I have discussed the management of this patient with the following physician: Discussed with Melisa MORGAN in the ED. Past Medical History Past Medical History: Atrial Fibrillation, Hypertension History of Any Multi-Drug Resistant Organisms: None Reported Past Surgical History: No Surgical Hx Reported Past Anesthesia/Blood Transfusion Reactions: No Reported Reaction Past Psychological History: Anxiety Smoking Status: Never smoker Past Alcohol Use History: Rare Past Drug Use History: None Reported - Past Family History Brother(s) Family Medical History: Cancer, Diabetes Mellitus Additional Family Medical History / Comment(s): Colon cancer, at 58 Medications and Allergies Home Medications Medication Instructions Recorded Confirmed Type Lisinopril-Hctz 20-25 mg 1 tab PO DAILY 05/06/16 02/23/23 History [Zestoretic 20-25] Propafenone [Rythmol] 150 mg PO Q8HR #90 tab 05/07/16 02/23/23 Rx Rivaroxaban [Xarelto] 20 mg PO W/SUPPER #30 tab 05/07/16 02/23/23 Rx Albuterol Inhaler [Ventolin Hfa 2 puff INHALATION RT-Q6H PRN #1 06/26/20 02/23/23 Rx Inhaler] puff Nystatin 100,000 Unit/gm Powd 1 applic TOPICAL BID PRN 02/14/23 02/23/23 History [Mycostatin Powder] methocarbamoL [Robaxin-750] 1,500 mg PO TID PRN #30 tab 02/14/23 02/23/23 Rx Ketorolac [Toradol] 10 mg PO Q6HR PRN #15 tab 02/21/23 02/23/23 Rx oxyCODONE HCL/ACETAMINOPHEN 1 tab PO Q4HR PRN 3 Days #18 tab 02/21/23 02/23/23 Rx [Percocet 10-325 mg] ondansetron HCL [Zofran] 8 mg PO Q8HR PRN 02/23/23 02/23/23 History Allergies Allergy/AdvReac Type Severity Reaction Status Date / Time sulfamethoxazole AdvReac Nausea & Verified 02/23/23 13:46 [From Bactrim] Vomiting & Diarrhea trimethoprim [From Bactrim] AdvReac Nausea & Verified 02/23/23 13:46 Vomiting & Diarrhea Physical Exam Vitals: Vital Signs Temp Pulse Resp BP Pulse Ox 02/23/23 14:00 80 18 125/78 90 L 02/23/23 11:19 76 18 112/55 91 L 02/23/23 09:43 85 16 114/68 91 L 02/23/23 07:12 75 18 98/49 02/23/23 05:46 98.2 F 87 18 96/55 95 Intake and Output 02/23/23 02/23/23 02/23/23 06:59 14:59 22:59 Other: Weight 77.111 kg Results CBC & Chem 7: 02/23/23 06:31 02/23/23 06:31 Labs: Abnormal Lab Results - Last 24 Hours (Table) 02/23/23 02/23/23 02/23/23 Range/Units 06:31 06:31 06:31 WBC 17.2 H (3.8-10.6) k/uL Neutrophils # 15.1 H (1.3-7.7) k/uL Sodium 129 L (137-145) mmol/L Carbon Dioxide 20 L (22-30) mmol/L BUN 19 H (7-17) mg/dL Glucose 156 H (74-99) mg/dL Plasma Lactic Acid Terence (0.7-2.0) mmol/L Calcium 8.2 L (8.4-10.2) mg/dL AST 40 H (14-36) U/L Alkaline Phosphatase 188 H (38-126) U/L Total Protein 5.7 L (6.3-8.2) g/dL Albumin 2.7 L (3.5-5.0) g/dL Urine Protein Trace H (Negative) 02/23/23 Range/Units 06:31 WBC (3.8-10.6) k/uL Neutrophils # (1.3-7.7) k/uL Sodium (137-145) mmol/L Carbon Dioxide (22-30) mmol/L BUN (7-17) mg/dL Glucose (74-99) mg/dL Plasma Lactic Acid Terence 2.5 H* (0.7-2.0) mmol/L Calcium (8.4-10.2) mg/dL AST (14-36) U/L Alkaline Phosphatase (38-126) U/L Total Protein (6.3-8.2) g/dL Albumin (3.5-5.0) g/dL Urine Protein (Negative)
[2023-02-23] MEDS: SODIUM CHLORIDE 0.9% 1,000 ML IV SCH (16:55)
[2023-02-23] MEDS: PIPERACILLIN-TAZOBACTAM 3.375 GM in SODIUM CHLORIDE 0.9% 100 ML IVPB SCH ×2 (16:56→22:20)
[2023-02-23] MEDS: RIVAROXABAN 20 MG TAB PO SCH (16:56)
[2023-02-23] MEDS: PROPAFENONE 150 MG TAB PO SCH ×2 (16:56→22:19)
[2023-02-23] MEDS: HYDROmorphone 1 MG/ML 1 ML SYRINGE IVP PRN ×2 (16:59→22:19)
[2023-02-24] MEDS: HYDROmorphone 1 MG/ML 1 ML SYRINGE IVP PRN ×5 (02:38→21:11)
[2023-02-24] MEDS: SODIUM CHLORIDE 0.9% 1,000 ML IV SCH ×2 (04:24→16:49)
[2023-02-24] MEDS: PIPERACILLIN-TAZOBACTAM 3.375 GM in SODIUM CHLORIDE 0.9% 100 ML IVPB SCH ×3 (07:57→23:39)
[2023-02-24] MEDS: PROPAFENONE 150 MG TAB PO SCH ×3 (07:58→21:11)
[2023-02-24 10:45] LABS: Basophils # (A) 0.05 X 10*3/uL (0.00-0.10); Basophils % (A) 0.3 %; Eosinophils # (A) 0.07 X 10*3/uL (0.04-0.35); Eosinophils % (A) 0.4 %; HCT 32.8 % (37.2-46.3); HGB 10.3 g/dL (12.0-15.0); Lymphocytes # (A) 1.28 X 10*3/uL (0.90-5.00); Lymphocytes % (A) 6.5 %; MCH 28.5 pg (27.0-32.0); MCHC 31.4 g/dL (32.0-37.0); MCV 90.9 FL (80.0-97.0); Mean Platelet Volume 11.1 FL (9.5-12.2); Monocytes # (A) 1.45 X 10*3/uL (0.20-1.00); Monocytes % (A) 7.4 %; NRBC Per 100 WBC 0 X 10*3/uL (0.00-0.01); Neutrophils # (A) 16.69 X 10*3/uL (1.80-7.70); Platelet Count 270 X 10*3/uL (140-440); RBC 3.61 X 10*6/uL (4.10-5.20); WBC 19.62 X 10*3/uL (4.50-10.00)
[2023-02-24 11:02] LABS: BUN/Creat Ratio 18.44 Ratio (12.00-20.00); Blood Urea Nitrogen 16.6 mg/dL (9.0-27.0); Calcium 7.9 mg/dL (8.7-10.3); Carbon Dioxide 23.9 mmol/L (21.6-31.8); Chloride 104 mmol/L (96-109); Glucose 110 mg/dL (70-110); Potassium 4.1 mmol/L (3.5-5.5); Sodium 136 mmol/L (135-145)
--- NOTE | 2023-02-24 16:01 | P.PN ---
Subjective Progress Note Date: 02/24/23 Pt c/o subjective fevers, chills prior to admission. Also c/o chills overnight. Says nausea has improved, but still present. Does not feel well overall. Has abd pain on plapation, but not at rest. Gen: awake, alert HEENT: normocephalic, atraumatic, good hearing acuity, moist mucous membranes Resp: good air exchange, breathing comfortably with no accessory muscle use CVS: good distal perfusion x 4, GI: soft, NTTP, ND : no SPT, no CVAT, okeefe catheter not present MSK: no pitting edema, no clubbing Neuro: non-focal, moving all extremities Psych: cooperative, euthymic mood Hospital course: 78-year-old female with PMH of hypertension, atrial fibrillation presents to the ED for N/V and diarrhea. Recently discharge after workup for R hip pain. 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 Got a core LN biopsy with IR prior to discharge on 02/21/23. Patient started to feel nauseated the day after discharge. This morning had multiple episodes of watery diarrhea which prompted her to call EMS. In the ED she underwent extensive evaluation: BP as low as 96/55. CBC WBC 17.2. CMP Na 129, bicarb 20, BUN 19, glucose 156, Ca 8.2, ASST 40, alk phos 188, albumin 2.7. UA trace protein. C. diff negative. COVID 19, Flu, RSV negative. Lactic acid 2.5. CT AP consistent with acute sigmoid colitis. Assessment/Plan: Acute Infectious Colitis -Cotinue Zosyn 3.375 g IV TID. -Obtain stool culture and lactoferrin. -Zofran 4 mg IV Q8H PRN for N/V. NS at 75 cc/hr. Hypotension: Fluid responsive. IV hydration as above. Hyponatremia: Dehydration. IV hydration as above. Lactic acidosis: Related to above. IV hydration as above. Right hip mass: Follow up with Oncology for pathology results of IR core LN biopsy. CODE STATUS: FULL CODE DVT Prophylaxis: Xarelto GI Prophylaxis: Designated medical POA if patient is not able to make medical decisions for themselves: Objective - Vital Signs Vital signs: Vital Signs Temp 98.0 F 02/24/23 14:30 Pulse 80 02/24/23 14:30 Resp 16 02/24/23 14:30 BP 111/69 02/24/23 14:30 Pulse Ox 97 02/24/23 14:30 FiO2 Intake & Output 02/23/23 02/24/23 02/24/23 18:59 06:59 18:59 Intake Total 118 Balance 118 Weight 77.111 kg Intake: Oral 118 Other: Voiding Method Toilet # Voids 1 3 - Labs CBC & Chem 7: 02/24/23 07:00 02/24/23 07:00 Labs: Abnormal Lab Results - Last 24 Hours (Table) 02/24/23 02/24/23 Range/Units 07:00 07:00 WBC 19.62 H (4.50-10.00) X 10*3/uL RBC 3.61 L (4.10-5.20) X 10*6/uL Hgb 10.3 L (12.0-15.0) g/dL Hct 32.8 L (37.2-46.3) % MCHC 31.4 L (32.0-37.0) g/dL Neutrophils # 16.69 H (1.80-7.70) X 10*3/uL Monocytes # 1.45 H (0.20-1.00) X 10*3/uL Calcium 7.9 L (8.7-10.3) mg/dL
[2023-02-24] MEDS: ONDANSETRON 4 MG/2 ML VIAL IVP PRN (16:32)
[2023-02-24] MEDS: RIVAROXABAN 20 MG TAB PO SCH (17:53)
[2023-02-24] MEDS: PROCHLORPERAZINE INJ 10 MG/2 ML VIAL IVP PRN (18:51)
[2023-02-25] MEDS: ONDANSETRON 4 MG/2 ML VIAL IVP PRN ×3 (01:04→16:41)
[2023-02-25] MEDS: HYDROmorphone 1 MG/ML 1 ML SYRINGE IVP PRN ×4 (01:04→19:42)
[2023-02-25] MEDS: SODIUM CHLORIDE 0.9% 1,000 ML IV SCH ×2 (06:09→19:28)
[2023-02-25] MEDS: PIPERACILLIN-TAZOBACTAM 3.375 GM in SODIUM CHLORIDE 0.9% 100 ML IVPB SCH ×2 (08:25→15:39)
[2023-02-25] MEDS: PROPAFENONE 150 MG TAB PO SCH ×2 (08:26→15:39)
[2023-02-25 08:46] LABS: Basophils # (A) 0.04 X 10*3/uL (0.00-0.10); Basophils % (A) 0.3 %; Eosinophils # (A) 0.16 X 10*3/uL (0.04-0.35); Eosinophils % (A) 1.1 %; HCT 30.4 % (37.2-46.3); HGB 9.5 g/dL (12.0-15.0); Lymphocytes # (A) 1.14 X 10*3/uL (0.90-5.00); MCH 28.4 pg (27.0-32.0); MCHC 31.3 g/dL (32.0-37.0); Mean Platelet Volume 11.1 FL (9.5-12.2); Monocytes % (A) 6.3 %; NRBC Per 100 WBC 0 X 10*3/uL (0.00-0.01); Neutrophils # (A) 11.95 X 10*3/uL (1.80-7.70); Neutrophils % (A) 83.8 %; Platelet Count 286 X 10*3/uL (140-440); RBC 3.34 X 10*6/uL (4.10-5.20); WBC 14.26 X 10*3/uL (4.50-10.00)
[2023-02-25 11:19] LABS: BUN/Creat Ratio 20.71 Ratio (12.00-20.00); Blood Urea Nitrogen 14.5 mg/dL (9.0-27.0); Calcium 7.9 mg/dL (8.7-10.3); Carbon Dioxide 25.6 mmol/L (21.6-31.8); Chloride 101 mmol/L (96-109); Glucose 119 mg/dL (70-110); Potassium 3.6 mmol/L (3.5-5.5); Sodium 135 mmol/L (135-145)
[2023-02-25] MEDS: PROCHLORPERAZINE INJ 10 MG/2 ML VIAL IVP PRN (12:11)
--- NOTE | 2023-02-25 13:39 | P.OBCN ---
History of Present Illness Consult date: 02/25/23 Reason for consult: other (Possible vulvar lesions with atrophy) History of present illness: The patient is a 78-year-old 0 para 0 who is admitted to the hospital for what appears to be acute colitis. She additionally is awaiting a diagnosis on a lymph node biopsy for which there is a soft tissue mass adjacent to one of her hips with a concern for potential malignancy. At the time of her admission through the emergency room, there was some concern brought about vulvovaginal changes and possible lesions. The patient denies any history of abnormal bleeding but was treated for a skin condition of the vulva several years ago by her primary care doctor which is the last time she had any gynecologic care. She does report that she generally has vulvar irritation though is not particularly bothersome right now. Obstetrical history: 0 para 0 Gynecologic history: Unremarkable with no history of any infections to include STDs. Otherwise as noted in history of present illness. Review of Systems Review of systems is confined to history of present illness. Past Medical History Past Medical History: Atrial Fibrillation, Hypertension History of Any Multi-Drug Resistant Organisms: None Reported Past Surgical History: No Surgical Hx Reported Past Anesthesia/Blood Transfusion Reactions: No Reported Reaction Past Psychological History: Anxiety Smoking Status: Never smoker Past Alcohol Use History: Rare Past Drug Use History: None Reported - Past Family History Brother(s) Family Medical History: Cancer, Diabetes Mellitus Additional Family Medical History / Comment(s): Colon cancer, at 58 Medications and Allergies Home Medications Medication Instructions Recorded Confirmed Type Lisinopril-Hctz 20-25 mg 1 tab PO DAILY 05/06/16 02/23/23 History [Zestoretic 20-25] Propafenone [Rythmol] 150 mg PO Q8HR #90 tab 05/07/16 02/23/23 Rx Rivaroxaban [Xarelto] 20 mg PO W/SUPPER #30 tab 05/07/16 02/23/23 Rx Albuterol Inhaler [Ventolin Hfa 2 puff INHALATION RT-Q6H PRN #1 06/26/20 02/23/23 Rx Inhaler] puff Nystatin 100,000 Unit/gm Powd 1 applic TOPICAL BID PRN 02/14/23 02/23/23 History [Mycostatin Powder] methocarbamoL [Robaxin-750] 1,500 mg PO TID PRN #30 tab 02/14/23 02/23/23 Rx Ketorolac [Toradol] 10 mg PO Q6HR PRN #15 tab 02/21/23 02/23/23 Rx oxyCODONE HCL/ACETAMINOPHEN 1 tab PO Q4HR PRN 3 Days #18 tab 02/21/23 02/23/23 Rx [Percocet 10-325 mg] ondansetron HCL [Zofran] 8 mg PO Q8HR PRN 02/23/23 02/23/23 History Allergies Allergy/AdvReac Type Severity Reaction Status Date / Time sulfamethoxazole AdvReac Nausea & Verified 02/23/23 13:46 [From Bactrim] Vomiting & Diarrhea trimethoprim [From Bactrim] AdvReac Nausea & Verified 02/23/23 13:46 Vomiting & Diarrhea Exam Vital Signs Temp Pulse Resp BP Pulse Ox 02/25/23 13:20 97.4 F L 93 16 120/65 93 L 02/25/23 07:00 98.0 F 89 16 130/73 100 02/25/23 01:21 98.7 F 94 18 118/66 94 L 02/24/23 20:00 98.5 F 66 16 115/68 100 02/24/23 14:30 98.0 F 80 16 111/69 97 Intake and Output 02/24/23 02/25/23 02/25/23 22:59 06:59 14:59 Other: Voiding Method Toilet Toilet Toilet # Voids 2 Examination is confined to limited pelvic examination. Examination of the e xternal genitalia demonstrates significant loss of the typical architecture of the vulva and labia consistent with a diagnosis of probable lichen sclerosis. There are no lesions present though the skin is somewhat erythematous and inflamed to examination. Minimal digital examination demonstrates no other findings at the introitus and higher-level pelvic examination is deferred. Results Result Diagrams: 02/25/23 06:02 02/25/23 06:02 Abnormal Lab Results - Last 24 Hours (Table) 02/25/23 02/25/23 Range/Units 06:02 06:02 WBC 14.26 H (4.50-10.00) X 10*3/uL RBC 3.34 L (4.10-5.20) X 10*6/uL Hgb 9.5 L (12.0-15.0) g/dL Hct 30.4 L (37.2-46.3) % MCHC 31.3 L (32.0-37.0) g/dL Neutrophils # 11.95 H (1.80-7.70) X 10*3/uL BUN/Creatinine Ratio 20.71 H (12.00-20.00) Ratio Glucose 119 H (70-110) mg/dL Calcium 7.9 L (8.7-10.3) mg/dL Microbiology - Last 24 Hours (Table) 02/23/23 06:31 Stool Culture - Preliminary Stool 02/23/23 15:39 Blood Culture - Preliminary Blood 02/23/23 15:15 Blood Culture - Preliminary Blood Assessment and Plan (1) Vulvar dystrophy Current Visit: Yes Status: Acute Code(s): N90.4 - [place] OF VULVA SNOMED Code(s): 15858093 Plan: The findings are consistent with probable lichen sclerosis. This can be treated symptomatically with high potency or super high potency topical steroid creams such as clobetasol. As the patient is currently essentially asymptomatic, I would not in any medications at this time. If she wishes to follow up as an outpatient she is certainly welcome to. There are no findings that require any intervention at this time. Thank you for the consult and we will sign off the case.
--- NOTE | 2023-02-25 14:28 | P.PN ---
Subjective Progress Note Date: 02/25/23 Hospital Course: 78-year-old female with PMH of hypertension, atrial fibrillation presents to the ED for N/V and diarrhea. Recently discharge after workup for R hip pain. 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 Got a core LN biopsy with IR prior to discharge on 02/21/23. Patient started to feel nauseated the day after discharge. This morning had multiple episodes of watery diarrhea which prompted her to call EMS. In the ED she underwent extensive evaluation: BP as low as 96/55. CBC WBC 17.2. CMP Na 129, bicarb 20, BUN 19, glucose 156, Ca 8.2, ASST 40, alk phos 188, albumin 2.7. UA trace protein. C. diff negative. COVID 19, Flu, RSV negative.Lactic acid 2.5. CT AP consistent with acute sigmoid colitis. Patient currently on IV antibiotics. Diarrhea improved. 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 Outpatient follow-up. Subjective: Patient seen and examined at bedside. No acute events overnight. Denies any abdominal pain, urinary or bowel complaints. Does have significant right-sided hip pain. Having formed stools. Still having some nausea and vomiting. Pertinent positives and negatives as discussed above, a complete review of systems was performed and all other systems are negative. Vitals Signs Reviewed. General: nontoxic, no distress, appears at stated age Derm: warm, dry Head: atraumatic, normocephalic, symmetric Eyes: EOMI, no lid lag, anicteric sclera Mouth: no lip lesion, mucus membranes moist Cardiovascular: S1S2 reg, no murmur Lungs: CTA bilateral, no rhonchi, no rales , no accessory muscle use Abdominal: soft, nontender to palpation, no guarding, no appreciable organomegaly Ext: no gross muscle atrophy, bilateral edema, right greater than left, no contractures Neuro: CN II-XI grossly intact, no focal neuro deficits Psych: Alert, oriented, appropriate affect Data Reviewed Today: Pertinent Labs: WBC 14.26, hemoglobin 9.5, creatinine 0.7, magnesium 2 Imaging: No new imaging Assessment and Plan: Acute Infectious Colitis Nausea and vomiting -Cotinue Zosyn 3.375 g IV TID. -stool culture and lactoferrin, pending -Zofran 4 mg IV Q8H PRN for N/V. , Compazine 10 mg IV every 6 hours as needed, NS at 75 cc/hr -She may have nausea and vomiting from Percocet, may need to go home on different analgesic Vulvovaginal atrophy, lichen sclerosis -P D DRIVER note reviewed, outpatient follow-up Right hip mass: Follow up with Oncology for pathology results of IR core LN biopsy. History of hypertension, holding lisinopril and hydrochlorothiazide Resolved: Hypertension Hyponatremia Lactic acidosis Chronic: Atrial fibrillation DVT ppx: [email or web address] Code status: full code Anticipated discharge place: pending clinical course Anticipated discharge time: pending clinical course Objective - Vital Signs Vital signs: Vital Signs Temp 97.4 F L 02/25/23 13:20 Pulse 93 02/25/23 13:20 Resp 16 02/25/23 13:20 BP 120/65 02/25/23 13:20 Pulse Ox 93 L 02/25/23 13:20 FiO2 Intake & Output 02/24/23 02/25/23 02/25/23 18:59 06:59 18:59 Intake Total 118 Balance 118 Intake: Oral 118 Other: Voiding Method Toilet Toilet Toilet # Voids 3 2 1 # Bowel Movements 2 - Labs CBC & Chem 7: 02/25/23 06:02 02/25/23 06:02 Labs: Abnormal Lab Results - Last 24 Hours (Table) 02/25/23 02/25/23 Range/Units 06:02 06:02 WBC 14.26 H (4.50-10.00) X 10*3/uL RBC 3.34 L (4.10-5.20) X 10*6/uL Hgb 9.5 L (12.0-15.0) g/dL Hct 30.4 L (37.2-46.3) % MCHC 31.3 L (32.0-37.0) g/dL Neutrophils # 11.95 H (1.80-7.70) X 10*3/uL BUN/Creatinine Ratio 20.71 H (12.00-20.00) Ratio Glucose 119 H (70-110) mg/dL Calcium 7.9 L (8.7-10.3) mg/dL Microbiology - Last 24 Hours (Table) 02/23/23 06:31 Stool Culture - Preliminary Stool 02/23/23 15:39 Blood Culture - Preliminary Blood 02/23/23 15:15 Blood Culture - Preliminary Blood
[2023-02-25] MEDS: RIVAROXABAN 20 MG TAB PO SCH (16:42)
[2023-02-25] MEDS ORDERED: METOCLOPRAMIDE 5 MG/ML 2 ML VIAL IVP PRN (16:58)
[2023-02-26] MEDS: PROPAFENONE 150 MG TAB PO SCH ×4 (00:16→16:26)
[2023-02-26] MEDS: PIPERACILLIN-TAZOBACTAM 3.375 GM in SODIUM CHLORIDE 0.9% 100 ML IVPB SCH ×2 (00:16→08:25)
[2023-02-26] MEDS: HYDROmorphone 1 MG/ML 1 ML SYRINGE IVP PRN (01:46)
[2023-02-26] MEDS: ONDANSETRON 4 MG/2 ML VIAL IVP PRN (08:17)
[2023-02-26 08:53] LABS: Basophils # (A) 0.03 X 10*3/uL (0.00-0.10); Basophils % (A) 0.3 %; Eosinophils # (A) 0.23 X 10*3/uL (0.04-0.35); Eosinophils % (A) 2.1 %; HCT 28.7 % (37.2-46.3); HGB 8.8 g/dL (12.0-15.0); Lymphocytes # (A) 1.17 X 10*3/uL (0.90-5.00); Lymphocytes % (A) 10.8 %; MCH 27.8 pg (27.0-32.0); MCHC 30.7 g/dL (32.0-37.0); MCV 90.5 FL (80.0-97.0); Mean Platelet Volume 10.9 FL (9.5-12.2); Monocytes # (A) 0.75 X 10*3/uL (0.20-1.00); Monocytes % (A) 6.9 %; NRBC Per 100 WBC 0 X 10*3/uL (0.00-0.01); Neutrophils # (A) 8.57 X 10*3/uL (1.80-7.70); Neutrophils % (A) 79.4 %; Platelet Count 293 X 10*3/uL (140-440); RBC 3.17 X 10*6/uL (4.10-5.20); RDW 13.9 % (11.5-14.5)
[2023-02-26] MEDS: SODIUM CHLORIDE 0.9% 1,000 ML IV SCH ×2 (09:41→20:47)
[2023-02-26 10:03] LABS: BUN/Creat Ratio 18.83 Ratio (12.00-20.00); Blood Urea Nitrogen 11.3 mg/dL (9.0-27.0); Calcium 8.5 mg/dL (8.7-10.3); Carbon Dioxide 23.3 mmol/L (21.6-31.8); Chloride 104 mmol/L (96-109); Glucose 99 mg/dL (70-110); Potassium 3.8 mmol/L (3.5-5.5); Sodium 140 mmol/L (135-145)
[2023-02-26] MEDS ORDERED: PROMETHAZINE 25 MG TAB PO PRN (10:33)
[2023-02-26] MEDS ORDERED: KETOROLAC 15 MG/ML 1 ML VIAL IVP PRN (10:34)
[2023-02-26] MEDS ORDERED: ACETAMINOPHEN TAB 325 MG TAB PO PRN (10:34)
[2023-02-26] MEDS: PANTOPRAZOLE 40 MG/10 ML VIAL IVP SCH (11:05)
[2023-02-26] MEDS: MORPHINE SULFATE 4 MG/ML SYRINGE IVP PRN ×3 (11:53→20:47)
[2023-02-26] MEDS: PROCHLORPERAZINE INJ 10 MG/2 ML VIAL IVP PRN (11:59)
--- NOTE | 2023-02-26 14:13 | P.PN ---
Subjective Progress Note Date: 02/26/23 Hospital Course: 78-year-old female with PMH of hypertension, atrial fibrillation presents to the ED for N/V and diarrhea. Recently discharge after workup for R hip pain. 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 Got a core LN biopsy with IR prior to discharge on 02/21/23. Patient started to feel nauseated the day after discharge. This morning had multiple episodes of watery diarrhea which prompted her to call EMS. In the ED she underwent extensive evaluation: BP as low as 96/55. CBC WBC 17.2. CMP Na 129, bicarb 20, BUN 19, glucose 156, Ca 8.2, ASST 40, alk phos 188, albumin 2.7. UA trace protein. C. diff negative. COVID 19, Flu, RSV negative.Lactic acid 2.5. CT AP consistent with acute sigmoid colitis. Patient currently on IV antibiotics. Nausea, vomiting, diarrhea still persistent. 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 Outpatient follow-up. Subjective: Patient seen and examined at bedside. No acute events overnight. Still having nausea, vomiting, and diarrhea is due to have right-sided groin pain Pertinent positives and negatives as discussed above, a complete review of systems was performed and all other systems are negative. Vitals Signs Reviewed. General: nontoxic, no distress, appears at stated age Derm: warm, dry Head: atraumatic, normocephalic, symmetric Eyes: EOMI, no lid lag, anicteric sclera Mouth: no lip lesion, mucus membranes moist Cardiovascular: S1S2 reg, no murmur Lungs: CTA bilateral, no rhonchi, no rales , no accessory muscle use Abdominal: soft, nontender to palpation, no guarding, no appreciable organomegaly Ext: no gross muscle atrophy, bilateral edema, right greater than left, no contractures Neuro: CN II-XI grossly intact, no focal neuro deficits Psych: Alert, oriented, appropriate affect Data Reviewed Today: Pertinent Labs: WBC 10.8, hemoglobin 8.8, creatinine 0.6 Imaging: EKG independently interpreted, shows QTC 420 Assessment and Plan: Acute Infectious Colitis Nausea and vomiting Diarrhea -Antibiotics changed to ceftriaxone 2 g IV every 24 hours, IV Flagyl 500 every 8 hours -stool culture and lactoferrin, pending -Reglan discontinued due to diarrhea, continued on Compazine 10 mg IV every 6 hours, on Zofran 4 mg IV every 8 hourly as needed, Phenergan 12.5 mg by mouth every 4 hours as needed -Dilaudid discontinued, started on Tylenol oral 650 every 6 hours as needed, Toradol IV 50 mg every 6 hours as needed, morphine 4 mg IV every 4 hours as needed Vulvovaginal atrophy, lichen sclerosis -COOKER CASING note reviewed, outpatient follow-up Right hip mass: Follow up with Oncology for pathology results of IR core LN biopsy. Resolved: Hypertension Hyponatremia Lactic acidosis Chronic: Atrial fibrillation Hypertension DVT ppx: [email or web address] Code status: full code Anticipated discharge place: pending clinical course Anticipated discharge time: pending clinical course Objective - Vital Signs Vital signs: Vital Signs Temp 97.7 F 02/26/23 07:05 Pulse 84 02/26/23 07:05 Resp 15 02/26/23 07:05 BP 153/78 02/26/23 07:05 Pulse Ox 95 02/26/23 07:05 FiO2 Intake & Output 02/25/23 02/26/23 02/26/23 18:59 06:59 18:59 Intake Total 295 Balance 295 Intake: Oral 295 Other: Voiding Method Toilet Toilet Toilet # Voids 1 1 # Bowel Movements 2 1 - Labs CBC & Chem 7: 02/26/23 05:59 02/26/23 05:59 Labs: Abnormal Lab Results - Last 24 Hours (Table) 02/26/23 02/26/23 Range/Units 05:59 05:59 WBC 10.80 H (4.50-10.00) X 10*3/uL RBC 3.17 L (4.10-5.20) X 10*6/uL Hgb 8.8 L (12.0-15.0) g/dL Hct 28.7 L (37.2-46.3) % MCHC 30.7 L (32.0-37.0) g/dL Immature Gran # 0.05 H (0.00-0.04) X 10*3/uL Neutrophils # 8.57 H (1.80-7.70) X 10*3/uL Anion Gap 12.70 H (4.00-12.00) mmol/L Calcium 8.5 L (8.7-10.3) mg/dL Microbiology - Last 24 Hours (Table) 02/23/23 06:31 Stool Culture - Final Stool 02/23/23 15:39 Blood Culture - Preliminary Blood 02/23/23 15:15 Blood Culture - Preliminary Blood
[2023-02-26 15:06] VITALS: RESP 16
[2023-02-26] MEDS: metroNIDAZOLE-NS PMX 500 MG in SALINE 1 100ML.BAG IVPB SCH (16:41)
[2023-02-26] MEDS: RIVAROXABAN 20 MG TAB PO SCH (18:35)
[2023-02-27] MEDS: PROPAFENONE 150 MG TAB PO SCH ×3 (00:11→16:25)
[2023-02-27] MEDS: metroNIDAZOLE-NS PMX 500 MG in SALINE 1 100ML.BAG IVPB SCH ×3 (00:12→16:24)
[2023-02-27 06:44] LABS: Basophils % (A) 0 %; Eosinophils # (A) 0.2 k/uL (0-0.7); Eosinophils % (A) 2 %; HCT 29.7 % (34.0-46.0); Hypochromasia Moderate; Lymphocytes % (A) 10 %; MCH 29.1 pg (25.0-35.0); MCHC 31.9 g/dL (31.0-37.0); MCV 91.5 fL (80.0-100.0); Mean Platelet Volume 8.6; Monocytes # (A) 0.5 k/uL (0-1.0); Monocytes % (A) 5 %; Neutrophils # (A) 8.2 k/uL (1.3-7.7); Neutrophils % (A) 81 %; Platelet Count 309 k/uL (150-450); RBC 3.25 m/uL (3.80-5.40); RDW 13.6 % (11.5-15.5); WBC 10.2 k/uL (3.8-10.6)
[2023-02-27 06:46] LABS: HGB 9.5 gm/dL (11.4-16.0)
[2023-02-27] MEDS: PANTOPRAZOLE 40 MG/10 ML VIAL IVP SCH (08:25)
[2023-02-27] MEDS ORDERED: LISINOPRIL-HCTZ 20-25 MG 1 EACH TAB PO SCH (09:00)
--- NOTE | 2023-02-27 11:27 | P.DS ---
Providers Date of admission: 02/24/23 12:35 Expected date of discharge: 02/27/23 Attending physician: Joaquin Casas MD Consults: 02/24/23 10:10 Consult Physician Routine Consulting Provider: Terence Mosquera Consult Reason/Comments: vaginal atrophy and lesions Do you want consulting provider notified?: Yes Primary care physician: Yordan Prescott Hospital Course: Discharge Diagnosis: Acute Infectious Colitis Nausea and vomiting Diarrhea Vulvovaginal atrophy, lichen sclerosis Hypertension Hyponatremia Lactic acidosis Right hip mass, suspected malignancy Hospital Course: 78-year-old female with PMH of hypertension, atrial fibrillation presents to the ED for N/V and diarrhea. Recently discharge after workup for R hip pain. 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 Got a core LN biopsy with IR prior to discharge on 02/21/23. Patient started to feel nauseated the day after discharge. This morning had multiple episodes of watery diarrhea which prompted her to call EMS. In the ED she underwent extensive evaluation: BP as low as 96/55. CBC WBC 17.2. CMP Na 129, bicarb 20, BUN 19, glucose 156, Ca 8.2, ASST 40, alk phos 188, albumin 2.7. UA trace protein. C. diff negative. COVID 19, Flu, RSV negative.Lactic acid 2.5. CT AP consistent with acute sigmoid colitis. Patient started on IV antibiotics. Nausea, vomiting, diarrhea was persistent. Also having vulvovaginal changes, HEALTH INFORMATION TECHNOLOGIST consulted, likely lichen sclerosis, currently asymptomatic, does not need topical steroids. Recommended Outpatient follow-up. With change in IV antibiotics, and narcotics, nausea, vomiting and diarrhea has improved. Patient may discharge home with home care and follow-up with PCP and oncology. Patient seen and examined at bedside. Vital signs reviewed and stable. General: nontoxic, no distress, appears at stated age Derm: warm, dry Head: atraumatic, normocephalic, symmetric Eyes: EOMI, no lid lag, anicteric sclera Mouth: no lip lesion, mucus membranes moist Cardiovascular: S1S2 reg, no murmur Lungs: CTA bilateral, no rhonchi, no rales , no accessory muscle use Abdominal: soft, nontender to palpation, no guarding, no appreciable organomegaly Ext: no gross muscle atrophy, bilateral nonpitting edema, right greater than left, no contractures Neuro: CN II-XI grossly intact, no focal neuro deficits Psych: Alert, oriented, appropriate affect A total of 33 minutes of time were spent preparing this complex discharge summary. Patient was discharged on 02/27/23 at 11:12. Patient Condition at Discharge: Stable Plan - Discharge Summary Discharge Rx Participant: No New Discharge Prescriptions: New Prochlorperazine [Compazine] 5 mg PO Q6HR #60 tab metroNIDAZOLE [Flagyl] 500 mg PO TID #6 tab Morphine Sulfate Ir [MSIR] 15 mg PO Q3H PRN 3 Days #24 tab PRN Reason: Severe Breakthrough Pain Cefdinir [Omnicef] 300 mg PO Q12HR #4 capsule Acetaminophen Tab [Tylenol] 650 mg PO Q6HR PRN #60 tab PRN Reason: Fever And/ Or Pain Continue Lisinopril-Hctz 20-25 mg [Zestoretic 20-25] 1 tab PO DAILY Propafenone [Rythmol] 150 mg PO Q8HR #90 tab Rivaroxaban [Xarelto] 20 mg PO W/SUPPER #30 tab Nystatin 100,000 Unit/gm Powd [Mycostatin Powder] 1 applic TOPICAL BID PRN PRN Reason: Rash methocarbamoL [Robaxin-750] 1,500 mg PO TID PRN #30 tab PRN Reason: Pain Ketorolac [Toradol] 10 mg PO Q6HR PRN #15 tab PRN Reason: Pain ondansetron HCL [Zofran] 8 mg PO Q8HR PRN PRN Reason: Nausea Albuterol Inhaler [Ventolin Hfa Inhaler] 2 puff INHALATION RT-Q6H PRN #1 puff PRN Reason: Shortness Of Breath Or Wheezing Discontinued oxyCODONE HCL/ACETAMINOPHEN [Percocet 10-325 mg] 1 tab PO Q4HR PRN 3 Days #18 tab PRN Reason: Severe Pain (Scale 7 To 10) Discharge Medication List Lisinopril-Hctz 20-25 mg [Zestoretic 20-25] 1 tab PO DAILY 05/06/16 [History] Propafenone [Rythmol] 150 mg PO Q8HR #90 tab 05/07/16 [Rx] Rivaroxaban [Xarelto] 20 mg PO W/SUPPER #30 tab 05/07/16 [Rx] Albuterol Inhaler [Ventolin Hfa Inhaler] 2 puff INHALATION RT-Q6H PRN #1 puff 06/26/20 [Rx] Nystatin 100,000 Unit/gm Powd [Mycostatin Powder] 1 applic TOPICAL BID PRN 02/14/23 [History] methocarbamoL [Robaxin-750] 1,500 mg PO TID PRN #30 tab 02/14/23 [Rx] Ketorolac [Toradol] 10 mg PO Q6HR PRN #15 tab 02/21/23 [Rx] ondansetron HCL [Zofran] 8 mg PO Q8HR PRN 02/23/23 [History] Acetaminophen Tab [Tylenol] 650 mg PO Q6HR PRN #60 tab 02/27/23 [Rx] Cefdinir [Omnicef] 300 mg PO Q12HR #4 capsule 02/27/23 [Rx] Morphine Sulfate Ir [MSIR] 15 mg PO Q3H PRN 3 Days #24 tab 02/27/23 [Rx] Prochlorperazine [Compazine] 5 mg PO Q6HR #60 tab 02/27/23 [Rx] metroNIDAZOLE [Flagyl] 500 mg PO TID #6 tab 02/27/23 [Rx] Follow up Appointment(s)/Referral(s): Venancio Castellon [STAFF PHYSICIAN] - 1 Week Yordan Prescott MD [Primary Care Provider] - 1-2 days Terence Mosquera MD [STAFF PHYSICIAN] - 3 Weeks Patient Instructions/Handouts: Colitis (ED) Activity/Diet/Wound Care/Special Instructions: Please see your oncologist with regards to your biopsy results. Also please see your PCP. Discharge Disposition: HOME WITH HOME HEALTH SERVICES
[2023-02-27] MEDS: SODIUM CHLORIDE 0.9% 1,000 ML IV SCH (11:31)
[2023-02-27 14:15] VITALS: BP 107/75; PULSE 56; TEMP 98.4
[2023-02-27] MEDS: MORPHINE SULFATE 4 MG/ML SYRINGE IVP PRN (16:23)
== END 2023-02-27 17:36 | disposition home health service (06) | DRG 392 ==
LOC: EC 05:43 → 6NMEDSUR 12:36 → OBSVTOIN 02-24 12:35
PROVIDERS: ADMIT Family Medicine; ATTEND Family Medicine
DX: A09 Infectious gastroenteritis and colitis, unspecified (principal); E87.1 Hypo-osmolality and hyponatremia; E87.20 Acidosis, unspecified; C49.21 Malignant neoplasm of connective and soft tissue of right lower limb, including hip; I95.9 Hypotension, unspecified; E86.0 Dehydration; F41.9 Anxiety disorder, unspecified; I10 Essential (primary) hypertension; I48.91 Unspecified atrial fibrillation; N90.4 Leukoplakia of vulva; N95.2 Postmenopausal atrophic vaginitis; Z79.899 Other long term (current) drug therapy; Z79.01 Long term (current) use of anticoagulants; Z28.21 Immunization not carried out because of patient refusal; Z88.2 Allergy status to sulfonamides
CPT/HCPCS: 36415; 74177; 80048; 80053; 81003; 83605; 83735; 85025; 87040; 87045; 87046; 87324; 87636; 93005; 96361; 96365; 96366; 96375; 99285

== ENCOUNTER 2023-02-28 06:04 | Inpatient (IN) | payer MEDICARE ==
[2023-02-28] MEDS ORDERED: SODIUM CHLORIDE 0.9% 1,000 ML IV STA (06:17)
--- NOTE | 2023-02-28 06:25 | ED ---
Arrhythmia/Palpitations HPI - General Chief Complaint: Arrhythmia/Palpitations Stated Complaint: AFib RVR Time Seen by Provider: 02/28/23 06:11 Source: patient, EMS, RN notes reviewed Mode of arrival: EMS Limitations: no limitations - History of Present Illness Initial Comments: This is a 78-year-old female who presents to the emergency department for pa lpitations and tachycardia. Patient was discharged from the hospital here yesterday evening, and was suddenly woken up from her sleep with feelings of palpitations and her heart racing. When EMS arrived, her heart rate got as high as 220 bpm and she was found to be in atrial fibrillation. They gave her 6 mg of adenosine and she converted to sinus tachycardia. She has a hx of a-fib, but states that she has not been in A. fib in several years. Currently denies any chest pain or shortness of breath. MD Complaint: rapid heart beat - Related Data Home Medications Medication Instructions Recorded Confirmed Lisinopril-Hctz 20-25 mg 1 tab PO DAILY 05/06/16 02/28/23 [Zestoretic 20-25] Nystatin 100,000 Unit/gm Powd 1 applic TOPICAL BID PRN 02/14/23 02/28/23 [Mycostatin Powder] ondansetron HCL [Zofran] 8 mg PO Q8HR PRN 02/23/23 02/28/23 Prochlorperazine [Compazine] 5 mg PO Q6HR PRN 02/28/23 02/28/23 Rivaroxaban [Xarelto] 20 mg PO DAILY 02/28/23 02/28/23 Previous Rx's Medication Instructions Recorded Propafenone [Rythmol] 150 mg PO Q8HR #90 tab 05/07/16 Albuterol Inhaler [Ventolin Hfa 2 puff INHALATION RT-Q6H PRN #1 06/26/20 Inhaler] puff methocarbamoL [Robaxin-750] 1,500 mg PO TID PRN #30 tab 02/14/23 Ketorolac [Toradol] 10 mg PO Q6HR PRN #15 tab 02/21/23 Acetaminophen Tab [Tylenol] 650 mg PO Q6HR PRN #60 tab 02/27/23 Cefdinir [Omnicef] 300 mg PO Q12HR #4 capsule 02/27/23 Morphine Sulfate Ir [MSIR] 15 mg PO Q3H PRN 3 Days #24 tab 02/27/23 metroNIDAZOLE [Flagyl] 500 mg PO TID #6 tab 02/27/23 Allergies Allergy/AdvReac Type Severity Reaction Status Date / Time sulfamethoxazole AdvReac Nausea & Verified 02/28/23 07:42 [From Bactrim] Vomiting & Diarrhea trimethoprim [From Bactrim] AdvReac Nausea & Verified 02/28/23 06:10 Vomiting & Diarrhea Review of Systems ROS Statement: Those systems with pertinent positive or pertinent negative responses have been documented in the HPI. ROS Other: All systems not noted in ROS Statement are negative. Past Medical History Past Medical History: Atrial Fibrillation, Hypertension History of Any Multi-Drug Resistant Organisms: None Reported Past Surgical History: No Surgical Hx Reported Past Anesthesia/Blood Transfusion Reactions: No Reported Reaction Past Psychological History: Anxiety Smoking Status: Never smoker Past Alcohol Use History: Rare Past Drug Use History: None Reported - Past Family History Brother(s) Family Medical History: Cancer, Diabetes Mellitus Additional Family Medical History / Comment(s): Colon cancer, at 58 General Exam Limitations: no limitations General appearance: alert, in no apparent distress Head exam: Present: atraumatic, normocephalic, normal inspection Respiratory exam: Present: normal lung sounds bilaterally. Absent: respiratory distress, wheezes, rales, rhonchi, stridor Cardiovascular Exam: Present: normal rhythm, tachycardia, normal heart sounds. Absent: systolic murmur, diastolic murmur, rubs, gallop, clicks Neurological exam: Present: alert, oriented X3, CN II-XII intact Psychiatric exam: Present: normal affect, normal mood Skin exam: Present: warm, dry, intact, normal color. Absent: rash Course Vital Signs 02/28/23 02/28/23 02/28/23 06:06 07:10 08:00 Temperature 98.2 F 97.9 F Pulse Rate 101 H 79 80 Respiratory 18 20 16 Rate Blood Pressure 121/70 132/83 132/83 O2 Sat by Pulse 98 97 96 Oximetry 02/28/23 02/28/23 02/28/23 09:00 10:00 11:00 Temperature Pulse Rate 72 66 65 Respiratory 18 20 18 Rate Blood Pressure 130/82 134/84 136/75 O2 Sat by Pulse 96 96 96 Oximetry 02/28/23 02/28/23 02/28/23 12:00 13:00 14:00 Temperature Pulse Rate 73 68 72 Respiratory 17 22 24 Rate Blood Pressure 140/80 144/79 144/77 O2 Sat by Pulse 95 95 94 L Oximetry 02/28/23 02/28/23 15:00 16:08 Temperature Pulse Rate 69 70 Respiratory 19 18 Rate Blood Pressure 152/83 151/74 O2 Sat by Pulse 95 95 Oximetry Medical Decision Making - Medical Decision Making This is a 78-year-old female who presents to the emergency department for palpitations. Was pt. sent in by a medical professional or institution? @ -No Did you speak to anyone other than the patient for history? @ -No Did you review nursing and triage notes? @ -Yes, and I agree, it is accurate with regards to the patient's symptoms. Were old charts reviewed? @ -Yes, discharge summary from 02/27 discussing her admission for infectious colitis and right pelvic mass. Differential Diagnosis? @ -Differential Palpitations: Ventricular arrhythmias, atrial arrhythmias, myocardial infarction, anemia, thyrotoxicosis, electrolyte imbalance, hypokalemia, pulmonary embolism, pulmonary disease, drugs, alcohol, anxiety, stress.... This is not meant to be an all-inclusive list. EKG interpreted by me (3pts min.)? @ -EKG interpreted by me demonstrating the following: Sinus rhythm. ST depression. Ventricular rate 96 bpm, HI interval 96 ms, QRS duration 100 ms, QTC 420 ms. X-rays interpreted by me (1pt min.)? @ -Chest x-ray obtained. My interpretation identifies cardiomegaly and pulmonary vascular congestion. CT interpreted by me (1pt min.)? @ -Not obtained U/S interpreted by me (1pt. min.)? @ -Not obtained What testing was considered but not performed? (CT, X-rays, U/S, labs)? Why? @ -None What meds were considered but not given? Why? @ -None Did you discuss the management of the patient with other professionals? @ -Yes, Dr. Valencia, who accepts the patient for admission. Did you reconcile home meds? @ -No Was smoking cessation discussed for >3mins.? @ -No Was critical care preformed (if so, how long)? @ -No Were there social determinants of health that impacted care today? How? (Homelessness, low income, unemployed, alcoholism, drug addiction, transport ation, low edu. Level, literacy, decrease access to med. care, [facility], rehab)? @ -No Was there de-escalation of care discussed even if they declined? (Discuss DNR or withdrawal of care, Hospice)? @ -No What co-morbidities impacted this encounter? (DM, HTN, Smoking, COPD, CAD, Cancer, CVA, Hep., AIDS, mental health diagnosis, sleep apnea, morbid obesity)? @ -A-fib, HTN Was patient admitted / discharged? @ -Admitted. Lab work obtained demonstrating leukocytosis and hypokalemia. Potassium replaced with 40 mEq of K-dur. Chest x-ray demonstrates cardiomegaly with pulmonary vascular congestion and bilateral pleural effusions. Patient denies a history of CHF. BNP elevated at 3270. Troponin elevated as well at 0.200. EKG also demonstrated diffuse ST depression. Patient denies any chest pain or shortness of breath. She was started on low intensity heparin protocol in the event of ischemic disease. Patient admitted to medicine for atrial fibrillation, new onset CHF, and elevated troponin. Serial troponins ordered and consult placed for cardiology. Undiagnosed new problem with uncertain prognosis? @ -None Drug Therapy requiring intensive monitoring for toxicity (Heparin, Nitro, Insulin, Cardizem)? @ -Heparin Were any procedures done? @ -None Diagnosis/symptom? @ -New onset CHF, elevated troponin Acute, or Chronic, or Acute on Chronic? @ -Acute Uncomplicated (without systemic symptoms) or Complicated (systemic symptoms)? @ -Complicated Side effects of treatment? @ -None Exacerbation, Progression, or Severe Exacerbation] @ -Not applicable Poses a threat to life or bodily function? @ -Yes This case was discussed in detail with the attending ED physician, Dr. Rodriguez. Presentation, findings, and treatment plan discussed in detail as well. - Lab Data Result diagrams: 02/28/23 06:22 02/28/23 06:22 Lab Results 02/28/23 02/28/23 02/28/23 Range/Units 06:22 06:22 06:22 WBC 12.2 H (3.8-10.6) k/uL RBC 3.49 L (3.80-5.40) m/uL Hgb 10.2 L (11.4-16.0) gm/dL Hct 31.3 L (34.0-46.0) % MCV 89.7 (80.0-100.0) fL MCH 29.1 (25.0-35.0) pg MCHC 32.4 (31.0-37.0) g/dL RDW 13.6 (11.5-15.5) % Plt Count 322 (150-450) k/uL MPV 8.6 Neutrophils % 85 % Lymphocytes % 8 % Monocytes % 5 % Eosinophils % 1 % Basophils % 0 % Neutrophils # 10.4 H (1.3-7.7) k/uL Lymphocytes # 0.9 L (1.0-4.8) k/uL Monocytes # 0.6 (0-1.0) k/uL Eosinophils # 0.1 (0-0.7) k/uL Basophils # 0.0 (0-0.2) k/uL Hypochromasia Slight PT 16.0 H (10.0-12.5) sec INR 1.6 H (<1.2) APTT 30.4 H (22.0-30.0) sec Sodium 137 (137-145) mmol/L Potassium 3.1 L (3.5-5.1) mmol/L Chloride 102 (98-107) mmol/L Carbon Dioxide 23 (22-30) mmol/L Anion Gap 12 mmol/L BUN 13 (7-17) mg/dL Creatinine 0.60 (0.52-1.04) mg/dL Est GFR (CKD-EPI)AfAm >90 (>60 ml/min/1.73 sqM) Est GFR (CKD-EPI)NonAf 88 (>60 ml/min/1.73 sqM) Glucose 141 H (74-99) mg/dL Plasma Lactic Acid Terence (0.7-2.0) mmol/L Calcium 8.4 (8.4-10.2) mg/dL Magnesium 1.9 (1.6-2.3) mg/dL Total Bilirubin 0.6 (0.2-1.3) mg/dL AST 31 (14-36) U/L ALT 16 (4-34) U/L Alkaline Phosphatase 149 H (38-126) U/L Troponin I (0.000-0.034) ng/mL NT-Pro-B Natriuret Pep pg/mL Total Protein 5.3 L (6.3-8.2) g/dL Albumin 2.7 L (3.5-5.0) g/dL Influenza Type A (PCR) (Not Detectd) Influenza Type B (PCR) (Not Detectd) RSV (PCR) (Not Detectd) SARS-CoV-2 (PCR) (Not Detectd) 02/28/23 02/28/23 02/28/23 Range/Units 06:22 06:22 06:49 WBC (3.8-10.6) k/uL RBC (3.80-5.40) m/uL Hgb (11.4-16.0) gm/dL Hct (34.0-46.0) % MCV (80.0-100.0) fL MCH (25.0-35.0) pg MCHC (31.0-37.0) g/dL RDW (11.5-15.5) % Plt Count (150-450) k/uL MPV Neutrophils % % Lymphocytes % % Monocytes % % Eosinophils % % Basophils % % Neutrophils # (1.3-7.7) k/uL Lymphocytes # (1.0-4.8) k/uL Monocytes # (0-1.0) k/uL Eosinophils # (0-0.7) k/uL Basophils # (0-0.2) k/uL Hypochromasia PT (10.0-12.5) sec INR (<1.2) APTT (22.0-30.0) sec Sodium (137-145) mmol/L Potassium (3.5-5.1) mmol/L Chloride (98-107) mmol/L Carbon Dioxide (22-30) mmol/L Anion Gap mmol/L BUN (7-17) mg/dL Creatinine (0.52-1.04) mg/dL Est GFR (CKD-EPI)AfAm (>60 ml/min/1.73 sqM) Est GFR (CKD-EPI)NonAf (>60 ml/min/1.73 sqM) Glucose (74-99) mg/dL Plasma Lactic Acid Terence 1.9 (0.7-2.0) mmol/L Calcium (8.4-10.2) mg/dL Magnesium (1.6-2.3) mg/dL Total Bilirubin (0.2-1.3) mg/dL AST (14-36) U/L ALT (4-34) U/L Alkaline Phosphatase (38-126) U/L Troponin I 0.200 H* (0.000-0.034) ng/mL NT-Pro-B Natriuret Pep 3270 pg/mL Total Protein (6.3-8.2) g/dL Albumin (3.5-5.0) g/dL Influenza Type A (PCR) (Not Detectd) Influenza Type B (PCR) (Not Detectd) RSV (PCR) (Not Detectd) SARS-CoV-2 (PCR) (Not Detectd) 02/28/23 Range/Units 06:49 WBC (3.8-10.6) k/uL RBC (3.80-5.40) m/uL Hgb (11.4-16.0) gm/dL Hct (34.0-46.0) % MCV (80.0-100.0) fL MCH (25.0-35.0) pg MCHC (31.0-37.0) g/dL RDW (11.5-15.5) % Plt Count (150-450) k/uL MPV Neutrophils % % Lymphocytes % % Monocytes % % Eosinophils % % Basophils % % Neutrophils # (1.3-7.7) k/uL Lymphocytes # (1.0-4.8) k/uL Monocytes # (0-1.0) k/uL Eosinophils # (0-0.7) k/uL Basophils # (0-0.2) k/uL Hypochromasia PT (10.0-12.5) sec INR (<1.2) APTT (22.0-30.0) sec Sodium (137-145) mmol/L Potassium (3.5-5.1) mmol/L Chloride (98-107) mmol/L Carbon Dioxide (22-30) mmol/L Anion Gap mmol/L BUN (7-17) mg/dL Creatinine (0.52-1.04) mg/dL Est GFR (CKD-EPI)AfAm (>60 ml/min/1.73 sqM) Est GFR (CKD-EPI)NonAf (>60 ml/min/1.73 sqM) Glucose (74-99) mg/dL Plasma Lactic Acid Terence (0.7-2.0) mmol/L Calcium (8.4-10.2) mg/dL Magnesium (1.6-2.3) mg/dL Total Bilirubin (0.2-1.3) mg/dL AST (14-36) U/L ALT (4-34) U/L Alkaline Phosphatase (38-126) U/L Troponin I (0.000-0.034) ng/mL NT-Pro-B Natriuret Pep pg/mL Total Protein (6.3-8.2) g/dL Albumin (3.5-5.0) g/dL Influenza Type A (PCR) Not Detected (Not Detectd) Influenza Type B (PCR) Not Detected (Not Detectd) RSV (PCR) Not Detected (Not Detectd) SARS-CoV-2 (PCR) Not Detected (Not Detectd) - Radiology Data Radiology results: report reviewed, image reviewed Disposition Clinical Impression: Atrial fibrillation, New onset of congestive heart failure, Elevated troponin Disposition: ADMITTED IP TO THIS HOSP
[2023-02-28 06:33] LABS: Basophils % (A) 0 %; Eosinophils # (A) 0.1 k/uL (0-0.7); Eosinophils % (A) 1 %; HCT 31.3 % (34.0-46.0); HGB 10.2 gm/dL (11.4-16.0); Hypochromasia Slight; Lymphocytes # (A) 0.9 k/uL (1.0-4.8); Lymphocytes % (A) 8 %; MCH 29.1 pg (25.0-35.0); MCHC 32.4 g/dL (31.0-37.0); MCV 89.7 fL (80.0-100.0); Mean Platelet Volume 8.6; Monocytes # (A) 0.6 k/uL (0-1.0); Monocytes % (A) 5 %; Neutrophils # (A) 10.4 k/uL (1.3-7.7); Neutrophils % (A) 85 %; Platelet Count 322 k/uL (150-450); RBC 3.49 m/uL (3.80-5.40); RDW 13.6 % (11.5-15.5); WBC 12.2 k/uL (3.8-10.6)
--- NOTE | 2023-02-28 06:47 | XR ---
EXAMINATION TYPE: XR chest 2V DATE OF EXAM: 02/28/2023 COMPARISON: Chest CT February 19, 2023 HISTORY: Dysrhythmia. TECHNIQUE: Frontal and lateral views of the chest are obtained. FINDINGS: There is persistent cardiomegaly with mild/moderate central vascular congestion and small bilateral pleural effusions. The osseous structures are intact. IMPRESSION: Findings consistent with CHF exacerbation/fluid overload state.
[2023-02-28 06:52] LABS: ALT 16 U/L (4-34); AST 31 U/L (14-36); African American GFR (CKD) >90 (>60 ml/min/1.73 sqM); Albumin 2.7 g/dL (3.5-5.0); Alkaline Phosphatase 149 U/L (38-126); Anion Gap 12 mmol/L; Blood Urea Nitrogen 13 mg/dL (7-17); Calcium 8.4 mg/dL (8.4-10.2); Carbon Dioxide 23 mmol/L (22-30); Chloride 102 mmol/L (98-107); Glucose 141 mg/dL (74-99); Magnesium 1.9 mg/dL (1.6-2.3); Non-African American GFR(CKD) 88 (>60 ml/min/1.73 sqM); Potassium 3.1 mmol/L (3.5-5.1); Sodium 137 mmol/L (137-145); Total Bilirubin 0.6 mg/dL (0.2-1.3); Total Protein 5.3 g/dL (6.3-8.2)
[2023-02-28] MEDS ORDERED: POTASSIUM CHLORIDE ER 20 MEQ TAB.ER PO STA (06:55)
[2023-02-28 07:29] LABS: INR 1.6 (<1.2)
[2023-02-28 07:30] LABS: Partial Thromboplastin Time 30.4 sec (22.0-30.0)
[2023-02-28] MEDS ORDERED: ASPIRIN 81 MG PO STA (07:38)
[2023-02-28] MEDS ORDERED: HEPARIN SODIUM 1,000 UN/ML (10ML VL) IV ONE (07:41)
[2023-02-28] MEDS ORDERED: HEPARIN SODIUM 1,000 UN/ML (10ML VL) IV PRN (07:41)
[2023-02-28] MEDS ORDERED: ONDANSETRON 4 MG/2 ML VIAL IVP PRN (07:45)
[2023-02-28] MEDS ORDERED: ACETAMINOPHEN TAB 325 MG TAB PO PRN ×2 (07:45→11:40)
[2023-02-28] MEDS ORDERED: HEPARIN SOD,PORK IN 0.45% NACL 25,000 UNIT in 0.45% NACL 1 250ML.BAG IV SCH (07:45)
[2023-02-28] MEDS ORDERED: NALOXONE 0.4 MG/ML 1 ML VIAL IV PRN (07:45)
[2023-02-28] MEDS ORDERED: ALBUTEROL NEBULIZED 2.5 MG/3 ML INHALATION PRN (11:40)
[2023-02-28] MEDS ORDERED: PROCHLORPERAZINE 5 MG TAB PO PRN (11:42)
[2023-02-28] MEDS: PROPAFENONE 150 MG TAB PO SCH ×3 (12:21→20:36)
[2023-02-28] MEDS: FUROSEMIDE 10 MG/ML 2 ML VIAL IV SCH ×2 (13:33→20:17)
--- NOTE | 2023-02-28 14:07 | P.CRDCN ---
History of Present Illness Consult date: 02/28/23 Consult reason: atrial fibrillation (New onset CHF, elevated troponins) History of present illness: History of present illness: This is a 78-year-old female patient of Dr. Hand with past medical history of paroxysmal atrial fibrillation, hypertension. 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 Patient had a hospitalization for colitis was discharged home last evening and not sure if she took her Rythmol at home. She states she was sleeping a couple hours and then she woke up and her heart was racing. This is a first time this is occurred in many years. She denies any shortness of breath no chest pain, no nausea or vomiting. She does complain of right lower extremity edema that she's had for the last 3-4 days apparently she's been told most likely is related to the right-sided pelvic mass. She denies any blood in her stool or urine. No fevers. Patient is seen today in the emergency center. She has been started on heparin drip. EKG sinus rhythm at 96 bpm Chest x-ray: CHF exacerbation or overload state. WBC 12.2, hemoglobin 10.2, platelet count 322. INR 1.6. Potassium 3.1. Creatinine 0.6. Troponin 0.2, 0.407, 0.358. ProBNP 3270. Influenza A, influenza B, RSV, Covid 1900 Home cardiac medications: lisinoprilhydrochlorothiazide 1 daily, Rythmol 150 no grams every 8 hour, Xarelto 20 mg daily. Echocardiogram performed in the office on 06/08/2020 revealed normal EF, mild MR. MPI performed in the office 06/12/2020 revealed EF 65% normal study Review Of Systems: At the time of my exam: CONSTITUTIONAL: Denies fever or chills. CARDIOVASCULAR: Denies chest pain, Denies shortness of breath, no orthopnea, PND or palpitations. RESPIRATORY: Denies cough. GASTROINTESTINAL: Denies abdominal pain, diarrhea, constipation, nausea or vomiting. MUSCULOSKELETAL: Denies myalgias. NEUROLOGIC: Denies numbness, tingling or weakness. ENDOCRINE: Denies fatigue, weight change, polydipsia or polyurina. GENITOURINARY: Denies burning, hematuria or urgency with micturation. HEMATOLOGIC: Denies history of anemia or bleeding. Physical examination: Gen: This is a 78-year-old female. She is resting appears to be in no acute distress. VS: reviewed HEENT: Head is atraumatic, normocephalic. Pupils equal, round. Sclerae is anicteric. NECK: Supple. No JVD. LUNGS: Clear to auscultation. No wheezes or rhonchi. No intercostal retractions. HEART: Regular rate and rhythm./6 systolic murmur at the base. ABDOMEN: Soft No tenderness. EXTREMITIES: No pedal edema. No calf tenderness. NEUROLOGICAL: Patient is awake, alert and oriented x3. Assessment: Elevated troponin possibly due to tachycardia, cannot completely rule out ischemic disease Paroxysmal atrial fibrillation presented with RVR Hypertension Pelvic mass Lower extremity edema Plan: discontinue heparin drip and resume patient's Xarelto Continue home cardiac medications Start patient on Lasix 20 mg twice daily IV Monitor I&O, daily weights, I's and renal function Repeat EKG in the morning Obtain proBNP and electrolytes, renal function in the morning Obtain 2-D echocardiogram and Doppler study to assess cardiac structure and function Further recommendations to follow based upon clinical course Thank you kindly for this consultation. Nurse practitioner note has been reviewed, I agree with documented findings and plan of care. Patient was seen and examined. Past Medical History Past Medical History: Atrial Fibrillation, Hypertension History of Any Multi-Drug Resistant Organisms: None Reported Past Surgical History: No Surgical Hx Reported Past Anesthesia/Blood Transfusion Reactions: No Reported Reaction Past Psychological History: Anxiety Smoking Status: Never smoker Past Alcohol Use History: Rare Past Drug Use History: None Reported - Past Family History Brother(s) Family Medical History: Cancer, Diabetes Mellitus Additional Family Medical History / Comment(s): Colon cancer, at 58 Medications and Allergies Home Medications Medication Instructions Recorded Confirmed Type Lisinopril-Hctz 20-25 mg 1 tab PO DAILY 05/06/16 02/28/23 History [Zestoretic 20-25] Propafenone [Rythmol] 150 mg PO Q8HR #90 tab 05/07/16 02/28/23 Rx Albuterol Inhaler [Ventolin Hfa 2 puff INHALATION RT-Q6H PRN #1 06/26/20 02/28/23 Rx Inhaler] puff Nystatin 100,000 Unit/gm Powd 1 applic TOPICAL BID PRN 02/14/23 02/28/23 History [Mycostatin Powder] methocarbamoL [Robaxin-750] 1,500 mg PO TID PRN #30 tab 02/14/23 02/28/23 Rx Ketorolac [Toradol] 10 mg PO Q6HR PRN #15 tab 02/21/23 02/28/23 Rx ondansetron HCL [Zofran] 8 mg PO Q8HR PRN 02/23/23 02/28/23 History Acetaminophen Tab [Tylenol] 650 mg PO Q6HR PRN #60 tab 02/27/23 02/28/23 Rx Cefdinir [Omnicef] 300 mg PO Q12HR #4 capsule 02/27/23 02/28/23 Rx Morphine Sulfate Ir [MSIR] 15 mg PO Q3H PRN 3 Days #24 tab 02/27/23 02/28/23 Rx metroNIDAZOLE [Flagyl] 500 mg PO TID #6 tab 02/27/23 02/28/23 Rx Prochlorperazine [Compazine] 5 mg PO Q6HR PRN 02/28/23 02/28/23 History Rivaroxaban [Xarelto] 20 mg PO DAILY 02/28/23 02/28/23 History Allergies Allergy/AdvReac Type Severity Reaction Status Date / Time sulfamethoxazole AdvReac Nausea & Verified 02/28/23 07:42 [From Bactrim] Vomiting & Diarrhea trimethoprim [From Bactrim] AdvReac Nausea & Verified 02/28/23 06:10 Vomiting & Diarrhea Physical Exam Vitals: Vital Signs Temp Pulse Resp BP Pulse Ox 02/28/23 11:00 65 18 136/75 96 02/28/23 10:00 66 20 134/84 96 02/28/23 09:00 72 18 130/82 96 02/28/23 08:00 97.9 F 80 16 132/83 96 02/28/23 07:10 79 20 132/83 97 02/28/23 06:06 98.2 F 101 H 18 121/70 98 Intake and Output 02/27/23 02/28/23 02/28/23 22:59 06:59 14:59 Other: Weight 77.111 kg Results 02/28/23 06:22 02/28/23 06:22 Cardiac Enzymes 02/28/23 02/28/23 02/28/23 Range/Units 06:22 06:22 09:18 AST 31 (14-36) U/L Troponin I 0.200 H* 0.407 H* (0.000-0.034) ng/mL Coagulation 02/28/23 Range/Units 06:22 PT 16.0 H (10.0-12.5) sec APTT 30.4 H (22.0-30.0) sec CBC 02/28/23 Range/Units 06:22 WBC 12.2 H (3.8-10.6) k/uL RBC 3.49 L (3.80-5.40) m/uL Hgb 10.2 L (11.4-16.0) gm/dL Hct 31.3 L (34.0-46.0) % Plt Count 322 (150-450) k/uL Comprehensive Metabolic Panel 02/28/23 Range/Units 06:22 Sodium 137 (137-145) mmol/L Potassium 3.1 L (3.5-5.1) mmol/L Chloride 102 (98-107) mmol/L Carbon Dioxide 23 (22-30) mmol/L BUN 13 (7-17) mg/dL Creatinine 0.60 (0.52-1.04) mg/dL Glucose 141 H (74-99) mg/dL Calcium 8.4 (8.4-10.2) mg/dL AST 31 (14-36) U/L ALT 16 (4-34) U/L Alkaline Phosphatase 149 H (38-126) U/L Total Protein 5.3 L (6.3-8.2) g/dL Albumin 2.7 L (3.5-5.0) g/dL Current Medications Generic Name Dose Route Start Last Admin Trade Name Freq PRN Reason Stop Dose Admin Acetaminophen 650 mg 02/28/23 07:45 Acetaminophen Tab 325 Mg Tab PO Q6HR PRN Mild Pain or Fever > 100.5 Acetaminophen 650 mg 02/28/23 11:40 Acetaminophen Tab 325 Mg Tab PO Q6HR PRN Fever and/ or Pain Hydrocodone Bitart/Acetaminophen 1 each 02/28/23 07:45 Hydrocodone/Apap 5-325mg 1 Each Tab PO Q4HR PRN Moderate Pain (Scale 4 to 6) Albuterol Sulfate 2 puff 02/28/23 11:40 Albuterol Hfa Inhaler INHALATION RT-Q6H PRN Shortness Of Breath Or Wheezing Cefdinir 300 mg 02/28/23 21:00 Cefdinir 300 Mg Cap PO Q12HR [facility] Protocol Heparin Sodium (Porcine) 0 unit 02/28/23 07:41 Heparin Sodium 1,000 Un/Ml (10ml Vl) IV PER PROTOCOL PRN Low PTT Protocol Heparin Sodium/Sodium Chloride 250 mls @ 9.253 mls/hr 02/28/23 07:45 02/28/23 07:57 25,000 unit/ Sodium Chloride IV 12 units/kg/hr .Q24H DICK 9.253 mls/hr Administration Protocol 12 UNITS/KG/HR Metronidazole 500 mg 02/28/23 16:00 Metronidazole 500 Mg Tab PO TID [facility] Protocol Morphine Sulfate 15 mg 02/28/23 11:42 Morphine Sulfate Ir 15 Mg Tablet PO Q3H PRN Severe Breakthrough Pain Naloxone HCl 0.2 mg 02/28/23 07:45 Naloxone 0.4 Mg/Ml 1 Ml Vial IV Q2M PRN Opioid Reversal Ondansetron HCl 4 mg 02/28/23 07:45 Ondansetron 4 Mg/2 Ml Vial IVP Q8HR PRN Nausea And Vomiting Prochlorperazine Maleate 5 mg 02/28/23 11:42 Prochlorperazine 5 Mg Tab PO Q6HR PRN Nausea Propafenone HCl 150 mg 02/28/23 11:45 Propafenone 150 Mg Tab PO Q8HR [facility] Intake and Output 02/27/23 02/28/23 02/28/23 22:59 06:59 14:59 Other: Weight 77.111 kg 02/28/23 06:22 02/28/23 06:22
[2023-02-28 14:55] LABS: INR 1.2 (<1.2); Partial Thromboplastin Time 40.5 sec (22.0-30.0); Prothrombin Time 13.1 sec (10.0-12.5)
[2023-02-28] MEDS: metroNIDAZOLE 500 MG TAB PO SCH ×3 (16:05→20:17)
--- NOTE | 2023-02-28 16:57 | P.HPIM ---
History of Present Illness H&P Date: 02/28/23 Patient is a 78-year-old female with history of atrial fibrillation, hypertension, right-sided pelvic mass presenting with sudden onset chest pain. Patient was discharged yesterday evening after being hospitalized for nausea, vomiting, diarrhea and being treated for acute infectious colitis. Per patient, when she got home she did not take her Rythmol, and had only taken antiemetic and pain medication. At 2 in the morning she woke up with sudden onset chest pain, and palpitations. She was also lightheaded. EMS was called. She was found to be in A. fib and RVR. She is now back to sinus rhythm. She denies any further chest pain or shortness of breath. In the ED, temperature was 98.2, pulse 101, blood pressure 121/70, saturating 98% on room air. WBC 12.2, hemoglobin 10.2, potassium 3.1, creatinine 0.6, magnesium 1.9, troponin 0.2, peaked at 0.407, proBNP 3000. Respiratory viral panel negative. EKG independently interpreted, shows normal sinus rhythm. Chest x-ray independently interpreted, shows interstitial opacity. 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 Pertinent positives and negatives as discussed in HPI, a complete review of systems was performed and all other systems are negative. Patient seen and examined at bedside. Vital signs reviewed General: nontoxic, no distress, appears at stated age Derm: warm, dry Head: atraumatic, normocephalic, symmetric Eyes: EOMI, no lid lag, anicteric sclera, pupils equal round reactive to light ENT: Nose and ears atraumatic Neck: No thyromegaly, supple Mouth: no lip lesion, mucus membranes moist Cardiovascular: S1S2 reg, no murmur, no edema Lungs: clear to auscultation bilateral, no rhonchi, no rales, no wheeze, no acc essory muscle use Abdominal: soft, nontender to palpation, no guarding, no appreciable organomegaly Ext: no gross muscle atrophy, muscle strength muscle strength 5 out of 5 in all 4 extremities, no contractures Neuro: CN II-XII grossly intact Psych: Alert, oriented, appropriate affect Assessment/Plan: Paroxysmal Atrial fibrillation with RVR, now in sinus Acute hypoxic respiratory failure Suspected diastolic CHF exacerbation NSTEMI Hypertension -Restarted home Rythmol 150 every 8 hours -Heparin drip discontinued, restarted on xarelto 20 mg daily -Elevated troponin likely in the setting of paroxysmal atrial fibrillation with RVR -Continue to wean oxygen -Cardiology note reviewed, Lasix 20 mg IV every 12 hours, monitor renal function and electrolytes -Echocardiogram pending Metastatic squamous cell carcinoma Right-sided pelvic mass -Patient is still pending a PET scan, oncology consulted -Pain control with oral Tylenol 650 every 6 hours as needed, [place] 5 every 4 hours as needed, morphine 15 every 3 hours as needed, monitor for respiratory de pression Hypokalemia -Patient was given 40 mEq potassium in the ER Acute infectious colitis, resolving -Complete antibiotic therapy, 2 more days The patient is admitted with an anticipated greater than 2 midnight stay as inpatient status for evaluation of A. fib with RVR. Surrogate decision-maker: CODE STATUS: Full code DVT prophylaxis: xarelto Anticipated discharge date: Pending clinical course Anticipated discharge place: Pending clinical course A total of 55 minutes was spent on the care of this complex patient more than 50% of the time was spent in counseling and care coordination. Past Medical History Past Medical History: Atrial Fibrillation, Hypertension History of Any Multi-Drug Resistant Organisms: None Reported Past Surgical History: No Surgical Hx Reported Past Anesthesia/Blood Transfusion Reactions: No Reported Reaction Past Psychological History: Anxiety Smoking Status: Never smoker Past Alcohol Use History: Rare Past Drug Use History: None Reported - Past Family History Brother(s) Family Medical History: Cancer, Diabetes Mellitus Additional Family Medical History / Comment(s): Colon cancer, at 58 Medications and Allergies Home Medications Medication Instructions Recorded Confirmed Type Lisinopril-Hctz 20-25 mg 1 tab PO DAILY 05/06/16 02/28/23 History [Zestoretic 20-25] Propafenone [Rythmol] 150 mg PO Q8HR #90 tab 05/07/16 02/28/23 Rx Albuterol Inhaler [Ventolin Hfa 2 puff INHALATION RT-Q6H PRN #1 06/26/20 02/28/23 Rx Inhaler] puff Nystatin 100,000 Unit/gm Powd 1 applic TOPICAL BID PRN 02/14/23 02/28/23 History [Mycostatin Powder] methocarbamoL [Robaxin-750] 1,500 mg PO TID PRN #30 tab 02/14/23 02/28/23 Rx Ketorolac [Toradol] 10 mg PO Q6HR PRN #15 tab 02/21/23 02/28/23 Rx ondansetron HCL [Zofran] 8 mg PO Q8HR PRN 02/23/23 02/28/23 History Acetaminophen Tab [Tylenol] 650 mg PO Q6HR PRN #60 tab 02/27/23 02/28/23 Rx Cefdinir [Omnicef] 300 mg PO Q12HR #4 capsule 02/27/23 02/28/23 Rx Morphine Sulfate Ir [MSIR] 15 mg PO Q3H PRN 3 Days #24 tab 02/27/23 02/28/23 Rx metroNIDAZOLE [Flagyl] 500 mg PO TID #6 tab 02/27/23 02/28/23 Rx Prochlorperazine [Compazine] 5 mg PO Q6HR PRN 02/28/23 02/28/23 History Rivaroxaban [Xarelto] 20 mg PO DAILY 02/28/23 02/28/23 History Allergies Allergy/AdvReac Type Severity Reaction Status Date / Time sulfamethoxazole AdvReac Nausea & Verified 02/28/23 07:42 [From Bactrim] Vomiting & Diarrhea trimethoprim [From Bactrim] AdvReac Nausea & Verified 02/28/23 06:10 Vomiting & Diarrhea Physical Exam Vitals: Vital Signs Temp Pulse Resp BP Pulse Ox 02/28/23 16:08 70 18 151/74 95 02/28/23 15:00 69 19 152/83 95 02/28/23 14:00 72 24 144/77 94 L 02/28/23 13:00 68 22 144/79 95 02/28/23 12:00 73 17 140/80 95 02/28/23 11:00 65 18 136/75 96 02/28/23 10:00 66 20 134/84 96 02/28/23 09:00 72 18 130/82 96 02/28/23 08:00 97.9 F 80 16 132/83 96 02/28/23 07:10 79 20 132/83 97 02/28/23 06:06 98.2 F 101 H 18 121/70 98 Intake and Output 02/28/23 02/28/23 02/28/23 06:59 14:59 22:59 Other: Weight 77.111 kg Results CBC & Chem 7: 02/28/23 06:22 02/28/23 06:22 Labs: Abnormal Lab Results - Last 24 Hours (Table) 02/28/23 02/28/23 02/28/23 Range/Units 06:22 06:22 06:22 WBC 12.2 H (3.8-10.6) k/uL RBC 3.49 L (3.80-5.40) m/uL Hgb 10.2 L (11.4-16.0) gm/dL Hct 31.3 L (34.0-46.0) % Neutrophils # 10.4 H (1.3-7.7) k/uL Lymphocytes # 0.9 L (1.0-4.8) k/uL PT 16.0 H (10.0-12.5) sec INR 1.6 H (<1.2) APTT 30.4 H (22.0-30.0) sec Potassium 3.1 L (3.5-5.1) mmol/L Glucose 141 H (74-99) mg/dL Alkaline Phosphatase 149 H (38-126) U/L Troponin I (0.000-0.034) ng/mL Total Protein 5.3 L (6.3-8.2) g/dL Albumin 2.7 L (3.5-5.0) g/dL 02/28/23 02/28/23 02/28/23 Range/Units 06:22 09:18 11:43 WBC (3.8-10.6) k/uL RBC (3.80-5.40) m/uL Hgb (11.4-16.0) gm/dL Hct (34.0-46.0) % Neutrophils # (1.3-7.7) k/uL Lymphocytes # (1.0-4.8) k/uL PT (10.0-12.5) sec INR (<1.2) APTT (22.0-30.0) sec Potassium (3.5-5.1) mmol/L Glucose (74-99) mg/dL Alkaline Phosphatase (38-126) U/L Troponin I 0.200 H* 0.407 H* 0.358 H* (0.000-0.034) ng/mL Total Protein (6.3-8.2) g/dL Albumin (3.5-5.0) g/dL 02/28/23 Range/Units 14:19 WBC (3.8-10.6) k/uL RBC (3.80-5.40) m/uL Hgb (11.4-16.0) gm/dL Hct (34.0-46.0) % Neutrophils # (1.3-7.7) k/uL Lymphocytes # (1.0-4.8) k/uL PT 13.1 H (10.0-12.5) sec INR 1.2 H (<1.2) APTT 40.5 H (22.0-30.0) sec Potassium (3.5-5.1) mmol/L Glucose (74-99) mg/dL Alkaline Phosphatase (38-126) U/L Troponin I (0.000-0.034) ng/mL Total Protein (6.3-8.2) g/dL Albumin (3.5-5.0) g/dL
[2023-02-28] MEDS: HYDROcodone/APAP 5-325MG 1 EACH TAB PO PRN (17:08)
[2023-02-28] MEDS: RIVAROXABAN 20 MG TAB PO SCH (17:09)
[2023-02-28 17:33] LABS: Hyaline Casts,Urine 1 /lpf (0-2); RBC,Urine 23 /hpf (0-5); Squamous Epithelial Cell,Urine 4 /hpf (0-4); WBC,Urine 30 /hpf (0-5)
[2023-02-28 17:51] LABS: Glucose,Urine (UA) Negative (Negative); Protein,Urine Negative (Negative); Specific Gravity,Urine 1.015 (1.001-1.035)
[2023-02-28 17:52] LABS: Bilirubin,Urine Negative (Negative); Blood,Urine Small (Negative); Ketones,Urine 1+ (Negative); Leukocyte Esterase,Urine Moderate (Negative); Nitrite,Urine Negative (Negative); Urobilinogen,Urine 0.2 mg/dL (<2.0)
[2023-02-28 17:55] LABS: Appearance,Urine Slightly Cloudy (Clear); Color,Urine Yellow
--- NOTE | 2023-02-28 18:26 | CA ---
Transthoracic Echo Report Name: Krystyna Braun Age: 78 Gender: F : 1945 Exam Date: 02/28/2023 14:48 Exam Location: [facility] [facility] Ht (in): 66 Wt (lb): 170 Ordering Physician: Antonina Sultana Attending/Referring Phys: [id number], Rd [employer] Operator [place] Procedure CPT: Indications: LVF Cardiac Hx: Technical Quality: Fair Contrast 1: Total Dose (mL): Contrast 2: Total Dose (mL): MEASUREMENTS (Male / Female) Normal Values 2D ECHO LV Diastolic Diameter PLAX 5.2 cm 4.2 - 5.9 / 3.9 - 5.3 cm LV Systolic Diameter PLAX 3.2 cm IVS Diastolic Thickness 0.8 cm 0.6 - 1.0 / 0.6 - 0.9 cm LVPW Diastolic Thickness 1.1 cm 0.6 - 1.0 / 0.6 - 0.9 cm LV Relative Wall Thickness 0.4 RV Internal Dim ED PLAX 3.1 cm LVOT Diameter 2.0 cm Aortic Root Diameter 2.8 cm LA Systolic Diameter LX 2.7 cm 3.0 - 4.0 / 2.7 - 3.8 cm LV Diastolic Volume MOD BP 38.8 cm??? 67 - 155 / 56 - 104 cm??? LV Systolic Volume MOD BP 10.4 cm??? - 58 / 19 - 49 cm??? LV Ejection Fraction MOD BP 73.3 % >= 55 % LV Cardiac Index MOD BP 1085.7 cm???/min???m??? LV Diastolic Volume MOD 4C 42.4 cm??? LV Systolic Volume MOD 4C 10.1 cm??? LV Ejection Fraction MOD 4C 76.2 % LV Cardiac Index MOD 4C 1233.6 cm???/min???m??? LV Diastolic Length 4C 6.3 cm LV Systolic Length 4C 5.4 cm LV Diastolic Volume MOD 2C 33.1 cm??? LV Systolic Volume MOD 2C 10.9 cm??? LV Ejection Fraction MOD 2C 67.2 % LV Cardiac Index MOD 2C 847.3 cm???/min???m??? LV Diastolic Length 2C 5.6 cm LV Systolic Length 2C 5.4 cm LA Volume 34.6 cm??? 18 - 58 / 22 - 52 cm??? LA Volume Index 18.1 cm???/m??? 16 - 28 cm???/m??? DOPPLER AV Peak Velocity 159.4 cm/s AV Peak Gradient 10.2 mmHg LVOT Peak Velocity 94.3 cm/s LVOT Peak Gradient 3.6 mmHg LVOT Velocity Time Integral 20.8 cm LVOT Stroke Volume 64.6 cm??? LVOT Stroke Volume Index 34.6 ml/m??? LVOT Cardiac Index 2464.3 cm???/min???m??? AV Area Cont Eq pk 1.8 cm??? MV Peak Velocity 99.3 cm/s MV Peak Gradient 3.9 mmHg MV Mean Velocity 52.4 cm/s MV Mean Gradient 1.4 mmHg MV Velocity Time Integral 36.7 cm MR Peak Velocity 351.5 cm/s MR Peak Gradient 49.4 mmHg Mitral E Point Velocity 98.6 cm/s Mitral A Point Velocity 83.7 cm/s Mitral E to A Ratio 1.2 MV Deceleration Time 207.7 ms MV E' Velocity 7.8 cm/s Mitral E to MV E' Ratio 12.6 TR Peak Velocity 247.5 cm/s TR Peak Gradient 24.5 mmHg Right Ventricular Systolic Press 35.5 mmHg PV Peak Velocity 111.1 cm/s PV Peak Gradient 4.9 mmHg FINDINGS Left Ventricle Normal LV size and wall thickness. Left ventricular ejection fraction is estimated at 55-60 %. Right Ventricle Normal right ventricular size. RVSP= 37mmHg. Right Atrium Normal right atrial size. Left Atrium Normal left atrial size. Mitral Valve Structurally normal mitral valve. Trace MR. Aortic Valve Aortic valve not well visualized. No aortic regurgitation. AV peak gradient= 10.2mmHg. Tricuspid Valve Tricuspid valve not well visualized. Mild TR. Pulmonic Valve Pulmonic valve not well visualized. No pulmonic regurgitation. Pericardium The pericardiu is not well visualized however, there appears to be a small anterior pericardial effusion in subcostal views. Aorta Normal size aortic root. CONCLUSIONS Normal LV systolic function Mild aortic stenosis Small pericardial effusion Previewed by: Dr. Cesar Wilks MD (Electronically Signed) Final Date: 28 February 2023 18:25
[2023-02-28] MEDS: MORPHINE SULFATE IR 15 MG TABLET PO PRN (20:17)
[2023-02-28] MEDS ORDERED: CEFDINIR 300 MG CAP PO SCH (21:00)
[2023-03-01] MEDS: HYDROcodone/APAP 5-325MG 1 EACH TAB PO PRN ×2 (03:25→11:22)
[2023-03-01] MEDS: FUROSEMIDE 10 MG/ML 2 ML VIAL IV SCH ×2 (08:01→20:08)
[2023-03-01] MEDS: metroNIDAZOLE 500 MG TAB PO SCH ×3 (08:01→20:08)
[2023-03-01] MEDS: LISINOPRIL-HCTZ 20-25 MG 1 EACH TAB PO SCH (08:01)
[2023-03-01] MEDS: PROPAFENONE 150 MG TAB PO SCH ×3 (08:01→20:08)
[2023-03-01 09:18] LABS: Basophils % (A) 0 %; Eosinophils # (A) 0.5 k/uL (0-0.7); Eosinophils % (A) 4 %; HCT 32.5 % (34.0-46.0); HGB 10.5 gm/dL (11.4-16.0); Lymphocytes # (A) 1.3 k/uL (1.0-4.8); Lymphocytes % (A) 11 %; MCH 28.7 pg (25.0-35.0); MCHC 32.2 g/dL (31.0-37.0); MCV 88.9 fL (80.0-100.0); Mean Platelet Volume 8.9; Monocytes # (A) 0.6 k/uL (0-1.0); Monocytes % (A) 5 %; Neutrophils # (A) 9.7 k/uL (1.3-7.7); Neutrophils % (A) 79 %; Platelet Count 348 k/uL (150-450); RBC 3.66 m/uL (3.80-5.40); RDW 13.6 % (11.5-15.5); WBC 12.3 k/uL (3.8-10.6)
[2023-03-01 09:39] LABS: African American GFR (CKD) >90 (>60 ml/min/1.73 sqM); Anion Gap 13 mmol/L; Blood Urea Nitrogen 15 mg/dL (7-17); Calcium 8.5 mg/dL (8.4-10.2); Carbon Dioxide 28 mmol/L (22-30); Chloride 97 mmol/L (98-107); Glucose 107 mg/dL (74-99); Non-African American GFR(CKD) >90 (>60 ml/min/1.73 sqM); Potassium 3.1 mmol/L (3.5-5.1); Sodium 138 mmol/L (137-145)
--- NOTE | 2023-03-01 12:00 | P.PN ---
Subjective HISTORY OF PRESENT ILLNESS: This is a 78-year-old female patient of Dr. Hand with past medical history of paroxysmal atrial fibrillation, hypertension. Patient has recent diagnosis of pelvic mass found to have squamous cell carcinoma and plan to follow up in [facility]. Patient had a hospitalization for colitis was discharged home last evening and not sure if she took her Rythmol at home. She states she was sleeping a couple hours and then she woke up and her heart was racing. This is a first time this is occurred in many years. She denies any shortness of breath no chest pain, no nausea or vomiting. She does complain of right lower extremity edema that she's had for the last 3-4 days apparently she's been told most likely is related to the right-sided pelvic mass. She denies any blood in her stool or urine. No fevers. Patient is seen today in the emergency center. She has been started on heparin drip. EKG sinus rhythm at 96 bpm Chest x-ray: CHF exacerbation or overload state. WBC 12.2, hemoglobin 10.2, platelet count 322. INR 1.6. Potassium 3.1. Creatinine 0.6. Troponin 0.2, 0.407, 0.358. ProBNP 3270. Influenza A, influenza B, RSV, Covid 1900 Home cardiac medications: lisinoprilhydrochlorothiazide 1 daily, Rythmol 150 no grams every 8 hour, Xarelto 20 mg daily. Echocardiogram performed in the office on 06/08/2020 revealed normal EF, mild MR. MPI performed in the office 06/12/2020 revealed EF 65% normal study 03/01/2023 Patient examined this morning at the bedside. Patient currently denies chest pain or pressure. She denies shortness of breath at the time of examination. She remains on IV Lasix 20 mg every 12 hours. Creatinine remains stable today at 0.55. Echocardiogram completed revealing ejection fraction 55-60%, trace MR, mild TR, small pericardial effusion. PHYSICAL EXAM: VITAL SIGNS: Reviewed. GENERAL: Well-developed in no acute distress. NECK: Supple. No JVD or thyromegaly LUNGS: Respirations even and unlabored. Lungs essentially clear to auscultation bilaterally. HEART: Regular rate and rhythm. S1 and S2 heard. EXTREMITIES: Normal range of motion. No clubbing or cyanosis. Peripheral pu lses intact. No lower extremity edema ASSESSMENT: Elevated troponin possibly due to tachycardia, cannot completely rule out ischemic disease Acute heart failure with preserved EF Paroxysmal atrial fibrillation presented with RVR Hypertension Pelvic mass PLAN: Continue current cardiac medications Patient is requesting to stay in the hospital for an additional 24 hours We will continue IV diuretics for today and transition to oral diuretics tomorrow Anticipate discharge home tomorrow Patient to follow-up post discharge at [facility] in regards to her pelvic mass Patient to follow up in the office with Dr. Hand Nurse practitioner note has been reviewed by physician. Signing provider agrees with the documented findings, assessment, and plan of care. Objective - Vital Signs Vital signs: Vital Signs Temp 97.9 F 03/01/23 07:57 Pulse 80 03/01/23 07:57 Resp 16 03/01/23 07:57 BP 166/84 03/01/23 07:57 Pulse Ox 88 L 03/01/23 07:57 FiO2 Intake & Output 02/28/23 03/01/23 03/01/23 18:59 06:59 18:59 Intake Total 90 540 118 Output Total 1100 1200 Balance 90 -560 -1082 Weight 77.111 kg 84 kg Intake: Oral 90 540 118 Output: Urine 1100 1200 Other: Voiding Method External Catheter External Catheter - Labs CBC & Chem 7: 03/01/23 08:33 03/01/23 08:33 Labs: Abnormal Lab Results - Last 24 Hours (Table) 02/28/23 02/28/23 02/28/23 Range/Units 11:43 14:19 17:13 WBC (3.8-10.6) k/uL RBC (3.80-5.40) m/uL Hgb (11.4-16.0) gm/dL Hct (34.0-46.0) % Neutrophils # (1.3-7.7) k/uL PT 13.1 H (10.0-12.5) sec INR 1.2 H (<1.2) APTT 40.5 H (22.0-30.0) sec Potassium (3.5-5.1) mmol/L Chloride (98-107) mmol/L Glucose (74-99) mg/dL Troponin I 0.358 H* (0.000-0.034) ng/mL Urine Appearance Slightly Cloudy H (Clear) Urine Ketones 1+ H (Negative) Ur Leukocyte Esterase Moderate H (Negative) Urine RBC 23 H (0-5) /hpf Urine WBC 30 H (0-5) /hpf 03/01/23 03/01/23 Range/Units 08:33 08:33 WBC 12.3 H (3.8-10.6) k/uL RBC 3.66 L (3.80-5.40) m/uL Hgb 10.5 L (11.4-16.0) gm/dL Hct 32.5 L (34.0-46.0) % Neutrophils # 9.7 H (1.3-7.7) k/uL PT (10.0-12.5) sec INR (<1.2) APTT (22.0-30.0) sec Potassium 3.1 L (3.5-5.1) mmol/L Chloride 97 L (98-107) mmol/L Glucose 107 H (74-99) mg/dL Troponin I (0.000-0.034) ng/mL Urine Appearance (Clear) Urine Ketones (Negative) Ur Leukocyte Esterase (Negative) Urine RBC (0-5) /hpf Urine WBC (0-5) /hpf
[2023-03-01] MEDS ORDERED: POTASSIUM CHLORIDE ER 20 MEQ TAB.ER PO STA (13:28)
--- NOTE | 2023-03-01 13:31 | P.PN ---
Subjective Progress Note Date: 03/01/23 Hospital Course: 78-year-old female with history of atrial fibrillation, hypertension, right- sided pelvic mass presenting with sudden onset chest pain. In the ED, temperature was 98.2, pulse 101, blood pressure 121/70, saturating 98% on room air. WBC 12.2, hemoglobin 10.2, potassium 3.1, creatinine 0.6, magnesium 1.9, troponin 0.2, peaked at 0.407, proBNP 3000. Respiratory viral panel negative. EKG independently interpreted, shows normal sinus rhythm. Chest x-ray independently interpreted, shows interstitial opacity. 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 Cardiology consulted, patient restarted on home Rythmol, also on IV Lasix. Echocardiogram shows normal LV systolic function. Patient pending evaluation by oncology. Patient also considering [facility] for further cancer care. Subjective: Seen and examined at the [facility] acute events overnight. He denies any chest pain. Pertinent positives and negatives as discussed above, a complete review of systems was performed and all other systems are negative. Vitals Signs Reviewed. General: nontoxic, no distress, appears at stated age Derm: warm, dry Head: atraumatic, normocephalic, symmetric Eyes: EOMI, no lid lag, anicteric sclera Mouth: no lip lesion, mucus membranes moist Cardiovascular: S1S2 reg, no murmur Lungs: CTA bilateral, no rhonchi, no rales , no accessory muscle use, supplemental oxygen Abdominal: soft, nontender to palpation, no guarding, no appreciable organomegaly Ext: no gross muscle atrophy, trace peripheral bilateral edema, no contractures Neuro: CN II-XI grossly intact, no focal neuro deficits Psych: Alert, oriented, appropriate affect Data Reviewed Today: Pertinent Labs: WBC 12.3, hemoglobin 10.5, potassium 3.1, proBNP 1999 Imaging: Echocardiogram shows normal LV systolic function, mild aortic stenosis, small pericardial effusion. Assessment and Plan: Patient is overall critically ill, prognosis guarded, needs close monitoring Paroxysmal Atrial fibrillation with RVR, now in sinus Acute hypoxic respiratory failure diastolic CHF exacerbation NSTEMI Hypertension -Continue Rythmol 150 every 8 hours and xarelto 20 mg daily -Elevated troponin likely in the setting of paroxysmal atrial fibrillation with RVR -Continue to wean oxygen -Cardiology note reviewed, Lasix 20 mg IV every 12 hours, monitor renal function and electrolytes, possibly discharge home tomorrow after switching to oral Lasix Metastatic squamous cell carcinoma Right-sided pelvic mass -Patient is still pending a PET scan, oncology consulted -Pain control with oral Tylenol 650 every 6 hours as needed, [place] 5 every 4 hours as needed, morphine 15 every 3 hours as needed, monitor for respiratory de pression Hypokalemia -Patient was given 40 mEq potassium Acute infectious colitis, resolving -Complete antibiotic therapy, 1 more days DVT ppx: xarelto Code status: FC Anticipated discharge place: home Anticipated discharge time: possibly tomorrow Objective - Vital Signs Vital signs: Vital Signs Temp 98.3 F 03/01/23 11:19 Pulse 74 03/01/23 11:19 Resp 16 03/01/23 11:19 BP 165/83 03/01/23 11:19 Pulse Ox 96 03/01/23 11:19 FiO2 Intake & Output 02/28/23 03/01/23 03/01/23 18:59 06:59 18:59 Intake Total 90 540 118 Output Total 1100 1200 Balance 90 -560 -1082 Weight 77.111 kg 84 kg Intake: Oral 90 540 118 Output: Urine 1100 1200 Other: Voiding Method External Catheter External Catheter - Labs CBC & Chem 7: 03/01/23 08:33 03/01/23 08:33 Labs: Abnormal Lab Results - Last 24 Hours (Table) 02/28/23 02/28/23 02/28/23 Range/Units 11:43 14:19 17:13 WBC (3.8-10.6) k/uL RBC (3.80-5.40) m/uL Hgb (11.4-16.0) gm/dL Hct (34.0-46.0) % Neutrophils # (1.3-7.7) k/uL PT 13.1 H (10.0-12.5) sec INR 1.2 H (<1.2) APTT 40.5 H (22.0-30.0) sec Potassium (3.5-5.1) mmol/L Chloride (98-107) mmol/L Glucose (74-99) mg/dL Troponin I 0.358 H* (0.000-0.034) ng/mL Urine Appearance Slightly Cloudy H (Clear) Urine Ketones 1+ H (Negative) Ur Leukocyte Esterase Moderate H (Negative) Urine RBC 23 H (0-5) /hpf Urine WBC 30 H (0-5) /hpf 03/01/23 03/01/23 Range/Units 08:33 08:33 WBC 12.3 H (3.8-10.6) k/uL RBC 3.66 L (3.80-5.40) m/uL Hgb 10.5 L (11.4-16.0) gm/dL Hct 32.5 L (34.0-46.0) % Neutrophils # 9.7 H (1.3-7.7) k/uL PT (10.0-12.5) sec INR (<1.2) APTT (22.0-30.0) sec Potassium 3.1 L (3.5-5.1) mmol/L Chloride 97 L (98-107) mmol/L Glucose 107 H (74-99) mg/dL Troponin I (0.000-0.034) ng/mL Urine Appearance (Clear) Urine Ketones (Negative) Ur Leukocyte Esterase (Negative) Urine RBC (0-5) /hpf Urine WBC (0-5) /hpf
--- NOTE | 2023-03-01 16:43 | P.CONS ---
History of Present Illness - Reason for Consult Consult date: 02/28/23 met [facility] Requesting physician: Richie Valencia - Chief Complaint palpitations - History of Present Illness Patient is a 78-year-old female who was initially seen on consult 1 week ago for worsening right hip and right groin pain over the last 1 month. Patient denies any bowel changes. Denies vaginal bleeding/discharge. Denies urinary symptoms. Reports she has not had screening mammograms or colonoscopies in the past. Patient was seen in the ER on 02/[address] abdomen pelvis which revealed asymmetric thickening of the right obturator internus with mild fat stranding. Some fat stranding extends to the lateral right adnexa, right external iliac chain, and right upper adductors. Mesenteric retroperitoneal right iliac chain right-sided pelvic, and right inguinal adenopathy measuring up to 2.2 cm noted. This was originally thought to be a possible muscle strain. 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 Right iliac and inguinal lymphadenopathy. Reactive edema throughout the right iliacus and right adductor musculature. She underwent right inguinal LN biopsy which revealed lymphoid tissue involved by metastatic squamous cell carcinoma which may represent metastatic disease from cervical, vulvar or vaginal primary. CT chest and bone scan obtained for staging. Bone scan revealed possible metastatic or neoplastic uptake within the right hemipelvis. Increased uptake posterior calvarium and L5. CT chest negative for metastatic disease. Patient is scheduled for PET CT on 03/06. Patient will need further eval by foot and ankle surgeon onc. Patient presented to the emergency room after experiencing palpitations and calling EMS. EMS found patient in A-fib with a rate in the 220s and was given adenosine and converted and route. Patient has been asymptomatic since admission. At today's visit patient is diet denying palpitations, chest pain, s hortness of breath, and dizziness. Patient was started on heparin drip but has been transitioned to xarelto. Cardiology following with plan for echo. Review of Systems 10 point ROS is negative except as stated in HPI Past Medical History Past Medical History: Atrial Fibrillation, Hypertension Additional Past Medical History / Comment(s): 02/28/23 pt diagnosed today with a pelvic mass that is cancerous History of Any Multi-Drug Resistant Organisms: None Reported Past Surgical History: No Surgical Hx Reported Past Anesthesia/Blood Transfusion Reactions: No Reported Reaction Past Psychological History: Anxiety Smoking Status: Never smoker Past Alcohol Use History: Rare Past Drug Use History: None Reported - Past Family History Brother(s) Family Medical History: Cancer, Diabetes Mellitus Additional Family Medical History / Comment(s): Colon cancer, at 58 Medications and Allergies Home Medications Medication Instructions Recorded Confirmed Type Lisinopril-Hctz 20-25 mg 1 tab PO DAILY 05/06/16 02/28/23 History [Zestoretic 20-25] Propafenone [Rythmol] 150 mg PO Q8HR #90 tab 05/07/16 02/28/23 Rx Albuterol Inhaler [Ventolin Hfa 2 puff INHALATION RT-Q6H PRN #1 06/26/20 02/28/23 Rx Inhaler] puff Nystatin 100,000 Unit/gm Powd 1 applic TOPICAL BID PRN 02/14/23 02/28/23 History [Mycostatin Powder] methocarbamoL [Robaxin-750] 1,500 mg PO TID PRN #30 tab 02/14/23 02/28/23 Rx Ketorolac [Toradol] 10 mg PO Q6HR PRN #15 tab 02/21/23 02/28/23 Rx ondansetron HCL [Zofran] 8 mg PO Q8HR PRN 02/23/23 02/28/23 History Acetaminophen Tab [Tylenol] 650 mg PO Q6HR PRN #60 tab 02/27/23 02/28/23 Rx Cefdinir [Omnicef] 300 mg PO Q12HR #4 capsule 02/27/23 02/28/23 Rx Morphine Sulfate Ir [MSIR] 15 mg PO Q3H PRN 3 Days #24 tab 02/27/23 02/28/23 Rx metroNIDAZOLE [Flagyl] 500 mg PO TID #6 tab 02/27/23 02/28/23 Rx Prochlorperazine [Compazine] 5 mg PO Q6HR PRN 02/28/23 02/28/23 History Rivaroxaban [Xarelto] 20 mg PO DAILY 02/28/23 02/28/23 History Allergies Allergy/AdvReac Type Severity Reaction Status Date / Time sulfamethoxazole AdvReac Nausea & Verified 02/28/23 07:42 [From Bactrim] Vomiting & Diarrhea trimethoprim [From Bactrim] AdvReac Nausea & Verified 02/28/23 06:10 Vomiting & Diarrhea Physical Exam Vitals: Vital Signs Temp Pulse Pulse Resp BP BP Pulse Ox 02/28/23 16:45 98.0 F 71 16 157/79 97 02/28/23 16:08 70 18 151/74 95 02/28/23 15:00 69 19 152/83 95 02/28/23 14:00 72 24 144/77 94 L 02/28/23 13:00 68 22 144/79 95 02/28/23 12:00 73 17 140/80 95 02/28/23 11:00 65 18 136/75 96 02/28/23 10:00 66 20 134/84 96 02/28/23 09:00 72 18 130/82 96 02/28/23 08:00 97.9 F 80 16 132/83 96 02/28/23 07:10 79 20 132/83 97 02/28/23 06:06 98.2 F 101 H 18 121/70 98 Intake and Output 02/28/23 02/28/23 02/28/23 06:59 14:59 22:59 Intake Total 90 Balance 90 Intake: Oral 90 Other: Weight 77.111 kg 77.111 kg - Constitutional General appearance: average body habitus, no acute distress - EENT Eyes: anicteric sclerae ENT: hearing grossly normal - Neck Neck: no lymphadenopathy - Respiratory Respiratory: bilateral: CTA - Cardiovascular Rhythm: irregularly irregular Heart sounds: normal: S1, S2 - Gastrointestinal General gastrointestinal: soft, no tenderness - Integumentary Integumentary: no cyanotic - Neurologic grossly intact - Psychiatric Psychiatric: A&O x's 3 Results CBC & Chem 7: 03/01/23 08:33 03/01/23 08:33 Labs: Abnormal Lab Results - Last 24 Hours (Table) 02/28/23 02/28/23 02/28/23 Range/Units 06:22 06:22 06:22 WBC 12.2 H (3.8-10.6) k/uL RBC 3.49 L (3.80-5.40) m/uL Hgb 10.2 L (11.4-16.0) gm/dL Hct 31.3 L (34.0-46.0) % Neutrophils # 10.4 H (1.3-7.7) k/uL Lymphocytes # 0.9 L (1.0-4.8) k/uL PT 16.0 H (10.0-12.5) sec INR 1.6 H (<1.2) APTT 30.4 H (22.0-30.0) sec Potassium 3.1 L (3.5-5.1) mmol/L Glucose 141 H (74-99) mg/dL Alkaline Phosphatase 149 H (38-126) U/L Troponin I (0.000-0.034) ng/mL Total Protein 5.3 L (6.3-8.2) g/dL Albumin 2.7 L (3.5-5.0) g/dL Urine Appearance (Clear) Urine Ketones (Negative) Ur Leukocyte Esterase (Negative) Urine RBC (0-5) /hpf Urine WBC (0-5) /hpf 02/28/23 02/28/23 02/28/23 Range/Units 06:22 09:18 11:43 WBC (3.8-10.6) k/uL RBC (3.80-5.40) m/uL Hgb (11.4-16.0) gm/dL Hct (34.0-46.0) % Neutrophils # (1.3-7.7) k/uL Lymphocytes # (1.0-4.8) k/uL PT (10.0-12.5) sec INR (<1.2) APTT (22.0-30.0) sec Potassium (3.5-5.1) mmol/L Glucose (74-99) mg/dL Alkaline Phosphatase (38-126) U/L Troponin I 0.200 H* 0.407 H* 0.358 H* (0.000-0.034) ng/mL Total Protein (6.3-8.2) g/dL Albumin (3.5-5.0) g/dL Urine Appearance (Clear) Urine Ketones (Negative) Ur Leukocyte Esterase (Negative) Urine RBC (0-5) /hpf Urine WBC (0-5) /hpf 02/28/23 02/28/23 Range/Units 14:19 17:13 WBC (3.8-10.6) k/uL RBC (3.80-5.40) m/uL Hgb (11.4-16.0) gm/dL Hct (34.0-46.0) % Neutrophils # (1.3-7.7) k/uL Lymphocytes # (1.0-4.8) k/uL PT 13.1 H (10.0-12.5) sec INR 1.2 H (<1.2) APTT 40.5 H (22.0-30.0) sec Potassium (3.5-5.1) mmol/L Glucose (74-99) mg/dL Alkaline Phosphatase (38-126) U/L Troponin I (0.000-0.034) ng/mL Total Protein (6.3-8.2) g/dL Albumin (3.5-5.0) g/dL Urine Appearance Slightly Cloudy H (Clear) Urine Ketones 1+ H (Negative) Ur Leukocyte Esterase Moderate H (Negative) Urine RBC 23 H (0-5) /hpf Urine WBC 30 H (0-5) /hpf Assessment and Plan (1) Squamous cell carcinoma, metastatic Current Visit: Yes Status: Acute Priority: High Code(s): PTQ7953 - SNOMED Code(s): 654408797 (2) Atrial fibrillation Current Visit: Yes Status: Acute Priority: High Code(s): I48.91 - UNSPECIFIED ATRIAL FIBRILLATION SNOMED Code(s): 37576895 Plan: Metastatic squamous cell carcinoma: -Presented with worsening right hip and right groin pain over the last 1 month. -CT abdomen pelvis obtained on 02/14 revealed asymmetric thickening of the right obturator internus with mild fat stranding. Some fat stranding extends to the lateral right adnexa, right external iliac chain, and right upper adductors. Mesenteric retroperitoneal right iliac chain right-sided pelvic, and right inguinal adenopathy measuring up to 2.2 cm noted. 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 Right iliac and inguinal lymphadenopathy. Reactive edema throughout the right iliacus and right adductor musculature. Findings and concerns for malignancy were discussed with patient -She underwent right inguinal LN biopsy on 02/21, which revealed lymphoid tissue involved by metastatic squamous cell carcinoma which may represent metastatic disease from cervical, vulvar or vaginal primary. -CT chest and bone scan obtained for staging. Bone scan revealed possible metastatic or neoplastic uptake within the right hemipelvis. Increased uptake posterior calvarium and L5. CT chest negative for metastatic disease. Results discussed with patient and spouse -PET CT scheduled for 03/06. Following PET, clinic f/u will be scheduled. Pt will need further evaluation by foot and ankle surgeon onc, outpt referral will be placed A-fib: -EMS found patient in A-fib with a rate in the 220s and was given adenosine and converted in route. -Patient was started on heparin drip but has been transitioned to xarelto. -Echo scheduled -Defer management to Cardiology an IM team Attests: I have seen and examined pt, performed H&P, developed impression and plan of care. Discussed with dictator. Agree with documentation, dictated as a scribe
[2023-03-01] MEDS: RIVAROXABAN 20 MG TAB PO SCH (16:52)
[2023-03-01] MEDS ORDERED: diphenhydrAMINE 50 MG CAP PO PRN (18:22)
[2023-03-01] MEDS: MORPHINE SULFATE IR 15 MG TABLET PO PRN (18:27)
[2023-03-01 19:33] LABS: Glucose,Whole Blood 119 mg/dL (70-110)
[2023-03-02 06:09] LABS: Glucose,Whole Blood 100 mg/dL (70-110)
[2023-03-02] MEDS: FUROSEMIDE 10 MG/ML 2 ML VIAL IV SCH (08:49)
[2023-03-02] MEDS: LISINOPRIL-HCTZ 20-25 MG 1 EACH TAB PO SCH (08:49)
[2023-03-02] MEDS: HYDROcodone/APAP 5-325MG 1 EACH TAB PO PRN ×2 (08:49→23:49)
[2023-03-02] MEDS: metroNIDAZOLE 500 MG TAB PO SCH (08:50)
[2023-03-02] MEDS: PROPAFENONE 150 MG TAB PO SCH ×3 (08:50→20:01)
[2023-03-02 10:04] LABS: Basophils % (A) 0 %; Eosinophils # (A) 0.3 k/uL (0-0.7); Eosinophils % (A) 2 %; HCT 34.7 % (34.0-46.0); HGB 11.2 gm/dL (11.4-16.0); Lymphocytes # (A) 1.1 k/uL (1.0-4.8); Lymphocytes % (A) 7 %; MCH 28.7 pg (25.0-35.0); MCHC 32.4 g/dL (31.0-37.0); MCV 88.6 fL (80.0-100.0); Monocytes # (A) 0.9 k/uL (0-1.0); Monocytes % (A) 6 %; Neutrophils % (A) 84 %; Platelet Count 369 k/uL (150-450); RBC 3.92 m/uL (3.80-5.40); RDW 13.8 % (11.5-15.5); WBC 15.6 k/uL (3.8-10.6)
[2023-03-02 10:37] LABS: African American GFR (CKD) >90 (>60 ml/min/1.73 sqM); Anion Gap 7 mmol/L; Blood Urea Nitrogen 13 mg/dL (7-17); Calcium 8.8 mg/dL (8.4-10.2); Carbon Dioxide 39 mmol/L (22-30); Chloride 91 mmol/L (98-107); Glucose 134 mg/dL (74-99); Magnesium 1.5 mg/dL (1.6-2.3); Non-African American GFR(CKD) 85 (>60 ml/min/1.73 sqM); Potassium 3.1 mmol/L (3.5-5.1); Sodium 137 mmol/L (137-145)
[2023-03-02] MEDS ORDERED: POTASSIUM CHLORIDE ER 20 MEQ TAB.ER PO STA (11:37)
[2023-03-02] MEDS ORDERED: diphenhydrAMINE 50 MG CAP PO PRN (11:39)
--- NOTE | 2023-03-02 11:44 | P.PN ---
Subjective Progress Note Date: 03/02/23 Hospital Course: 78-year-old female with history of atrial fibrillation, hypertension, right-si ded pelvic mass presenting with sudden onset chest pain. In the ED, temperature was 98.2, pulse 101, blood pressure 121/70, saturating 98% on room air. WBC 12.2, hemoglobin 10.2, potassium 3.1, creatinine 0.6, magnesium 1.9, troponin 0.2, peaked at 0.407, proBNP 3000. Respiratory viral panel negative. EKG independently interpreted, shows normal sinus rhythm. Chest x-ray independently interpreted, shows interstitial opacity. 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 Cardiology consulted, patient restarted on home Rythmol, also on IV Lasix. Echocardiogram shows normal LV systolic function. Patient also pending a PET scan on 03/06. Patient also considering [facility] further cancer care. Subjective: Seen and examined at bedside. No acute events overnight. Denies any further chest pain. Pertinent positives and negatives as discussed above, a complete review of systems was performed and all other systems are negative. Vitals Signs Reviewed. General: nontoxic, no distress, appears at stated age Derm: warm, dry Head: atraumatic, normocephalic, symmetric Eyes: EOMI, no lid lag, anicteric sclera Mouth: no lip lesion, mucus membranes moist Cardiovascular: S1S2 reg, no murmur Lungs: CTA bilateral, no rhonchi, no rales , no accessory muscle use, supplemental oxygen Abdominal: soft, nontender to palpation, no guarding, no appreciable organomegaly Ext: no gross muscle atrophy, trace peripheral bilateral edema, no contractures Neuro: CN II-XI grossly intact, no focal neuro deficits Psych: Alert, oriented, appropriate affect Data Reviewed Today: Pertinent Labs: WBC 15.6, hemoglobin 11.2, potassium 2.1, magnesium 1.5, creatinine 0.68, bicarb 39 Imaging: No new imaging Assessment and Plan: Paroxysmal Atrial fibrillation with RVR, now in sinus Acute hypoxic respiratory failure diastolic CHF exacerbation NSTEMI Hypertension Hyponatremia Hypomagnesemia Contraction metabolic alkalosis Leukocytosis, likely hemoconcentration -Continue Rythmol 150 every 8 hours and xarelto 20 mg daily -Elevated troponin likely in the setting of paroxysmal atrial fibrillation with RVR -Continue to wean oxygen -Cardiology following, Lasix decreased to 20 mg oral twice a day, monitor renal function and electrolytes -Oral 40 mEq potassium given -IV 4 g mg given -repeat BMP, and mag, and CBC Metastatic squamous cell carcinoma Right-sided pelvic mass -Pending PET scan on 03/06 -Pain control with oral Tylenol 650 every 6 hours as needed, [place] 5 every 4 hours as needed, morphine 15 every 3 hours as needed, monitor for respiratory depression Acute infectious colitis, resolving -completed abx therapy DVT ppx: xarelto Code status: FC Anticipated discharge place: home Anticipated discharge time: possibly tomorrow Objective - Vital Signs Vital signs: Vital Signs Temp 98.1 F 03/02/23 08:10 Pulse 82 03/02/23 08:10 Resp 16 03/02/23 08:10 BP 154/69 03/02/23 08:10 Pulse Ox 95 03/02/23 08:10 FiO2 Intake & Output 03/01/23 03/02/23 03/02/23 18:59 06:59 18:59 Intake Total 436 540 240 Output Total 1950 Balance -1514 540 240 Weight 84 kg 78 kg Intake: Oral 436 540 240 Output: Urine 1950 Other: Voiding Method External Catheter Toilet Toilet # Voids 3 - Labs CBC & Chem 7: 03/02/23 09:28 03/02/23 09:28 Labs: Abnormal Lab Results - Last 24 Hours (Table) 03/01/23 03/02/23 03/02/23 Range/Units 19:31 09:28 09:28 WBC 15.6 H (3.8-10.6) k/uL Hgb 11.2 L (11.4-16.0) gm/dL Neutrophils # 13.0 H (1.3-7.7) k/uL Potassium 3.1 L (3.5-5.1) mmol/L Chloride 91 L (98-107) mmol/L Carbon Dioxide 39 H (22-30) mmol/L Glucose 134 H (74-99) mg/dL POC Glucose (mg/dL) 119 H (70-110) mg/dL Magnesium 1.5 L (1.6-2.3) mg/dL Microbiology - Last 24 Hours (Table) 02/28/23 14:31 Blood Culture - Preliminary Blood
[2023-03-02] MEDS: MAGNESIUM SULFATE-D5W PMX 1 GM in DEXTROSE/WATER 1 100ML.BAG IVPB SCH ×4 (12:25→18:29)
--- NOTE | 2023-03-02 13:54 | P.PN ---
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 She had no chest discomfort. She had minimal troponin elevation. Her NT proBNP was mildly elevated. She's feeling well this morning. She denies any chest discomfort, dizziness or palpitations. She denies any nausea or vomiting. Her echocardiogram showed the normal systolic function. Medications: Lasix 20 mg twice a day, lisinopril HCT 2025 milligrams daily, Rythmol 150 mg 3 times a day, Xarelto 20 mg daily PHYSICAL EXAMINATION: Blood pressure 150/70 heart rate 69 LUNGS: Clear to auscultation HEART: Regular rate and rhythm, S1, S2. No S3. Systolic ejection murmur ABDOMEN: Soft, nontender, no organomegaly EXTREMETIES: Trace edema LAB: Potassium 3.1, hemoglobin 11.2, BUN 13, creatinine 0.68, magnesium 1.5 IMPRESSION: 1. Paroxysmal atrial fibrillation 2. Mild troponin elevation probably secondary to the atrial fibrillation with type II myocardial infarction 3. Pelvic malignancy scheduled to be evaluated at [facility] for surgical intervention 4. Hypertension PLAN: 1. Replace potassium 2. Add beta antelmo 3. Proceed with nuclear scan tomorrow to rule out any significant ischemia prior to her workup at [facility] 4. Depending on her progress further recommendations will be made Objective - Vital Signs Vital signs: Vital Signs Temp 98.1 F 03/02/23 08:10 Pulse 69 03/02/23 12:14 Resp 16 03/02/23 12:14 BP 153/78 03/02/23 12:14 Pulse Ox 97 03/02/23 12:14 FiO2 Intake & Output 03/01/23 03/02/23 03/02/23 18:59 06:59 18:59 Intake Total 436 540 240 Output Total 1950 Balance -1514 540 240 Weight 84 kg 78 kg Intake: Oral 436 540 240 Output: Urine 1950 Other: Voiding Method External Catheter Toilet Toilet # Voids 3 - Labs CBC & Chem 7: 03/02/23 09:28 03/02/23 09:28 Labs: Abnormal Lab Results - Last 24 Hours (Table) 12/09/23 12/10/23 12/10/23 Range/Units 19:31 09:28 09:28 WBC 15.6 H (3.8-10.6) k/uL Hgb 11.2 L (11.4-16.0) gm/dL Neutrophils # 13.0 H (1.3-7.7) k/uL Potassium 3.1 L (3.5-5.1) mmol/L Chloride 91 L (98-107) mmol/L Carbon Dioxide 39 H (22-30) mmol/L Glucose 134 H (74-99) mg/dL POC Glucose (mg/dL) 119 H (70-110) mg/dL Magnesium 1.5 L (1.6-2.3) mg/dL Microbiology - Last 24 Hours (Table) 02/28/23 14:27 Blood Culture - Preliminary Blood 02/28/23 14:31 Blood Culture - Preliminary Blood
[2023-03-02] MEDS: METOPROLOL TARTRATE 25 MG TAB PO SCH ×2 (15:19→20:01)
[2023-03-02] MEDS: FUROSEMIDE 20 MG TAB PO SCH (17:09)
[2023-03-02] MEDS: RIVAROXABAN 20 MG TAB PO SCH (17:09)
[2023-03-03] MEDS: HYDROcodone/APAP 5-325MG 1 EACH TAB PO PRN (04:39)
[2023-03-03] MEDS ORDERED: AMINOPHYLLINE 500 MG/20 ML VIAL IV PRN (06:00)
[2023-03-03] MEDS ORDERED: CAFFEINE CITRATE 60 MG/3 ML VIAL IV PRN (06:00)
[2023-03-03] MEDS ORDERED: REGADENOSON 0.4 MG/5 ML SYRINGE IV PRN (07:00)
[2023-03-03 07:32] LABS: Basophils % (A) 0 %; Eosinophils # (A) 0.6 k/uL (0-0.7); Eosinophils % (A) 5 %; HCT 31.3 % (34.0-46.0); HGB 10.3 gm/dL (11.4-16.0); Hypochromasia Slight; Lymphocytes # (A) 1.5 k/uL (1.0-4.8); Lymphocytes % (A) 12 %; MCH 29.2 pg (25.0-35.0); MCHC 32.7 g/dL (31.0-37.0); Mean Platelet Volume 9.1; Monocytes # (A) 0.8 k/uL (0-1.0); Monocytes % (A) 6 %; Neutrophils # (A) 9.5 k/uL (1.3-7.7); Neutrophils % (A) 75 %; Platelet Count 327 k/uL (150-450); RBC 3.52 m/uL (3.80-5.40); RDW 13.9 % (11.5-15.5); WBC 12.7 k/uL (3.8-10.6)
[2023-03-03 08:29] LABS: African American GFR (CKD) >90 (>60 ml/min/1.73 sqM); Anion Gap 5 mmol/L; Blood Urea Nitrogen 15 mg/dL (7-17); Calcium 8.5 mg/dL (8.4-10.2); Carbon Dioxide 40 mmol/L (22-30); Chloride 90 mmol/L (98-107); Glucose 93 mg/dL (74-99); Magnesium 2.3 mg/dL (1.6-2.3); Non-African American GFR(CKD) 86 (>60 ml/min/1.73 sqM); Potassium 3.1 mmol/L (3.5-5.1); Sodium 135 mmol/L (137-145)
[2023-03-03] MEDS: METOPROLOL TARTRATE 25 MG TAB PO SCH (08:45)
[2023-03-03] MEDS: FUROSEMIDE 20 MG TAB PO SCH ×2 (08:45→16:13)
[2023-03-03] MEDS: LISINOPRIL-HCTZ 20-25 MG 1 EACH TAB PO SCH (08:46)
[2023-03-03] MEDS: PROPAFENONE 150 MG TAB PO SCH ×2 (08:46→16:14)
--- NOTE | 2023-03-03 12:30 | NM ---
EXAMINATION TYPE: NM stress lexiscan cardiolite DATE OF EXAM: 03/03/2023 COMPARISON: NONE HISTORY: Chest pain TECHNIQUE: After the intravenous administration of 10.5 mCi Tc 99m Sestamibi - Cardiolite resting SP ECT images acquired 70 minutes post injection. At peak stress 24.8 mCi Tc 99m Sestamibi - Stress images obtained 35 minutes post injection The patient was stressed with 0.4mg Lexiscan. FINDINGS: No fixed defects are evident No reversible stress defects on Spect images Wall motion is normal Ejection fraction is calculated to be 66 %. IMPRESSION: 1. No stress-induced ischemic changes.
[2023-03-03 13:34] VITALS: BP 138/70; PULSE 69; RESP 18; TEMP 98.5
[2023-03-03] MEDS ORDERED: POTASSIUM CHLORIDE ER 20 MEQ TAB.ER PO STA (14:11)
--- NOTE | 2023-03-03 14:21 | P.PN ---
Subjective HISTORY OF PRESENT ILLNESS: This is a 78-year-old female patient of Dr. Hand with past medical history of paroxysmal atrial fibrillation, hypertension. Patient has recent diagnosis of pelvic mass found to have squamous cell carcinoma and plan to follow up in [facility]. Patient had a hospitalization for colitis was discharged home last evening and not sure if she took her Rythmol at home. She states she was sleeping a couple hours and then she woke up and her heart was racing. This is a first time this is occurred in many years. She denies any shortness of breath no chest pain, no nausea or vomiting. She does complain of right lower extremity edema that she's had for the last 3-4 days apparently she's been told most likely is related to the right-sided pelvic mass. She denies any blood in her stool or urine. No fevers. Patient is seen today in the emergency center. She has been started on heparin drip. EKG sinus rhythm at 96 bpm Chest x-ray: CHF exacerbation or overload state. WBC 12.2, hemoglobin 10.2, platelet count 322. INR 1.6. Potassium 3.1. Creatinine 0.6. Troponin 0.2, 0.407, 0.358. ProBNP 3270. Influenza A, influenza B, RSV, Covid 1900 Home cardiac medications: lisinoprilhydrochlorothiazide 1 daily, Rythmol 150 no grams every 8 hour, Xarelto 20 mg daily. Echocardiogram performed in the office on 06/08/2020 revealed normal EF, mild MR. MPI performed in the office 06/12/2020 revealed EF 65% normal study 03/01/2023 Patient examined this morning at the bedside. Patient currently denies chest pain or pressure. She denies shortness of breath at the time of examination. She remains on IV Lasix 20 mg every 12 hours. Creatinine remains stable today at 0.55. Echocardiogram completed revealing ejection fraction 55-60%, trace MR, mild TR, small pericardial effusion. 03/03/2023 Patient examined this morning at the bedside. Patient currently denies chest pain or pressure. She denies shortness of breath. Patient underwent Lexiscan stress test today which was negative for ischemia. PHYSICAL EXAM: VITAL SIGNS: Reviewed. GENERAL: Well-developed in no acute distress. NECK: Supple. No JVD or thyromegaly LUNGS: Respirations even and unlabored. Lungs essentially clear to auscultation bilaterally. HEART: Regular rate and rhythm. S1 and S2 heard. EXTREMITIES: Normal range of motion. No clubbing or cyanosis. Peripheral pulses intact. No lower extremity edema ASSESSMENT: Acute heart failure with preserved EF, currently euvolemic Mild troponin elevation, secondary to type II myocardial infarction, secondary to A. fib with RVR Paroxysmal atrial fibrillation Hypertension Pelvic mass PLAN: Continue current cardiac medications Patient is stable for discharge from a cardiac standpoint Patient to follow-up post discharge at [facility] in regards to her pelvic mass Patient to follow up in the office with Dr. Hand We will sign off. Please reconsult if needed. Nurse practitioner note has been reviewed by physician. Signing provider agrees with the documented findings, assessment, and plan of care. Objective - Vital Signs Vital signs: Vital Signs Temp 98.2 F 03/03/23 08:45 Pulse 66 03/03/23 08:45 Resp 16 03/03/23 08:45 BP 152/79 03/03/23 08:45 Pulse Ox 94 L 03/03/23 08:45 FiO2 Intake & Output 03/02/23 03/03/23 03/03/23 18:59 06:59 18:59 Intake Total 1200 540 Balance 1200 540 Intake: Oral 1200 540 Other: Voiding Method Toilet Toilet # Voids 2 1 - Labs CBC & Chem 7: 03/03/23 07:04 03/03/23 07:04 Labs: Abnormal Lab Results - Last 24 Hours (Table) 03/02/23 03/02/23 03/03/23 Range/Units 09:28 09:28 07:04 WBC 15.6 H (3.8-10.6) k/uL RBC (3.80-5.40) m/uL Hgb 11.2 L (11.4-16.0) gm/dL Hct (34.0-46.0) % Neutrophils # 13.0 H (1.3-7.7) k/uL Sodium 135 L (137-145) mmol/L Potassium 3.1 L 3.1 L (3.5-5.1) mmol/L Chloride 91 L 90 L (98-107) mmol/L Carbon Dioxide 39 H 40 H (22-30) mmol/L Glucose 134 H (74-99) mg/dL Magnesium 1.5 L (1.6-2.3) mg/dL 03/03/23 Range/Units 07:04 WBC 12.7 H (3.8-10.6) k/uL RBC 3.52 L (3.80-5.40) m/uL Hgb 10.3 L (11.4-16.0) gm/dL Hct 31.3 L (34.0-46.0) % Neutrophils # 9.5 H (1.3-7.7) k/uL Sodium (137-145) mmol/L Potassium (3.5-5.1) mmol/L Chloride (98-107) mmol/L Carbon Dioxide (22-30) mmol/L Glucose (74-99) mg/dL Magnesium (1.6-2.3) mg/dL Microbiology - Last 24 Hours (Table) 02/28/23 14:31 Blood Culture - Preliminary Blood 02/28/23 14:27 Blood Culture - Preliminary Blood
--- NOTE | 2023-03-03 14:33 | P.DS ---
Providers Date of admission: 02/28/23 07:45 Expected date of discharge: 03/03/23 Attending physician: Richie Valencia MD Consults: 02/28/23 07:45 Consult Physician Urgent Consulting Provider: Giancarlo Duncan Consult Reason/Comments: A-fib, new onset CHF, elevated troponin Do you want consulting provider notified?: Yes 02/28/23 11:43 Consult Physician Urgent Consulting Provider: Venancio Castellon Consult Reason/Comments: metastatic squamous cell carcinoma Do you want consulting provider notified?: Yes Primary care physician: Yordan Prescott Hospital Course: Discharge Diagnosis: Paroxysmal Atrial fibrillation with RVR, now maintaining sinus mechanism Acute hypoxic respiratory failure Diastolic CHF exacerbation NSTEMI Hypertension Hyponatremia Hypomagnesemia Contraction metabolic alkalosis Leukocytosis, likely hemoconcentration. Improved. Metastatic squamous cell carcinoma. Patient scheduled for outpatient PET scan on 03/06/23. Right-sided pelvic mass. Patient scheduled for outpatient PET scan on 03/06/23. Acute infectious colitis, completed antibiotic course with Cefdinir and Flagyl. Hospital Course: Patient is a very pleasant 78-year-old female with a past medical history of of atrial fibrillation, hypertension, right-sided pelvic mass presenting with sudden onset chest pain. In the ED, temperature was 98.2, pulse 101, blood pressure 121/70, saturating 98% on room air. WBC 12.2, hemoglobin 10.2, potassium 3.1, creatinine 0.6, magnesium 1.9, troponin 0.2, peaked at 0.407, proBNP 3000. Respiratory viral panel negative. EKG independently interpreted, shows normal sinus rhythm. Chest x-ray independently interpreted, shows interstitial opacity. 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 Cardiology consulted, patient restarted on home Rythmol, also on IV Lasix. Echocardiogram shows normal LV systolic function. Patient also pending a PET scan on 03/06. Patient also considering [facility] for further cancer care. Patient underwent 3 night hospitalization for treatment of atrial fibrillation with RVR. She converted to normal sinus mechanism and has since been maintaining sinus mechanism. She underwent a cardiac stress test Lexiscan Stress Test report was negative showing no stress-induced ischemic changes. Patient is medically stable for discharge at this time. Patient to follow up outpatient with PCP, hematology/oncology, cardiology,and gynecology. Physical exam: Vital signs reviewed and stable. General: Nontoxic, no distress and appears stated age. Derm: Skin warm and dry, normal coloration for ethnicity. Head: Atraumatic, normocephalic and symmetric. Eyes: EOMs intact, no lid lag, and anicteric sclera Mouth: no lip lesions, mucus membranes moist Cardiovascular: regular rate and rhythm with normal S1S2, no murmur, positive posterior tibial pulses bilaterally, and cap refill < 2 seconds. Lungs: Respirations even, regular, and unlabored on room air. Lungs CTA bilaterally, no rhonchi, no rales, no wheezing, and no accessory muscle usage. Abdominal: soft, nontender to palpation, no guarding, no appreciable organomegaly Ext: No gross muscle atrophy, no edema, no contractures. Movement and sensation intact. Neuro: Speech clear, face symmetrical and CN II-XII grossly intact with no noted focal neuro deficits Psych: Alert and oriented to person, place, time, and situation. Appropriate and pleasant affect. A total of 36 minutes of time were spent preparing this complex discharge summary. Pt was discharged on 03/03/23 at 1:54 PM. Patient was seen independently by Nurse Practitioner. This document was prepared using [employer] dictation software. Please allow for errors in college scouting coordinator while rare they do occur. I reviewed the documentation as provided by the ABRAN above, who is the original author of this note. I agree with the documented assessment and plan, with the following changes: none Patient Condition at Discharge: Stable Plan - Discharge Summary Discharge Rx Participant: No New Discharge Prescriptions: New Furosemide [Lasix] 20 mg PO BID@0900,1600 30 Days #60 tab Metoprolol Tartrate [Lopressor] 25 mg PO BID 30 Days #60 tab Continue Lisinopril-Hctz 20-25 mg [Zestoretic 20-25] 1 tab PO DAILY Propafenone [Rythmol] 150 mg PO Q8HR #90 tab Nystatin 100,000 Unit/gm Powd [Mycostatin Powder] 1 applic TOPICAL BID PRN PRN Reason: Rash methocarbamoL [Robaxin-750] 1,500 mg PO TID PRN #30 tab PRN Reason: Pain Ketorolac [Toradol] 10 mg PO Q6HR PRN #15 tab PRN Reason: Pain ondansetron HCL [Zofran] 8 mg PO Q8HR PRN PRN Reason: Nausea Albuterol Inhaler [Ventolin Hfa Inhaler] 2 puff INHALATION RT-Q6H PRN #1 puff PRN Reason: Shortness Of Breath Or Wheezing Morphine Sulfate Ir [MSIR] 15 mg PO Q3H PRN 3 Days #24 tab PRN Reason: Severe Breakthrough Pain Acetaminophen Tab [Tylenol] 650 mg PO Q6HR PRN #60 tab PRN Reason: Fever And/ Or Pain Rivaroxaban [Xarelto] 20 mg PO DAILY Prochlorperazine [Compazine] 5 mg PO Q6HR PRN PRN Reason: Nausea Discontinued metroNIDAZOLE [Flagyl] 500 mg PO TID #6 tab Cefdinir [Omnicef] 300 mg PO Q12HR #4 capsule Discharge Medication List Lisinopril-Hctz 20-25 mg [Zestoretic 20-25] 1 tab PO DAILY 05/06/16 [History] Propafenone [Rythmol] 150 mg PO Q8HR #90 tab 05/07/16 [Rx] Albuterol Inhaler [Ventolin Hfa Inhaler] 2 puff INHALATION RT-Q6H PRN #1 puff 06/26/20 [Rx] Nystatin 100,000 Unit/gm Powd [Mycostatin Powder] 1 applic TOPICAL BID PRN 02/14/23 [History] methocarbamoL [Robaxin-750] 1,500 mg PO TID PRN #30 tab 02/14/23 [Rx] Ketorolac [Toradol] 10 mg PO Q6HR PRN #15 tab 02/21/23 [Rx] ondansetron HCL [Zofran] 8 mg PO Q8HR PRN 02/23/23 [History] Acetaminophen Tab [Tylenol] 650 mg PO Q6HR PRN #60 tab 02/27/23 [Rx] Morphine Sulfate Ir [MSIR] 15 mg PO Q3H PRN 3 Days #24 tab 02/27/23 [Rx] Prochlorperazine [Compazine] 5 mg PO Q6HR PRN 02/28/23 [History] Rivaroxaban [Xarelto] 20 mg PO DAILY 02/28/23 [History] Furosemide [Lasix] 20 mg PO BID@0900,1600 30 Days #60 tab 03/03/23 [Rx] Metoprolol Tartrate [Lopressor] 25 mg PO BID 30 Days #60 tab 03/03/23 [Rx] Follow up Appointment(s)/Referral(s): Venancio Castellon [STAFF PHYSICIAN] - 03/10/23 4:00 pm Hipolito Hand MD [STAFF PHYSICIAN] - 1 Week (Office to call with appointment date and time.) Yordan Prescott MD [Primary Care Provider] - 03/06/23 10:30 am Terence Mosquera MD [STAFF PHYSICIAN] - 1 Week (Office did not answer x2 at time of discharge. Patient to self schedule the appointment. Ensure office is aware this is an appointment following a hospital stay.) Patient Instructions/Handouts: Heart Failure (DC) Activity/Diet/Wound Care/Special Instructions: Activity: As tolerated. Take breaks as needed. Diet: Heart healthy and carb consistent diet. Avoid salts, or foods with hidden salts such as canned or boxed foods and frozen dinners. Extra salt makes your heart work harder and traps the fluid in your body for longer. Special Instructions: Take all of your medications as directed and remember to keep all of your doctor's appointments and follow-up as needed. Thank you for allowing us to participate in your care, it was truly a pleasure having you for our patient!!! PET scan scheduled 03/06/23 at [facility] 03/06/23 at 6:30 AM. Discharge Disposition: HOME SELF-CARE
--- NOTE | 2023-03-03 19:38 | P.PN ---
Subjective Progress Note Date: 03/03/23 Principal diagnosis: Afib, CHF. Newly diagnosed met squamous cell carcinoma In f/u today pt just returned from cardiac stress test. She denies any chest pain, palpitations, she reports they resolved when she was given meds in the ambulance. She and her had some questions about PET scan and next steps. Pt had no new physical c/o to report. Objective - Vital Signs Vital signs: Vital Signs Temp 98.2 F 03/03/23 08:45 Pulse 66 03/03/23 08:45 Resp 16 03/03/23 08:45 BP 152/79 03/03/23 08:45 Pulse Ox 94 L 03/03/23 08:45 FiO2 Intake & Output 03/02/23 03/03/23 03/03/23 18:59 06:59 18:59 Intake Total 1200 540 Balance 1200 540 Intake: Oral 1200 540 Other: Voiding Method Toilet Toilet Toilet # Voids 2 1 - Constitutional General appearance: Present: average body habitus, cooperative, no acute distress - EENT Eyes: Present: anicteric sclerae, EOMI ENT: Present: hearing grossly normal - Respiratory Details: resp even and unlabored at rest - Integumentary Integumentary: Present: normal - Neurologic Neurologic: Present: CNII-XII intact (grossly) - Musculoskeletal Musculoskeletal: Present: generalized weakness, strength equal bilaterally - Psychiatric Psychiatric: Present: A&O x's 3, appropriate affect, intact judgment & insight - Labs CBC & Chem 7: 03/03/23 07:04 03/03/23 07:04 Labs: Abnormal Lab Results - Last 24 Hours (Table) 03/03/23 03/03/23 Range/Units 07:04 07:04 WBC 12.7 H (3.8-10.6) k/uL RBC 3.52 L (3.80-5.40) m/uL Hgb 10.3 L (11.4-16.0) gm/dL Hct 31.3 L (34.0-46.0) % Neutrophils # 9.5 H (1.3-7.7) k/uL Sodium 135 L (137-145) mmol/L Potassium 3.1 L (3.5-5.1) mmol/L Chloride 90 L (98-107) mmol/L Carbon Dioxide 40 H (22-30) mmol/L Microbiology - Last 24 Hours (Table) 02/28/23 14:27 Blood Culture - Preliminary Blood 02/28/23 14:31 Blood Culture - Preliminary Blood Assessment and Plan (1) Atrial fibrillation Status: Acute Priority: High Code(s): I48.91 - UNSPECIFIED ATRIAL FIBRILLATION SNOMED Code(s): 39559249 (2) New onset of congestive heart failure Status: Acute Code(s): I50.9 - HEART FAILURE, UNSPECIFIED SNOMED Code(s): 82897763 (3) Squamous cell carcinoma, metastatic Status: Acute Priority: High Code(s): PWN2334 - SNOMED Code(s): 826056966 Plan: Metastatic squamous cell carcinoma -Presented with worsening right hip and right groin pain over the last 1 month. -CT AP 02/14 revealed asymmetric thickening of the right obturator internus, mild fat stranding extending to the lateral right adnexa, right external iliac chain, and right upper adductors, mesenteric retroperitoneal right iliac chain, right pelvic and right inguinal adenopathy. MRI right hip showed abnormal marrow signal and soft tissue mass along the medial wall of the right acetabulum with rt iliac and inguinal LAD. -Rt inguinal LN biopsy 02/21, path positive for squamous cell carcinoma, cervix, vulvar or vaginal primary. -CT chest and NM bone scan obtained for staging. Chest neg for metastatic disease. NM Bone scan revealed possible metastatic or neoplastic uptake within the right hemipelvis, uptake posterior calvarium and L5. -PET/CT scheduled for 03/06. -F/U sched for 03/10 at 1pm. If evaluation by Spray Mixer Onc needed, outpt referral will be placed. - may want to be treated at [facility], we are happy to refer there if they would like. Will contact him A-fib: -Cardiology mgmt. S/P stress test -Pt on xarelto at DC
--- NOTE | 2023-03-04 11:02 | CA ---
Lexiscan Nuclear Stress Test Report Name: Krystyna Braun Exam Date: 03/03/2023 10:24 Exam Location: [place] Stress Ht (in): 66 Wt (lb): 171 BSA: 1.87 Ordering Phys: Hipolito Hand MD Referring Phys: JOHN, Technologist: ILIA, Age: 78 Gender: F : 1945 Procedure CPT: Indications: Reflex order-Stress test ICD-10 Codes: Patient History: Afib and palpitations Medications: Meds past 24 hrs: Pretest Chest Pain: STRESS TEST Lexiscan Protocol Exercise Duration (min:sec): 02:[address] Depressions (mm): Angina Score: Luque Score: Resting HR (bpm): 57 Peak HR (bpm): 83 Resting BP (mmHg): 149 / 79 Peak BP (mmHg): 142 / 68 MPHR: 143 Target HR: 122 % MPHR: 58 METS: 1.0 Total Dose: Peak Dose: Atropine: Double Product: 38588 BP Response: Stress Termination: Reached target heart rate Stress Symptoms: Nausea Stress Summary: ECG ANALYSIS Resting ECG: Sinus rhythm heart rate 57 beats a minute, prominent U wave. Stress ECG: No significant ST-T wave changes diagnostic for ischemia by ST segment analysis on Lexiscan infusion CONCLUSIONS Nonischemic ECG response to Lexiscan infusion no arrhythmias or ectopic beats appreciated during study Normal ECG portion of the neck since the nuclear stress test Please refer to the nuclear portion of the imaging for complete interpretation of this study. Dr Rodney Zhao (Electronically Signed) Final Date: 04 March 2023 11:01
== END 2023-03-03 16:45 | disposition home or self-care (01) | DRG 280 ==
LOC: EC 06:04 → 3SCARD 07:45
PROVIDERS: ADMIT Student in an Organized Health Care Education/Training Program; ATTEND Student in an Organized Health Care Education/Training Program
DX: I11.0 Hypertensive heart disease with heart failure (principal); I50.33 Acute on chronic diastolic (congestive) heart failure; I21.A1 Myocardial infarction type 2; J96.01 Acute respiratory failure with hypoxia; I31.39 Other pericardial effusion (noninflammatory); E87.3 Alkalosis; E87.1 Hypo-osmolality and hyponatremia; A09 Infectious gastroenteritis and colitis, unspecified; C77.5 Secondary and unspecified malignant neoplasm of intrapelvic lymph nodes; E87.6 Hypokalemia; J44.9 Chronic obstructive pulmonary disease, unspecified; E83.42 Hypomagnesemia; D72.829 Elevated white blood cell count, unspecified; I48.0 Paroxysmal atrial fibrillation; C53.9 Malignant neoplasm of cervix uteri, unspecified; F41.9 Anxiety disorder, unspecified; I25.10 Atherosclerotic heart disease of native coronary artery without angina pectoris; I35.0 Nonrheumatic aortic (valve) stenosis; Z79.01 Long term (current) use of anticoagulants; Z79.899 Other long term (current) drug therapy; Z80.0 Family history of malignant neoplasm of digestive organs; Z11.52 Encounter for screening for COVID-19; Z88.2 Allergy status to sulfonamides
CPT/HCPCS: 36415; 71046; 78452; 80048; 80053; 81001; 83605; 83735; 83880; 84484; 85025; 85610; 85730; 87040; 87636; 93005; 93017; 93306; 94760; 96374; 96375; 99285

== ENCOUNTER → 2023-03-06 | Outpatient (CLI) | payer MEDICARE ==
--- NOTE | 2023-03-10 09:13 | PE ---
EXAMINATION TYPE: PET CT fusion skull to thigh DATE OF EXAM: 03/06/2023 COMPARISON: CT abdomen and pelvis 02/23/2023 Prior PET/CT: None HISTORY: Squamous cell carcinoma TECHNIQUE: Following the intravenous administration of 9.4 mCi of F-18 FDG, whole body images are pe rformed from the skull base to the midthigh. Images are reviewed on the computer in the coronal, axi al, and sagittal planes. Reconstructed rotating images are created on independent workstation and re viewed on the computer. A localization and attenuation correction CT is performed in conjunction wi th the PET scan. DLP: 430.55 mGycm SCAN: Initial Blood glucose: 103 mg/dL Average Mediastinum SUV: 2.21 Average Liver SUV: 2.94 FINDINGS: NECK: There is a right supraclavicular lymph node with an SUV of 9.44, image 58. THORAX: There may be some subtle uptake within the soft tissues adjacent to the lateral scapula, imag e 65, SUV 2.19. There is a pretracheal lymph node with mild uptake with an SUV of 4.67, image 76. Paraesophageal node may be present adjacent to the aorta measuring SUV 8.05, image 84. An infrahilar uptake is mildly pr ominent at 5.74, image 84. Small focus of radiotracer is in the paraesophageal region, image 93, SUV 5.07. There is a small focus of radiotracer at the apex of the left ventricle, image 102 ABDOMEN: Retrocaval adenopathy is present measuring 8.18, image 154. Periaortic adenopathy has increa sed uptake measuring 7.34, image 154. Additional hyperintense periaortic and pericaval uptake is pres ent PELVIS: Iliac chain uptake is present, example images 193, left SUV 11.52, right SUV 7.44. There is u ptake near the obturator canal, SUV 13.65, image 203. There appear to be at least 3 foci of marked up take within the right inguinal region, example image 2:15 SUV 13.58 medially and 13.4 laterally OSSEOUS STRUCTURES: Within the inferior right scapula or within the subscapularis muscle there is upt cristian, image 87, SUV 2.21. There is a focus of radiotracer within the medial right iliac wing adjacent to the sacroiliac joint, image 191, SUV 10.42. Uptake is within the acetabular roof on the right, SUV 10.78 image 203 posteriorly and 6.[address]: Small pericardial effusion is present. COMPARISON: Regions of uptake correlate with findings on comparison CT. IMPRESSION: 1. Multiple scattered areas of uptake including right supraclavicular, left periaortic and paraesopha geal, abdominal periaortic pericaval uptake and iliac chain and right inguinal uptake suspicious for metastatic lymph nodes. 2. Osseous uptake is within the right acetabulum, medial right iliac wing compatible with metastatic disease. 3. Small pericardial effusion. 4. Small focal uptake appears to be at the cardiac apex. It is unclear if this is metastatic or some tiny focal physiologic uptake within the heart.
== END | disposition home or self-care (01) ==
LOC: RADPETMAIN 06:23
PROVIDERS: ATTEND Internal Medicine
DX: C44.82 Squamous cell carcinoma of overlapping sites of skin (principal); I31.39 Other pericardial effusion (noninflammatory); R93.7 Abnormal findings on diagnostic imaging of other parts of musculoskeletal system
CPT/HCPCS: 78815; A9552

== ENCOUNTER 2023-03-11 00:29 | Observation (INO) | payer MEDICARE ==
[2023-03-11 00:59] LABS: Basophils % (A) 0 %; Eosinophils # (A) 0.4 k/uL (0-0.7); Eosinophils % (A) 4 %; HCT 33.1 % (34.0-46.0); HGB 11.2 gm/dL (11.4-16.0); Lymphocytes # (A) 1.7 k/uL (1.0-4.8); Lymphocytes % (A) 14 %; MCH 29.4 pg (25.0-35.0); MCHC 33.8 g/dL (31.0-37.0); MCV 87.1 fL (80.0-100.0); Mean Platelet Volume 9.2; Monocytes # (A) 0.6 k/uL (0-1.0); Monocytes % (A) 5 %; Neutrophils # (A) 8.9 k/uL (1.3-7.7); Neutrophils % (A) 76 %; Platelet Count 319 k/uL (150-450); RDW 13.8 % (11.5-15.5); WBC 11.7 k/uL (3.8-10.6)
[2023-03-11 01:17] LABS: ALT 13 U/L (4-34); AST 22 U/L (14-36); African American GFR (CKD) >90 (>60 ml/min/1.73 sqM); Albumin 3.1 g/dL (3.5-5.0); Alkaline Phosphatase 170 U/L (38-126); Anion Gap 11 mmol/L; Blood Urea Nitrogen 19 mg/dL (7-17); Calcium 8.9 mg/dL (8.4-10.2); Carbon Dioxide 34 mmol/L (22-30); Chloride 89 mmol/L (98-107); Glucose 110 mg/dL (74-99); Magnesium 1.7 mg/dL (1.6-2.3); Non-African American GFR(CKD) 86 (>60 ml/min/1.73 sqM); Sodium 134 mmol/L (137-145); Total Bilirubin 0.9 mg/dL (0.2-1.3); Total Protein 6.2 g/dL (6.3-8.2)
--- NOTE | 2023-03-11 01:33 | ED ---
Recheck HPI - General Chief Complaint: Recheck/Abnormal Lab/Rx Stated Complaint: Low potassium Time Seen by Provider: 03/11/23 00:42 Source: patient, RN notes reviewed Mode of arrival: wheelchair Limitations: no limitations - History of Present Illness Initial Comments: 78-year-old female presents emergency Department with chief complaints of low potassium. Patient states she received phone call from her oncologist today stating that her potassium was below 2. Patient states she was recently started on Lasix. She is unsure she's on the supplement potassium. Patient states she has no complaints. - Related Data Home Medications Medication Instructions Recorded Confirmed Nystatin 100,000 Unit/gm Powd 1 applic TOPICAL BID PRN 02/14/23 03/11/23 [Mycostatin Powder] ondansetron HCL [Zofran] 8 mg PO Q8HR PRN 02/23/23 03/11/23 Prochlorperazine [Compazine] 5 mg PO Q6HR PRN 02/28/23 03/11/23 Rivaroxaban [Xarelto] 20 mg PO DAILY 02/28/23 03/11/23 Previous Rx's Medication Instructions Recorded Propafenone [Rythmol] 150 mg PO Q8HR #90 tab 05/07/16 Albuterol Inhaler [Ventolin Hfa 2 puff INHALATION RT-Q6H PRN #1 06/26/20 Inhaler] puff Ketorolac [Toradol] 10 mg PO Q6HR PRN #15 tab 02/21/23 Acetaminophen Tab [Tylenol] 650 mg PO Q6HR PRN #60 tab 02/27/23 Morphine Sulfate Ir [MSIR] 15 mg PO Q3H PRN 3 Days #24 tab 02/27/23 Furosemide [Lasix] 20 mg PO BID@0900,1600 PRN 30 Days 03/12/23 #60 tab Metoprolol Tartrate [Lopressor] 12.5 mg PO BID 30 Days #60 tab 03/12/23 Potassium Chloride [Klor-Con 20 20 meq PO DAILY #30 packet 03/12/23 Packets] Sennosides/Docusate Sodium [Senna 2 each PO BID #120 tablet 03/12/23 Plus 8.6-50 mg Tablet] Allergies Allergy/AdvReac Type Severity Reaction Status Date / Time sulfamethoxazole AdvReac Nausea & Verified 03/11/23 07:12 [From Bactrim] Vomiting & Diarrhea trimethoprim [From Bactrim] AdvReac Nausea & Verified 03/11/23 07:12 Vomiting & Diarrhea Review of Systems ROS Statement: Those systems with pertinent positive or pertinent negative responses have been documented in the HPI. ROS Other: All systems not noted in ROS Statement are negative. Past Medical History Past Medical History: Atrial Fibrillation, Hypertension Additional Past Medical History / Comment(s): 02/28/23 pt diagnosed today with a pelvic mass that is cancerous History of Any Multi-Drug Resistant Organisms: None Reported Past Surgical History: No Surgical Hx Reported Past Anesthesia/Blood Transfusion Reactions: No Reported Reaction Past Psychological History: Anxiety Smoking Status: Never smoker Past Alcohol Use History: Rare Past Drug Use History: None Reported - Past Family History Brother(s) Family Medical History: Cancer, Diabetes Mellitus Additional Family Medical History / Comment(s): Colon cancer, at 58 General Exam Limitations: no limitations General appearance: alert, in no apparent distress Head exam: Present: atraumatic, normocephalic, normal inspection Eye exam: Present: normal appearance, PERRL, EOMI. Absent: scleral icterus, conjunctival injection, periorbital swelling Respiratory exam: Present: normal lung sounds bilaterally. Absent: respiratory distress, wheezes, rales, rhonchi, stridor Cardiovascular Exam: Present: regular rate, normal rhythm, normal heart sounds. Absent: systolic murmur, diastolic murmur, rubs, gallop, clicks Course Vital Signs 03/11/23 03/11/23 03/11/23 00:31 02:33 03:00 Temperature 96.9 F L Pulse Rate 82 84 82 Respiratory 18 17 17 Rate Blood Pressure 123/78 142/72 122/65 O2 Sat by Pulse 95 95 92 L Oximetry 03/11/23 03/11/23 03/11/23 04:57 06:16 12:48 Temperature 97.6 F Pulse Rate 79 80 80 Respiratory 17 17 16 Rate Blood Pressure 107/60 93/55 117/55 O2 Sat by Pulse 92 L 97 93 L Oximetry Medical Decision Making - Medical Decision Making Was pt. sent in by a medical professional or institution (, PA, PARKING CASHIER, urgent care, hospital, or care home...) When possible be specific @ -No Did you speak to anyone other than the patient for history (EMS, parent, family, police, friend...)? What history was obtained from this source @ -No Did you review nursing and triage notes (agree or disagree)? Why? @ -I reviewed and agree with nursing and triage notes Were old charts reviewed (outside hosp., previous admission, EMS record, old EKG, old radiological studies, urgent care reports/EKG's, care home records)? Report findings @ -No old charts were reviewed Differential Diagnosis (chest pain, altered mental status, abdominal pain women, abdominal pain men, vaginal bleeding, weakness, fever, dyspnea, syncope, headache, dizziness, GI bleed, back pain, seizure, CVA, palpatations, mental health, musculoskeletal)? @ -Lab abnormality, hypokalemia, dehydration EKG interpreted by me (3pts min.). @ -As above X-rays interpreted by me (1pt min.). @ -None done CT interpreted by me (1pt min.). @ -None done U/S interpreted by me (1pt. min.). @ -None done What testing was considered but not performed or refused? (CT, X-rays, U/S, labs)? Why? @ -None What meds were considered but not given or refused? Why? @ -None Did you discuss the management of the patient with other professionals (professionals i.e. , PA, PARKING CASHIER, lab, RT, psych nurse, manager social responsibility, chemical processing laborer, teacher, building drafting officer, trimming caser)? Give summary @ -Dr. larios for admission secondary to hypokalemia. Was smoking cessation discussed for >3mins.? @ -No Was critical care preformed (if so, how long)? @ -No Were there social determinants of health that impacted care today? How? (Ho melessness, low income, unemployed, alcoholism, drug addiction, transportation, low edu. Level, literacy, decrease access to med. care, fpc, rehab)? @ -No Was there de-escalation of care discussed even if they declined (Discuss DNR or withdrawal of care, Hospice)? DNR status @ -No What co-morbidities impacted this encounter? (DM, HTN, Smoking, COPD, CAD, Cancer, CVA, ARF, Chemo, Hep., AIDS, mental health diagnosis, sleep apnea, morbid obesity)? @ -None Was patient admitted / discharged? Hospital course, mention meds given and route, prescriptions, significant lab abnormalities, going to OR and other pertinent info. @ -Admitted. Patient's found to have potassium 2.4. Patient had recent hospitalization with a potassium 3.1 and was started on Lasix 40 mg daily which she now has potassium 2.4. Patient is not no supplemental placement. Patient was given 40 by mouth, 20 IV. Patient will have continuation of disc replacement and recheck laboratory studies. Undiagnosed new problem with uncertain prognosis? @ -No Drug Therapy requiring intensive monitoring for toxicity (Heparin, Nitro, Insulin, Cardizem)? @ -No Were any procedures done? @ -No Diagnosis/symptom? @ -Hypokalemia Acute, or Chronic, or Acute on Chronic? @ -Acute Uncomplicated (without systemic symptoms) or Complicated (systemic symptoms)? @ -Uncomplicated Side effects of treatment? @ -No Exacerbation, Progression, or Severe Exacerbation? @ -No Poses a threat to life or bodily function? How? (Chest pain, [place], HI, pneumonia, PE, COPD, DKA, ARF, appy, cholecystitis, CVA, Diverticulitis, Homicidal, Suicidal, threat to staff... and all critical care pts) @ -[Low likelihood - Lab Data Result diagrams: 03/11/23 00:52 03/12/23 07:22 Lab Results 03/11/23 03/11/23 Range/Units 00:52 00:52 WBC 11.7 H (3.8-10.6) k/uL RBC 3.80 (3.80-5.40) m/uL Hgb 11.2 L (11.4-16.0) gm/dL Hct 33.1 L (34.0-46.0) % MCV 87.1 (80.0-100.0) fL MCH 29.4 (25.0-35.0) pg MCHC 33.8 (31.0-37.0) g/dL RDW 13.8 (11.5-15.5) % Plt Count 319 (150-450) k/uL MPV 9.2 Neutrophils % 76 % Lymphocytes % 14 % Monocytes % 5 % Eosinophils % 4 % Basophils % 0 % Neutrophils # 8.9 H (1.3-7.7) k/uL Lymphocytes # 1.7 (1.0-4.8) k/uL Monocytes # 0.6 (0-1.0) k/uL Eosinophils # 0.4 (0-0.7) k/uL Basophils # 0.0 (0-0.2) k/uL Sodium 134 L (137-145) mmol/L Potassium 2.4 L* (3.5-5.1) mmol/L Chloride 89 L (98-107) mmol/L Carbon Dioxide 34 H (22-30) mmol/L Anion Gap 11 mmol/L BUN 19 H (7-17) mg/dL Creatinine 0.66 (0.52-1.04) mg/dL Est GFR (CKD-EPI)AfAm >90 (>60 ml/min/1.73 sqM) Est GFR (CKD-EPI)NonAf 86 (>60 ml/min/1.73 sqM) Glucose 110 H (74-99) mg/dL Calcium 8.9 (8.4-10.2) mg/dL Magnesium 1.7 (1.6-2.3) mg/dL Total Bilirubin 0.9 (0.2-1.3) mg/dL AST 22 (14-36) U/L ALT 13 (4-34) U/L Alkaline Phosphatase 170 H (38-126) U/L Total Protein 6.2 L (6.3-8.2) g/dL Albumin 3.1 L (3.5-5.0) g/dL - EKG Data -: EKG Interpreted by De EKG Comments: EKG performed at 1:50 Sinus rhythm rate of 81. 144 QRS 102 QT/QTC 392/4:30 Disposition Clinical Impression: Hypokalemia Disposition: ADMITTED IP TO THIS HOSP Condition: Stable Time of Disposition: 01:52
[2023-03-11 01:44] LABS: Potassium 2.4 mmol/L (3.5-5.1)
[2023-03-11] MEDS ORDERED: Potassium Replacement Protocol 1 EACH MISC MISCELLANE PRN (01:50)
[2023-03-11] MEDS ORDERED: ACETAMINOPHEN TAB 325 MG TAB PO PRN ×2 (01:57→10:53)
[2023-03-11] MEDS ORDERED: NALOXONE 0.4 MG/ML 1 ML VIAL IV PRN (01:57)
[2023-03-11] MEDS: POTASSIUM CHLORIDE ER 20 MEQ TAB.ER PO ONE ×2 (02:05→02:12)
[2023-03-11] MEDS: POTASSIUM CHLORIDE 10 MEQ in WATER FOR INJECTION 1 100ML.BAG IVPB SCH ×6 (02:06→16:03)
[2023-03-11] MEDS ORDERED: POTASSIUM BICARBONATE/CIT AC 20 MEQ TABLET.EFF PO ONE ×2 (02:10→12:04)
[2023-03-11] MEDS ORDERED: KETOROLAC 15 MG/ML 1 ML VIAL IVP STA (02:34)
--- NOTE | 2023-03-11 04:05 | P.HPIM ---
History of Present Illness H&P Date: 03/11/23 Patient is a 78-year-old female with a PMH of A. fib on Xarelto, diastolic CHF, hypertension, recently diagnosed right-sided pelvic mass, and multiple recent hospitalizations who was sent into the hospital for abnormal blood work. The had her initial appointment with Dr. Castellon after which blood work was drawn and the patient was subsequently contacted advising her to go to the emergency room since her potassium was 2.4. The patient was recently discharged home on 03/03 on a new prescription of Lasix which the patient has been compliant with. Patient denied any active complaints at the time of interview aside from chronic right hip pain. Denied chest discomfort, shortness of breath, fever, chills, cough, nausea, vomiting. EKG in emergency room revealed sinus rhythm at 81 bpm with diffuse T-wave flattening with no additional ST/T-wave changes noted as reviewed by me. Further laboratory evaluation revealed obesity, and of 11.7 (similar to baseline), sodium 134, chloride 89, and CO2 34. ED documentation reviewed and case discussed with ED provider. Review of systems: Pertinent positives and negatives as discussed in HPI, a complete review of systems was performed and all other systems are negative. Physical examination: Vital signs reviewed General: non toxic, no distress, appears at stated age, overweight Derm: no unusual rashes/lesions, warm Head: atraumatic, normocephalic, symmetric Eyes: EOMI, no lid lag, anicteric sclera, pupils equal round reactive to light ENT: Nose and ears atraumatic Neck: No cervical lymphadenopathy, trachea midline, supple Mouth: no lip lesion, mucus membranes moist Cardiovascular: S1S2 reg, no murmur, positive dorsalis pedis pulse bilateral, no edema Lungs: CTA bilateral, no rhonchi, no rales, no accessory muscle use Abdominal: soft, nontender to palpation, no guarding Ext: muscle strength 5 out of 5 in all 4 extremities grossly, no gross muscle atrophy, no contractures, Neuro: CN II-XI grossly intact, no gross focal neuro deficits Psych: Alert, oriented, appropriate affect Assessment: Hypokalemia in setting of new diuretic use Alkalosis, likely also due to diuretic use Chronic conditions: A. fib, diastolic CHF, hypertension, recently diagnosed pelvic mass Imaging: EKG in emergency room revealed sinus rhythm at 81 bpm with diffuse T-wave flattening with no additional ST/T-wave changes noted as reviewed by me. Data Review: Laboratory evaluation revealed obesity, and of 11.7 (similar to baseline), sodium 134, chloride 89, and CO2 34. Plan: Replace potassium and monitor for resolution Cardiac monitoring Gentle IV hydration for now Resume home medications DVT prophylaxis: Xarelto The patient is admitted with an anticipated less than 2 midnight stay for evaluation of hypokalemia CODE STATUS: Full Code Discussed with: Patient Anticipated discharge place: Home Past Medical History Past Medical History: Atrial Fibrillation, Hypertension Additional Past Medical History / Comment(s): 02/28/23 pt diagnosed today with a pelvic mass that is cancerous History of Any Multi-Drug Resistant Organisms: None Reported Past Surgical History: No Surgical Hx Reported Past Anesthesia/Blood Transfusion Reactions: No Reported Reaction Past Psychological History: Anxiety Smoking Status: Never smoker Past Alcohol Use History: Rare Past Drug Use History: None Reported - Past Family History Brother(s) Family Medical History: Cancer, Diabetes Mellitus Additional Family Medical History / Comment(s): Colon cancer, at 58 Medications and Allergies Home Medications Medication Instructions Recorded Confirmed Type Lisinopril-Hctz 20-25 mg 1 tab PO DAILY 05/06/16 02/28/23 History [Zestoretic 20-25] Propafenone [Rythmol] 150 mg PO Q8HR #90 tab 05/07/16 02/28/23 Rx Albuterol Inhaler [Ventolin Hfa 2 puff INHALATION RT-Q6H PRN #1 06/26/20 02/28/23 Rx Inhaler] puff Nystatin 100,000 Unit/gm Powd 1 applic TOPICAL BID PRN 02/14/23 02/28/23 History [Mycostatin Powder] methocarbamoL [Robaxin-750] 1,500 mg PO TID PRN #30 tab 02/14/23 02/28/23 Rx Ketorolac [Toradol] 10 mg PO Q6HR PRN #15 tab 02/21/23 02/28/23 Rx ondansetron HCL [Zofran] 8 mg PO Q8HR PRN 02/23/23 02/28/23 History Acetaminophen Tab [Tylenol] 650 mg PO Q6HR PRN #60 tab 02/27/23 02/28/23 Rx Morphine Sulfate Ir [MSIR] 15 mg PO Q3H PRN 3 Days #24 tab 02/27/23 02/28/23 Rx Prochlorperazine [Compazine] 5 mg PO Q6HR PRN 02/28/23 02/28/23 History Rivaroxaban [Xarelto] 20 mg PO DAILY 02/28/23 02/28/23 History Furosemide [Lasix] 20 mg PO BID@0900,1600 30 Days #60 03/03/23 Rx tab Metoprolol Tartrate [Lopressor] 25 mg PO BID 30 Days #60 tab 03/03/23 Rx Allergies Allergy/AdvReac Type Severity Reaction Status Date / Time sulfamethoxazole AdvReac Nausea & Verified 03/11/23 00:37 [From Bactrim] Vomiting & Diarrhea trimethoprim [From Bactrim] AdvReac Nausea & Verified 03/11/23 00:37 Vomiting & Diarrhea Physical Exam Vitals: Vital Signs Temp Pulse Resp BP Pulse Ox 03/11/23 03:00 82 17 122/65 92 L 03/11/23 02:33 84 17 142/72 95 03/11/23 00:31 96.9 F L 82 18 123/78 95 Intake and Output 03/10/23 03/10/23 03/11/23 14:59 22:59 06:59 Other: Weight 77.111 kg Results CBC & Chem 7: 03/11/23 00:52 03/11/23 00:52 Labs: Abnormal Lab Results - Last 24 Hours (Table) 03/11/23 03/11/23 Range/Units 00:52 00:52 WBC 11.7 H (3.8-10.6) k/uL Hgb 11.2 L (11.4-16.0) gm/dL Hct 33.1 L (34.0-46.0) % Neutrophils # 8.9 H (1.3-7.7) k/uL Sodium 134 L (137-145) mmol/L Potassium 2.4 L* (3.5-5.1) mmol/L Chloride 89 L (98-107) mmol/L Carbon Dioxide 34 H (22-30) mmol/L BUN 19 H (7-17) mg/dL Glucose 110 H (74-99) mg/dL Alkaline Phosphatase 170 H (38-126) U/L Total Protein 6.2 L (6.3-8.2) g/dL Albumin 3.1 L (3.5-5.0) g/dL
[2023-03-11 08:24] LABS: African American GFR (CKD) >90 (>60 ml/min/1.73 sqM); Anion Gap 9 mmol/L; Blood Urea Nitrogen 19 mg/dL (7-17); Calcium 8.2 mg/dL (8.4-10.2); Carbon Dioxide 34 mmol/L (22-30); Chloride 92 mmol/L (98-107); Glucose 104 mg/dL (74-99); Non-African American GFR(CKD) 85 (>60 ml/min/1.73 sqM); Sodium 135 mmol/L (137-145)
[2023-03-11 08:30] LABS: Potassium 2.7 mmol/L (3.5-5.1)
[2023-03-11] MEDS ORDERED: POTASSIUM CHLORIDE ER 20 MEQ TAB.ER PO STA (10:51)
[2023-03-11] MEDS ORDERED: ALBUTEROL NEBULIZED 2.5 MG/3 ML INHALATION PRN (10:53)
[2023-03-11] MEDS ORDERED: ONDANSETRON 4 MG TAB PO PRN (10:53)
[2023-03-11] MEDS ORDERED: PROCHLORPERAZINE 5 MG TAB PO PRN (10:53)
[2023-03-11 13:14] VITALS: RESP 16
[2023-03-11] MEDS: PROPAFENONE 150 MG TAB PO SCH ×2 (16:03→23:39)
[2023-03-11] MEDS: MORPHINE SULFATE IR 15 MG TABLET PO PRN (16:18)
[2023-03-11 16:29] LABS: African American GFR (CKD) >90 (>60 ml/min/1.73 sqM); Anion Gap 9 mmol/L; Blood Urea Nitrogen 17 mg/dL (7-17); Calcium 8.4 mg/dL (8.4-10.2); Carbon Dioxide 34 mmol/L (22-30); Chloride 91 mmol/L (98-107); Glucose 102 mg/dL (74-99); Magnesium 1.7 mg/dL (1.6-2.3); Non-African American GFR(CKD) 86 (>60 ml/min/1.73 sqM); Potassium 2.9 mmol/L (3.5-5.1); Sodium 134 mmol/L (137-145)
[2023-03-11] MEDS: POTASSIUM BICARBONATE/CIT AC 20 MEQ TABLET.EFF PO SCH ×3 (18:03→20:20)
[2023-03-11] MEDS: METOPROLOL TARTRATE 25 MG TAB PO SCH (20:20)
[2023-03-12] MEDS: METOPROLOL TARTRATE 25 MG TAB PO SCH (07:49)
[2023-03-12] MEDS ORDERED: METOPROLOL TARTRATE 12.5 MG TAB PO STA (07:49)
[2023-03-12] MEDS: PROPAFENONE 150 MG TAB PO SCH (07:50)
[2023-03-12] MEDS: MORPHINE SULFATE IR 15 MG TABLET PO PRN (07:51)
[2023-03-12 07:52] LABS: African American GFR (CKD) >90 (>60 ml/min/1.73 sqM); Anion Gap 5 mmol/L; Blood Urea Nitrogen 18 mg/dL (7-17); Calcium 8.4 mg/dL (8.4-10.2); Carbon Dioxide 37 mmol/L (22-30); Chloride 90 mmol/L (98-107); Glucose 126 mg/dL (74-99); Magnesium 1.7 mg/dL (1.6-2.3); Non-African American GFR(CKD) 82 (>60 ml/min/1.73 sqM); Potassium 4.2 mmol/L (3.5-5.1); Sodium 132 mmol/L (137-145)
[2023-03-12] MEDS ORDERED: RIVAROXABAN 20 MG TAB PO SCH (09:00)
--- NOTE | 2023-03-12 12:32 | P.CONS ---
History of Present Illness - Reason for Consult Consult date: 03/12/23 known Requesting physician: Richie Valencia - Chief Complaint low potassium - History of Present Illness Mrs Braun is a female pt of Dr. Castellon, initial consult at [facility] 02/19/23, came to ER with c/o worsening right hip and right groin pain over previous 4-6 weeks. She did come to the ER with similar complaint on 02/14/23 at which time she had CT AP which showed asymmetric thickening of the right obturator internal muscle with mild fat stranding, that was extending to the lateral right adnexa right external iliac chain, mesenteric retroperitoneal right iliac chain and right inguinal adenopathy. She was discharged from the ER with plans for work up outpt, but came back because of worsening symptoms before outpatient workup could be done. MRI, confirmed findings consistent with neoplasm involving the right hemipelvis including abnormal marrow signal in the right hemipelvis and soft tissue medial to the right acetabulum. There was also right iliac and inguinal adenopathy. CT chest did not show any pulmonary nodules or adenopathy. Bone scan showed metastatic uptake in the right hemipelvis, L5 and posterior calvarium. Biopsy with IR on 02/21/23, discharged on pain medications. Biopsy positive for squamous cell carcinoma, p40 and p16 positive. Primary sites were felt to include vulva, vagina and cervix. Pt denied any prior mammograms, Pap smears or colonoscopy. She denied any vaginal bleeding or urinary symptoms. She was seen for first office visit on 03/10/23. She is a never smoker. Staging PET showed uptake adjacent to the scapula, pretracheal and paraesophageal lymph nodes as well as at the apex of the left ventricle. There was retrocaval and periaortic adenopathy, iliac and inguinal adenopathy, as well as uptake in the inferior right scapula versus within the subscapularis muscle in this area. There was also uptake in the right iliac wing right acetabulum. Diagnosis, prognosis and recommendations for treatment were discussed at visit on 03/10. Recommendation was for palliative radiation for malignancy related pain and evaluation by [facility] for treatment recommendations. Pt and requested Radiation to be done at [facility] and wanted to be seen at [facility] for [facility]. Both of those referrals have been made. Routine lab work was returned and reviewed, pt was found to have a potassium of 2.5, she was contacted at home and directed to go to ER for potassium replacement. She has no other c/o, her pain is the same, she is needed more pain meds. No other c/o. Review of Systems 10 point ROS is neg except as stated in HPI Past Medical History Past Medical History: Atrial Fibrillation, Cancer, Hypertension Additional Past Medical History / Comment(s): 02/28/23 pt diagnosed today with a pelvic mass that is cancerous History of Any Multi-Drug Resistant Organisms: None Reported Past Surgical History: No Surgical Hx Reported Past Anesthesia/Blood Transfusion Reactions: No Reported Reaction Past Psychological History: No Psychological Hx Reported Smoking Status: Never smoker Past Alcohol Use History: None Reported Past Drug Use History: None Reported - Past Family History Brother(s) Family Medical History: Cancer, Diabetes Mellitus Additional Family Medical History / Comment(s): Colon cancer, at 58 Medications and Allergies Home Medications Medication Instructions Recorded Confirmed Type Lisinopril-Hctz 20-25 mg 1 tab PO DAILY 05/06/16 03/11/23 History [Zestoretic 20-25] Propafenone [Rythmol] 150 mg PO Q8HR #90 tab 05/07/16 03/11/23 Rx Albuterol Inhaler [Ventolin Hfa 2 puff INHALATION RT-Q6H PRN #1 06/26/20 03/11/23 Rx Inhaler] puff Nystatin 100,000 Unit/gm Powd 1 applic TOPICAL BID PRN 02/14/23 03/11/23 History [Mycostatin Powder] methocarbamoL [Robaxin-750] 1,500 mg PO TID PRN #30 tab 02/14/23 03/11/23 Rx Ketorolac [Toradol] 10 mg PO Q6HR PRN #15 tab 02/21/23 03/11/23 Rx ondansetron HCL [Zofran] 8 mg PO Q8HR PRN 02/23/23 03/11/23 History Acetaminophen Tab [Tylenol] 650 mg PO Q6HR PRN #60 tab 02/27/23 03/11/23 Rx Morphine Sulfate Ir [MSIR] 15 mg PO Q3H PRN 3 Days #24 tab 02/27/23 03/11/23 Rx Prochlorperazine [Compazine] 5 mg PO Q6HR PRN 02/28/23 03/11/23 History Rivaroxaban [Xarelto] 20 mg PO DAILY 02/28/23 03/11/23 History Furosemide [Lasix] 20 mg PO BID@0900,1600 30 Days #60 03/03/23 03/11/23 Rx tab Metoprolol Tartrate [Lopressor] 25 mg PO BID 30 Days #60 tab 03/03/23 03/11/23 Rx Potassium Chloride [Klor-Con 20 20 meq PO DAILY #30 packet 03/12/23 Rx Packets] Allergies Allergy/AdvReac Type Severity Reaction Status Date / Time sulfamethoxazole AdvReac Nausea & Verified 03/11/23 07:12 [From Bactrim] Vomiting & Diarrhea trimethoprim [From Bactrim] AdvReac Nausea & Verified 03/11/23 07:12 Vomiting & Diarrhea Physical Exam Vitals: Vital Signs Temp Pulse Pulse Resp BP BP BP 03/12/23 07:40 97.4 F L 74 16 87/52 85/85 03/12/23 03:37 98.7 F 68 16 209/52 03/11/23 23:40 99.1 F 78 16 110/55 03/11/23 20:00 98.9 F 81 16 124/57 03/11/23 15:42 98.3 F 78 16 100/64 03/11/23 14:00 16 03/11/23 12:48 97.6 F 80 16 117/55 Pulse Ox 03/12/23 07:40 95 03/12/23 03:37 96 03/11/23 23:40 93 L 03/11/23 20:00 93 L 03/11/23 15:42 91 L 03/11/23 14:00 03/11/23 12:48 93 L Intake and Output 03/11/23 03/12/23 03/12/23 22:59 06:59 14:59 Intake Total 118 Balance 118 Intake: Oral 118 Other: # Voids 2 2 - Constitutional General appearance: average body habitus, cooperative, no acute distress - EENT Eyes: anicteric sclerae, EOMI ENT: hearing grossly normal - Neck Neck: no lymphadenopathy - Respiratory Respiratory: bilateral: CTA - Cardiovascular Rhythm: regular Heart sounds: normal: S1, S2 Abnormal Heart Sounds: no systolic murmur, no diastolic murmur, no rub, no S3 Gallop, no S4 Gallop, no click, no other - Gastrointestinal General gastrointestinal: distended (mild), normal bowel sounds, soft, tenderness - Integumentary Integumentary: normal - Neurologic Neurologic: CNII-XII intact - Musculoskeletal Musculoskeletal: strength equal bilaterally - Psychiatric Psychiatric: A&O x's 3, appropriate affect, intact judgment & insight Results CBC & Chem 7: 03/11/23 00:52 03/12/23 07:22 Labs: Abnormal Lab Results - Last 24 Hours (Table) 03/11/23 03/12/23 Range/Units 15:30 07:22 Sodium 134 L 132 L (137-145) mmol/L Potassium 2.9 L (3.5-5.1) mmol/L Chloride 91 L 90 L (98-107) mmol/L Carbon Dioxide 34 H 37 H (22-30) mmol/L BUN 18 H (7-17) mg/dL Glucose 102 H 126 H (74-99) mg/dL Assessment and Plan (1) Hypokalemia Current Visit: Yes Status: Acute Priority: High Code(s): E87.6 - HYPOKALEMIA SNOMED Code(s): 33470458 (2) Squamous cell carcinoma, metastatic Current Visit: No Status: Acute Priority: High Code(s): AOF4809 - SNOMED Code(s): 067249561 (3) Neoplasm related pain Current Visit: Yes Status: Acute Priority: High Code(s): G89.3 - NEOPLASM RELATED PAIN (ACUTE) (CHRONIC) SNOMED Code(s): 08584264942793 Plan: Hypokalemia -Found on lab draw in office -Pt directed to ER -Potassium replaced, K+ normal today -K+ supplement Rx -K+ will cont to be monitored outpt 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 Cont care outpt Pain r/t malignancy -Clarified pain meds. Will DC norco, cont with MSIR every 3 hours PRN. She can use up what torodol she has but do not want ch[facility] use. She is going to get more relief from radiation. Referral was made, awaiting call to meet with Dr. Palma -Rx for MSIR sent from office as pt wont be seen for a few weeks-need to have enough pain med so she does not end up back in ER -Meds for prevention of narcotic induced constipation sent and instructions in DC plan. Pt is ok from Hem/Onc standpoint to be discharged once cleared by Attending Attests: I have seen and examined pt, performed H&P, developed impression and plan of care. Discussed with dictator. Agree with documentation, dictated as a scribe.
[2023-03-12 12:52] VITALS: BP 103/53; PULSE 65; TEMP 97.2
--- NOTE | 2023-03-12 13:21 | P.DS ---
Providers Date of admission: 03/11/23 01:57 Expected date of discharge: 03/12/23 Attending physician: Radha Saul MD Consults: 03/11/23 10:55 Consult Physician Routine Consulting Provider: Venancio Castellon Consult Reason/Comments: known to you, plan for radiation Do you want consulting provider notified?: Yes Primary care physician: Yordan Prescott Hospital Course: Discharge Diagnosis: Hypokalemia Contraction alkalosis Mild hyponatremia Leukocytosis Mild normocytic anemia Diastolic CHF, not in exacerbation Recent diagnosis of metastatic squamous carcinoma History of hypertension Hospital Course: 78-year-old female with a PMH of A. fib on Xarelto, diastolic CHF, hypertension, recently diagnosed metastatic squamous cell carcinoma, and multiple recent hospitalizations who was sent into the hospital for abnormal blood work. EKG in emergency room revealed sinus rhythm at 81 bpm with diffuse T-wave flattening with no additional ST/T-wave changes noted as reviewed by me. Further laboratory evaluation revealed obesity, and of 11.7 (similar to baseline), sodium 134, chloride 89, and CO2 34. Hypokalemia resolved with supplementation. Oncology was also consulted. Has an outpatient follow-up already set up. She will likely have radiation for pelvic mass. Lasix continued, but changed to PRN. Instructions given when to take Lasix based on daily weights. Follow-up with PCP, oncology. Her blood pressure has been on the lower side, antihypertensives discontinued. Patient seen and examined at bedside. Vital signs reviewed and stable. General: non toxic, no distress, appears at stated age, overweight Derm: no unusual rashes/lesions, warm Head: atraumatic, normocephalic, symmetric Eyes: EOMI, no lid lag, anicteric sclera, pupils equal round reactive to light ENT: Nose and ears atraumatic Neck: No cervical lymphadenopathy, trachea midline, supple Mouth: no lip lesion, mucus membranes moist Cardiovascular: S1S2 reg, no murmur, positive dorsalis pedis pulse bilateral, no edema Lungs: CTA bilateral, no rhonchi, no rales, no accessory muscle use Abdominal: soft, nontender to palpation, no guarding Ext: muscle strength 5 out of 5 in all 4 extremities grossly, no gross muscle atrophy, no contractures, Neuro: CN II-XI grossly intact, no gross focal neuro deficits Psych: Alert, oriented, appropriate affect A total of 33 minutes of time were spent preparing this complex discharge summary. Patient was discharged on 03/12/23 at 1315. Patient Condition at Discharge: Stable Plan - Discharge Summary Discharge Rx Participant: No New Discharge Prescriptions: New Potassium Chloride [Klor-Con 20 Packets] 20 meq PO DAILY #30 packet Sennosides/Docusate Sodium [Senna Plus 8.6-50 mg Tablet] 2 each PO BID #120 tablet Continue Propafenone [Rythmol] 150 mg PO Q8HR #90 tab Nystatin 100,000 Unit/gm Powd [Mycostatin Powder] 1 applic TOPICAL BID PRN PRN Reason: Rash Ketorolac [Toradol] 10 mg PO Q6HR PRN #15 tab PRN Reason: Pain ondansetron HCL [Zofran] 8 mg PO Q8HR PRN PRN Reason: Nausea Albuterol Inhaler [Ventolin Hfa Inhaler] 2 puff INHALATION RT-Q6H PRN #1 puff PRN Reason: Shortness Of Breath Or Wheezing Morphine Sulfate Ir [MSIR] 15 mg PO Q3H PRN 3 Days #24 tab PRN Reason: Severe Breakthrough Pain Acetaminophen Tab [Tylenol] 650 mg PO Q6HR PRN #60 tab PRN Reason: Fever And/ Or Pain Rivaroxaban [Xarelto] 20 mg PO DAILY Prochlorperazine [Compazine] 5 mg PO Q6HR PRN PRN Reason: Nausea Changed Metoprolol Tartrate [Lopressor] 12.5 mg PO BID 30 Days #60 tab Furosemide [Lasix] 20 mg PO BID@0900,1600 PRN 30 Days #60 tab PRN Reason: Edema Discontinued Lisinopril-Hctz 20-25 mg [Zestoretic 20-25] 1 tab PO DAILY methocarbamoL [Robaxin-750] 1,500 mg PO TID PRN #30 tab PRN Reason: Pain Discharge Medication List Propafenone [Rythmol] 150 mg PO Q8HR #90 tab 05/07/16 [Rx] Albuterol Inhaler [Ventolin Hfa Inhaler] 2 puff INHALATION RT-Q6H PRN #1 puff 06/26/20 [Rx] Nystatin 100,000 Unit/gm Powd [Mycostatin Powder] 1 applic TOPICAL BID PRN 02/14/23 [History] Ketorolac [Toradol] 10 mg PO Q6HR PRN #15 tab 02/21/23 [Rx] ondansetron HCL [Zofran] 8 mg PO Q8HR PRN 02/23/23 [History] Acetaminophen Tab [Tylenol] 650 mg PO Q6HR PRN #60 tab 02/27/23 [Rx] Morphine Sulfate Ir [MSIR] 15 mg PO Q3H PRN 3 Days #24 tab 02/27/23 [Rx] Prochlorperazine [Compazine] 5 mg PO Q6HR PRN 02/28/23 [History] Rivaroxaban [Xarelto] 20 mg PO DAILY 02/28/23 [History] Furosemide [Lasix] 20 mg PO BID@0900,1600 PRN 30 Days #60 tab 03/12/23 [Rx] Metoprolol Tartrate [Lopressor] 12.5 mg PO BID 30 Days #60 tab 03/12/23 [Rx] Potassium Chloride [Klor-Con 20 Packets] 20 meq PO DAILY #30 packet 03/12/23 [Rx] Sennosides/Docusate Sodium [Senna Plus 8.6-50 mg Tablet] 2 each PO BID #120 tablet 03/12/23 [Rx] Follow up Appointment(s)/Referral(s): Venancio Castellon [STAFF PHYSICIAN] - 04/10/23 1:00 pm Yordan Prescott MD [Primary Care Provider] - 1-2 days Patient Instructions/Handouts: Hypokalemia (DC) Activity/Diet/Wound Care/Special Instructions: Please take 1-2 tabs of senna 1-2 times a day to prevent narcotic induced constipation. Ok to use miralax or milk of magnesia daily if needed to promote bowel movement. Goal is a soft, easily passable bowel movement every 1-3 days. MSIR sent to Carmen esposito from office-pt won't be seen for few weeks so needed more then a 3 day Rx sent DC norfab Please check your weight at home in the morning, and check it daily thereafter. If it increases by 5 lbs, start taking your lasix and call either PCP or cardiology. Discharge Disposition: HOME SELF-CARE
== END 2023-03-12 14:30 | disposition home or self-care (01) ==
LOC: EC 00:29 → 3SCARD 01:57
PROVIDERS: ADMIT Internal Medicine; ATTEND Internal Medicine
DX: E87.6 Hypokalemia (principal); E87.3 Alkalosis; T50.2X5A Adverse effect of carbonic-anhydrase inhibitors, benzothiadiazides and other diuretics, initial encounter; G89.3 Neoplasm related pain (acute) (chronic); C79.51 Secondary malignant neoplasm of bone; E87.1 Hypo-osmolality and hyponatremia; D63.1 Anemia in chronic kidney disease; I48.91 Unspecified atrial fibrillation; I11.0 Hypertensive heart disease with heart failure; I50.32 Chronic diastolic (congestive) heart failure; F41.9 Anxiety disorder, unspecified; Z79.01 Long term (current) use of anticoagulants; Z79.899 Other long term (current) drug therapy; Z88.2 Allergy status to sulfonamides
CPT/HCPCS: 96366 ×2; 96365; 96375; 99285; 36415; 93005; 80053; 80048 ×2; 83735 ×2; 85025; G0378 ×2; J3480; J1885

== ENCOUNTER 2023-04-11 00:51 | Inpatient (IN) | payer MEDICARE ==
--- NOTE | 2023-04-11 01:27 | ED ---
General Adult HPI - General Chief complaint: Weakness Stated complaint: Weakness Time Seen by Provider: 04/11/23 00:58 Source: patient Mode of arrival: EMS Limitations: no limitations - History of Present Illness Initial comments: 78-year-old female with past medical history significant for metastatic squamous adenocarcinoma and diastolic CHF presenting to the ED with a chief complaint of generalized weakness. Patient reports that this has been ongoing for a long time however notes progressive worsening of this. Notes difficulty is with ADLs and patient's notes that it is difficult to help her. Patient otherwise has no complaints. Denies chest pain shortness of breath abdominal pain nausea vomiting diarrhea. No other complaints. - Related Data Home Medications Medication Instructions Recorded Confirmed Nystatin 100,000 Unit/gm Powd 1 applic TOPICAL BID PRN 02/14/23 03/11/23 [Mycostatin Powder] ondansetron HCL [Zofran] 8 mg PO Q8HR PRN 02/23/23 03/11/23 Prochlorperazine [Compazine] 5 mg PO Q6HR PRN 02/28/23 03/11/23 Rivaroxaban [Xarelto] 20 mg PO DAILY 02/28/23 03/11/23 Previous Rx's Medication Instructions Recorded Propafenone [Rythmol] 150 mg PO Q8HR #90 tab 05/07/16 Albuterol Inhaler [Ventolin Hfa 2 puff INHALATION RT-Q6H PRN #1 06/26/20 Inhaler] puff Ketorolac [Toradol] 10 mg PO Q6HR PRN #15 tab 02/21/23 Acetaminophen Tab [Tylenol] 650 mg PO Q6HR PRN #60 tab 02/27/23 Morphine Sulfate Ir [MSIR] 15 mg PO Q3H PRN 3 Days #24 tab 02/27/23 Furosemide [Lasix] 20 mg PO BID@0900,1600 PRN 30 Days 03/12/23 #60 tab Metoprolol Tartrate [Lopressor] 12.5 mg PO BID 30 Days #60 tab 03/12/23 Potassium Chloride [Klor-Con 20 20 meq PO DAILY #30 packet 03/12/23 Packets] Sennosides/Docusate Sodium [Senna 2 each PO BID #120 tablet 03/12/23 Plus 8.6-50 mg Tablet] Allergies Allergy/AdvReac Type Severity Reaction Status Date / Time sulfamethoxazole AdvReac Nausea & Verified 04/11/23 01:04 [From Bactrim] Vomiting & Diarrhea trimethoprim [From Bactrim] AdvReac Nausea & Verified 04/11/23 01:04 Vomiting & Diarrhea Review of Systems ROS Statement: Those systems with pertinent positive or pertinent negative responses have been documented in the HPI. ROS Other: All systems not noted in ROS Statement are negative. Past Medical History Past Medical History: Atrial Fibrillation, Cancer, Hypertension Additional Past Medical History / Comment(s): 02/28/23 pt diagnosed today with a pelvic mass that is cancerous History of Any Multi-Drug Resistant Organisms: None Reported Past Surgical History: No Surgical Hx Reported Past Anesthesia/Blood Transfusion Reactions: No Reported Reaction Past Psychological History: Anxiety Smoking Status: Never smoker Past Alcohol Use History: Rare Past Drug Use History: None Reported - Past Family History Brother(s) Family Medical History: Cancer, Diabetes Mellitus Additional Family Medical History / Comment(s): Colon cancer, at 58 General Exam Limitations: no limitations General appearance: alert, in no apparent distress Eye exam: Present: normal appearance Neck exam: Present: normal inspection Respiratory exam: Present: normal lung sounds bilaterally Cardiovascular Exam: Present: regular rate, normal rhythm GI/Abdominal exam: Present: soft Neurological exam: Present: alert, oriented X3 Skin exam: Present: warm, dry Course Vital Signs 04/11/23 04/11/23 04/11/23 00:54 01:04 02:32 Pulse Rate 86 88 Respiratory 16 16 Rate Blood Pressure 115/63 121/69 O2 Sat by Pulse 89 L 97 Oximetry 04/11/23 03:34 Pulse Rate 92 Respiratory 18 Rate Blood Pressure 124/70 O2 Sat by Pulse 95 Oximetry Medical Decision Making - Medical Decision Making Was pt. sent in by a medical professional or institution (, PA, RN ENDOSCOPY, urgent care, hospital, or intermediate...) When possible be specific @ -No Did you speak to anyone other than the patient for history (EMS, parent, family, police, friend...)? What history was obtained from this source @ -No Did you review nursing and triage notes (agree or disagree)? Why? @ -I reviewed and agree with nursing and triage notes Were old charts reviewed (outside hosp., previous admission, EMS record, old EKG, old radiological studies, urgent care reports/EKG's, intermediate records)? Report findings @ -No old charts were reviewed Differential Diagnosis (chest pain, altered mental status, abdominal pain women, abdominal pain men, vaginal bleeding, weakness, fever, dyspnea, syncope, headache, dizziness, GI bleed, back pain, seizure, CVA, palpatations, mental health, musculoskeletal)? @ -Differential Weakness: Hypoglycemia, shock, sepsis, hyponatremia, anemia, infection, NV, ETOH, adverse medicine reaction, overdose, stroke, this is not meant to be an all-inclusive list. EKG interpreted by me (3pts min.). @ -As above X-rays interpreted by me (1pt min.). @ -X-ray interpretation at this time is still pending. CT interpreted by me (1pt min.). @ -None done U/S interpreted by me (1pt. min.). @ -None done What testing was considered but not performed or refused? (CT, X-rays, U/S, labs)? Why? @ -None What meds were considered but not given or refused? Why? @ -None Did you discuss the management of the patient with other professionals (professionals i.e. , PA, RN ENDOSCOPY, lab, RT, psych nurse, home health care social worker, marketing project lead, teacher, emergency communications officer, vocational case manager)? Give summary @ -No Was smoking cessation discussed for >3mins.? @ -No Was critical care preformed (if so, how long)? @ -No Were there social determinants of health that impacted care today? How? (Homelessness, low income, unemployed, alcoholism, drug addiction, transportation, low edu. Level, literacy, decrease access to med. care, shelter, rehab)? @ -No Was there de-escalation of care discussed even if they declined (Discuss DNR or withdrawal of care, Hospice)? DNR status @ -No What co-morbidities impacted this encounter? (DM, HTN, Smoking, COPD, CAD, Cancer, CVA, ARF, Chemo, Hep., AIDS, mental health diagnosis, sleep apnea, morbid obesity)? @ -CHF, metastatic squamous cell carcinoma Was patient admitted / discharged? Hospital course, mention meds given and route, prescriptions, significant lab abnormalities, going to OR and other pertinent info. @ -Admission 78-year-old female presenting to the ED with chief complaint of generalized weakness.Laboratory studies reviewed. Labs significant for an elevated white blood cell count at 15.6. Some anemia at 10.4. Neutrophils elevated at 13.8. Chemistry panel reveals some hyponatremia 131, hypokalemia at 3.1. Troponin is elevated at 0.200. This time, UA is still pending. EKG at this time is a normal sinus rhythm without acute changes. At this time patient will be admitted with consult to cardiology. Undiagnosed new problem with uncertain prognosis? @ -No Drug Therapy requiring intensive monitoring for toxicity (Heparin, Nitro, Insulin, Cardizem)? @ -No Were any procedures done? @ -No Diagnosis/symptom? @ -Generalized weakness Acute, or Chronic, or Acute on Chronic? @ -Acute Uncomplicated (without systemic symptoms) or Complicated (systemic symptoms)? @ -Uncomplicated Side effects of treatment? @ -No Exacerbation, Progression, or Severe Exacerbation? @ -No Poses a threat to life or bodily function? How? (Chest pain, USA, NV, pneumonia, PE, COPD, DKA, ARF, appy, cholecystitis, CVA, Diverticulitis, Homicidal, Suicidal, threat to staff... and all critical care pts) @ -No - Lab Data Result diagrams: 04/11/23 02:14 04/11/23 02:14 Lab Results 04/11/23 04/11/23 04/11/23 Range/Units 02:14 02:14 02:14 WBC 15.6 H (3.8-10.6) k/uL RBC 3.68 L (3.80-5.40) m/uL Hgb 10.4 L (11.4-16.0) gm/dL Hct 31.9 L (34.0-46.0) % MCV 86.7 (80.0-100.0) fL MCH 28.2 (25.0-35.0) pg MCHC 32.5 (31.0-37.0) g/dL RDW 14.8 (11.5-15.5) % Plt Count 140 L D (150-450) k/uL MPV 10.5 Neutrophils % 88 % Lymphocytes % 3 % Monocytes % 7 % Eosinophils % 2 % Basophils % 0 % Neutrophils # 13.8 H (1.3-7.7) k/uL Lymphocytes # 0.4 L (1.0-4.8) k/uL Monocytes # 1.0 (0-1.0) k/uL Eosinophils # 0.3 (0-0.7) k/uL Basophils # 0.0 (0-0.2) k/uL Hypochromasia Slight PT 20.9 H (10.0-12.5) sec INR 2.1 H (<1.2) APTT 25.5 (22.0-30.0) sec Sodium 131 L (137-145) mmol/L Potassium 3.1 L (3.5-5.1) mmol/L Chloride 96 L (98-107) mmol/L Carbon Dioxide 32 H (22-30) mmol/L Anion Gap 3 mmol/L BUN 16 (7-17) mg/dL Creatinine 0.46 L (0.52-1.04) mg/dL Est GFR (CKD-EPI)AfAm >90 (>60 ml/min/1.73 sqM) Est GFR (CKD-EPI)NonAf >90 (>60 ml/min/1.73 sqM) Glucose 95 (74-99) mg/dL Plasma Lactic Acid Terence (0.7-2.0) mmol/L Calcium 8.8 (8.4-10.2) mg/dL Magnesium 1.7 (1.6-2.3) mg/dL Total Bilirubin 1.5 H (0.2-1.3) mg/dL AST 16 (14-36) U/L ALT 9 (4-34) U/L Alkaline Phosphatase 176 H (38-126) U/L Troponin I (0.000-0.034) ng/mL NT-Pro-B Natriuret Pep 98085 pg/mL Total Protein 5.9 L (6.3-8.2) g/dL Albumin 2.3 L (3.5-5.0) g/dL 04/11/23 04/11/23 Range/Units 02:14 02:14 WBC (3.8-10.6) k/uL RBC (3.80-5.40) m/uL Hgb (11.4-16.0) gm/dL Hct (34.0-46.0) % MCV (80.0-100.0) fL MCH (25.0-35.0) pg MCHC (31.0-37.0) g/dL RDW (11.5-15.5) % Plt Count (150-450) k/uL MPV Neutrophils % % Lymphocytes % % Monocytes % % Eosinophils % % Basophils % % Neutrophils # (1.3-7.7) k/uL Lymphocytes # (1.0-4.8) k/uL Monocytes # (0-1.0) k/uL Eosinophils # (0-0.7) k/uL Basophils # (0-0.2) k/uL Hypochromasia PT (10.0-12.5) sec INR (<1.2) APTT (22.0-30.0) sec Sodium (137-145) mmol/L Potassium (3.5-5.1) mmol/L Chloride (98-107) mmol/L Carbon Dioxide (22-30) mmol/L Anion Gap mmol/L BUN (7-17) mg/dL Creatinine (0.52-1.04) mg/dL Est GFR (CKD-EPI)AfAm (>60 ml/min/1.73 sqM) Est GFR (CKD-EPI)NonAf (>60 ml/min/1.73 sqM) Glucose (74-99) mg/dL Plasma Lactic Acid Terence 1.3 (0.7-2.0) mmol/L Calcium (8.4-10.2) mg/dL Magnesium (1.6-2.3) mg/dL Total Bilirubin (0.2-1.3) mg/dL AST (14-36) U/L ALT (4-34) U/L Alkaline Phosphatase (38-126) U/L Troponin I 0.200 H* (0.000-0.034) ng/mL NT-Pro-B Natriuret Pep pg/mL Total Protein (6.3-8.2) g/dL Albumin (3.5-5.0) g/dL - EKG Data EKG Comments: G shows a sinus rhythm with nonspecific ST and T-wave changes notably T-wave inversion in V2 change from prior EKG. NE 145, QRS 93, QT/QTc 405/448. Disposition Clinical Impression: Generalized weakness Disposition: ADMITTED IP TO THIS [facility] Condition: Good Referrals: Yordan Prescott MD [Primary Care Provider] - 1-2 days
[2023-04-11 02:56] LABS: Basophils % (A) 0 %; Eosinophils # (A) 0.3 k/uL (0-0.7); Eosinophils % (A) 2 %; HCT 31.9 % (34.0-46.0); HGB 10.4 gm/dL (11.4-16.0); Hypochromasia Slight; Lymphocytes # (A) 0.4 k/uL (1.0-4.8); Lymphocytes % (A) 3 %; MCH 28.2 pg (25.0-35.0); MCHC 32.5 g/dL (31.0-37.0); MCV 86.7 fL (80.0-100.0); Mean Platelet Volume 10.5; Monocytes % (A) 7 %; Neutrophils # (A) 13.8 k/uL (1.3-7.7); Neutrophils % (A) 88 %; RBC 3.68 m/uL (3.80-5.40); RDW 14.8 % (11.5-15.5); WBC 15.6 k/uL (3.8-10.6)
[2023-04-11 02:59] LABS: Platelet Count 140 k/uL (150-450)
[2023-04-11 03:03] LABS: ALT 9 U/L (4-34); AST 16 U/L (14-36); African American GFR (CKD) >90 (>60 ml/min/1.73 sqM); Albumin 2.3 g/dL (3.5-5.0); Alkaline Phosphatase 176 U/L (38-126); Anion Gap 3 mmol/L; Blood Urea Nitrogen 16 mg/dL (7-17); Calcium 8.8 mg/dL (8.4-10.2); Carbon Dioxide 32 mmol/L (22-30); Chloride 96 mmol/L (98-107); Glucose 95 mg/dL (74-99); Magnesium 1.7 mg/dL (1.6-2.3); Non-African American GFR(CKD) >90 (>60 ml/min/1.73 sqM); Potassium 3.1 mmol/L (3.5-5.1); Sodium 131 mmol/L (137-145); Total Bilirubin 1.5 mg/dL (0.2-1.3); Total Protein 5.9 g/dL (6.3-8.2)
[2023-04-11 03:10] LABS: INR 2.1 (<1.2); Partial Thromboplastin Time 25.5 sec (22.0-30.0); Prothrombin Time 20.9 sec (10.0-12.5)
[2023-04-11 03:12] LABS: NT-Pro-B-Type Natriuretic Pept 10600 pg/mL
[2023-04-11] MEDS ORDERED: POTASSIUM CHLORIDE ER 20 MEQ TAB.ER PO STA ×2 (04:33→08:27)
[2023-04-11] MEDS ORDERED: ONDANSETRON 4 MG/2 ML VIAL IVP PRN (04:34)
[2023-04-11] MEDS ORDERED: NALOXONE 0.4 MG/ML 1 ML VIAL IV PRN (04:34)
[2023-04-11] MEDS ORDERED: HYDROmorphone 1 MG/ML 1 ML SYRINGE IVP PRN (04:34)
[2023-04-11] MEDS ORDERED: HYDROmorphone 0.5 MG/0.5 ML SYRINGE IVP PRN (04:34)
--- NOTE | 2023-04-11 04:50 | P.HPIM ---
History of Present Illness H&P Date: 04/11/23 Patient is a 78-year-old female with a PMH of recently diagnosed gynecological squamous cell carcinoma (following with Dr Castellon, receiving radiation), A. fib on Xarelto, diastolic CHF, and hypertension who presents to the emergency room with complaints of anorexia and generalized weakness. Patient notes that over the past 2-3 months, she has had minimal appetite due to persistent nausea and vomiting. She reports minimal solid food intake as a result and has been getting progressively weaker. Notes that earlier today, she was unable to stand up on her own even with assistive devices, which prompted her to come to the emergency room. She denied experiencing urinary complaints, fever, cough, chest discomfort, shortness of breath, abdominal pain, diarrhea. Chest x-ray in the emergency room was unremarkable as reviewed by me. Laboratory evaluation revealed leukocytosis of 15.6, platelet count 140, sodium 131, potassium 3.1, chloride 96, troponin 0.2, proBNP 10,600, T bili 1.5. ED documentation reviewed and case discussed with ED provider. Review of systems: Pertinent positives and negatives as discussed in HPI, a complete review of systems was performed and all other systems are negative. Physical examination: Vital signs reviewed General: non toxic, no distress, appears older than stated age, normal weight Derm: no unusual rashes/lesions, warm Head: atraumatic, normocephalic, symmetric Eyes: EOMI, no lid lag, anicteric sclera, pupils equal round reactive to light ENT: Nose and ears atraumatic Neck: No cervical lymphadenopathy, trachea midline, supple Mouth: no lip lesion, mucus membranes moist Cardiovascular: S1S2 reg, no murmur, positive dorsalis pedis pulse bilateral, no edema Lungs: CTA bilateral, no rhonchi, no rales, no accessory muscle use Abdominal: soft, nontender to palpation, no guarding Ext: muscle strength 2 out of 5 of smith LEs and 4/5 of smith UEs, no gross muscle atrophy, no contractures Neuro: CN II-XI grossly intact, no gross focal neuro deficits Psych: Alert, oriented, appropriate affect Assessment: Debility, likely due to poor oral intake and ongoing malignancy Squamous cell carcinoma, [employer]/EM[employer] origin, receiving radiation Hypochloremic hyponatremia, likely due to poor oral intake Persistent nausea and vomiting, may be due to ongoing malignancy and radiation Elevated troponin, somewhat similar to baseline Thrombocytopenia, suspect due to ongoing malignancy Chronic conditions: A. fib, diastolic CHF, hypertension Imaging: Chest x-ray in the emergency room was unremarkable as reviewed by me. Data Review: Laboratory evaluation revealed leukocytosis of 15.6, platelet count 140, sodium 131, potassium 3.1, chloride 96, troponin 0.2, proBNP 10,600, T bili 1.5. Plan: PT consult Oncology consult Gentle IV fluids Trend troponin Cardiology consult Cardiac monitoring Continue Zofran when necessary Dietitian consult Continue with home medications once reconciled DVT prophylaxis: Xarelto The patient is admitted with an anticipated greater than 2 midnight stay for evaluation of debility CODE STATUS: Full Code Discussed with: Patient Anticipated discharge place: [facility] Past Medical History Past Medical History: Atrial Fibrillation, Cancer, Hypertension Additional Past Medical History / Comment(s): 02/28/23 pt diagnosed today with a pelvic mass that is cancerous History of Any Multi-Drug Resistant Organisms: None Reported Past Surgical History: No Surgical Hx Reported Past Anesthesia/Blood Transfusion Reactions: No Reported Reaction Past Psychological History: Anxiety Smoking Status: Never smoker Past Alcohol Use History: Rare Past Drug Use History: None Reported - Past Family History Brother(s) Family Medical History: Cancer, Diabetes Mellitus Additional Family Medical History / Comment(s): Colon cancer, at 58 Medications and Allergies Home Medications Medication Instructions Recorded Confirmed Type Propafenone [Rythmol] 150 mg PO Q8HR #90 tab 05/07/16 03/11/23 Rx Albuterol Inhaler [Ventolin Hfa 2 puff INHALATION RT-Q6H PRN #1 06/26/20 03/11/23 Rx Inhaler] puff Nystatin 100,000 Unit/gm Powd 1 applic TOPICAL BID PRN 02/14/23 03/11/23 History [Mycostatin Powder] Ketorolac [Toradol] 10 mg PO Q6HR PRN #15 tab 02/21/23 03/11/23 Rx ondansetron HCL [Zofran] 8 mg PO Q8HR PRN 02/23/23 03/11/23 History Acetaminophen Tab [Tylenol] 650 mg PO Q6HR PRN #60 tab 02/27/23 03/11/23 Rx Morphine Sulfate Ir [MSIR] 15 mg PO Q3H PRN 3 Days #24 tab 02/27/23 03/11/23 Rx Prochlorperazine [Compazine] 5 mg PO Q6HR PRN 02/28/23 03/11/23 History Rivaroxaban [Xarelto] 20 mg PO DAILY 02/28/23 03/11/23 History Furosemide [Lasix] 20 mg PO BID@0900,1600 PRN 30 Days 03/12/23 03/11/23 Rx #60 tab Metoprolol Tartrate [Lopressor] 12.5 mg PO BID 30 Days #60 tab 03/12/23 03/11/23 Rx Potassium Chloride [Klor-Con 20 20 meq PO DAILY #30 packet 03/12/23 Rx Packets] Sennosides/Docusate Sodium [Senna 2 each PO BID #120 tablet 03/12/23 Rx Plus 8.6-50 mg Tablet] Allergies Allergy/AdvReac Type Severity Reaction Status Date / Time sulfamethoxazole AdvReac Nausea & Verified 04/11/23 01:04 [From Bactrim] Vomiting & Diarrhea trimethoprim [From Bactrim] AdvReac Nausea & Verified 04/11/23 01:04 Vomiting & Diarrhea Physical Exam Vitals: Vital Signs Pulse Resp BP Pulse Ox 04/11/23 03:34 92 18 124/70 95 04/11/23 02:32 88 16 121/69 97 04/11/23 01:04 89 L 04/11/23 00:54 86 16 115/63 Intake and Output 04/10/23 04/10/23 04/11/23 14:59 22:59 06:59 Other: Weight 68.039 kg Results CBC & Chem 7: 04/11/23 02:14 04/11/23 02:14 Labs: Abnormal Lab Results - Last 24 Hours (Table) 04/11/23 04/11/23 04/11/23 Range/Units 02:14 02:14 02:14 WBC 15.6 H (3.8-10.6) k/uL RBC 3.68 L (3.80-5.40) m/uL Hgb 10.4 L (11.4-16.0) gm/dL Hct 31.9 L (34.0-46.0) % Plt Count 140 L D (150-450) k/uL Neutrophils # 13.8 H (1.3-7.7) k/uL Lymphocytes # 0.4 L (1.0-4.8) k/uL PT 20.9 H (10.0-12.5) sec INR 2.1 H (<1.2) Sodium 131 L (137-145) mmol/L Potassium 3.1 L (3.5-5.1) mmol/L Chloride 96 L (98-107) mmol/L Carbon Dioxide 32 H (22-30) mmol/L Creatinine 0.46 L (0.52-1.04) mg/dL Total Bilirubin 1.5 H (0.2-1.3) mg/dL Alkaline Phosphatase 176 H (38-126) U/L Troponin I (0.000-0.034) ng/mL Total Protein 5.9 L (6.3-8.2) g/dL Albumin 2.3 L (3.5-5.0) g/dL 04/11/23 Range/Units 02:14 WBC (3.8-10.6) k/uL RBC (3.80-5.40) m/uL Hgb (11.4-16.0) gm/dL Hct (34.0-46.0) % Plt Count (150-450) k/uL Neutrophils # (1.3-7.7) k/uL Lymphocytes # (1.0-4.8) k/uL PT (10.0-12.5) sec INR (<1.2) Sodium (137-145) mmol/L Potassium (3.5-5.1) mmol/L Chloride (98-107) mmol/L Carbon Dioxide (22-30) mmol/L Creatinine (0.52-1.04) mg/dL Total Bilirubin (0.2-1.3) mg/dL Alkaline Phosphatase (38-126) U/L Troponin I 0.200 H* (0.000-0.034) ng/mL Total Protein (6.3-8.2) g/dL Albumin (3.5-5.0) g/dL
[2023-04-11] MEDS: SODIUM CHLORIDE 0.9% 1,000 ML IV SCH ×3 (05:08→19:59)
--- NOTE | 2023-04-11 05:57 | XR ---
EXAM: XR Chest, 2 Views CLINICAL HISTORY: Weakness TECHNIQUE: Frontal and lateral views of the chest. COMPARISON: 02/28/2023. FINDINGS: Cardiomegaly. Pulmonary vessels are top normal size without gross CHF. Probable small right pleural effusion. No focal infiltrate. No pneumothorax. Bones are osteopenic. IMPRESSION: Pulmonary vessels top normal caliber without gross CHF. Small probable right pleural effusion.
[2023-04-11] MEDS ORDERED: ALBUTEROL NEBULIZED 2.5 MG/3 ML INHALATION PRN (08:26)
[2023-04-11] MEDS ORDERED: ACETAMINOPHEN TAB 325 MG TAB PO PRN (08:26)
[2023-04-11] MEDS: RIVAROXABAN 20 MG TAB PO SCH (08:46)
[2023-04-11] MEDS: METOPROLOL TARTRATE 12.5 MG TAB PO SCH ×2 (08:47→20:00)
--- NOTE | 2023-04-11 09:24 | P.CRDCN ---
History of Present Illness History of present illness: HISTORY OF PRESENT ILLNESS: This is a 78-year-old female with a past medical history significant for gynecological squamous cell carcinoma, atrial fibrillation, congestive heart failure, and hypertension. Patient follows in the office with Dr. Hand. We have been asked to see the patient in consultation for elevated troponin. Patient examined at the bedside in the emergency room. Patient presented to the hospital with a chief complaint of generalized weakness. She also reports decreased appetite along with nausea and vomiting. She denies any chest pain or pressure. She denies any shortness of breath. * EKG reveals sinus mechanism with T-wave inversions in V1V6 and lead 3 and aVF * Chest xray small probable right pleural effusion * Laboratory data: Troponin 0.200. 0.192. * Most recent echocardiogram obtained in February 2023 revealed ejection fraction 55-60%, trace MR, mild TR, mild aortic stenosis * Patient underwent Lexiscan stress test in February 2023 which was negative for ischemia REVIEW OF SYSTEMS: At the time of my exam: CONSTITUTIONAL: Denies fever or chills. HEENT: Denies blurred vision, vision changes, or eye pain. Denies hemoptysis CARDIOVASCULAR: Denies chest pain. Denies orthopnea. Denies PND. Denies palpitations RESPIRATORY: Denies shortness of breath. GASTROINTESTINAL: Denies abdominal pain. Denies nausea or vomiting. HEMATOLOGIC: Denies bleeding disorders. GENITOURINARY: Denies any blood in urine. SKIN: Denies pruitis. Denies rash. PHYSICAL EXAM: VITAL SIGNS: Reviewed. GENERAL: Well-developed in no acute distress. HEENT: Head is normocephalic. Pupils are equal, round. Sclerae anicteric. Mucous membranes of the mouth are moist. Neck supple. No JVD or thyromegaly LUNGS: Respirations even and unlabored. Lungs essentially clear to auscultation bilaterally. HEART: Regular rate and rhythm. S1 and S2 heard. ABDOMEN: Soft. Nondistended. Nontender. EXTREMITIES: Normal range of motion. No clubbing or cyanosis. Peripheral pulses intact. No lower extremity edema NEUROLOGIC: Awake and alert. Oriented x 3. ASSESSMENT: Generalized weakness Nausea and vomiting Decreased oral intake Chronically elevated troponins, no evidence of acute coronary syndrome History of gynecological squamous cell carcinoma Paroxysmal atrial fibrillation Congestive heart failure with preserved EF, currently euvolemic History of hypertension PLAN: Patient with chronically elevated troponins and no symptoms of chest pain, pressure, or shortness of breath No need to repeat further troponin levels No need to repeat echocardiogram as this was performed in February 2023 Patient had negative stress test in February 2023 Cardiology will sign off at this time. Please reconsult if needed. Nurse practitioner note has been reviewed by physician. Signing provider agrees with the documented findings, assessment, and plan of care. Past Medical History Past Medical History: Atrial Fibrillation, Cancer, Hypertension Additional Past Medical History / Comment(s): 02/28/23 pt diagnosed today with a pelvic mass that is cancerous History of Any Multi-Drug Resistant Organisms: None Reported Past Surgical History: No Surgical Hx Reported Past Anesthesia/Blood Transfusion Reactions: No Reported Reaction Past Psychological History: Anxiety Smoking Status: Never smoker Past Alcohol Use History: Rare Past Drug Use History: None Reported - Past Family History Brother(s) Family Medical History: Cancer, Diabetes Mellitus Additional Family Medical History / Comment(s): Colon cancer, at 58 Medications and Allergies Home Medications Medication Instructions Recorded Confirmed Type Propafenone [Rythmol] 150 mg PO Q8HR #90 tab 05/07/16 04/11/23 Rx Albuterol Inhaler [Ventolin Hfa 2 puff INHALATION RT-Q6H PRN #1 06/26/20 04/11/23 Rx Inhaler] puff Nystatin 100,000 Unit/gm Powd 1 applic TOPICAL BID PRN 02/14/23 04/11/23 History [Mycostatin Powder] Ketorolac [Toradol] 10 mg PO Q6HR PRN #15 tab 02/21/23 04/11/23 Rx ondansetron HCL [Zofran] 8 mg PO Q8HR PRN 02/23/23 04/11/23 History Acetaminophen Tab [Tylenol] 650 mg PO Q6HR PRN #60 tab 02/27/23 04/11/23 Rx Morphine Sulfate Ir [MSIR] 15 mg PO Q3H PRN 3 Days #24 tab 02/27/23 04/11/23 Rx Prochlorperazine [Compazine] 5 mg PO Q6HR PRN 02/28/23 04/11/23 History Rivaroxaban [Xarelto] 20 mg PO DAILY 02/28/23 04/11/23 History Furosemide [Lasix] 20 mg PO BID@0900,1600 PRN 30 Days 03/12/23 04/11/23 Rx #60 tab Metoprolol Tartrate [Lopressor] 12.5 mg PO BID 30 Days #60 tab 03/12/23 04/11/23 Rx Potassium Chloride [Klor-Con 20 20 meq PO DAILY #30 packet 03/12/23 04/11/23 Rx Packets] Sennosides/Docusate Sodium [Senna 1 - 2 tab PO BID PRN 04/11/23 04/11/23 History Plus 8.6-50 mg Tablet] oxyCODONE HCL [oxyCODONE HCL (IR)] 5 - 10 mg PO Q4H PRN 04/11/23 04/11/23 History traZODone HCL [Desyrel] 50 mg PO HS 04/11/23 04/11/23 History Allergies Allergy/AdvReac Type Severity Reaction Status Date / Time sulfamethoxazole AdvReac Nausea & Verified 04/11/23 08:01 [From Bactrim] Vomiting & Diarrhea trimethoprim [From Bactrim] AdvReac Nausea & Verified 04/11/23 08:01 Vomiting & Diarrhea Physical Exam Vitals: Vital Signs Pulse Resp BP Pulse Ox 04/11/23 05:00 95 12 116/63 95 04/11/23 03:34 92 18 124/70 95 04/11/23 02:32 88 16 121/69 97 04/11/23 01:04 89 L 04/11/23 00:54 86 16 115/63 Intake and Output 04/10/23 04/11/23 04/11/23 22:59 06:59 14:59 Other: Weight 68.039 kg Results 04/11/23 02:14 04/11/23 02:14 Cardiac Enzymes 04/11/23 04/11/23 Range/Units 02:14 02:14 AST 16 (14-36) U/L Troponin I 0.200 H* (0.000-0.034) ng/mL Coagulation 04/11/23 Range/Units 02:14 PT 20.9 H (10.0-12.5) sec APTT 25.5 (22.0-30.0) sec CBC 04/11/23 Range/Units 02:14 WBC 15.6 H (3.8-10.6) k/uL RBC 3.68 L (3.80-5.40) m/uL Hgb 10.4 L (11.4-16.0) gm/dL Hct 31.9 L (34.0-46.0) % Plt Count 140 L D (150-450) k/uL Comprehensive Metabolic Panel 04/11/23 Range/Units 02:14 Sodium 131 L (137-145) mmol/L Potassium 3.1 L (3.5-5.1) mmol/L Chloride 96 L (98-107) mmol/L Carbon Dioxide 32 H (22-30) mmol/L BUN 16 (7-17) mg/dL Creatinine 0.46 L (0.52-1.04) mg/dL Glucose 95 (74-99) mg/dL Calcium 8.8 (8.4-10.2) mg/dL AST 16 (14-36) U/L ALT 9 (4-34) U/L Alkaline Phosphatase 176 H (38-126) U/L Total Protein 5.9 L (6.3-8.2) g/dL Albumin 2.3 L (3.5-5.0) g/dL Current Medications Generic Name Dose Route Start Last Admin Trade Name Freq PRN Reason Stop Dose Admin Hydromorphone HCl 0.5 mg 04/11/23 04:34 Hydromorphone 0.5 Mg/0.5 Ml Syringe IVP Q3HR PRN Moderate Pain (Scale 4 to 6) Hydromorphone HCl 1 mg 04/11/23 04:34 Hydromorphone 1 Mg/Ml 1 Ml Syringe IVP Q3HR PRN Severe Pain (Scale 7 to 10) Sodium Chloride 1,000 mls @ 50 mls/hr 04/11/23 04:45 04/11/23 05:08 Saline 0.9% IV 50 mls/hr .Q20H DICK Administration Naloxone HCl 0.2 mg 04/11/23 04:34 Naloxone 0.4 Mg/Ml 1 Ml Vial IV Q2M PRN Opioid Reversal Ondansetron HCl 4 mg 04/11/23 04:34 Ondansetron 4 Mg/2 Ml Vial IVP Q8HR PRN Nausea And Vomiting Intake and Output 04/10/23 04/11/23 04/11/23 22:59 06:59 14:59 Other: Weight 68.039 kg 04/11/23 02:14 04/11/23 02:14
--- NOTE | 2023-04-11 12:30 | P.PN ---
Progress Note - Text Progress Note Date: 04/11/23 Patient was seen. She reports generalized weakness, intermittent N/V since starting radiation therapy. Difficulty ambulating at home and taking care of ADL and IADLs as a result. I agree with the assessment and plan done by my colleague. Please refer to H&P for todays full note. Generalized weakness due to dehydration due to persistent N/V: NS at 100 cc/hr. Zofran 4 mg IV Q8H PRN for N/V. Fall precautions. PT and OT consult. Hypochloremic metabolic alkalosis: Hopeful improvement with IV hydration. Hyponatremia: Hopeful improvement with IV hydration. Hypokalemia: Total of KCl 40 meq PO. Elevated troponin: Trend Trop/EKG to rule out ACS. Recent Lexiscan 03/03/23 negative. Telemetry monitoring. Cardiology consult. Leukocytosis: Possibly reactive. No signs of active infection. Monitor fever profile. Normocytic anemia: At baseline. No signs of active bleeding. Trend. Thrombocytopenia: No signs of active bleeding. Trend. Chronic conditions: SCC, A-Fib, Diastolic CHF, HTN
[2023-04-11] MEDS ORDERED: PROPAFENONE 150 MG TAB PO SCH (16:00)
[2023-04-11 17:15] LABS: Amorphous Sediment,Urine Rare /hpf; Appearance,Urine Turbid (Clear); Bacteria,Urine Rare /hpf; Bilirubin,Urine 1+ (Negative); Blood,Urine Negative (Negative); Color,Urine Yellow; Glucose,Urine (UA) Negative (Negative); Ketones,Urine 1+ (Negative); Leukocyte Esterase,Urine Large (Negative); Nitrite,Urine Negative (Negative); PH, Urine 5.5 (5.0-8.0); Protein,Urine 1+ (Negative); RBC,Urine 2 /hpf (0-5); Specific Gravity,Urine 1.029 (1.001-1.035); Squamous Epithelial Cell,Urine 3 /hpf (0-4); WBC,Urine 54 /hpf (0-5)
[2023-04-11 17:56] LABS: Glucose,Whole Blood 116 mg/dL (70-110)
[2023-04-11] MEDS ORDERED: SODIUM CHLORIDE 0.9% 1,000 ML IV ONE (18:01)
[2023-04-11] MEDS ORDERED: DEXTROSE 5% IN WATER 100 ML with AMIODARONE 150 MG IV ONE (18:50)
[2023-04-11] MEDS ORDERED: AMIODARONE 360 MG in DEXTROSE 5% IN WATER 200 ML IV ONE ×2 (19:00)
--- NOTE | 2023-04-11 20:19 | P.CONS ---
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 Castellon, initial consult at [facility] 02/19/23, came to ER with c/o worsening right hip and right groin pain over pre vious 4-6 weeks. She did come to the ER with similar complaint on 02/14/23 at which time she had CT AP which showed asymmetric thickening of the right obturator internal muscle with mild fat stranding, that was extending to the lateral right adnexa right external iliac chain, mesenteric retroperitoneal right iliac chain and right inguinal adenopathy. She was discharged from the ER with plans for work up outpt, but came back because of worsening symptoms before outpatient workup could be done. MRI, confirmed findings consistent with neoplasm involving the right hemipelvis including abnormal marrow signal in the right hemipelvis and soft tissue medial to the right acetabulum. There was also right iliac and inguinal adenopathy. CT chest did not show any pulmonary nodules or adenopathy. Bone scan showed metastatic uptake in the right hemipelvis, L5 and posterior calvarium. Biopsy with IR on 02/21/23, discharged on pain medications. Biopsy positive for squamous cell carcinoma, p40 and p16 positive. Primary sites were felt to include vulva, vagina and cervix. Pt denied any prior mammograms, Pap smears or colonoscopy. She denied any vaginal bleeding or urinary symptoms. She was seen for first office visit on 03/10/23. She is a never smoker. Staging PET showed uptake adjacent to the scapula, pretracheal and paraesophageal lymph nodes as well as at the apex of the left ventricle. There was retrocaval and periaortic adenopathy, iliac and inguinal adenopathy, as well as uptake in the inferior right scapula versus within the subscapularis muscle in this area. There was also uptake in the right iliac wing right acetabulum. Diagnosis, prognosis and recommendations for treatment were discussed at visit on 03/10. Recommendation was for palliative radiation for malignancy related pain and evaluation by [facility] for treatment recommendations. She completed 5 fractions of palliative RT to right pelvis with Dr. Palma at [facility]. Referral was placed to ENVIRONMENTAL CONTROL ADMINISTRATOR oncology observation, for a comprehensive examination to try to localize a primary site, since, as noted above, this could have implications for treatment options and prognosis. It would also be very helpful to get their opinion regarding the treatment options and collaborate with them. The patient and her wanted referred to ENVIRONMENTAL CONTROL ADMINISTRATOR oncology at [facility], and the same was placed, however pt missed apt yesterday due to hospilization. She also has f/u scheduled with ENVIRONMENTAL CONTROL ADMINISTRATOR, Dr. Barrera next week. Patient presented to the emergency room with complaints of nausea vomiting, anorexia, generalized weakness and fatigue. Patient states was unable to keep fluids and food down and symptoms were progressing which caused her to present to the emergency room for further evaluation. Upon admission sodium noted at 131, potassium 3.1. CBC revealed WBC 15.6, hemoglobin 10.4, platelets 140,000. Creatinine 0.46, GFR >90. BUN/creatinine ratio 35. BNP elevated at 10,600. Trops elevated, cardiology consulted. UA positive for leukocytes. Urine culture pending. Chest x-ray revealed pulmonary vessels top normal caliber without gross CHF. Small right pleural effusion. Patient has been afebrile. At tod ay's visit patient is reporting persisting generalized weakness and fatigue. Vomiting has resolved, but is reporting headache today. Review of Systems 10 point ROS is negative except as stated in HPI Past Medical History Past Medical History: Atrial Fibrillation, Cancer, Hypertension Additional Past Medical History / Comment(s): 02/28/23 pt diagnosed today with a pelvic mass that is cancerous History of Any Multi-Drug Resistant Organisms: None Reported Past Surgical History: No Surgical Hx Reported Past Anesthesia/Blood Transfusion Reactions: No Reported Reaction Past Psychological History: Anxiety Smoking Status: Never smoker Past Alcohol Use History: Rare Past Drug Use History: None Reported - Past Family History Brother(s) Family Medical History: Cancer, Diabetes Mellitus Additional Family Medical History / Comment(s): Colon cancer, at 58 Medications and Allergies Home Medications Medication Instructions Recorded Confirmed Type Propafenone [Rythmol] 150 mg PO Q8HR #90 tab 05/07/16 04/11/23 Rx Albuterol Inhaler [Ventolin Hfa 2 puff INHALATION RT-Q6H PRN #1 06/26/20 4 Rx Inhaler] puff Nystatin 100,000 Unit/gm Powd 1 applic TOPICAL BID PRN 02/14/23 04/11/23 History [Mycostatin Powder] Ketorolac [Toradol] 10 mg PO Q6HR PRN #15 tab 02/21/23 04/11/23 Rx ondansetron HCL [Zofran] 8 mg PO Q8HR PRN 02/23/23 04/11/23 History Acetaminophen Tab [Tylenol] 650 mg PO Q6HR PRN #60 tab 02/27/23 04/11/23 Rx Morphine Sulfate Ir [MSIR] 15 mg PO Q3H PRN 3 Days #24 tab 02/27/23 04/11/23 Rx Prochlorperazine [Compazine] 5 mg PO Q6HR PRN 02/28/23 04/11/23 History Rivaroxaban [Xarelto] 20 mg PO DAILY 02/28/23 04/11/23 History Furosemide [Lasix] 20 mg PO BID@0900,1600 PRN 30 Days 03/12/23 04/11/23 Rx #60 tab Metoprolol Tartrate [Lopressor] 12.5 mg PO BID 30 Days #60 tab 03/12/23 04/11/23 Rx Potassium Chloride [Klor-Con 20 20 meq PO DAILY #30 packet 03/12/23 04/11/23 Rx Packets] Sennosides/Docusate Sodium [Senna 1 - 2 tab PO BID PRN 04/11/23 04/11/23 History Plus 8.6-50 mg Tablet] oxyCODONE HCL [oxyCODONE HCL (IR)] 5 - 10 mg PO Q4H PRN 04/11/23 04/11/23 History traZODone HCL [Desyrel] 50 mg PO HS 04/11/23 04/11/23 History Allergies Allergy/AdvReac Type Severity Reaction Status Date / Time sulfamethoxazole AdvReac Nausea & Verified 04/11/23 08:01 [From Bactrim] Vomiting & Diarrhea trimethoprim [From Bactrim] AdvReac Nausea & Verified 04/11/23 08:01 Vomiting & Diarrhea Physical Exam Vitals: Vital Signs Pulse Resp BP Pulse Ox 04/11/23 12:03 96 04/11/23 11:00 119/64 95 04/11/23 10:00 118/64 95 04/11/23 09:00 114/58 94 L 04/11/23 08:45 89 16 114/58 95 04/11/23 08:00 124/65 96 04/11/23 07:00 124/65 95 04/11/23 05:00 95 12 116/63 95 04/11/23 03:34 92 18 124/70 95 04/11/23 02:32 88 16 121/69 97 04/11/23 01:04 89 L 04/11/23 00:54 86 16 115/63 Intake and Output 04/10/23 04/11/23 04/11/23 22:59 06:59 14:59 Other: Weight 68.039 kg - Constitutional General appearance: average body habitus, no acute distress - EENT Eyes: anicteric sclerae, EOMI ENT: hearing grossly normal - Respiratory Respiratory: bilateral: CTA - Cardiovascular Rhythm: regular Heart sounds: normal: S1, S2 - Gastrointestinal General gastrointestinal: soft, no tenderness - Integumentary Integumentary: no cyanotic, no jaundiced - Neurologic grossly intact - Musculoskeletal Musculoskeletal: generalized weakness - Psychiatric depressed mood Psychiatric: A&O x's 3 Results CBC & Chem 7: 04/11/23 02:14 04/11/23 02:14 Labs: Abnormal Lab Results - Last 24 Hours (Table) 04/11/23 04/11/23 04/11/23 Range/Units 02:14 02:14 02:14 WBC 15.6 H (3.8-10.6) k/uL RBC 3.68 L (3.80-5.40) m/uL Hgb 10.4 L (11.4-16.0) gm/dL Hct 31.9 L (34.0-46.0) % Plt Count 140 L D (150-450) k/uL Neutrophils # 13.8 H (1.3-7.7) k/uL Lymphocytes # 0.4 L (1.0-4.8) k/uL PT 20.9 H (10.0-12.5) sec INR 2.1 H (<1.2) Sodium 131 L (137-145) mmol/L Potassium 3.1 L (3.5-5.1) mmol/L Chloride 96 L (98-107) mmol/L Carbon Dioxide 32 H (22-30) mmol/L Creatinine 0.46 L (0.52-1.04) mg/dL Total Bilirubin 1.5 H (0.2-1.3) mg/dL Alkaline Phosphatase 176 H (38-126) U/L Troponin I (0.000-0.034) ng/mL Total Protein 5.9 L (6.3-8.2) g/dL Albumin 2.3 L (3.5-5.0) g/dL 04/11/23 04/11/23 Range/Units 02:14 07:17 WBC (3.8-10.6) k/uL RBC (3.80-5.40) m/uL Hgb (11.4-16.0) gm/dL Hct (34.0-46.0) % Plt Count (150-450) k/uL Neutrophils # (1.3-7.7) k/uL Lymphocytes # (1.0-4.8) k/uL PT (10.0-12.5) sec INR (<1.2) Sodium (137-145) mmol/L Potassium (3.5-5.1) mmol/L Chloride (98-107) mmol/L Carbon Dioxide (22-30) mmol/L Creatinine (0.52-1.04) mg/dL Total Bilirubin (0.2-1.3) mg/dL Alkaline Phosphatase (38-126) U/L Troponin I 0.200 H* 0.192 H* (0.000-0.034) ng/mL Total Protein (6.3-8.2) g/dL Albumin (3.5-5.0) g/dL Chest x-ray: report reviewed Assessment and Plan (1) Generalized weakness Current Visit: Yes Status: Acute Priority: High Code(s): R53.1 - WEAKNESS SNOMED Code(s): 69509230 (2) Squamous cell carcinoma, metastatic Current Visit: Yes Status: Acute Priority: High Code(s): UYY4591 - SNOMED Code(s): 280675968 (3) Dehydration Current Visit: Yes Status: Acute Priority: High Code(s): E86.0 - DEHYDRATION SNOMED Code(s): 82091858 Plan: Weakness/dehydration: -Presented with n/v, decreased oral intake and weakness. 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 Biopsy positive for squamous cell carcinoma, p40 and p16 positive. Primary sites were felt to include vulva, vagina and cervix. -Pt seen in office 03/10/23 for 1st visit. Referrals made to Rad Onc at [facility], completed 5 fractions of palliative RT to right pelvis with Dr. Palma. Referral to [facility] at [facility] was placed, however pt missed appt due to hospitalization, will need to reschedule. Also has upcoming appt with ENVIRONMENTAL CONTROL ADMINISTRATOR, Dr. Barrera next week -Patient has poor performance status, her prognosis is guarded. No further workup needed during this hospitalization, will need to f/u with ENVIRONMENTAL CONTROL ADMINISTRATOR ONC upon discharge for further evaluation/recommendations attests: I have seen and examined pt, performed H&P, developed impression and plan of care. Discussed with dictator. Agree with documentation, dictated as a scribe.
[2023-04-11 20:26] LABS: Glucose,Whole Blood 117 mg/dL (70-110)
[2023-04-11 21:04] LABS: African American GFR (CKD) >90 (>60 ml/min/1.73 sqM); Anion Gap 6 mmol/L; Blood Urea Nitrogen 21 mg/dL (7-17); Calcium 8.7 mg/dL (8.4-10.2); Carbon Dioxide 24 mmol/L (22-30); Chloride 102 mmol/L (98-107); Glucose 117 mg/dL (74-99); Magnesium 1.8 mg/dL (1.6-2.3); Non-African American GFR(CKD) 89 (>60 ml/min/1.73 sqM); Potassium 3.7 mmol/L (3.5-5.1); Sodium 132 mmol/L (137-145)
[2023-04-11] MEDS: traZODone HCL 50 MG TAB PO SCH (22:55)
[2023-04-12] MEDS: AMIODARONE 450 MG in DEXTROSE 5% IN WATER 250 ML IV SCH ×4 (00:55→15:01)
[2023-04-12] MEDS: SODIUM CHLORIDE 0.9% 1,000 ML IV SCH ×2 (04:27→11:15)
[2023-04-12 06:04] LABS: Glucose,Whole Blood 105 mg/dL (70-110)
[2023-04-12] MEDS: METOPROLOL TARTRATE 12.5 MG TAB PO SCH (07:52)
[2023-04-12] MEDS: RIVAROXABAN 20 MG TAB PO SCH (07:52)
--- NOTE | 2023-04-12 10:50 | P.PN ---
Subjective Progress Note Date: 04/12/23 Patient is a 78-year-old female with a PMH of recently diagnosed gynecological squamous cell carcinoma (following with Dr Castellon, receiving radiation), A. fib on Xarelto, diastolic CHF, and hypertension who presents to the emergency room with complaints of anorexia and generalized weakness. Patient notes that over the past 2-3 months, she has had minimal appetite due to persistent nausea and vomiting. She reports minimal solid food intake as a result and has been getting progressively weaker. Notes that earlier today, she was unable to stand up on her own even with assistive devices, which prompted her to come to the emergency room. She denied experiencing urinary complaints, fever, cough, chest discomfort, shortness of breath, abdominal pain, diarrhea. Chest x-ray in the emergency room was unremarkable as reviewed by me. Laboratory evaluation revealed leukocytosis of 15.6, platelet count 140, sodium 131, potassium 3.1, chloride 96, troponin 0.2, proBNP 10,600, T bili 1.5. Started on IV hydration and admitted for further management and workup. Troponin trended at 0.2, 0.192, 0.226. Cardiology consulted, recent stress test 02/2023 negative, no further workup. A-team called on 04/11 for lethargy, found to be hypotensive with SBP < 80 and HR in the 160s. EKG showed A-Fib with RVR. 1L NS bolus ordered and started on Amiodarone drip, transferred to . Started on Rocephin 2g IV QD as she met sepsis criteria (hypotension, tachycardia, leukocytosis, + UA). 04/12 Patient was seen and examined. Feeling fatigues. Complains of headache. Heart rate in the 70s. Prelim blood cultures + Enterobacterales gram negative bacteria. She was started on Rocephin 2g IV QD yesterday. Currently on Amiodarone drip at 0.5 mg/min. BMP Na 132, K 3.7, BUN 21, glu 117. Mag 1.8. General: non toxic, no distress, appears older than stated age, normal weight Derm: no unusual rashes/lesions, warm Head: atraumatic, normocephalic, symmetric Eyes: EOMI, no lid lag, anicteric sclera ENT: Nose and ears atraumatic Neck: No cervical lymphadenopathy, trachea midline, supple Cardiovascular: Normal S1 S2, no murmur Lungs: CTA bilateral, no rhonchi, no rales, no accessory muscle use Abdominal: soft, nontender to palpation, no guarding Ext: no gross muscle atrophy, no contractures Neuro: no gross focal neuro deficits Psych: Alert, oriented, appropriate affect Based on my assessment of this patient, this patient meets a high complexity level of care. Patient has an acute diagnosis of Sepsis with Enterobacterales bacteremia that poses a threat to life or bodily function. Found to be in A-Fib RVR. Sepsis with Enterobacterales bacteremia: Likley urinary source. Rocephin 2g IV QD (D2). Repeat BCx. Follow UCx. NS at 100 cc/hr. Telemetry monitoring. ID consult. Atrial fibrillation with RVR: Metoprolol 12.5 mg PO BID. Started on Amiodarone drip yesterday running at 0.5 mg/min. Xarelto 20 mg PO QD for AC. Cardiology re- consulted. Generalized weakness due to above: NS at 100 cc/hr. Zofran 4 mg IV Q8H PRN for N/V. Fall precautions. PT and OT consult. Hyponatremia: Hopeful improvement with IV hydration. Elevated troponin: Chronically elevated. Recent Lexiscan 03/03/23 negative. Telemetry monitoring. Cardiology recommends no further workup. Normocytic anemia: At baseline. No signs of active bleeding. Trend. Thrombocytopenia: No signs of active bleeding. Possibly reactive due to infection. Trend. Resolved: Hypochloremic metabolic alkalosis. Hypokalemia Chronic conditions: SCC, A-Fib, Diastolic CHF, HTN CODE STATUS: FULL CODE DVT Prophylaxis: Xarelto. GI Prophylaxis: Designated medical POA if patient is not able to make medical decisions for themselves: I have reviewed the following [employer]an sales consultant notes: I have reviewed the results of the following tests: BMP. Trop. BCx. I have ordered the following tests: CBC and BMP. Repeat BCx. I have discussed the care of this patient with the following independent historian: I have independently interpreted the following test below: EKG as above. I have discussed the management of this patient with the following physician: Objective - Vital Signs Vital signs: Vital Signs Temp 98.5 F 04/12/23 04:00 Pulse 160 H 04/12/23 04:00 Resp 18 04/12/23 04:00 BP 100/67 04/12/23 06:11 Pulse Ox 96 04/12/23 07:49 FiO2 Intake & Output 04/11/23 04/12/23 04/12/23 18:59 06:59 18:59 Intake Total 240 Output Total 400 Balance -160 Weight 68.039 kg Intake: Oral 240 Output: Urine 400 Other: Voiding Method Diaper Incontinent External Catheter # Voids 1 - Labs CBC & Chem 7: 04/11/23 02:14 04/11/23 20:28 Labs: Abnormal Lab Results - Last 24 Hours (Table) 04/11/23 04/11/23 04/11/23 Range/Units 07:17 16:32 17:54 Sodium (137-145) mmol/L BUN (7-17) mg/dL Glucose (74-99) mg/dL POC Glucose (mg/dL) 116 H (70-110) mg/dL Troponin I 0.192 H* (0.000-0.034) ng/mL Urine Appearance Turbid H (Clear) Urine Protein 1+ H (Negative) Urine Ketones 1+ H (Negative) Urine Bilirubin 1+ H (Negative) Ur Leukocyte Esterase Large H (Negative) Urine WBC 54 H (0-5) /hpf Amorphous Sediment Rare H (None) /hpf Urine Bacteria Rare H (None) /hpf 04/11/23 04/11/23 04/11/23 Range/Units 20:25 20:28 20:28 Sodium 132 L (137-145) mmol/L BUN 21 H (7-17) mg/dL Glucose 117 H (74-99) mg/dL POC Glucose (mg/dL) 117 H (70-110) mg/dL Troponin I 0.226 H* (0.000-0.034) ng/mL Urine Appearance (Clear) Urine Protein (Negative) Urine Ketones (Negative) Urine Bilirubin (Negative) Ur Leukocyte Esterase (Negative) Urine WBC (0-5) /hpf Amorphous Sediment (None) /hpf Urine Bacteria (None) /hpf Microbiology - Last 24 Hours (Table) 04/11/23 07:17 Blood Culture Gram Stain - Preliminary Blood
[2023-04-12 11:41] LABS: Glucose,Whole Blood 110 mg/dL (70-110)
[2023-04-12] MEDS ORDERED: VANCOMYCIN IV PER PHARMACY 1 EACH MISC MISCELLANE PRN (14:40)
[2023-04-12] MEDS ORDERED: VANCOMYCIN 1,250 MG in SODIUM CHLORIDE 0.9% 250 ML IVPB STA (14:49)
--- NOTE | 2023-04-12 20:16 | P.PN ---
Subjective Progress Note Date: 04/12/23 Progress note It was noticed that patient went into atrial fibrillation and then converted out spontaneously. She was previously placed on Cardizem drip. At this time when I evaluated the patient she was not in atrial fibrillation and was in sinus rhythm. HISTORY OF PRESENT ILLNESS: This is a 78-year-old female with a past medical history significant for gynecological squamous cell carcinoma, atrial fibrillation, congestive heart failure, and hypertension. Patient follows in the office with Dr. Hand. We have been asked to see the patient in consultation for elevated troponin. Patient examined at the bedside in the emergency room. Patient presented to the hospital with a chief complaint of generalized weakness. She also reports decreased appetite along with nausea and vomiting. She denies any chest pain or pressure. She denies any shortness of breath. * EKG reveals sinus mechanism with T-wave inversions in V1V6 and lead 3 and aVF * Chest xray small probable right pleural effusion * Laboratory data: Troponin 0.200. 0.192. * Most recent echocardiogram obtained in February 2023 revealed ejection fraction 55-60%, trace MR, mild TR, mild aortic stenosis * Patient underwent Lexiscan stress test in February 2023 which was negative for ischemia REVIEW OF SYSTEMS: At the time of my exam: CONSTITUTIONAL: Denies fever or chills. HEENT: Denies blurred vision, vision changes, or eye pain. Denies hemoptysis CARDIOVASCULAR: Denies chest pain. Denies orthopnea. Denies PND. Denies palpitations RESPIRATORY: Denies shortness of breath. GASTROINTESTINAL: Denies abdominal pain. Denies nausea or vomiting. HEMATOLOGIC: Denies bleeding disorders. GENITOURINARY: Denies any blood in urine. SKIN: Denies pruitis. Denies rash. PHYSICAL EXAM: VITAL SIGNS: Reviewed. GENERAL: Well-developed in no acute distress. HEENT: Head is normocephalic. Pupils are equal, round. Sclerae anicteric. Mucous membranes of the mouth are moist. Neck supple. No JVD or thyromegaly LUNGS: Respirations even and unlabored. Lungs essentially clear to auscultation bilaterally. HEART: Regular rate and rhythm. S1 and S2 heard. ABDOMEN: Soft. Nondistended. Nontender. EXTREMITIES: Normal range of motion. No clubbing or cyanosis. Peripheral pulses intact. No lower extremity edema NEUROLOGIC: Awake and alert. Oriented x 3. ASSESSMENT: Generalized weakness Nausea and vomiting Decreased oral intake Chronically elevated troponins, no evidence of acute coronary syndrome History of gynecological squamous cell carcinoma Paroxysmal atrial fibrillation Congestive heart failure with preserved EF, currently euvolemic History of hypertension PLAN: Increase metoprolol to 25 mg twice a day Continue Xarelto Outpatient follow-up with primary conventions assistant Dr. Hand to see if she would benefit from her rhythm control strategy with flecainide. Maybe consider of 15 day with 30 day event monitor at the time of discharge to evaluate how much atrial fibrillation burden that she has. No need to repeat echocardiogram as this was performed in February 2023 Patient had negative stress test in February 2023 Cardiology will sign off at this time. Please reconsult if needed. Objective - Vital Signs Vital signs: Vital Signs Temp 98 F 04/12/23 15:39 Pulse 75 04/12/23 15:39 Resp 18 04/12/23 15:39 BP 117/63 04/12/23 15:39 Pulse Ox 96 04/12/23 15:39 FiO2 Intake & Output 04/12/23 04/12/23 04/13/23 06:59 18:59 06:59 Intake Total 240 475.005 Output Total 400 300 Balance -160 175.005 Weight 68.039 kg 68.039 kg Intake: Intake, IV Titration 235.005 Amount Amiodarone 450 mg In 235.005 Dextrose 5% in Water 250 ml @ 0.5 MG/MIN 16.667 mls/hr IV .Q15H [facility] Rx#: [id number] Oral 240 240 Output: Urine 400 300 Other: Voiding Method Diaper Diaper Incontinent Incontinent External Catheter External Catheter # Voids 1 1 - Labs CBC & Chem 7: 04/11/23 02:14 04/11/23 20:28 Labs: Abnormal Lab Results - Last 24 Hours (Table) 04/11/23 04/11/23 04/11/23 Range/Units 20:25 20:28 20:28 Sodium 132 L (137-145) mmol/L BUN 21 H (7-17) mg/dL Glucose 117 H (74-99) mg/dL POC Glucose (mg/dL) 117 H (70-110) mg/dL Troponin I 0.226 H* (0.000-0.034) ng/mL Microbiology - Last 24 Hours (Table) 04/11/23 07:17 Blood Culture Gram Stain - Preliminary Blood 04/11/23 07:17 Blood Culture Gram Stain - Preliminary Blood
[2023-04-12] MEDS: traZODone HCL 50 MG TAB PO SCH (20:50)
[2023-04-13] MEDS: SODIUM CHLORIDE 0.9% 1,000 ML IV SCH ×2 (01:32→08:08)
--- NOTE | 2023-04-13 02:47 | P.CONS ---
History of Present Illness - Reason for Consult Consult date: 04/12/23 Bacteremia Requesting physician: Joaquin Casas - Chief Complaint Generalized weakness x few days - History of Present Illness Patient is a 78-year-old female with a past medical history significant for hypertension atrial fibrillation pelvic mass which is cancerous patient was brought into the hospital for evaluation of generalized weakness patient symptom has been progressively getting worse over the last few days before presentation to the hospital and did have difficulty in his activity of daily life and the patient has been noted was difficult for him to help her, the patient denies having any chest pain or shortness of breath but did have occasio nal cough not bring up any sputum some nausea but no vomiting no abdominal pain and no diarrhea has been reported on presentation to the hospital patient was afebrile and no fever has been recorded subsequently patient was not tachycardic or hypotensive patient was mildly hypoxic currently on 2 L nasal cannula oxygen patient did have white count of 15.6 with a left shift creatinine was 0.58 troponins are mildly elevated urine was positive with large leukocyte Estrace 54 WBC blood cultures are currently growing positive cocci in cluster that has prompted this infectious disease consultation patient did have a chest x-ray pulmonary vascular top normal caliber without gross CHF right effusion. Review of Systems Positive point and negatives has been mentioned in the HPI, complete review of systems was performed and all other systems are negative Past Medical History Past Medical History: Atrial Fibrillation, Cancer, Hypertension Additional Past Medical History / Comment(s): 02/28/23 pt diagnosed today with a pelvic mass that is cancerous History of Any Multi-Drug Resistant Organisms: None Reported Past Surgical History: No Surgical Hx Reported Past Anesthesia/Blood Transfusion Reactions: No Reported Reaction Past Psychological History: Anxiety Smoking Status: Never smoker Past Alcohol Use History: Rare Past Drug Use History: None Reported - Past Family History Brother(s) Family Medical History: Cancer, Diabetes Mellitus Additional Family Medical History / Comment(s): Colon cancer, at 58 Medications and Allergies Home Medications Medication Instructions Recorded Confirmed Type Propafenone [Rythmol] 150 mg PO Q8HR #90 tab 05/07/16 04/17/23 Rx Albuterol Inhaler [Ventolin Hfa 2 puff INHALATION RT-Q6H PRN #1 06/26/20 04/17/23 Rx Inhaler] puff Nystatin 100,000 Unit/gm Powd 1 applic TOPICAL BID PRN 02/14/23 04/17/23 History [Mycostatin Powder] Ketorolac [Toradol] 10 mg PO Q6HR PRN #15 tab 02/21/23 04/17/23 Rx ondansetron HCL [Zofran] 8 mg PO Q8HR PRN 02/23/23 04/17/23 History Acetaminophen Tab [Tylenol] 650 mg PO Q6HR PRN #60 tab 02/27/23 04/17/23 Rx Morphine Sulfate Ir [MSIR] 15 mg PO Q3H PRN 3 Days #24 tab 02/27/23 04/17/23 Rx Prochlorperazine [Compazine] 5 mg PO Q6HR PRN 02/28/23 04/17/23 History Rivaroxaban [Xarelto] 20 mg PO DAILY 02/28/23 04/17/23 History Furosemide [Lasix] 20 mg PO BID@0900,1600 PRN 30 Days 03/12/23 04/17/23 Rx #60 tab Metoprolol Tartrate [Lopressor] 12.5 mg PO BID 30 Days #60 tab 03/12/23 04/17/23 Rx Potassium Chloride [Klor-Con 20 20 meq PO DAILY #30 packet 03/12/23 04/17/23 Rx Packets] Sennosides/Docusate Sodium [Senna 1 - 2 tab PO BID PRN 04/11/23 04/17/23 History Plus 8.6-50 mg Tablet] oxyCODONE HCL [oxyCODONE HCL (IR)] 5 - 10 mg PO Q4H PRN 04/11/23 04/17/23 History traZODone HCL [Desyrel] 50 mg PO HS 04/11/23 04/17/23 History Allergies Allergy/AdvReac Type Severity Reaction Status Date / Time sulfamethoxazole AdvReac Nausea & Verified 04/11/23 08:01 [From Bactrim] Vomiting & Diarrhea trimethoprim [From Bactrim] AdvReac Nausea & Verified 04/11/23 08:01 Vomiting & Diarrhea Physical Exam Vitals: Vital Signs Temp Pulse Resp BP Pulse Ox 04/12/23 15:39 98 F 75 18 117/63 96 04/12/23 11:20 74 18 114/73 96 04/12/23 09:00 83 04/12/23 08:00 98.5 F 160 H 20 105/52 97 04/12/23 07:49 96 04/12/23 06:11 100/67 04/12/23 04:00 98.5 F 160 H 18 93/69 95 04/12/23 02:51 91/60 96 04/12/23 02:00 147 H 20 04/12/23 01:52 91/54 04/12/23 00:10 91/61 04/12/23 00:00 98.9 F 147 H 20 80/53 96 04/11/23 21:54 97.4 F L 150 H 20 87/59 95 04/11/23 21:02 93/59 04/11/23 20:04 98.2 F 04/11/23 20:00 150 H 04/11/23 19:45 157 H 18 83/60 100 04/11/23 17:56 98.4 F 144 H 21 75/49 95 Intake and Output 04/12/23 04/12/23 04/12/23 06:59 14:59 22:59 Intake Total 240 235.005 Output Total 400 200 100 Balance -400 40 135.005 Intake: Intake, IV Titration 235.005 Amount Amiodarone 450 mg In 235.005 Dextrose 5% in Water 250 ml @ 0.5 MG/MIN 16.667 mls/hr IV .Q15H [facility] Rx#: [id number] Oral 240 Output: Urine 400 200 100 Other: Voiding Method Diaper Diaper Incontinent Incontinent External Catheter External Catheter # Voids 1 1 Weight 68.039 kg Elderly female lying in bed in no distress Respiratory system unlabored breathing decreased breath sound the base Heart S1-S2 regular Abdominal soft, mild tenderness Extremities no edema feet Exam completed with the help of [employer] Results CBC & Chem 7: 04/17/23 07:11 04/17/23 07:05 Labs: Abnormal Lab Results - Last 24 Hours (Table) 04/11/23 04/11/23 04/11/23 Range/Units 17:54 20:25 20:28 Sodium 132 L (137-145) mmol/L BUN 21 H (7-17) mg/dL Glucose 117 H (74-99) mg/dL POC Glucose (mg/dL) 116 H 117 H (70-110) mg/dL Troponin I (0.000-0.034) ng/mL 04/11/23 Range/Units 20:28 Sodium (137-145) mmol/L BUN (7-17) mg/dL Glucose (74-99) mg/dL POC Glucose (mg/dL) (70-110) mg/dL Troponin I 0.226 H* (0.000-0.034) ng/mL Microbiology - Last 24 Hours (Table) 04/11/23 07:17 Blood Culture Gram Stain - Preliminary Blood 04/11/23 07:17 Blood Culture Gram Stain - Preliminary Blood Assessment and Plan (1) Bacteremia Status: Acute Code(s): R78.81 - BACTEREMIA SNOMED Code(s): 5644648 (2) UTI (urinary tract infection) Status: Acute Code(s): N39.0 - URINARY TRACT INFECTION, SITE NOT SPECIFIED SNOMED Code(s): 57103140 Plan: 1patient presented to hospital with generalized weakness and this patient also have elevated white count which is likely multifactorial this patient did have a positive UA possible component of symptomatic urinary tract infection noted excluded however the patient did have abdominal malignancy and she was noticed to be tender on abdominal examination under likely abdominal source needs to be rule out 2-patient with a positive blood culture with gram-positive cocci awaiting ID if staph epi will be disregarded as contamination blood culture has been repeated document clearance 3-we will obtain CT of abdominal pelvis with contrast 4-patient to continue with Rocephin and vancomycin was added while watching her kidney function closely, while waiting for the culture to finalize We will follow on clinical condition and cultures to further adjust medication if needed Thank you for this consultation we will follow the patient along with you Dictation was produced using [employer] dictation software. please excuse any grammatical, word or spelling errors. Time with Patient: Greater than 30
[2023-04-13] MEDS ORDERED: IOPAMIDOL CONTRAST (ORAL USE) VIAL PO PRN (02:48)
[2023-04-13] MEDS ORDERED: VANCOMYCIN 1,250 MG in SODIUM CHLORIDE 0.9% 250 ML IVPB SCH (06:00)
[2023-04-13] MEDS: RIVAROXABAN 20 MG TAB PO SCH (08:07)
[2023-04-13] MEDS: METOPROLOL TARTRATE 25 MG TAB PO SCH ×2 (08:07→20:00)
[2023-04-13] MEDS: CEFEPIME 2 GM in SODIUM CHLORIDE 0.9% 100 ML IVPB SCH ×2 (08:07→14:57)
[2023-04-13] MEDS: PROPAFENONE 150 MG TAB PO SCH ×2 (09:33→14:57)
--- NOTE | 2023-04-13 09:51 | CT ---
EXAMINATION TYPE: CT abdomen pelvis wo con DATE OF EXAM: 04/13/2023 COMPARISON: 02/14/2023 HISTORY: abd pain CT DLP: 598 mGycm Automated exposure control for dose reduction was used. TECHNIQUE: Helical acquisition of images was performed from the lung bases through the pelvis. FINDINGS: There has been interval development of bibasilar infiltrates and small bilateral pleural effusions. T here is been interval development of a 10 mm subsolid nodule in the right lower lobe. There is moderate cardiomegaly essentially unchanged. There is no organomegaly involving the liver, pancreas or spleen. There are no gallstones or gallblad jarred distention. There has been interval increase in the enlargement of the adrenal glands without discrete mass parti cularly involving the left adrenal gland. There is no renal calcification or hydronephrosis. There is increasing retroperitoneal adenopathy. A left periaortic lymph node has increased in size in the interval from 18 mm to 23 mm. There is increasing right superficial and deep inguinal adenopathy. A superficial inguinal lymph node has increased in size from 21 mm to nearly 26 mm. There is increasing diffuse edema involving the right sided pelvic musculature and within the subcuta neous soft tissues of the right pelvis and proximal hip. There is no soft tissue gas, discrete absce ss or hematoma. There has been interval development of diffuse mottling of the right hemipelvis osseous structures in cluding the right ischium and pubic bone without pathologic fracture IMPRESSION: 1. Interval development of a right lower lobe subsolid 10 mm nodule. 2. Interval development of bilateral lower lobe small effusions and airspace infiltrates. 3. Interval worsening of the retroperitoneal and right inguinal adenopathy. 4. Interval diffuse enlargement of the adrenal glands, left greater than right. 5. Increasing edema in the subcutaneous soft tissues of the right hip and pelvis and increasing edema in the right hemipelvic musculature and proximal hip musculature. 6. Interval development of diffuse mottling of the right hemipelvis as described above without pathol ogic fracture. Findings are consistent with bone metastasis.
[2023-04-13 10:35] LABS: African American GFR (CKD) >90 (>60 ml/min/1.73 sqM); Anion Gap 7 mmol/L; Blood Urea Nitrogen 16 mg/dL (7-17); Calcium 9.4 mg/dL (8.4-10.2); Carbon Dioxide 23 mmol/L (22-30); Chloride 106 mmol/L (98-107); Glucose 70 mg/dL (74-99); Non-African American GFR(CKD) >90 (>60 ml/min/1.73 sqM); Potassium 3.3 mmol/L (3.5-5.1); Sodium 136 mmol/L (137-145)
[2023-04-13] MEDS ORDERED: FUROSEMIDE 10 MG/ML 4 ML VIAL IV STA (10:56)
--- NOTE | 2023-04-13 11:00 | P.PN ---
Subjective Progress Note Date: 04/13/23 Patient is a 78-year-old female with a PMH of recently diagnosed gynecological squamous cell carcinoma (following with Dr Castellon, receiving radiation), A. fib on Xarelto, diastolic CHF, and hypertension who presents to the emergency room with complaints of anorexia and generalized weakness. Patient notes that over the past 2-3 months, she has had minimal appetite due to persistent nausea and vomiting. She reports minimal solid food intake as a result and has been getting progressively weaker. Notes that earlier today, she was unable to stand up on her own even with assistive devices, which prompted her to come to the emergency room. She denied experiencing urinary complaints, fever, cough, chest discomfort, shortness of breath, abdominal pain, diarrhea. Chest x-ray in the emergency room was unremarkable. Laboratory evaluation revealed leukocytosis of 15.6, platelet count 140, sodium 131, potassium 3.1, chloride 96, troponin 0.2, proBNP 10,600, T bili 1.5. Started on IV hydration and admitted for further management and workup. Troponin trended at 0.2, 0.192, 0.226. Cardiology consulted, recent stress test 02/2023 negative, no further workup. A-team called on 04/11 for lethargy, found to be hypotensive with SBP < 80 and HR in the 160s. EKG showed A-Fib with RVR. 1L NS bolus ordered and started on Amiodarone drip, transferred to . Her A-Fib with RVR resolved on 04/12, Cardiology increased Metoprolol to 25 mg PO BID, amiodarone drip discontinued and re-started back on Rythmol. Started on Rocephin 2g IV QD on 04/11 as she met sepsis criteria (hypotension, tachycardia, leukocytosis, + UA). Prelim blood cultures + Enterobacterales gram negative bacteria and gram positive cocci in clusters. ID consulted, Rocephin switched to Cefepime 2g IV TID and Vancomycin dosed per pharmacy on 04/13. 04/12 Patient was seen and examined. Still feeling fatigued and worn out. Difficulty opening her mouth due to chapped lips. Family at bedside reports minimal food intake over the past couple of weeks. BMP Na 136, K 3.3, Cr 0.41, glu 70. UCx and BCx shows gram negative bacilli. The second BCx is growing gram positive cocci. CT AP shows interval development RLL nodule, bilateral pleural effusions, worse retroperitoneal/inguinal adenopathy, enlargement of the adrenal glands, anasarca, bone metastasis. One dose of Lasix 40 mg IV ordered today. General: non toxic, no distress, appears older than stated age, normal weight Derm: no unusual rashes/lesions, warm, cheilitis Head: atraumatic, normocephalic, symmetric Eyes: EOMI, no lid lag, anicteric sclera ENT: Nose and ears atraumatic Neck: No cervical lymphadenopathy, trachea midline, supple Cardiovascular: Normal S1 S2, no murmur Lungs: CTA bilateral, no rhonchi, no rales, no accessory muscle use Abdominal: soft, nontender to palpation, no guarding Ext: no gross muscle atrophy, no contractures Neuro: no gross focal neuro deficits Psych: Alert, oriented, appropriate affect Based on my assessment of this patient, this patient meets a high complexity level of care. Patient has an acute diagnosis of Sepsis with gram negative and gram positive bacteremia that poses a threat to life or bodily function. Found to be in A-Fib RVR. Sepsis with gram negative and gram positive bacteremia: [facility] urinary source. CT AP as above. Rocephin switched to Cefepime 2g IV TID and Vancomycin dosed per pharmacy on 04/13. Repeat BCx ordered. Follow UCx. Decreased NS at 20 cc/hr. Telemetry monitoring. ID on board. Hypokalemia: KCl 20 meq IV ordered today. Hypoglycemia: Due to poor appetite. Accuchecks ACHS. Atrial fibrillation with RVR: Metoprolol increased to 25 mg PO BID. Amiodarone drip discontinued and restarted on Rythmol. Xarelto 20 mg PO QD for AC. Cardiology on board. Generalized weakness due to above: IV hydration as above. Zofran 4 mg IV Q8H PRN for N/V. Add Ensure TID to meals. Dietitian consulted for malnutrition. Fall precautions. PT and OT consult. Hyponatremia: Improvement with IV hydration. Elevated troponin: Chronically elevated. Recent Lexiscan 03/03/23 negative. Telemetry monitoring. Cardiology recommends no further workup. Normocytic anemia: At baseline. No signs of active bleeding. Trend. Thrombocytopenia: No signs of active bleeding. Possibly reactive due to infection. Trend. Resolved: Hypochloremic metabolic alkalosis Chronic conditions: SCC, A-Fib, Diastolic CHF, HTN CODE STATUS: FULL CODE DVT Prophylaxis: Xarelto GI Prophylaxis: Designated medical POA if patient is not able to make medical decisions for themselves: I have reviewed the following clothing consultant notes: Cardiology and ID note. I have reviewed the results of the following tests: BMP. UCx. BCx. CT AP. I have ordered the following tests: Pending: Repeat BCx. Final UCx. CBC and BMP. I have discussed the care of this patient with the following independent historian: I have independently interpreted the following test below: I have discussed the management of this patient with the following physician: Discussed with Dr. Camacho. This patient meets a high level of care for the following reasons: Patient requires IV lasix which requires intensive monitoring for renal toxicitiy. Patient requires vancomycin which requires intensive monitoring for renal toxicity. Objective - Vital Signs Vital signs: Vital Signs Temp 97.6 F 04/13/23 08:00 Pulse 78 04/13/23 08:00 Resp 18 04/13/23 08:00 BP 122/73 04/13/23 08:00 Pulse Ox 93 L 04/13/23 08:00 FiO2 Intake & Output 04/12/23 04/13/23 04/13/23 18:59 06:59 18:59 Intake Total 475.005 540 Output Total 300 800 Balance 175.005 -800 540 Weight 68.039 kg Intake: Intake, IV Titration 235.005 Amount Amiodarone 450 mg In 235.005 Dextrose 5% in Water 250 ml @ 0.5 MG/MIN 16.667 mls/hr IV .Q15H [facility] Rx#: [id number] Oral 240 540 Output: Urine 300 800 Other: Voiding Method Diaper Diaper Diaper Incontinent Incontinent Incontinent External Catheter External Catheter External Catheter # Voids 1 - Labs CBC & Chem 7: 04/11/23 02:14 04/13/23 08:59 Labs: Abnormal Lab Results - Last 24 Hours (Table) 04/13/23 Range/Units 08:59 Sodium 136 L (137-145) mmol/L Potassium 3.3 L (3.5-5.1) mmol/L Creatinine 0.41 L (0.52-1.04) mg/dL Glucose 70 L (74-99) mg/dL Microbiology - Last 24 Hours (Table) 04/11/23 16:32 Urine Culture - Preliminary Urine,Voided Gram Neg Bacilli 04/11/23 07:17 Blood Culture Gram Stain - Preliminary Blood 04/11/23 07:17 Blood Culture Gram Stain - Preliminary Blood Blood Culture - Preliminary Gram Neg Bacilli
[2023-04-13] MEDS: POTASSIUM CHLORIDE 10 MEQ in WATER FOR INJECTION 1 100ML.BAG IVPB SCH ×2 (11:29→12:40)
[2023-04-13 11:46] LABS: Glucose,Whole Blood 69 mg/dL (70-110)
[2023-04-13 12:18] LABS: Glucose,Whole Blood 82 mg/dL (70-110)
[2023-04-13 14:21] LABS: HCT 32.8 % (34.0-46.0); HGB 10.1 gm/dL (11.4-16.0); Hypochromasia Marked; MCH 27.8 pg (25.0-35.0); MCHC 30.8 g/dL (31.0-37.0); MCV 90.3 fL (80.0-100.0); Mean Platelet Volume 9.8; Platelet Count 171 k/uL (150-450); RBC 3.63 m/uL (3.80-5.40); RDW 14.9 % (11.5-15.5); WBC 14.5 k/uL (3.8-10.6)
[2023-04-13 16:21] LABS: Glucose,Whole Blood 97 mg/dL (70-110)
[2023-04-13] MEDS: VANCOMYCIN 1,250 MG in SODIUM CHLORIDE 0.9% 250 ML IVPB SCH (17:21)
[2023-04-13 20:00] LABS: Glucose,Whole Blood 99 mg/dL (70-110)
[2023-04-13] MEDS: traZODone HCL 50 MG TAB PO SCH (20:00)
--- NOTE | 2023-04-13 22:27 | P.PN ---
Subjective Progress Note Date: 04/13/23 Principal diagnosis: Reason for follow-up is bacteremia and UTI This is a telehealth visit Patient is a 78-year-old female with a past medical history significant for hypertension atrial fibrillation pelvic mass which is cancerous patient was brought into the hospital for evaluation of generalized weakness, patient did have positive blood culture both gram-positive as well as gram- negative prompting this infectious disease consultation CT abdominal pelvis ordered patient refused contrast did shows evidence of bilateral lower lobe effusion infiltrates worsening retroperitoneal inguinal adenopathy increasing edema in the subcutaneous soft tissue of the right hip concerning for bony metastatic disease. On today's evaluation that is 04/13/2023 the patient continues to be afebrile, the patient is breathing comfortably on room air patient denies having any chest pain occasional cough no sputum production, the pt denies nausea vomiting no abdominal pain no diarrhea, mostly complaining of weakness. Patient white count is down to 14.5, creatinine 0.41 blood culture with gram- negative bacilli urine is also showing gram-negative bacilli 1 culture with gram-positive cocci in clusters Objective - Vital Signs Vital signs: Vital Signs Temp 97.6 F 04/13/23 08:00 Pulse 78 04/13/23 08:00 Resp 18 04/13/23 08:00 BP 122/73 04/13/23 08:00 Pulse Ox 93 L 04/13/23 08:00 FiO2 Intake & Output 04/12/23 04/13/23 04/13/23 18:59 06:59 18:59 Intake Total 475.005 540 Output Total 300 800 Balance 175.005 -800 540 Weight 68.039 kg Intake: Intake, IV Titration 235.005 Amount Amiodarone 450 mg In 235.005 Dextrose 5% in Water 250 ml @ 0.5 MG/MIN 16.667 mls/hr IV .Q15H [facility] Rx#: [id number] Oral 240 540 Output: Urine 300 800 Other: Voiding Method Diaper Diaper Diaper Incontinent Incontinent Incontinent External Catheter External Catheter External Catheter # Voids 1 - Exam Elderly female lying in bed in no distress Respiratory system unlabored breathing decreased breath sound the base Heart S1-S2 regular Abdominal soft no tenderness Exam completed with the help of STUD DRIVER - Labs CBC & Chem 7: 04/13/23 14:13 04/13/23 08:59 Labs: Microbiology - Last 24 Hours (Table) 04/11/23 07:17 Blood Culture Gram Stain - Preliminary Blood 04/11/23 07:17 Blood Culture Gram Stain - Preliminary Blood Blood Culture - Preliminary Gram Neg Bacilli Assessment and Plan (1) Bacteremia Current Visit: Yes Status: Acute Code(s): R78.81 - BACTEREMIA SNOMED Code(s): 5567781 (2) UTI (urinary tract infection) Current Visit: Yes Status: Acute Code(s): N39.0 - URINARY TRACT INFECTION, SITE NOT SPECIFIED SNOMED Code(s): 13277266 (3) Leukocytosis Current Visit: Yes Status: Acute Code(s): D72.829 - ELEVATED WHITE BLOOD CELL COUNT, UNSPECIFIED SNOMED Code(s): 613965888 Plan: 1patient presented to hospital with generalized weakness and this patient also have elevated white count which is likely multifactorial this patient did have a positive UA possible component of symptomatic urinary tract infection noted excluded however the patient did have abdominal malignancy and she was noticed to be tender on abdominal examination concerning for abdominal so CT was done showing mostly worsening adenopathy did not mention any colitis or abscess 2-patient with a positive blood culture with gram-positive cocci awaiting ID if staph epi will be disregarded as contamination blood culture has been repeated document clearance 3-patient is also growing gram-negative bacilli in the blood and also in the urine more likely pointing towards urinary source of this bacteremia 4--patient to continue with Rocephin and vancomycin while waiting for the culture to finalize and monitor clinical course closely Dictation was produced using [employer] dictation software. please excuse any grammatical, word or spelling errors. Time with Patient: Less than 30
[2023-04-14] MEDS: CEFEPIME 2 GM in SODIUM CHLORIDE 0.9% 100 ML IVPB SCH ×2 (01:18→08:04)
[2023-04-14] MEDS: PROPAFENONE 150 MG TAB PO SCH ×4 (01:18→23:44)
[2023-04-14 06:03] LABS: Glucose,Whole Blood 89 mg/dL (70-110)
[2023-04-14] MEDS: VANCOMYCIN 1,250 MG in SODIUM CHLORIDE 0.9% 250 ML IVPB SCH ×2 (06:39→17:52)
[2023-04-14] MEDS: METOPROLOL TARTRATE 25 MG TAB PO SCH ×2 (08:03→19:59)
[2023-04-14] MEDS: SODIUM CHLORIDE 0.9% 1,000 ML IV SCH (08:04)
[2023-04-14] MEDS: RIVAROXABAN 20 MG TAB PO SCH (08:04)
[2023-04-14 08:32] LABS: HCT 32.9 % (34.0-46.0); HGB 10.3 gm/dL (11.4-16.0); Hypochromasia Marked; MCH 28.3 pg (25.0-35.0); MCHC 31.3 g/dL (31.0-37.0); MCV 90.6 fL (80.0-100.0); Mean Platelet Volume 10.6; Platelet Count 148 k/uL (150-450); RBC 3.63 m/uL (3.80-5.40); RDW 15.1 % (11.5-15.5); WBC 13.2 k/uL (3.8-10.6)
[2023-04-14 08:59] LABS: African American GFR (CKD) >90 (>60 ml/min/1.73 sqM); Anion Gap 7 mmol/L; Blood Urea Nitrogen 16 mg/dL (7-17); Carbon Dioxide 28 mmol/L (22-30); Chloride 106 mmol/L (98-107); Glucose 87 mg/dL (74-99); Non-African American GFR(CKD) >90 (>60 ml/min/1.73 sqM); Potassium 3.2 mmol/L (3.5-5.1); Sodium 141 mmol/L (137-145)
[2023-04-14] MEDS ORDERED: POTASSIUM BICARBONATE/CIT AC 20 MEQ TABLET.EFF PO ONE (11:08)
--- NOTE | 2023-04-14 11:39 | P.PN ---
Subjective Progress Note Date: 04/14/23 Hospital course: Patient is a very pleasant 78-year-old female with a past medical history of recently diagnosed gynecological squamous cell carcinoma (following with Dr Castellon, receiving radiation), paroxysmal A. fib on Xarelto, diastolic CHF, and hypertension . She presented to the emergency department on 04/11/23 with complaints of anorexia and generalized weakness. Upon arrival to our facility patient underwent full evaluation. Vital signs upon arrival blood pressure 115/63, heart rate 86, respiratory rate 16, temp 98.5F, and SpO2 of 89% on room air requiring oxygen supplementation on 2 L O2 via nasal cannula. EKG was completed showing normal sinus rhythm at 86 bpm with right ventricular hypertrophy. Chest x-ray completed showing pulmonary vessels topping normal caliber without significant CHF with small probable right pleural effusion. Labs were completed and reviewed. CBC showing leukocytosis with WBC count of 15.6 and bicytopenia with hemoglobin of 10.4 and platelet count of 140. Coagulation profile showing elevated PT of 20.9 and INR of 2.1. BMP showing h yponatremia with sodium of 132 and prerenal azotemia with BUN of 21 and otherwise normal findings. Blood glucose was 117. Lactic acid was 1.3. Liver profile showing elevated total bili of 1.5 and alkaline phosphatase of 176. Troponin was elevated at 0.200. Urinalysis was positive for protein, ketones, bilirubin, leukocytes, and 54 WBCs. Blood cultures and urine culture was obtained. Patient was admitted under our services consultation to oncology and cardiology. Troponins trended resulting 0.200, 0.192, and 0.226. Blood cultures preliminarily resulting positive for gram-negative bacilli. Urine culture also preliminarily resulting positive for gram-negative bacilli. Patient started on IV antibiotics and Infectious disease was consulted for bacteremia. CT abdomen and pelvis without contrast was completed showing interval development of a right lower lobe subsolid nodule measuring 10 mm, development of bilateral lower lobe small effusions, interval worsening of retroperitoneal and right inguinal adenopathy, interval diffuse enlargement of adrenal glands left greater than right, increasing edema in the subcutaneous tissues of the right hip and pelvis and increasing edema in the right hemipelvic musculature, interval development of diffuse mottling of the right hemipelvis without pathologic fracture showing findings consistent with bone metastasis. Physical exam: Reason seen and fully evaluated at bedside this morning. Patient appears weak and frail this morning. She reports she is having a difficult time eating/swallowing and has only been able to tolerate applesauce and pudding. She states she is also having a difficult time swallowing any pills. Upon examination it appears patient has thrush to back of tongue. Vital signs reviewed and stable. General: Nontoxic, no distress and appears stated age. Derm: Skin warm and dry, normal coloration for ethnicity. Head: Atraumatic, normocephalic and symmetric. Eyes: EOMs intact, no lid lag, and anicteric sclera Mouth: no lip lesions, mucus membranes moist Cardiovascular: regular rate and rhythm with normal S1S2, no murmur, positive posterior tibial pulses bilaterally, and cap refill < 2 seconds. Lungs: Respirations even, regular, and unlabored on room air. Lungs CTA bilaterally, no rhonchi, no rales, no wheezing, and no accessory muscle usage. Abdominal: soft, nontender to palpation, no guarding, no appreciable organomegaly Ext: ROM intact. No gross muscle atrophy, no edema, no contractures Neuro: Speech clear, face symmetrical and CN II-XII grossly intact with no noted focal neuro deficits Psych: Alert and oriented to person, place, time, and situation. Appropriate and pleasant affect. Assessment and Plan of Care: Sepsis with gram negative and gram positive bacteremia: Gram-negative UTI [facility]. -CT abdomen and pelvis without contrast was completed showing interval development of a right lower lobe subsolid nodule measuring 10 mm, development of bilateral lower lobe small effusions, interval worsening of retroperitoneal and right inguinal adenopathy, interval diffuse enlargement of adrenal glands left greater than right, increasing edema in the subcutaneous tissues of the right hip and pelvis and increasing edema in the right hemipelvic musculature, interval development of diffuse mottling of the right hemipelvis without pathologic fracture showing findings consistent with bone metastasis. -Continue IV Antibiotics with Cefepime 2g IV TID and Vancomycin 1250 mg every 12 hours, monitor vancomycin trial of and renal function closely to monitor for any signs of vancomycin-induced renal toxicity. -Repeat blood cultures until negative -Infectious disease following, reviewed documentation in chart. -Follow up with final blood and urine cultures with sensitivity report once available. -Telemetry monitoring. Dysphasia, suspected to be due to Thrush -Nystatin 5000 units by mouth 4 times daily, swish and swallow. -Consult placed to speech and language pathologist for swallowing eval. Hypokalemia -Potassium 3.2 this morning. Orders placed for K-Lyte 40 mEq by mouth 1 dose. Hypoglycemia: -Patient had isolated episode of hypoglycemia on 04/13/23. Patient placed on glycemic protocol with Accu-Cheks before meals at bedtime. -Hypoglycemia suspected to be secondary to poor oral intake. -Consult to dietitian. -Continue protein supplements 3 times daily between meals. Atrial fibrillation with RVR: -Metoprolol was increased to 25 mg PO BID and patient to continue Rythmol 150 mg every 8 hours and anticoagulation with Xarelto 20 mg daily. -Cardiology following, reviewed documentation in chart. Generalized weakness, multifactorial due to above conditions: -Continue with gentle IV hydration. -Symptomatic care with Zofran 4 mg IV Q8H PRN for N/V. -Patient being treated for underlying conditions as stated above and Consult was placed to dietitian and patient to continue with protein supplements 3 times daily between meals. -Continue fall precautions. -PT and OT following. Hyponatremia: Resolved after IV fluid hydration. Elevated troponins: Chronically elevated. -Troponins were elevated at 0.200, 0.192, and 0.226. -Patient to remain on telemetry monitoring. -Recent Lexiscan 03/03/23 negative. Cardiology evaluated and recommends no further workup. Bicytopenia with anemia and thrombocytopenia. -Normocytic anemia: At baseline and stable. No signs of active bleeding. Will continue to monitor. -Thrombocytopenia: No signs of active bleeding. Possibly reactive due to infection. Will continue to monitor. Hypochloremic metabolic alkalosis, resolved. Chronic conditions: SCC, A-Fib, Diastolic CHF, HTN Data and Imaging reviewed: Vital signs reviewed. 138/82, heart rate 58, respiratory rate 20, temp 98.3F, and SpO2 of 95% on 2 L. Morning labs reviewed. CBC showing leukocytosis with WBC count of 13.2, hemoglobin 10.3, but the count of 148. BMP showing hypokalemia with potassium of 3.2. CODE STATUS: FULL CODE DVT Prophylaxis: Xarelto Anticipated discharge date: Clinical course to determine Anticipated discharge place: Home Patient was seen independently by Nurse Pracitioner. This document was prepared using [employer] dictation software. Please allow for errors in engineering drafter, while rare they do occur. I reviewed the documentation as provided by the ABRAN above, who is the original author of this note. I agree with the documented assessment and plan, with the following changes: none Objective - Vital Signs Vital signs: Vital Signs Temp 98.3 F 04/14/23 07:58 Pulse 58 L 04/14/23 07:59 Resp 20 04/14/23 07:59 BP 138/82 04/14/23 07:58 Pulse Ox 95 04/14/23 07:58 FiO2 Intake & Output 04/13/23 04/14/23 04/14/23 18:59 06:59 18:59 Intake Total 540 Output Total 2400 200 Balance -1860 -200 Weight 115 kg Intake: Oral 540 Output: Urine 2400 200 Other: Voiding Method Diaper Diaper Diaper Incontinent Incontinent Incontinent External Catheter External Catheter External Catheter # Voids 2 - Labs CBC & Chem 7: 04/14/23 07:55 04/14/23 07:55 Labs: Abnormal Lab Results - Last 24 Hours (Table) 04/11/23 04/13/23 04/13/23 Range/Units 16:32 08:59 11:42 WBC (3.8-10.6) k/uL RBC (3.80-5.40) m/uL Hgb (11.4-16.0) gm/dL Hct (34.0-46.0) % MCHC (31.0-37.0) g/dL Plt Count (150-450) k/uL Sodium 136 L (137-145) mmol/L Potassium 3.3 L (3.5-5.1) mmol/L Creatinine 0.41 L (0.52-1.04) mg/dL Glucose 70 L (74-99) mg/dL POC Glucose (mg/dL) 69 L (70-110) mg/dL Ur Random Sodium <20 L (40-220) mmol/L 04/13/23 04/14/23 Range/Units 14:13 07:55 WBC 14.5 H 13.2 H (3.8-10.6) k/uL RBC 3.63 L 3.63 L (3.80-5.40) m/uL Hgb 10.1 L 10.3 L (11.4-16.0) gm/dL Hct 32.8 L 32.9 L (34.0-46.0) % MCHC 30.8 L (31.0-37.0) g/dL Plt Count 148 L (150-450) k/uL Sodium (137-145) mmol/L Potassium (3.5-5.1) mmol/L Creatinine (0.52-1.04) mg/dL Glucose (74-99) mg/dL POC Glucose (mg/dL) (70-110) mg/dL Ur Random Sodium (40-220) mmol/L Microbiology - Last 24 Hours (Table) 04/11/23 07:17 Blood Culture Gram Stain - Final Blood 04/11/23 07:17 Blood Culture Gram Stain - Final Blood Blood Culture - Final Escherichia vulneris 04/12/23 19:41 Blood Culture - Preliminary Blood 04/11/23 16:32 Urine Culture - Preliminary Urine,Voided Gram Neg Bacilli
[2023-04-14 11:51] LABS: Glucose,Whole Blood 100 mg/dL (70-110)
[2023-04-14] MEDS: AMPICILLIN-SULBACTAM 3 GM in SODIUM CHLORIDE 0.9% 100 ML IVPB SCH ×3 (12:04→23:44)
[2023-04-14] MEDS: NYSTATIN 100,000 UNIT/ML SUSP 500,000 UNIT/5 ML CUP PO SCH ×4 (12:05→19:58)
--- NOTE | 2023-04-14 12:36 | CDI ---
Documentation Clarification Form Date: 04/14/2023 11:55:32 AM From: Deborah Beasley RN CCDS Phone: [phone] Admit Date: 04/11/2023 06:30:00 AM Patient Name: Krystyna Braun Visit Number: [id number] Discharge Date: ATTENTION: The Clinical Documentation Specialists (CDI) and [facility] Coding Staff appreciate your assistance in clarifying documentation. Please respond to the clarification below the line at the bottom and electronically sign. The CDI & [facility] Coding staff will review the response and follow-up if needed. Please note: Queries are made part of the Legal Health Record. If you have any questions, please contact the author of this message via ITS. Dr. Joselito Laguna Right and Left Stage II pressure ulcers are documented by Nursing, 04/11 in the Physical assessment under Integumentary. Based on this information and the findings below, is there an additional diagnosis that is clinically appropriate for this patient? History/Risk Factors: 78 year old female presented to the ED with generalized weakness. Medical history: gynecological squamous cell carcinoma, HTN and Atrial fibrillation. 04/11, ED note. Clinical Indicators: Location: Right Coccyx Wound description: stage II Treatment: Optifoam border, Turn 2QH, Absorbent pad checking every hour for moisture; Is there an additional diagnosis that is clinically appropriate for this patient? [x] Right Coccyx Pressure Ulcer Stage 2 [ ] Other condition, please specify [ ] Unable to determine AND Clinical Indicators: Location: Left Coccyx Wound description Stage II Treatment: Optifoam border, Turn 2QH, Absorbent pad checking every hour for moisture Is there an additional diagnosis that is clinically appropriate for this patient? [ ] Left Coccyx Pressure Ulcer Stage 2 [ ] Other condition, please specify [ ] Unable to determine Clinical Definitions: Stage 1 Pressure Ulcer: intact skin, non-blanching redness of local area Stage 2 Pressure Ulcer: Partial thickness, loss of dermis, pink wound bed Stage 3 Pressure Ulcer: Full thickness tissue loss Stage 4 Pressure Ulcer: Full thickness tissue loss with exposed bone, tendon, or muscle. Unstageable pressure ulcer: Full thickness tissue loss in which the base of the ulcer is covered by slough (yellow, beach, rai, green or brown) and/or eschar (beach, brown or black) in the wound bed. (Template Last Revised: May 2020) MTDD
--- NOTE | 2023-04-14 14:18 | P.PN ---
Subjective Progress Note Date: 04/14/23 Principal diagnosis: weakness, recent diagnosis of squamous cell carcinoma In f/u pt in chair today, she is very weak, requires assistance to stand. She is tolerating some fluids and soft foods but, nothing is significant amounts per , pt reports no appetite. She is having some back pain, has not taken anything for the same. No fever. Objective - Vital Signs Vital signs: Vital Signs Temp 98.1 F 04/14/23 12:09 Pulse 61 04/14/23 13:12 Resp 20 04/14/23 13:12 BP 121/73 04/14/23 12:09 Pulse Ox 92 L 04/14/23 12:09 FiO2 Intake & Output 04/13/23 04/14/23 04/14/23 18:59 06:59 18:59 Intake Total 540 Output Total 2400 200 Balance -1860 -200 Weight 115 kg Intake: Oral 540 Output: Urine 2400 200 Other: Voiding Method Diaper Diaper Diaper Incontinent Incontinent Incontinent External Catheter External Catheter External Catheter # Voids 2 - Constitutional General appearance: Present: cooperative, no acute distress, thin - EENT EENT Comment(s): red tongue, scant look of thrush posterior aspect of the tongue Eyes: Present: anicteric sclerae, EOMI ENT: Present: hearing grossly normal - Respiratory Details: resp even and unlabored - Cardiovascular Rhythm: regular (radial pulse) - Peripheral edema leg Peripheral Edema: bilateral: None - Neurologic Neurologic: Present: CNII-XII intact (grossly) - Musculoskeletal Musculoskeletal Comment(s): BLE weakness, 4/5 Musculoskeletal: Present: generalized weakness - Psychiatric Psychiatric: Present: A&O x's 3, appropriate affect - Labs CBC & Chem 7: 04/14/23 07:55 04/14/23 07:55 Labs: Abnormal Lab Results - Last 24 Hours (Table) 04/13/23 04/14/23 04/14/23 Range/Units 14:13 07:55 07:55 WBC 14.5 H 13.2 H (3.8-10.6) k/uL RBC 3.63 L 3.63 L (3.80-5.40) m/uL Hgb 10.1 L 10.3 L (11.4-16.0) gm/dL Hct 32.8 L 32.9 L (34.0-46.0) % MCHC 30.8 L (31.0-37.0) g/dL Plt Count 148 L (150-450) k/uL Potassium 3.2 L (3.5-5.1) mmol/L Creatinine 0.49 L (0.52-1.04) mg/dL Microbiology - Last 24 Hours (Table) 04/11/23 16:32 Urine Culture - Final Urine,Voided Escherichia coli 04/11/23 07:17 Blood Culture Gram Stain - Final Blood 04/11/23 07:17 Blood Culture Gram Stain - Final Blood Blood Culture - Final Escherichia vulneris 04/12/23 19:41 Blood Culture - Preliminary Blood - Imaging and Cardiology CT scan - abdomen: report reviewed CT scan - pelvis: report reviewed Assessment and Plan (1) Bacteremia Current Visit: Yes Status: Acute Code(s): R78.81 - BACTEREMIA SNOMED Code(s): 5892605 (2) Generalized weakness Current Visit: Yes Status: Acute Priority: High Code(s): R53.1 - WEAKNESS SNOMED Code(s): 75337966 (3) Squamous cell carcinoma, metastatic Current Visit: Yes Status: Acute Priority: High Code(s): KHY9741 - SNOMED Code(s): 631113614 Plan: Weakness, likely 2/2 Positive urine and blood cultures -Pt symptoms-weakness, progressive debility- started about 5 days ago. Condition is multi-factorial but, acutely r/t bactremia. No significant change since admit per pt/. She is in chair today. She is tolerating some li quids and soft foods. PT/OT participation encouraged. -ID following, abx ordered. -See if pt improves over then next several days Newly diagnosed sq cell carcinoma -CT AP when compared to CT 01/2023, reports progression of LAD, new pl effusions, edema in soft tissue of the pelvis and likely bone mets -Pt has not been able to get to other appts as she has been inpt -Going to clarify what appt are necessary and discuss with pt and how they like to proceed in regards to cancer care. -No treatment for cancer will be considered until pt acute illness is adequately treated.
[2023-04-14 16:20] LABS: Glucose,Whole Blood 135 mg/dL (70-110)
[2023-04-14] MEDS ORDERED: VANCOMYCIN TROUGH DUE 1 EACH MISC MISCELLANE ONE (17:00)
[2023-04-14] MEDS: traZODone HCL 50 MG TAB PO SCH (19:58)
[2023-04-14 19:59] LABS: Glucose,Whole Blood 99 mg/dL (70-110)
--- NOTE | 2023-04-14 22:36 | P.PN ---
Subjective Progress Note Date: 04/14/23 Principal diagnosis: Reason for follow-up is bacteremia and UTI This is a telehealth visit Patient is a 78-year-old female with a past medical history significant for hypertension atrial fibrillation pelvic mass which is cancerous patient was brought into the hospital for evaluation of generalized weakness, patient did have positive blood culture both gram-positive as well as gram- negative prompting this infectious disease consultation CT abdominal pelvis ordered patient refused contrast did shows evidence of bilateral lower lobe effusion infiltrates worsening retroperitoneal inguinal adenopathy increasing edema in the subcutaneous soft tissue of the right hip concerning for bony metastatic disease. On today's evaluation that is 04/14/2023 the patient remains to be afebrile, patient is breathing comfortably on 2 L nasal cannula supplemental oxygen, the patient denies having any chest pain no significant cough or sputum production did have some nausea but no vomiting denies any worsening abdominal pain and no diarrhea reported. Patient did have white count down to 13.2, creatinine 0.49, urine is growing E. coli sensitive pathogen blood cultures positive for E Vulneris same sensitivity and E. coli Objective - Vital Signs Vital signs: Vital Signs Temp 98.3 F 04/14/23 07:58 Pulse 58 L 04/14/23 07:59 Resp 20 04/14/23 07:59 BP 138/82 04/14/23 07:58 Pulse Ox 95 04/14/23 07:58 FiO2 Intake & Output 04/13/23 04/14/23 04/14/23 18:59 06:59 18:59 Intake Total 540 Output Total 2400 200 Balance -1860 -200 Weight 115 kg Intake: Oral 540 Output: Urine 2400 200 Other: Voiding Method Diaper Diaper Diaper Incontinent Incontinent Incontinent External Catheter External Catheter External Catheter # Voids 2 - Labs CBC & Chem 7: 04/14/23 07:55 04/14/23 07:55 Labs: Abnormal Lab Results - Last 24 Hours (Table) 04/11/23 04/13/23 04/13/23 Range/Units 16:32 11:42 14:13 WBC 14.5 H (3.8-10.6) k/uL RBC 3.63 L (3.80-5.40) m/uL Hgb 10.1 L (11.4-16.0) gm/dL Hct 32.8 L (34.0-46.0) % MCHC 30.8 L (31.0-37.0) g/dL Plt Count (150-450) k/uL Potassium (3.5-5.1) mmol/L Creatinine (0.52-1.04) mg/dL POC Glucose (mg/dL) 69 L (70-110) mg/dL Ur Random Sodium <20 L (40-220) mmol/L 04/14/23 04/14/23 Range/Units 07:55 07:55 WBC 13.2 H (3.8-10.6) k/uL RBC 3.63 L (3.80-5.40) m/uL Hgb 10.3 L (11.4-16.0) gm/dL Hct 32.9 L (34.0-46.0) % MCHC (31.0-37.0) g/dL Plt Count 148 L (150-450) k/uL Potassium 3.2 L (3.5-5.1) mmol/L Creatinine 0.49 L (0.52-1.04) mg/dL POC Glucose (mg/dL) (70-110) mg/dL Ur Random Sodium (40-220) mmol/L Microbiology - Last 24 Hours (Table) 04/11/23 07:17 Blood Culture Gram Stain - Final Blood 04/11/23 07:17 Blood Culture Gram Stain - Final Blood Blood Culture - Final Escherichia vulneris 04/12/23 19:41 Blood Culture - Preliminary Blood 04/11/23 16:32 Urine Culture - Preliminary Urine,Voided Gram Neg Bacilli Assessment and Plan (1) Bacteremia Current Visit: Yes Status: Acute Code(s): R78.81 - BACTEREMIA SNOMED Code(s): 2670908 (2) UTI (urinary tract infection) Current Visit: Yes Status: Acute Code(s): N39.0 - URINARY TRACT INFECTION, SITE NOT SPECIFIED SNOMED Code(s): 73283122 (3) Leukocytosis Current Visit: Yes Status: Acute Code(s): D72.829 - ELEVATED WHITE BLOOD CELL COUNT, UNSPECIFIED SNOMED Code(s): 261529661 Plan: 1patient presented to hospital with generalized weakness and this patient also have elevated white count which is likely multifactorial this patient did have a positive UA possible component of symptomatic urinary tract infection noted excluded however the patient did have abdominal malignancy and she was noticed to be tender on abdominal examination concerning for abdominal so CT was done showing mostly worsening adenopathy did not mention any colitis or abscess 2-patient with a positive blood culture with gram-positive cocci, I do not see any further gram-positive cocci on the blood cultures repeat blood culture negative possible contamination vancomycin will be discontinued 3-patient with E. coli urinary tract infection blood culture positive for E vulneris both have the same sensitivities antibiotic adjusted to Unasyn and cefepime discontinued Dictation was produced using [employer] dictation software. please excuse any grammatical, word or spelling errors.
[2023-04-15 05:57] LABS: Glucose,Whole Blood 72 mg/dL (70-110)
[2023-04-15] MEDS ORDERED: VANCOMYCIN 1,000 MG in SODIUM CHLORIDE 0.9% 250 ML IVPB SCH (06:00)
[2023-04-15] MEDS: AMPICILLIN-SULBACTAM 3 GM in SODIUM CHLORIDE 0.9% 100 ML IVPB SCH ×4 (06:10→23:57)
[2023-04-15] MEDS: RIVAROXABAN 20 MG TAB PO SCH (08:10)
[2023-04-15] MEDS: NYSTATIN 100,000 UNIT/ML SUSP 500,000 UNIT/5 ML CUP PO SCH ×4 (08:10→20:44)
[2023-04-15] MEDS: METOPROLOL TARTRATE 25 MG TAB PO SCH ×2 (08:10→20:44)
[2023-04-15] MEDS: PROPAFENONE 150 MG TAB PO SCH ×3 (08:10→23:57)
[2023-04-15] MEDS: SODIUM CHLORIDE 0.9% 1,000 ML IV SCH (08:11)
[2023-04-15 08:28] LABS: HCT 33.6 % (34.0-46.0); HGB 10.4 gm/dL (11.4-16.0); Hypochromasia Marked; MCH 28.3 pg (25.0-35.0); MCV 91.2 fL (80.0-100.0); Mean Platelet Volume 10.1; Platelet Count 170 k/uL (150-450); RBC 3.68 m/uL (3.80-5.40); RDW 15.2 % (11.5-15.5); WBC 12.5 k/uL (3.8-10.6)
[2023-04-15 08:56] LABS: ALT 9 U/L (4-34); AST 15 U/L (14-36); African American GFR (CKD) >90 (>60 ml/min/1.73 sqM); Albumin 2.1 g/dL (3.5-5.0); Alkaline Phosphatase 157 U/L (38-126); Anion Gap 4 mmol/L; Blood Urea Nitrogen 17 mg/dL (7-17); Calcium 10.7 mg/dL (8.4-10.2); Carbon Dioxide 29 mmol/L (22-30); Chloride 109 mmol/L (98-107); Glucose 87 mg/dL (74-99); Magnesium 1.9 mg/dL (1.6-2.3); Non-African American GFR(CKD) >90 (>60 ml/min/1.73 sqM); Potassium 3.5 mmol/L (3.5-5.1); Sodium 142 mmol/L (137-145); Total Bilirubin 0.9 mg/dL (0.2-1.3); Total Protein 5.6 g/dL (6.3-8.2)
--- NOTE | 2023-04-15 10:46 | CDI ---
Documentation Clarification Form Date: 04/15/2023 10:07:21 AM From: Deborah Beasley RN CCDS Phone: [phone] Admit Date: 04/11/2023 06:30:00 AM Patient Name: Krystyna Braun Visit Number: [id number] Discharge Date: ATTENTION: The Clinical Documentation Specialists (CDI) and [facility] Coding Staff appreciate your assistance in clarifying documentation. Please respond to the clarification below the line at the bottom and electronically sign. The CDI & [facility] Coding staff will review the response and follow-up if needed. Please note: Queries are made part of the Legal Health Record. If you have any questions, please contact the author of this message via ITS. Dr. Aubrie Huang Your patient is receiving the followinL nasal cannula, 04/01 12:52 - 04/11 17:56 Please clarify what condition/diagnosis is being treated. History/Risk Factors: 78-year-old female presents to the ED with generalized weakness. Medical history: Gynecological squamous cell carcinoma, HTN and Atrial Fibrillation. 04/11, ED note. Clinical indicators: 04/11 01:04 SpO2 89% Room air 04/11 02:32 RR SpO2 97% 2L Nasal Cannula 04/11 12:52 RR 18; SpO2 96% 6L Nasal Cannula 04/11 19:45 RR 18; SpO2 100% 6L Nasal Cannula Treatment: 2L and 6L oxygen nasal cannula What diagnosis are you treating with 6L oxygen nasal cannula? [ X ] Acute Hypoxic Respiratory Failure [ ] No additional diagnosis [ ] Other, please specify [ ] Unable to determine (Template Last Reviewed: April 2020) BRIANAD
[2023-04-15 12:03] LABS: Glucose,Whole Blood 92 mg/dL (70-110)
--- NOTE | 2023-04-15 13:49 | P.PN ---
Subjective Progress Note Date: 04/15/23 Hospital course: Patient is a very pleasant 78-year-old female with a past medical history of recently diagnosed gynecological squamous cell carcinoma (following with Dr Castellon, receiving radiation), paroxysmal A. fib on Xarelto, diastolic CHF, and hypertension . She presented to the emergency department on 04/11/23 with complaints of anorexia and generalized weakness. Upon arrival to our facility patient underwent full evaluation. Vital signs upon arrival blood pressure 115/63, heart rate 86, respiratory rate 16, temp 98.5F, and SpO2 of 89% on room air requiring oxygen supplementation on 2 L O2 via nasal cannula. EKG was completed showing normal sinus rhythm at 86 bpm with right ventricular hypertrophy. Chest x-ray completed showing pulmonary vessels topping normal caliber without significant CHF with small probable right pleural effusion. Labs were completed and reviewed. CBC showing leukocytosis with WBC count of 15.6 and bicytopenia with hemoglobin of 10.4 and platelet count of 140. Coagulation profile showing elevated PT of 20.9 and INR of 2.1. BMP showing h yponatremia with sodium of 132 and prerenal azotemia with BUN of 21 and otherwise normal findings. Blood glucose was 117. Lactic acid was 1.3. Liver profile showing elevated total bili of 1.5 and alkaline phosphatase of 176. Troponin was elevated at 0.200. Urinalysis was positive for protein, ketones, bilirubin, leukocytes, and 54 WBCs. Blood cultures and urine culture was obtained. Patient was admitted under our services consultation to oncology and cardiology. Troponins trended resulting 0.200, 0.192, and 0.226. Blood cultures preliminarily resulting positive for gram-negative bacilli. Urine culture also preliminarily resulting positive for gram-negative bacilli. Patient started on IV antibiotics and Infectious disease was consulted for bacteremia. CT abdomen and pelvis without contrast was completed showing interval development of a right lower lobe subsolid nodule measuring 10 mm, development of bilateral lower lobe small effusions, interval worsening of retroperitoneal and right inguinal adenopathy, interval diffuse enlargement of adrenal glands left greater than right, increasing edema in the subcutaneous tissues of the right hip and pelvis and increasing edema in the right hemipelvic musculature, interval development of diffuse mottling of the right hemipelvis without pathologic fracture showing findings consistent with bone metastasis. Physical exam: Pt seen and fully evaluated at bedside this morning. She reports her tongue and throat feels slightly better after starting the nystatin yesterday. She reports she is only able to eat applesauce and pudding awaiting swallow eval to be completed. Had long discussion with patient regarding nutritional support and needs to eatprotein drinks are ordered. However patient states she does not like the taste. Vital signs reviewed and stable. General: Nontoxic, no distress and appears stated age. Chronically ill- appearing. Derm: Skin warm and dry, normal coloration for ethnicity. Head: Atraumatic, normocephalic and symmetric. Eyes: EOMs intact, no lid lag, and anicteric sclera Mouth: no lip lesions, mucus membranes moist Cardiovascular: regular rate and rhythm with normal S1S2, no murmur, positive posterior tibial pulses bilaterally, and cap refill < 2 seconds. Lungs: Respirations even, regular, and unlabored on room air. Lungs CTA bilaterally, no rhonchi, no rales, no wheezing, and no accessory muscle usage. Abdominal: soft, nontender to palpation, no guarding, no appreciable organom egaly Ext: ROM intact. No gross muscle atrophy, no edema, no contractures Neuro: Speech clear, face symmetrical and CN II-XII grossly intact with no noted focal neuro deficits Psych: Alert and oriented to person, place, time, and situation. Appropriate and pleasant affect. Assessment and Plan of Care: Escherichia vulneris bacteremia E. coli UTI Sepsis, secondary to above -CT abdomen and pelvis without contrast was completed showing interval development of a right lower lobe subsolid nodule measuring 10 mm, development of bilateral lower lobe small effusions, interval worsening of retroperitoneal and right inguinal adenopathy, interval diffuse enlargement of adrenal glands left greater than right, increasing edema in the subcutaneous tissues of the right hip and pelvis and increasing edema in the right hemipelvic musculature, interval development of diffuse mottling of the right hemipelvis without pathologic fracture showing findings consistent with bone metastasis. -Cefepime and vancomycin were discontinued and patient started on Unasyn 3 g every 6 hours based upon culture and sensitivity reports. -Repeat blood cultures showing no growth to date -Infectious disease following, reviewed documentation in chart. -Continue telemetry monitoring. Dysphasia, suspected to be due to Thrush -Nystatin 5000 units by mouth 4 times daily, swish and swallow. -Consult placed to speech and language pathologist for swallowing eval. Hypokalemia, resolved -Potassium 3.5 this morning. Hypoglycemia: -Patient had isolated episode of hypoglycemia on 04/13/23. Patient placed on glycemic protocol with Accu-Cheks before meals at bedtime. -Hypoglycemia suspected to be secondary to poor oral intake. -Consult to dietitian. -Continue protein supplements 3 times daily between meals. Atrial fibrillation with RVR: -Metoprolol was increased to 25 mg PO BID and patient to continue Rythmol 150 mg every 8 hours and anticoagulation with Xarelto 20 mg daily. -Cardiology following, reviewed documentation in chart. Generalized weakness, multifactorial due to above conditions: -Continue with gentle IV hydration. -Symptomatic care with Zofran 4 mg IV Q8H PRN for N/V. -Patient being treated for underlying conditions as stated above and Consult was placed to dietitian and patient to continue with protein supplements 3 times daily between meals. -Continue fall precautions. -PT and OT following. Hyponatremia: Resolved after IV fluid hydration. Pressure ulcers to coccyx, present on arrival -Stage II pressure ulcer right coccyx and stage II pressure ulcer on left coccyx, present on arrival. -Wound care and continue to offload. -Orders placed for turn every 2 hours. Elevated troponins: Chronically elevated. -Troponins were elevated at 0.200, 0.192, and 0.226. -Patient to remain on telemetry monitoring. -Recent Lexiscan 03/03/23 negative. Cardiology evaluated and recommends no further workup. Bicytopenia with anemia and thrombocytopenia. -Normocytic anemia: At baseline and stable. No signs of active bleeding. Will continue to monitor. -Thrombocytopenia: No signs of active bleeding. Possibly reactive due to infection. Will continue to monitor. Hypochloremic metabolic alkalosis, resolved. Chronic conditions: SCC, A-Fib, Diastolic CHF, HTN Data and Imaging reviewed: Vital signs reviewed. 138/69, heart rate 65, respiratory rate 16, temp 98.1F, and SpO2 of 98% on 2 L. Morning labs reviewed. CBC showing leukocytosis with WBC count of 12.5 and normocytic anemia stable at 10.4. BMP showing hyperchloremia with chloride of 109 otherwise normal findings. Morning glucose 87. Magnesium 1.9. And liver profile showing elevated alkaline phosphatase of 157 otherwise normal findings. Final urine culture positive for E. coli. Final blood culture results positive for Escherichia vulneris. CODE STATUS: FULL CODE DVT Prophylaxis: Xarelto Anticipated discharge date: Clinical course to determine Anticipated discharge place: Home Patient was seen independently by Nurse Pracitioner. This document was prepared using [employer] dictation software. Please allow for errors in computer video game designer, while rare they do occur. Objective - Vital Signs Vital signs: Vital Signs Temp 98.1 F 04/15/23 08:08 Pulse 65 04/15/23 08:08 Resp 16 04/15/23 08:08 BP 138/69 04/15/23 08:08 Pulse Ox 98 04/15/23 08:08 FiO2 Intake & Output 04/14/23 04/15/23 04/15/23 18:59 06:59 18:59 Output Total 250 Balance -250 Output: Urine 250 Other: Voiding Method Diaper Diaper Incontinent Incontinent External Catheter External Catheter - Labs CBC & Chem 7: 04/15/23 07:59 04/15/23 07:59 Labs: Abnormal Lab Results - Last 24 Hours (Table) 04/14/23 04/14/23 04/15/23 Range/Units 07:55 16:19 07:59 WBC 12.5 H (3.8-10.6) k/uL RBC 3.68 L (3.80-5.40) m/uL Hgb 10.4 L (11.4-16.0) gm/dL Hct 33.6 L (34.0-46.0) % Potassium 3.2 L (3.5-5.1) mmol/L Creatinine 0.49 L (0.52-1.04) mg/dL POC Glucose (mg/dL) 135 H (70-110) mg/dL Microbiology - Last 24 Hours (Table) 04/12/23 19:41 Blood Culture - Preliminary Blood 04/13/23 14:14 Blood Culture - Preliminary Blood 04/11/23 16:32 Urine Culture - Final Urine,Voided Escherichia coli 04/11/23 07:17 Blood Culture Gram Stain - Final Blood 04/11/23 07:17 Blood Culture Gram Stain - Final Blood Blood Culture - Final Escherichia vulneris
[2023-04-15 16:29] LABS: Glucose,Whole Blood 145 mg/dL (70-110)
--- NOTE | 2023-04-15 16:43 | P.PN ---
Subjective Progress Note Date: 04/15/23 Principal diagnosis: weakness, recent diagnosis of squamous cell carcinoma In f/u pt in laying in bed, continuing to report severe fatigue and weakness. Tolerating small amounts of food and fluids. She is feeling very overwhelmed. She just wants to try to feel better and get a little stronger. No fevers, chills, nausea or vomiting. Objective - Vital Signs Vital signs: Vital Signs Temp 98.1 F 04/15/23 08:08 Pulse 62 04/15/23 16:16 Resp 16 04/15/23 16:16 BP 133/77 04/15/23 16:16 Pulse Ox 97 04/15/23 16:16 FiO2 Intake & Output 04/14/23 04/15/23 04/15/23 18:59 06:59 18:59 Intake Total 118 Output Total 250 Balance -250 118 Weight 115 kg Intake: Oral 118 Output: Urine 250 Other: Voiding Method Diaper Diaper Diaper Incontinent Incontinent Incontinent External Catheter External Catheter External Catheter - Constitutional General appearance: Present: average body habitus, cooperative, no acute distress - EENT Eyes: Present: anicteric sclerae, EOMI ENT: Present: hearing grossly normal - Respiratory Respiratory: bilateral: CTA - Cardiovascular Rhythm: regular - Peripheral edema leg Peripheral Edema: bilateral: Trace - Gastrointestinal General gastrointestinal: Present: soft - Neurologic Neurologic: Present: CNII-XII intact - Musculoskeletal Musculoskeletal: Present: generalized weakness - Psychiatric Psychiatric: Present: A&O x's 3, appropriate affect, intact judgment & insight - Labs CBC & Chem 7: 04/15/23 07:59 04/15/23 07:59 Labs: Abnormal Lab Results - Last 24 Hours (Table) 04/15/23 04/15/23 Range/Units 07:59 07:59 WBC 12.5 H (3.8-10.6) k/uL RBC 3.68 L (3.80-5.40) m/uL Hgb 10.4 L (11.4-16.0) gm/dL Hct 33.6 L (34.0-46.0) % Chloride 109 H (98-107) mmol/L Creatinine 0.50 L (0.52-1.04) mg/dL Calcium 10.7 H (8.4-10.2) mg/dL Alkaline Phosphatase 157 H (38-126) U/L Total Protein 5.6 L (6.3-8.2) g/dL Albumin 2.1 L (3.5-5.0) g/dL Microbiology - Last 24 Hours (Table) 04/12/23 19:41 Blood Culture - Preliminary Blood 04/13/23 14:14 Blood Culture - Preliminary Blood 04/11/23 16:32 Urine Culture - Final Urine,Voided Escherichia coli Assessment and Plan (1) Bacteremia Current Visit: Yes Status: Acute Code(s): R78.81 - BACTEREMIA SNOMED Code(s): 3873919 (2) Generalized weakness Current Visit: Yes Status: Acute Priority: High Code(s): R53.1 - WEAKNESS SNOMED Code(s): 39445626 (3) Squamous cell carcinoma, metastatic Current Visit: Yes Status: Acute Priority: High Code(s): LAV1058 - SN OMED Code(s): 955572173 Plan: Weakness, likely 2/2/worse because of positive urine and blood cultures -Pt symptoms-weakness, progressive debility- started about 5 days ago. Condition is multi-factorial but, acutely r/t bactremia. -No significant improvements since admit. -ID following, abx ordered. -See if pt improves over then next several days Newly diagnosed sq cell carcinoma -CT AP when compared to CT 01/2023, reports progression of LAD, new pl effusions, edema in soft tissue of the pelvis and likely bone mets -Pt has not been able to get to other appts as she has been inpt -Clarified that patient does not need regulatory affairs director at this time but, should be seen by [employer] oncologist. If, patient is able to get that appointment in the near future. -No treatment for cancer will be considered until pt acute illness is adequately treated. Ca++ 10.7 -Noted, monitor for now, labs already ordered for AM Patient reported to me being significantly overwhelmed with all of the information, appointments, and that she needs to "do". She is also overwhelmed by the cancer diagnosis. Reassured patient that for now, we will stop talking about cancer and the things that need to be done for that and just focus on feeling better. Most acutely, treating the positive urine and blood cultures and working with PT/OT. I told her that we could further discuss anything to do with malignancy in another week or 2 when she is feeling better. She is ag reeable with that plan.
[2023-04-15] MEDS: droNABinol 2.5 MG CAP PO SCH (16:59)
[2023-04-15 19:48] LABS: Glucose,Whole Blood 103 mg/dL (70-110)
[2023-04-15] MEDS: traZODone HCL 50 MG TAB PO SCH (20:44)
[2023-04-16 02:09] LABS: Glucose,Whole Blood 91 mg/dL (70-110)
[2023-04-16 05:54] LABS: Glucose,Whole Blood 93 mg/dL (70-110)
[2023-04-16] MEDS: AMPICILLIN-SULBACTAM 3 GM in SODIUM CHLORIDE 0.9% 100 ML IVPB SCH ×3 (06:05→17:23)
[2023-04-16] MEDS: droNABinol 2.5 MG CAP PO SCH ×2 (06:05→17:22)
[2023-04-16 08:56] LABS: ALT 9 U/L (4-34); AST 17 U/L (14-36); African American GFR (CKD) >90 (>60 ml/min/1.73 sqM); Alkaline Phosphatase 139 U/L (38-126); Anion Gap 5 mmol/L; Blood Urea Nitrogen 17 mg/dL (7-17); Calcium 11.1 mg/dL (8.4-10.2); Carbon Dioxide 28 mmol/L (22-30); Chloride 112 mmol/L (98-107); Glucose 91 mg/dL (74-99); Magnesium 1.9 mg/dL (1.6-2.3); Non-African American GFR(CKD) >90 (>60 ml/min/1.73 sqM); Potassium 3.5 mmol/L (3.5-5.1); Sodium 145 mmol/L (137-145); Total Bilirubin 0.8 mg/dL (0.2-1.3); Total Protein 5.4 g/dL (6.3-8.2)
[2023-04-16 08:59] LABS: HCT 31.7 % (34.0-46.0); HGB 10.2 gm/dL (11.4-16.0); Hypochromasia Moderate; MCH 28.6 pg (25.0-35.0); MCHC 32.1 g/dL (31.0-37.0); MCV 88.9 fL (80.0-100.0); Mean Platelet Volume 10.4; Platelet Count 163 k/uL (150-450); RBC 3.56 m/uL (3.80-5.40); RDW 15.2 % (11.5-15.5); WBC 12.4 k/uL (3.8-10.6)
[2023-04-16] MEDS: METOPROLOL TARTRATE 25 MG TAB PO SCH ×3 (09:10→21:33)
[2023-04-16] MEDS: PROPAFENONE 150 MG TAB PO SCH ×2 (09:10→17:23)
[2023-04-16] MEDS: NYSTATIN 100,000 UNIT/ML SUSP 500,000 UNIT/5 ML CUP PO SCH ×4 (09:10→22:55)
[2023-04-16] MEDS: RIVAROXABAN 20 MG TAB PO SCH (09:11)
[2023-04-16] MEDS ORDERED: ZOLEDRONIC ACID 4 MG in SODIUM CHLORIDE 0.9% 100 ML IV ONE (11:30)
[2023-04-16 11:32] LABS: Glucose,Whole Blood 100 mg/dL (70-110)
--- NOTE | 2023-04-16 12:39 | P.PN ---
Subjective Progress Note Date: 04/16/23 Hospital course: Patient is a very pleasant 78-year-old female with a past medical history of recently diagnosed gynecological squamous cell carcinoma (following with Dr Castellon, receiving radiation), paroxysmal A. fib on Xarelto, diastolic CHF, and hypertension . She presented to the emergency department on 04/11/23 with complaints of anorexia and generalized weakness. Upon arrival to our facility patient underwent full evaluation. Vital signs upon arrival blood pressure 115/63, heart rate 86, respiratory rate 16, temp 98.5F, and SpO2 of 89% on room air requiring oxygen supplementation on 2 L O2 via nasal cannula. EKG was completed showing normal sinus rhythm at 86 bpm with right ventricular hypertrophy. Chest x-ray completed showing pulmonary vessels topping normal caliber without significant CHF with small probable right pleural effusion. Labs were completed and reviewed. CBC showing leukocytosis with WBC count of 15.6 and bicytopenia with hemoglobin of 10.4 and platelet count of 140. Coagulation profile showing elevated PT of 20.9 and INR of 2.1. BMP showing h yponatremia with sodium of 132 and prerenal azotemia with BUN of 21 and otherwise normal findings. Blood glucose was 117. Lactic acid was 1.3. Liver profile showing elevated total bili of 1.5 and alkaline phosphatase of 176. Troponin was elevated at 0.200. Urinalysis was positive for protein, ketones, bilirubin, leukocytes, and 54 WBCs. Blood cultures and urine culture was obtained. Patient was admitted under our services consultation to oncology and cardiology. Troponins trended resulting 0.200, 0.192, and 0.226. Blood cultures preliminarily resulting positive for gram-negative bacilli. Urine culture also preliminarily resulting positive for gram-negative bacilli. Patient started on IV antibiotics and Infectious disease was consulted for bacteremia. CT abdomen and pelvis without contrast was completed showing interval development of a right lower lobe subsolid nodule measuring 10 mm, development of bilateral lower lobe small effusions, interval worsening of retroperitoneal and right inguinal adenopathy, interval diffuse enlargement of adrenal glands left greater than right, increasing edema in the subcutaneous tissues of the right hip and pelvis and increasing edema in the right hemipelvic musculature, interval development of diffuse mottling of the right hemipelvis without pathologic fracture showing findings consistent with bone metastasis. Physical exam: Pt seen and fully evaluated at bedside this morning. She reports her tongue and throat feels slightly better today but continues to have anorexia. Nursing staff report intake is worsened and patient now only taking applesauce and/or pudding only with her medications. Patient reports decreased appetite and decreased oral intake because she is just too weak to eat. Vital signs reviewed and stable. General: Nontoxic, no distress and appears stated age. Chronically ill- appearing. Derm: Skin warm and dry, normal coloration for ethnicity. Head: Atraumatic, normocephalic and symmetric. Eyes: EOMs intact, no lid lag, and anicteric sclera Mouth: no lip lesions, mucus membranes moist Cardiovascular: regular rate and rhythm with normal S1S2, no murmur, positive posterior tibial pulses bilaterally, and cap refill < 2 seconds. Lungs: Respirations even, regular, and unlabored on room air. Lungs CTA bilaterally, no rhonchi, no rales, no wheezing, and no accessory muscle usage. Abdominal: soft, nontender to palpation, no guarding, no appreciable organomegaly Ext: ROM intact. No gross muscle atrophy, no edema, no contractures Neuro: Speech clear, face symmetrical and CN II-XII grossly intact with no noted focal neuro deficits Psych: Alert and oriented to person, place, time, and situation. Appropriate and pleasant affect. Assessment and Plan of Care: Escherichia vulneris bacteremia E. coli UTI Sepsis, secondary to above -CT abdomen and pelvis without contrast was completed showing interval development of a right lower lobe subsolid nodule measuring 10 mm, development of bilateral lower lobe small effusions, interval worsening of retroperitoneal and right inguinal adenopathy, interval diffuse enlargement of adrenal glands left greater than right, increasing edema in the subcutaneous tissues of the right hip and pelvis and increasing edema in the right hemipelvic musculature, interval development of diffuse mottling of the right hemipelvis without pathologic fracture showing findings consistent with bone metastasis. -Cefepime and vancomycin were discontinued and patient started on Unasyn 3 g every 6 hours based upon culture and sensitivity reports. -Repeat blood cultures showing no growth to date -Infectious disease following, reviewed documentation in chart. -Continue telemetry monitoring. Dysphasia, suspected to be due to Thrush Anorexia Severe protein calorie malnutrition, total protein of 5.4 and albumin of 2.0 -Nystatin 5000 units by mouth 4 times daily, swish and swallow. -Speech and language pathologist evaluated for swallow eval, and per documentation patient exhibited slow masticatory effort and mildly delayed swallow initiation. Speech and language pathologist reported no signs and symptoms of aspiration with no further services noted as difficulties appeared to be related to decreased effort secondary to patient's weakened state and decreased appetite. -Patient started on Marinol 2.5 mg twice daily and encouraged oral intake. -Dietary also following, insurance account executive reached out with concerns as patient continued to have no oral intake. Discussed further with nursing and was informed that patient only taking applesauce or pudding with her medications otherwise no oral intake. -Had long discussion with patient and patient's , patient reports goals of care is to become stronger and to eat. She wants to remain a full code and discussed options for feeding. -Order placed for Dobbhoff NG feeding tube to be placed and for initiation of enteral tube feeding until able to tolerate oral intake. Hypercalcemia Continue gentle IV fluid hydration and parathyroid hormone levels to be assessed. Hypokalemia, resolved -Potassium 3.5 this morning. Hypoglycemia: -Patient had isolated episode of hypoglycemia on 04/13/23. Patient placed on glycemic protocol with Accu-Cheks before meals at bedtime. -Hypoglycemia suspected to be secondary to poor oral intake. -Dietary following Paroxysmal atrial fibrillation with episodes of RVR, currently maintaining sinus mechanism -Metoprolol was increased to 25 mg PO BID and patient to continue Rythmol 150 mg every 8 hours and anticoagulation with Xarelto 20 mg daily. -Cardiology following, reviewed documentation in chart. Generalized weakness, multifactorial due to above conditions and recently diagnosed gynecological squamous cell carcinoma: -Continue with gentle IV hydration. -Symptomatic care with Zofran 4 mg IV Q8H PRN for N/V. -Patient being treated for underlying conditions as stated above and Consult was placed to dietitian and patient to continue with protein supplements 3 times daily between meals. -Continue fall precautions. -PT and OT following. Hyponatremia: Resolved after IV fluid hydration. Pressure ulcers to coccyx, present on arrival -Stage II pressure ulcer right coccyx and stage II pressure ulcer on left coccyx, present on arrival. -Wound care and continue to offload. -Orders placed for turn every 2 hours. Elevated troponins: Chronically elevated. -Troponins were elevated at 0.200, 0.192, and 0.226. -Patient to remain on telemetry monitoring. -Recent Lexiscan 12/11/23 negative. Cardiology evaluated and recommends no further workup. Bicytopenia with anemia and thrombocytopenia. -Normocytic anemia: At baseline and stable. No signs of active bleeding. Will continue to monitor. -Thrombocytopenia: No signs of active bleeding. Possibly reactive due to infection. Will continue to monitor. Hypochloremic metabolic alkalosis, resolved. Chronic conditions: Squamous Cell Carcinoma, Diastolic CHF, HTN Data and Imaging reviewed: Vital signs reviewed. 123/74, heart rate 79, respiratory rate 24, temp 98.4 F, and SpO2 of 95% on 2 L.. Morning labs reviewed. CBC showing leukocytosis with WBC count of 12.4 and nor mocytic anemia with hemoglobin stable at 10.2. BMP showing mild hyperchloremia with chloride of 112 otherwise normal findings. Calcium slightly elevated at 11.1. Liver profile showing elevated alkaline phosphatase of 139 otherwise normal findings. Total protein low at 5.4 and albumin of 2.0. Final urine culture positive for E. coli. Final blood culture results positive for Escherichia vulneris. CODE STATUS: FULL CODE DVT Prophylaxis: Xarelto Anticipated discharge date: Clinical course to determine Anticipated discharge place: Home Patient was seen independently by Nurse Pracitioner. This document was prepared using [employer] dictation software. Please allow for errors in tariff inspector, while rare they do occur. Vasquez Bhardwaj NP rendered care for this patient independently, reviewed the findings and plan as documented in the note above. I did not physically speak with or examine the patient on this date. Objective - Vital Signs Vital signs: Vital Signs Temp 98.4 F 04/16/23 08:00 Pulse 79 04/16/23 08:00 Resp 24 04/16/23 08:00 BP 123/74 04/16/23 08:00 Pulse Ox 95 04/16/23 08:00 FiO2 Intake & Output 04/15/23 04/16/23 04/16/23 18:59 06:59 18:59 Intake Total 118 Output Total 375 Balance 118 -375 Weight 115 kg Intake: Oral 118 Output: Urine 375 Other: Voiding Method Diaper Diaper Incontinent Incontinent External Catheter External Catheter # Voids 2 - Labs CBC & Chem 7: 04/17/23 07:11 04/17/23 07:05 Labs: Abnormal Lab Results - Last 24 Hours (Table) 04/15/23 04/15/23 Range/Units 07:59 16:27 Chloride 109 H (98-107) mmol/L Creatinine 0.50 L (0.52-1.04) mg/dL POC Glucose (mg/dL) 145 H (70-110) mg/dL Calcium 10.7 H (8.4-10.2) mg/dL Alkaline Phosphatase 157 H (38-126) U/L Total Protein 5.6 L (6.3-8.2) g/dL Albumin 2.1 L (3.5-5.0) g/dL Microbiology - Last 24 Hours (Table) 04/12/23 19:41 Blood Culture - Preliminary Blood 04/13/23 14:14 Blood Culture - Preliminary Blood
--- NOTE | 2023-04-16 13:01 | P.PN ---
Subjective Progress Note Date: 04/16/23 Principal diagnosis: weakness, recent diagnosis of squamous cell carcinoma In f/u pt in laying in bed, she was more lethargic then the last few days I have seen her, she was falling asleep during our conversation, she was picking at her clothes, did not respond to questions completely. Objective - Vital Signs Vital signs: Vital Signs Temp 97.7 F 04/16/23 11:08 Pulse 72 04/16/23 11:08 Resp 18 04/16/23 11:08 BP 134/75 04/16/23 11:08 Pulse Ox 97 04/16/23 11:08 FiO2 Intake & Output 04/15/23 04/16/23 04/16/23 18:59 06:59 18:59 Intake Total 118 Output Total 375 Balance 118 -375 Weight 115 kg 52.3 kg Intake: Oral 118 Output: Urine 375 Other: Voiding Method Diaper Diaper Diaper Incontinent Incontinent External Catheter External Catheter # Voids 2 1 - Constitutional General appearance: Present: average body habitus, no acute distress - EENT Eyes: Present: anicteric sclerae - Respiratory Respiratory: bilateral: CTA (weak inspiratory effort) - Cardiovascular Rhythm: regular - Musculoskeletal Musculoskeletal: Present: generalized weakness - Psychiatric Psychiatric Comment(s): Not as interactive as yesterday, really tired - Labs CBC & Chem 7: 04/16/23 07:59 04/16/23 07:59 Labs: Abnormal Lab Results - Last 24 Hours (Table) 04/15/23 04/16/23 04/16/23 Range/Units 16:27 07:59 07:59 WBC 12.4 H (3.8-10.6) k/uL RBC 3.56 L (3.80-5.40) m/uL Hgb 10.2 L (11.4-16.0) gm/dL Hct 31.7 L (34.0-46.0) % Chloride 112 H (98-107) mmol/L Creatinine 0.45 L (0.52-1.04) mg/dL POC Glucose (mg/dL) 145 H (70-110) mg/dL Calcium 11.1 H (8.4-10.2) mg/dL Alkaline Phosphatase 139 H (38-126) U/L Total Protein 5.4 L (6.3-8.2) g/dL Albumin 2.0 L (3.5-5.0) g/dL Microbiology - Last 24 Hours (Table) 04/12/23 19:41 Blood Culture - Preliminary Blood 04/13/23 14:14 Blood Culture - Preliminary Blood Assessment and Plan (1) Bacteremia Current Visit: Yes Status: Acute Code(s): R78.81 - BACTEREMIA SNOMED Code(s): 2564057 (2) Generalized weakness Current Visit: Yes Status: Acute Priority: High Code(s): R53.1 - WEAKNESS SNOMED Code(s): 66590500 (3) Squamous cell carcinoma, metastatic Current Visit: Yes Status: Acute Priority: High Code(s): LYY1553 - SNOMED Code(s): 974814982 (4) Hypercalcemia Current Visit: Yes Status: Acute Code(s): E83.52 - HYPERCALCEMIA SNOMED Code(s): 38717694 Plan: Weakness, likely 2/2/worse because of positive urine and blood cultures -Pt symptoms-weakness, progressive debility- started about 5 days ago. Condition is multi-factorial but, acutely r/t bactremia. -No significant improvements since admit, seems a little worse today -ID following, abx ordered. Newly diagnosed sq cell carcinoma -CT AP when compared to CT 01/2023, reports progression of LAD, new pl effu sions, edema in soft tissue of the pelvis and likely bone mets -Pt has not been able to get to other appts as she has been inpt -Clarified that patient does not need malt house loader at this time but, should be seen by MANUFACTURING SPECIALIST oncologist, if patient is able to get that appointment in the near future. Will see how she does during this hospitalization -No treatment for cancer will be considered until pt acute illness is adequately treated. Ca++ 11.1 today, corrected 12.7 -Zometa ordered for hypercalcemia-may be r/t malignancy -Repeat labs in AM Based on our conversation yesterday I did not discuss anything to do with malignancy. Pt encouraged to eat, drink and try to get moving around.
[2023-04-16 16:46] LABS: Glucose,Whole Blood 97 mg/dL (70-110)
[2023-04-16 20:28] LABS: Glucose,Whole Blood 104 mg/dL (70-110)
[2023-04-16] MEDS: traZODone HCL 50 MG TAB PO SCH ×2 (21:27→21:34)
[2023-04-17] MEDS: AMPICILLIN-SULBACTAM 3 GM in SODIUM CHLORIDE 0.9% 100 ML IVPB SCH ×2 (00:36→06:11)
[2023-04-17] MEDS: PROPAFENONE 150 MG TAB PO SCH ×2 (01:08→09:23)
--- NOTE | 2023-04-17 02:56 | XR ---
EXAM: XR Chest, 1 View CLINICAL HISTORY: Dobbhoff placement TECHNIQUE: Frontal view of the chest. COMPARISON: Chest 2 views dated 04/11/2023 FINDINGS: Lungs: Slightly diminished lung volumes with questionable right infrahilar and left basilar subsegmental changes. Pleural space: Small pleural effusions are difficult to exclude. No pneumothorax. Heart: Stable cardiomegaly. Mediastinum: The mediastinal contours are thought to be stable, accounting for obliquity. No tracheal deviation. Bones/joints: Unremarkable. No acute fracture. Tubes, lines and devices: A weighted enteric-type feeding tube is noted looped in the stomach with the distal weighted tip deflected retrograde in the proximal stomach. IMPRESSION: A weighted enteric-type feeding tube is noted looped in the stomach with the distal weighted tip deflected retrograde in the proximal stomach. If there is a desire to place the weighted tip beyond the pylorus, advancement is required.
--- NOTE | 2023-04-17 04:17 | P.PN ---
Subjective Progress Note Date: 04/15/23 Principal diagnosis: Reason for follow-up is bacteremia and UTI This is a telehealth visit Patient is a 78-year-old female with a past medical history significant for hypertension atrial fibrillation pelvic mass which is cancerous patient was brought into the hospital for evaluation of generalized weakness, patient did have positive blood culture both gram-positive as well as gram- negative prompting this infectious disease consultation CT abdominal pelvis ordered patient refused contrast did shows evidence of bilateral lower lobe effusion infiltrates worsening retroperitoneal inguinal adenopathy increasing edema in the subcutaneous soft tissue of the right hip concerning for bony metastatic disease. On today's evaluation that is 04/15/2023 the patient continues to be afebrile, patient is breathing comfortably on 2 L nasal cannula oxygen, the patient denied a very good historian has been complaining of feeling weak no specific chest pain abdominal pain or any diarrhea has been reported Patient white count is 12.5, creatinine 0.5 0 repeat cultures so far pending Objective - Vital Signs Vital signs: Vital Signs Temp 98.1 F 04/15/23 08:08 Pulse 65 04/15/23 08:08 Resp 16 04/15/23 08:08 BP 138/69 04/15/23 08:08 Pulse Ox 98 04/15/23 08:08 FiO2 Intake & Output 04/14/23 04/15/23 04/15/23 18:59 06:59 18:59 Output Total 250 Balance -250 Output: Urine 250 Other: Voiding Method Diaper Diaper Incontinent Incontinent External Catheter External Catheter - Exam Elderly female lying in bed in no distress Respiratory system unlabored breathing decreased breath sound the base Heart S1-S2 regular Abdominal soft no tenderness Exam completed with the help of CONCRETE WALL GRINDER OPERATOR - Labs CBC & Chem 7: 04/16/23 07:59 04/16/23 07:59 Labs: Abnormal Lab Results - Last 24 Hours (Table) 04/14/23 04/15/23 04/15/23 Range/Units 16:19 07:59 07:59 WBC 12.5 H (3.8-10.6) k/uL RBC 3.68 L (3.80-5.40) m/uL Hgb 10.4 L (11.4-16.0) gm/dL Hct 33.6 L (34.0-46.0) % Chloride 109 H (98-107) mmol/L Creatinine 0.50 L (0.52-1.04) mg/dL POC Glucose (mg/dL) 135 H (70-110) mg/dL Calcium 10.7 H (8.4-10.2) mg/dL Alkaline Phosphatase 157 H (38-126) U/L Total Protein 5.6 L (6.3-8.2) g/dL Albumin 2.1 L (3.5-5.0) g/dL Microbiology - Last 24 Hours (Table) 04/12/23 19:41 Blood Culture - Preliminary Blood 04/13/23 14:14 Blood Culture - Preliminary Blood 04/11/23 16:32 Urine Culture - Final Urine,Voided Escherichia coli 04/11/23 07:17 Blood Culture Gram Stain - Final Blood 04/11/23 07:17 Blood Culture Gram Stain - Final Blood Blood Culture - Final Escherichia vulneris Assessment and Plan (1) Bacteremia Current Visit: Yes Status: Acute Code(s): R78.81 - BACTEREMIA SNOMED Code(s): 5883968 (2) UTI (urinary tract infection) Current Visit: Yes Status: Acute Code(s): N39.0 - URINARY TRACT INFECTION, SITE NOT SPECIFIED SNOMED Code(s): 85277595 (3) Leukocytosis Current Visit: Yes Status: Acute Code(s): D72.829 - ELEVATED WHITE BLOOD CELL COUNT, UNSPECIFIED SNOMED Code(s): 819319033 Plan: 1patient presented to hospital with generalized weakness and this patient also have elevated white count which is likely multifactorial this patient did have a positive UA possible component of symptomatic urinary tract infection noted excluded however the patient did have abdominal malignancy and she was noticed to be tender on abdominal examination concerning for abdominal so CT was done showing mostly worsening adenopathy did not mention any colitis or abscess 2-patient with a positive blood culture with gram-positive cocci, I do not see any further gram-positive cocci on the blood cultures repeat blood culture negative possible contamination vancomycin was discontinued 3-patient with E. coli urinary tract infection blood culture positive for E vulneris both have the same sensitivities antibiotic, patient to continue with Unasyn and will monitor clinical course closely Dictation was produced using [employer] dictation software. please excuse any grammatical, word or spelling errors. Time with Patient: Less than 30
--- NOTE | 2023-04-17 04:18 | P.PN ---
Subjective Progress Note Date: 04/16/23 Principal diagnosis: Reason for follow-up is bacteremia and UTI This is a telehealth visit Patient is a 78-year-old female with a past medical history significant for hypertension atrial fibrillation pelvic mass which is cancerous patient was brought into the hospital for evaluation of generalized weakness, patient did have positive blood culture both gram-positive as well as gram- negative prompting this infectious disease consultation CT abdominal pelvis ordered patient refused contrast did shows evidence of bilateral lower lobe effusion infiltrates worsening retroperitoneal inguinal adenopathy increasing edema in the subcutaneous soft tissue of the right hip concerning for bony metastatic disease. On today's evaluation that is 04/16/2023, the patient is afebrile patient is breathing comfortably on 2 L nasal cannula supplemental oxygen the patient complaining of feeling weak, when asked specifically denies chest pain, no significant cough or sputum production some vague abdominal pain and no diarrhea reported. Patient white count is 12.4, creatinine 0.45 Objective - Vital Signs Vital signs: Vital Signs Temp 98.4 F 04/16/23 08:00 Pulse 79 04/16/23 09:35 Resp 24 04/16/23 09:35 BP 123/74 04/16/23 08:00 Pulse Ox 95 04/16/23 08:00 FiO2 Intake & Output 04/15/23 04/16/23 04/16/23 18:59 06:59 18:59 Intake Total 118 Output Total 375 Balance 118 -375 Weight 115 kg Intake: Oral 118 Output: Urine 375 Other: Voiding Method Diaper Diaper Diaper Incontinent Incontinent External Catheter External Catheter # Voids 2 1 - Exam Elderly female lying in bed in no distress Respiratory system unlabored breathing decreased breath sound the base Heart S1-S2 regular Abdominal soft no tenderness Exam completed with the help of VISITING NURSE - Labs CBC & Chem 7: 04/16/23 07:59 04/16/23 07:59 Labs: Abnormal Lab Results - Last 24 Hours (Table) 04/15/23 04/16/23 04/16/23 Range/Units 16:27 07:59 07:59 WBC 12.4 H (3.8-10.6) k/uL RBC 3.56 L (3.80-5.40) m/uL Hgb 10.2 L (11.4-16.0) gm/dL Hct 31.7 L (34.0-46.0) % Chloride 112 H (98-107) mmol/L Creatinine 0.45 L (0.52-1.04) mg/dL POC Glucose (mg/dL) 145 H (70-110) mg/dL Calcium 11.1 H (8.4-10.2) mg/dL Alkaline Phosphatase 139 H (38-126) U/L Total Protein 5.4 L (6.3-8.2) g/dL Albumin 2.0 L (3.5-5.0) g/dL Microbiology - Last 24 Hours (Table) 04/12/23 19:41 Blood Culture - Preliminary Blood 04/13/23 14:14 Blood Culture - Preliminary Blood Assessment and Plan (1) Bacteremia Current Visit: Yes Status: Acute Code(s): R78.81 - BACTEREMIA SNOMED Code(s): 0741837 (2) UTI (urinary tract infection) Current Visit: Yes Status: Acute Code(s): N39.0 - URINARY TRACT INFECTION, SITE NOT SPECIFIED SNOMED Code(s): 76030230 (3) Leukocytosis Current Visit: Yes Status: Acute Code(s): D72.829 - ELEVATED WHITE BLOOD CELL COUNT, UNSPECIFIED SNOMED Code(s): 041401657 Plan: 1patient presented to hospital with generalized weakness and this patient also have elevated white count which is likely multifactorial this patient did have a positive UA possible component of symptomatic urinary tract infection noted excluded however the patient did have abdominal malignancy and she was noticed to be tender on abdominal examination concerning for abdominal so CT was done showing mostly worsening adenopathy did not mention any colitis or abscess 2-patient with a positive blood culture with gram-positive cocci, I do not see any further gram-positive cocci on the blood cultures repeat blood culture negative possible contamination vancomycin was discontinued 3-patient with E. coli urinary tract infection blood culture positive for E vulneris both have the same sensitivities antibiotic 4- patient to continue with Unasyn and plan is to finish therapy with oral Augmentin on discharge Dictation was produced using [employer] dictation software. please excuse any grammatical, word or spelling errors. Time with Patient: Less than 30
[2023-04-17 05:55] LABS: Glucose,Whole Blood 86 mg/dL (70-110)
[2023-04-17] MEDS: droNABinol 2.5 MG CAP PO SCH (06:32)
[2023-04-17 07:49] LABS: HCT 31.3 % (34.0-46.0); HGB 9.6 gm/dL (11.4-16.0); Hypochromasia Marked; MCH 28.1 pg (25.0-35.0); MCHC 30.7 g/dL (31.0-37.0); MCV 91.6 fL (80.0-100.0); Mean Platelet Volume 10.6; Platelet Count 147 k/uL (150-450); RBC 3.42 m/uL (3.80-5.40); RDW 15.2 % (11.5-15.5); WBC 12.1 k/uL (3.8-10.6)
[2023-04-17 08:13] LABS: ALT 9 U/L (4-34); AST 14 U/L (14-36); African American GFR (CKD) >90 (>60 ml/min/1.73 sqM); Albumin 2.1 g/dL (3.5-5.0); Alkaline Phosphatase 138 U/L (38-126); Anion Gap 4 mmol/L; Blood Urea Nitrogen 16 mg/dL (7-17); Calcium 11.4 mg/dL (8.4-10.2); Carbon Dioxide 31 mmol/L (22-30); Chloride 112 mmol/L (98-107); Glucose 87 mg/dL (74-99); Magnesium 1.9 mg/dL (1.6-2.3); Non-African American GFR(CKD) >90 (>60 ml/min/1.73 sqM); Phosphorus 2.8 mg/dL (2.5-4.5); Sodium 147 mmol/L (137-145); Total Bilirubin 0.8 mg/dL (0.2-1.3); Total Protein 5.5 g/dL (6.3-8.2)
[2023-04-17 08:20] VITALS: RESP 32; TEMP 98.1
[2023-04-17] MEDS: NYSTATIN 100,000 UNIT/ML SUSP 500,000 UNIT/5 ML CUP PO SCH (09:23)
[2023-04-17] MEDS: RIVAROXABAN 20 MG TAB PO SCH (09:23)
[2023-04-17] MEDS: METOPROLOL TARTRATE 25 MG TAB PO SCH (09:23)
[2023-04-17] MEDS ORDERED: METOPROLOL TARTRATE 5 MG/5 ML VIAL IVP SCH (10:30)
[2023-04-17] MEDS ORDERED: KETOROLAC 15 MG/ML 1 ML VIAL IVP STA (10:47)
[2023-04-17] MEDS ORDERED: DEXTROSE 5% IN WATER 100 ML with AMIODARONE 150 MG IV ONE (10:50)
[2023-04-17] MEDS ORDERED: AMIODARONE 360 MG in DEXTROSE 5% IN WATER 200 ML IV ONE ×2 (11:00)
--- NOTE | 2023-04-17 11:22 | P.PN ---
Progress Note - Text Progress Note Date: 04/17/23 Advanced Care Planning: Diagnoses: Atrial fibrillation with RVR, Escherichia vulneris bacteremia, anorexia and metastatic squamous cell carcinoma. Discussion: Person present and participating in discussion: Patient's , Don Braun and SHANNON Yin Summary: Discussed the patient's grave condition and goals of care in great detail with the patient's at the bedside. The reported that patient has had a difficult time since her recent diagnosis of cancer. Patient's reports that he and his have discussed this topic in the past and it was decided upon that if her condition became this critical she would not like to undergo CPR or be placed on life support. Will make the patient No Code as per 's wishes as patient is lethargic and minimally responsive and unable to make these decisions at this time. A total of 19 minutes of face to face time was spent discussing advanced care planning. Vasquez Bhardwaj NP rendered care for this patient independently, reviewed the findings and plan as documented in the note above. I did not physically speak with or examine the patient on this date.
[2023-04-17 11:27] LABS: Glucose,Whole Blood 104 mg/dL (70-110)
[2023-04-17] MEDS ORDERED: ACETAMINOPHEN IV (For NPO) 1,000 MG in EMPTY BAG 1 BAG IVPB SCH (12:00)
[2023-04-17] MEDS ORDERED: SODIUM CHLORIDE 0.9% 1,000 ML IV ONE (12:15)
--- NOTE | 2023-04-17 12:23 | P.PN ---
Subjective HISTORY OF PRESENT ILLNESS: This is a 78-year-old female who follows in the office with Dr. Hand. Patient initially presented to the hospital on April 11, 2023 secondary to generalized weakness along with decreased appetite and nausea and vomiting. Cardiology was consulted at that time to evaluate for elevated troponins. An acute coronary event was ruled out and cardiology signed off. Cardiology was reconsulted this morning secondary to atrial fibrillation with RVR. Patient examined this morning at the bedside. Her is at the bedside. Patient is very lethargic at the time of examination. She is s/p Dobbhoff tube insertion and is receiving tube feedings. Patient has been made a DO NOT RESUSCITATE. Patient was in sinus mechanism this morning with a blood pressure in the 150s. However she since went into A-fib with RVR and became hypotensive with a systolic blood pressure range between 7090. She did undergo CT abdomen and pelvis on 04/13/2023 without contrast was completed showing interval development of a right lower lobe subsolid nodule measuring 10 mm, development of bilateral lower lobe small effusions, interval worsening of retroperitoneal and right inguinal adenopathy, interval diffuse enlargement of adrenal glands left greater than right, increasing edema in the subcutaneous tissues of the right hip and pelvis and increasing edema in the right hemipelvic musculature, interval development of diffuse mottling of the right hemipelvis without pathologic fracture showing findings consistent with bone metastasis. PHYSICAL EXAM: VITAL SIGNS: Reviewed. GENERAL: Well-developed in no acute distress. Lethargic. Appears ill. NECK: Supple. No JVD or thyromegaly LUNGS: Respirations even and unlabored. Lungs essentially clear to auscultation bilaterally. HEART: Irregular rate and rhythm. S1 and S2 heard. EXTREMITIES: No clubbing or cyanosis. Peripheral pulses intact. No lower extremity edema ASSESSMENT: Generalized weakness Nausea and vomiting Decreased oral intake, status post Dobbhoff insertion E. coli UTI Bacteremia Sepsis Chronically elevated troponins, no evidence of acute coronary syndrome History of gynecological squamous cell carcinoma, now with bone metastasis Right lower lobe subsolid nodule, measuring 10 mm Paroxysmal atrial fibrillation with RVR Hypotension Congestive heart failure with preserved EF History of hypertension PLAN: Begin IV amiodarone bolus and drip Continue telemetry monitoring Patient received 500 cc fluid bolus per primary medicine. Continue to monitor blood pressure Hopefully, patient will convert to SR with IV amio or at least be in AF with controlled ventricular rate. Then, suspect improvement in her blood pressures as well as this morning the patient's blood pressure was 150/86 when she was in sinus mechanism. If the patient continues to be hypotensive, discussion needs to be had with the family to see how aggressive they would like to be with treatment. Patient may require initiation of Levophed and transfer to the intensive care unit. Will defer this to primary medicine Further recommendations pending patient course Nurse practitioner note has been reviewed by physician. Signing provider agrees with the documented findings, assessment, and plan of care documented by METALLURGICAL ANALYST as a scribe. Objective - Vital Signs Vital signs: Vital Signs Temp 98.1 F 04/17/23 08:00 Pulse 98 04/17/23 09:00 Resp 32 H 04/17/23 09:00 BP 150/86 04/17/23 08:00 Pulse Ox 95 04/17/23 08:00 FiO2 Intake & Output 04/16/23 04/17/23 04/17/23 18:59 06:59 18:59 Intake Total 60 0 Balance 60 0 Weight 70.76 kg 70.76 kg Intake: Oral 0 Other 60 Other: Voiding Method Diaper Diaper Diaper # Voids 3 - Labs CBC & Chem 7: 04/17/23 07:11 04/17/23 07:05 Labs: Abnormal Lab Results - Last 24 Hours (Table) 04/16/23 04/17/23 04/17/23 Range/Units 12:09 07:05 07:11 WBC 12.1 H (3.8-10.6) k/uL RBC 3.42 L (3.80-5.40) m/uL Hgb 9.6 L (11.4-16.0) gm/dL Hct 31.3 L (34.0-46.0) % MCHC 30.7 L (31.0-37.0) g/dL Plt Count 147 L (150-450) k/uL Sodium 147 H (137-145) mmol/L Potassium 3.0 L (3.5-5.1) mmol/L Chloride 112 H (98-107) mmol/L Carbon Dioxide 31 H (22-30) mmol/L Calcium 11.4 H (8.4-10.2) mg/dL Alkaline Phosphatase 138 H (38-126) U/L Total Protein 5.5 L (6.3-8.2) g/dL Albumin 2.1 L (3.5-5.0) g/dL PTH Intact 3.5 L (14.0-72.0) pg/mL Microbiology - Last 24 Hours (Table) 04/13/23 14:14 Blood Culture - Preliminary Blood
[2023-04-17 13:26] VITALS: BMI 25.2
[2023-04-17 13:52] VITALS: BP 74/53; PULSE 161
--- NOTE | 2023-04-17 14:02 | P.PN ---
Subjective Progress Note Date: 04/17/23 Hospital course: Patient is a very pleasant 78-year-old female with a past medical history of recently diagnosed gynecological squamous cell carcinoma (following with Dr Castellon, receiving radiation), paroxysmal A. fib on Xarelto, diastolic CHF, and hypertension . She presented to the emergency department on 04/11/23 with complaints of anorexia and generalized weakness. Upon arrival to our facility patient underwent full evaluation. Vital signs upon arrival blood pressure 115/63, heart rate 86, respiratory rate 16, temp 98.5F, and SpO2 of 89% on room air requiring oxygen supplementation on 2 L O2 via nasal cannula. EKG was completed showing normal sinus rhythm at 86 bpm with right ventricular hypertrophy. Chest x-ray completed showing pulmonary vessels topping normal caliber without significant CHF with small probable right pleural effusion. Labs were completed and reviewed. CBC showing leukocytosis with WBC count of 15.6 and bicytopenia with hemoglobin of 10.4 and platelet count of 140. Coagulation profile showing elevated PT of 20.9 and INR of 2.1. BMP showing hyponatremia with sodium of 132 and prerenal azotemia with BUN of 21 and otherw ise normal findings. Blood glucose was 117. Lactic acid was 1.3. Liver profile showing elevated total bili of 1.5 and alkaline phosphatase of 176. Troponin was elevated at 0.200. Urinalysis was positive for protein, ketones, bilirubin, leukocytes, and 54 WBCs. Blood cultures and urine culture was obtained. Patient was admitted under our services consultation to oncology and cardiology. Troponins trended resulting 0.200, 0.192, and 0.226. Blood cultures preliminarily resulting positive for gram-negative bacilli. Urine culture also preliminarily resulting positive for gram-negative bacilli. Patient started on IV antibiotics and Infectious disease was consulted for bacteremia. CT abdomen and pelvis without contrast was completed showing interval development of a right lower lobe subsolid nodule measuring 10 mm, development of bilateral lower lobe small effusions, interval worsening of retroperitoneal and right inguinal adenopathy, interval diffuse enlargement of adrenal glands left greater than right, increasing edema in the subcutaneous tissues of the right hip and pelvis and increasing edema in the right hemipelvic musculature, interval development of diffuse mottling of the right hemipelvis without pathologic fracture showing findings consistent with bone metastasis. Physical exam: Pt seen and fully evaluated at bedside this morning. Upon examination at bedside, patient found to be back into atrial fibrillation with RVR with rates up to 170s. She is very lethargic this morning when compared to yesterday's appearance. She is also restless and her reports she has been thrashing about. Orders placed for scheduled Ofirmev along with a dose of Toradol for pain management. Cardiology reconsulted. General: Nontoxic, appears stated age. Chronically and critically ill- appearing. Derm: Skin warm and dry, normal coloration for ethnicity. Head: Atraumatic, normocephalic and symmetric. Eyes: EOMs intact, no lid lag, and anicteric sclera Mouth: no lip lesions, mucus membranes dry Cardiovascular: irregularly irregular, no murmur, positive posterior tibial pulses bilaterally, and cap refill < 2 seconds. Lungs: Respirations even, regular, and unlabored on 2L Lungs CTA bilaterally, no rhonchi, no rales, no wheezing, and no accessory muscle usage. Abdominal: soft, nontender to palpation, no guarding, no appreciable organomegaly Ext: ROM intact. No gross muscle atrophy, no edema, no contractures Neuro: Patient lethargic answering minimally mostly yes and no to questions asked. She is restless. Assessment and Plan of Care: Atrial fibrillation with RVR Hypotension -Repeat EKG obtained at bedside showing A-fib RVR at 156 bpm with T wave inversion in inferior leads upon personal review and interpretation. -Patient started on amiodarone infusion and to continue metoprolol 25 mg PO BID and Rythmol 150 mg every 8 hours and anticoagulation with Xarelto 20 mg daily. -Cardiology reconsulted and discussed plan of care with branch sales and service representative and cardiac LACE MACHINE OPERATOR at bedside recommending amiodarone bolus followed by infusion. -Telemetry monitoring -Patient given IV fluid bolus for treatment of hypotension resulting from poorly controlled RVR -Discussed with patient's at bedside he did not want patient moved to ICU and started on vasopressors at this time. Escherichia vulneris bacteremia E. coli UTI Sepsis, secondary to above -CT abdomen and pelvis without contrast was completed showing interval development of a right lower lobe subsolid nodule measuring 10 mm, development of bilateral lower lobe small effusions, interval worsening of retroperitoneal and right inguinal adenopathy, interval diffuse enlargement of adrenal glands left greater than right, increasing edema in the subcutaneous tissues of the right hip and pelvis and increasing edema in the right hemipelvic musculature, interval development of diffuse mottling of the right hemipelvis without pathologic fracture showing findings consistent with bone metastasis. -Continue Unasyn 3 g every 6 hours -Repeat blood cultures showing no growth to date -Infectious disease following, reviewed documentation in chart. -Continue telemetry monitoring. Dysphasia, suspected to be due to Thrush Anorexia Severe protein calorie malnutrition, total protein of 5.4 and albumin of 2.0 -Nystatin 5000 units by mouth 4 times daily, swish and swallow. -Speech and language pathologist evaluated for swallow eval, and per documentation patient exhibited slow masticatory effort and mildly delayed swallow initiation. Speech and language pathologist reported no signs and symp toms of aspiration with no further services noted as difficulties appeared to be related to decreased effort secondary to patient's weakened state and decreased appetite. -Patient started on Marinol 2.5 mg twice daily and encouraged oral intake. -Dobbhoff tube was inserted on 04/16/2023 and patient started on tube feedings. -Dietary also following and managing tube feed Hypercalcemia Continue gentle IV fluid hydration. Parathyroid hormone 3.5. Hypokalemia, resolved -Repeat morning labs pending Hypoglycemia: -Patient had isolated episode of hypoglycemia on 04/13/23. Patient placed on glycemic protocol with Accu-Cheks before meals at bedtime. -Hypoglycemia suspected to be secondary to poor oral intake. -Dietary following Generalized weakness, multifactorial due to above conditions and recently diagnosed gynecological squamous cell carcinoma: -Continue with gentle IV hydration. -Symptomatic care with Zofran 4 mg IV Q8H PRN for N/V. -Patient being treated for underlying conditions as stated above -Continue fall precautions. -PT and OT following. Hyponatremia: Resolved after IV fluid hydration. Pressure ulcers to coccyx, present on arrival -Stage II pressure ulcer right coccyx and stage II pressure ulcer on left coccyx, present on arrival. -Wound care and continue to offload. -Orders placed for turn every 2 hours. Elevated troponins: Chronically elevated. -Troponins were elevated at 0.200, 0.192, and 0.226. -Patient to remain on telemetry monitoring. -Recent Lexiscan 03/03/23 negative. Cardiology evaluated and recommends no further workup. Bicytopenia with anemia and thrombocytopenia. -Normocytic anemia: At baseline and stable. No signs of active bleeding. Will continue to monitor. -Thrombocytopenia: No signs of active bleeding. Possibly reactive due to infection. Will continue to monitor. Hypochloremic metabolic alkalosis, resolved. Chronic conditions: Squamous Cell Carcinoma, Diastolic CHF, HTN Data and Imaging reviewed: Vital signs reviewed. Blood pressure 87/52 heart rate 163, respiratory rate 32, temp 98.1 F, and SpO2 of 95% on 2 L O2 via nasal cannula. Patient with very poor prognosis increasing lethargy today, restless, and went back into atrial fibrillation with RVR. CODE STATUS: FULL CODE DVT Prophylaxis: Xarelto Anticipated discharge date: Clinical course to determine Anticipated discharge place: Home Patient was seen independently by Nurse Pracitioner. This document was prepared using [employer] dictation software. Please allow for errors in spring intern, while rare they do occur. Vasquez Bhardwaj NP rendered care for this patient independently, reviewed the findings and plan as documented in the note above. I did not physically speak with or examine the patient on this date. Objective - Vital Signs Vital signs: Vital Signs Temp 98.1 F 04/17/23 08:00 Pulse 98 04/17/23 08:00 Resp 32 H 04/17/23 08:00 BP 150/86 04/17/23 08:00 Pulse Ox 95 04/17/23 08:00 FiO2 Intake & Output 04/16/23 04/17/23 04/17/23 18:59 06:59 18:59 Intake Total 60 0 Balance 60 0 Weight 70.76 kg Intake: Oral 0 Other 60 Other: Voiding Method Diaper Diaper # Voids 3 - Labs CBC & Chem 7: 04/17/23 07:11 04/17/23 07:05 Labs: Abnormal Lab Results - Last 24 Hours (Table) 04/16/23 04/16/23 04/16/23 Range/Units 07:59 07:59 12:09 WBC 12.4 H (3.8-10.6) k/uL RBC 3.56 L (3.80-5.40) m/uL Hgb 10.2 L (11.4-16.0) gm/dL Hct 31.7 L (34.0-46.0) % MCHC (31.0-37.0) g/dL Plt Count (150-450) k/uL Sodium (137-145) mmol/L Potassium (3.5-5.1) mmol/L Chloride 112 H (98-107) mmol/L Carbon Dioxide (22-30) mmol/L Creatinine 0.45 L (0.52-1.04) mg/dL Calcium 11.1 H (8.4-10.2) mg/dL Alkaline Phosphatase 139 H (38-126) U/L Total Protein 5.4 L (6.3-8.2) g/dL Albumin 2.0 L (3.5-5.0) g/dL PTH Intact 3.5 L (14.0-72.0) pg/mL 04/17/23 04/17/23 Range/Units 07:05 07:11 WBC 12.1 H (3.8-10.6) k/uL RBC 3.42 L (3.80-5.40) m/uL Hgb 9.6 L (11.4-16.0) gm/dL Hct 31.3 L (34.0-46.0) % MCHC 30.7 L (31.0-37.0) g/dL Plt Count 147 L (150-450) k/uL Sodium 147 H (137-145) mmol/L Potassium 3.0 L (3.5-5.1) mmol/L Chloride 112 H (98-107) mmol/L Carbon Dioxide 31 H (22-30) mmol/L Creatinine (0.52-1.04) mg/dL Calcium 11.4 H (8.4-10.2) mg/dL Alkaline Phosphatase 138 H (38-126) U/L Total Protein 5.5 L (6.3-8.2) g/dL Albumin 2.1 L (3.5-5.0) g/dL PTH Intact (14.0-72.0) pg/mL Microbiology - Last 24 Hours (Table) 04/13/23 14:14 Blood Culture - Preliminary Blood 04/12/23 19:41 Blood Culture - Preliminary Blood
--- NOTE | 2023-04-17 14:53 | P.PN ---
Progress Note - Text Progress Note Date: 04/17/23 Despite medication efforts to control patient's heart rate and increase her blood pressure, she remains with poorly controlled RVR with ventricular rates ranging from 140s to 170s. Patient is now unresponsive and significantly hypotensive with pressures 60's systolic. She is a no code, however went back to bedside to further discuss with patient's treatment options going forward based on patient's critically worsening condition. We discussed hospice and comfort care as well as the possibility of transferring patient to the ICU and starting her on vasopressors to increase her blood pressure and additional medications that could then be given to try to control her rapid heart rate. At this time patient's stated he has given things more thought and due to his 's critical condition and further deterioration, he would like to make her comfortable and decided on stopping treatment at this time and only focusing on making his comfortable. Comfort orders placed at this time as well as consult to hospice. Patient's calling family to be with him and his throughout this process. Vasquez Bhardwaj NP rendered care for this patient independently, reviewed the findings and plan as documented in the note above. I did not physically speak with or examine the patient on this date.
[2023-04-17] MEDS ORDERED: ARTIFICIAL TEARS-HYPROMELLOSE DROPS 15 ML BTL BOTH EYES PRN (14:55)
[2023-04-17] MEDS ORDERED: DRY MOUTH SPRAY 44.3 SPRAY/44.3 ML SPRAY MUCOUS MEM PRN (14:55)
[2023-04-17] MEDS ORDERED: GLYCOPYRROLATE 0.2 MG/ML 2 ML VIAL IVP PRN (14:55)
[2023-04-17] MEDS ORDERED: ATROPINE OPHTH SOLN 1% 5ML BTL SUBLINGUAL PRN (14:55)
[2023-04-17] MEDS ORDERED: MORPHINE SULFATE (100 MG/2 ML) 100 MG in SODIUM CHLORIDE 0.9% 100 ML IV SCH (15:30)
[2023-04-17] MEDS ORDERED: SCOPOLAMINE 1 MG/72 HR PATCH TRANSDERM SCH (16:00)
--- NOTE | 2023-04-17 16:59 | P.DS ---
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 Poorly controlled. Despite medication efforts to control patient's heart rate and increase her blood pressure, she remains with poorly controlled RVR with ventricular rates ranging from 140s to 170s. Patient became unresponsive and significantly hypotensive with pressures 60's systolic. She was a no code, and upon further discussion with patient's regarding treatment options going forward, he made the decision of stopping treatment at this time and only focusing on making his comfortable. Comfort orders placed at this time as well as consult to hospice. Hypotension Escherichia vulneris bacteremia E. coli UTI Sepsis, secondary to above Dysphasia, suspected to be due to Thrush Anorexia with failure to thrive Severe protein calorie malnutrition, total protein of 5.4 and albumin of 2.0 Metastatic squamous Cell Carcinoma Diastolic CHF Hypercalcemia Hypokalemia Hypoglycemia Generalized weakness, multifactorial due to above conditions and recently diagnosed gynecological squamous cell carcinoma: Hyponatremia: Resolved after IV fluid hydration. Pressure ulcers to coccyx, present on arrival Elevated troponins: Chronically elevated. Bicytopenia with anemia and thrombocytopenia. Hypochloremic metabolic alkalosis, resolved. HTN Hospital course: Patient is a very pleasant 78-year-old female with a past medical history of recently diagnosed gynecological squamous cell carcinoma (following with Dr Castellon, receiving radiation), paroxysmal A. fib on Xarelto, diastolic CHF, and hypertension . She presented to the emergency department on 04/11/23 with complaints of anorexia and generalized weakness. Upon arrival to our facility patient underwent full evaluation. Vital signs upon arrival blood pressure 115/63, heart rate 86, respiratory rate 16, temp 98.5F, and SpO2 of 89% on room air requiring oxygen supplementation on 2 L O2 via nasal cannula. EKG was completed showing normal sinus rhythm at 86 bpm with right ventricular hypertrophy. Chest x-ray completed showing pulmonary vessels topping normal caliber without significant CHF with small probable right pleural effusion. Labs were completed and reviewed. CBC showing leukocytosis with WBC count of 15.6 and bicytopenia with hemoglobin of 10.4 and platelet count of 140. Coagulation profile showing elevated PT of 20.9 and INR of 2.1. BMP showing hyponatremia with sodium of 132 and prerenal azotemia with BUN of 21 and otherwise normal findings. Blood glucose was 117. Lactic acid was 1.3. Liver profile showing elevated total bili of 1.5 and alkaline phosphatase of 176. Troponin was elevated at 0.200. Urinalysis was positive for protein, ketones, bilirubin, leukocytes, and 54 WBCs. Blood cultures and urine culture was obtained. Patient was admitted under our services consultation to oncology and cardiology. Troponins trended resulting 0.200, 0.192, and 0.226. Blood cultures preliminarily resulting positive for gram-negative bacilli. Urine culture also preliminarily resulting positive for gram-negative bacilli. Patient started on IV antibiotics and Infectious disease was consulted for bacteremia. CT abdomen and pelvis without contrast was completed showing interval development of a right lower lobe subsolid nodule measuring 10 mm, development of bilateral lower lobe small effusions, interval worsening of retroperitoneal and right inguinal adenopathy, interval diffuse enlargement of adrenal glands left greater than right, increasing edema in the subcutaneous tissues of the right hip and pelvis and increasing edema in the right hemipelvic musculature, interval development of diffuse mottling of the right hemipelvis without pathologic fracture showing findings consistent with bone metastasis. Throughout stay patient in and out of atrial fibrillation with RVR. Cardiology made some medication changes and signed off of patient. However campaign consultant 04/17/2023 patient again into atrial fibrillation with RVR and increasing lethargy with significant hypotension. Cardiology was reconsulted and despite medication efforts to control patient's heart rate and increase her blood pressure, she remains with poorly controlled RVR with ventricular rates ranging from 140s to 170s. Patient became unresponsive and significantly hypotensive with pressures 60's systolic. She was a no code, and upon further discussion with patient's regarding treatment options going forward, he made the decision of stopping treatment at this time and only focusing on making his comfortable. Comfort orders placed at this time as well as consult to hospice. Patient discharged to inpatient hospice at this time. A total of 38 minutes of time were spent preparing this complex discharge summary. Patient discharged from inpatient status and made inpatient hospice. Vasquez Bhardwaj NP rendered care for this patient independently, reviewed the findings and plan as documented in the note above. I did not physically speak with or examine the patient on this date. Patient Condition at Discharge: Serious Plan - Discharge Summary Discharge Rx Participant: Yes New Discharge Prescriptions: No Action Propafenone [Rythmol] 150 mg PO Q8HR #90 tab Nystatin 100,000 Unit/gm Powd [Mycostatin Powder] 1 applic TOPICAL BID PRN PRN Reason: Rash Ketorolac [Toradol] 10 mg PO Q6HR PRN #15 tab PRN Reason: Pain ondansetron HCL [Zofran] 8 mg PO Q8HR PRN PRN Reason: Nausea Metoprolol Tartrate [Lopressor] 12.5 mg PO BID 30 Days #60 tab Albuterol Inhaler [Ventolin Hfa Inhaler] 2 puff INHALATION RT-Q6H PRN #1 puff PRN Reason: Shortness Of Breath Or Wheezing Morphine Sulfate Ir [MSIR] 15 mg PO Q3H PRN 3 Days #24 tab PRN Reason: Severe Breakthrough Pain Acetaminophen Tab [Tylenol] 650 mg PO Q6HR PRN #60 tab PRN Reason: Fever And/ Or Pain Rivaroxaban [Xarelto] 20 mg PO DAILY Prochlorperazine [Compazine] 5 mg PO Q6HR PRN PRN Reason: Nausea Potassium Chloride [Klor-Con 20 Packets] 20 meq PO DAILY #30 packet Furosemide [Lasix] 20 mg PO BID@0900,1600 PRN 30 Days #60 tab PRN Reason: Edema traZODone HCL [Desyrel] 50 mg PO HS oxyCODONE HCL [oxyCODONE HCL (IR)] 5 - 10 mg PO Q4H PRN PRN Reason: Pain Sennosides/Docusate Sodium [Senna Plus 8.6-50 mg Tablet] 1 - 2 tab PO BID PRN PRN Reason: Constipation Discharge Medication List Propafenone [Rythmol] 150 mg PO Q8HR #90 tab 05/07/16 [Rx] Albuterol Inhaler [Ventolin Hfa Inhaler] 2 puff INHALATION RT-Q6H PRN #1 puff 06/26/20 [Rx] Nystatin 100,000 Unit/gm Powd [Mycostatin Powder] 1 applic TOPICAL BID PRN 02/14/23 [History] Ketorolac [Toradol] 10 mg PO Q6HR PRN #15 tab 02/21/23 [Rx] ondansetron HCL [Zofran] 8 mg PO Q8HR PRN 02/23/23 [History] Acetaminophen Tab [Tylenol] 650 mg PO Q6HR PRN #60 tab 02/27/23 [Rx] Morphine Sulfate Ir [MSIR] 15 mg PO Q3H PRN 3 Days #24 tab 02/27/23 [Rx] Prochlorperazine [Compazine] 5 mg PO Q6HR PRN 02/28/23 [History] Rivaroxaban [Xarelto] 20 mg PO DAILY 02/28/23 [History] Furosemide [Lasix] 20 mg PO BID@0900,1600 PRN 30 Days #60 tab 03/12/23 [Rx] Metoprolol Tartrate [Lopressor] 12.5 mg PO BID 30 Days #60 tab 03/12/23 [Rx] Potassium Chloride [Klor-Con 20 Packets] 20 meq PO DAILY #30 packet 03/12/23 [Rx] Sennosides/Docusate Sodium [Senna Plus 8.6-50 mg Tablet] 1 - 2 tab PO BID PRN 04/11/23 [History] oxyCODONE HCL [oxyCODONE HCL (IR)] 5 - 10 mg PO Q4H PRN 04/11/23 [History] traZODone HCL [Desyrel] 50 mg PO HS 04/11/23 [History] Follow up Appointment(s)/Referral(s): Venancio Castellon [STAFF PHYSICIAN] - 3 Weeks Yordan Prescott MD [Primary Care Provider] - 1-2 days [facility], [NON-STAFF] - Discharge Disposition: HOME WITH HOSPICE
[2023-04-17] MEDS ORDERED: AMIODARONE 450 MG in DEXTROSE 5% IN WATER 250 ML IV SCH ×2 (17:00)
--- NOTE | 2023-04-17 22:39 | P.PN ---
Subjective Progress Note Date: 04/17/23 Principal diagnosis: Reason for follow-up is bacteremia and UTI This is a telehealth visit Patient is a 78-year-old female with a past medical history significant for hypertension atrial fibrillation pelvic mass which is cancerous patient was brought into the hospital for evaluation of generalized weakness, patient did have positive blood culture both gram-positive as well as gram- negative prompting this infectious disease consultation CT abdominal pelvis ordered patient refused contrast did shows evidence of bilateral lower lobe effusion infiltrates worsening retroperitoneal inguinal adenopathy increasing edema in the subcutaneous soft tissue of the right hip concerning for bony metastatic disease. On today's evaluation that is 04/17/2023, the patient remains to be afebrile patient is breathing comfortably on 2 L nasal cannula supplemental oxygen the patient slightly lethargic today and could not provide reliable history no vomiting diarrhea or any other changes has been reported patient seem to be getting more weaker and have difficulty swallowing per the at the bedside Patient labs were reviewed Objective - Vital Signs Vital signs: Vital Signs Temp 98.1 F 04/17/23 08:00 Pulse 161 H 04/17/23 13:27 Resp 32 H 04/17/23 09:00 BP 74/53 04/17/23 13:27 Pulse Ox 98 04/17/23 13:27 FiO2 Intake & Output 04/17/23 04/17/23 04/18/23 06:59 18:59 06:59 Intake Total 0 Balance 0 Weight 70.76 kg Intake: Oral 0 Other: Voiding Method Diaper Diaper - Exam Elderly female lying in bed in no distress Respiratory system unlabored breathing decreased breath sound the base Heart S1-S2 regular Abdominal soft no tenderness Exam completed with the help of SIGN POSTER - Labs CBC & Chem 7: 04/17/23 07:11 04/17/23 07:05 Labs: Abnormal Lab Results - Last 24 Hours (Table) 04/17/23 04/17/23 Range/Units 07:05 07:11 WBC 12.1 H (3.8-10.6) k/uL RBC 3.42 L (3.80-5.40) m/uL Hgb 9.6 L (11.4-16.0) gm/dL Hct 31.3 L (34.0-46.0) % MCHC 30.7 L (31.0-37.0) g/dL Plt Count 147 L (150-450) k/uL Sodium 147 H (137-145) mmol/L Potassium 3.0 L (3.5-5.1) mmol/L Chloride 112 H (98-107) mmol/L Carbon Dioxide 31 H (22-30) mmol/L Calcium 11.4 H (8.4-10.2) mg/dL Alkaline Phosphatase 138 H (38-126) U/L Total Protein 5.5 L (6.3-8.2) g/dL Albumin 2.1 L (3.5-5.0) g/dL Microbiology - Last 24 Hours (Table) 04/13/23 14:14 Blood Culture - Preliminary Blood Assessment and Plan (1) Bacteremia Status: Acute Code(s): R78.81 - BACTEREMIA SNOMED Code(s): 8517966 (2) UTI (urinary tract infection) Status: Acute Code(s): N39.0 - URINARY TRACT INFECTION, SITE NOT SPECIFIED SNOMED Code(s): 18730621 (3) Leukocytosis Status: Acute Code(s): D72.829 - ELEVATED WHITE BLOOD CELL COUNT, UNSPECIFIED SNOMED Code(s): 289128597 Plan: 1patient presented to hospital with generalized weakness and this patient also have elevated white count which is likely multifactorial this patient did have a positive UA possible component of symptomatic urinary tract infection noted excluded however the patient did have abdominal malignancy and she was noticed to be tender on abdominal examination concerning for abdominal so CT was done showing mostly worsening adenopathy did not mention any colitis or abscess 2-patient with a positive blood culture with gram-positive cocci, I do not see any further gram-positive cocci on the blood cultures repeat blood culture negative possible contamination vancomycin was discontinued 3-patient with E. coli urinary tract infection blood culture positive for E vulneris both have the same sensitivities antibiotic 4- patient currently covered with [employer] however possible plan for hospice which may be appropriate for her keeping in mind her advanced cancer in that case ant ibiotics can be safely discontinued Dictation was produced using [employer] dictation software. please excuse any grammatical, word or spelling errors. Time with Patient: Less than 30
== END 2023-04-17 15:48 | disposition hospice, inpatient (51) | DRG 871 ==
LOC: EC 00:51 → 5NMEDONC 06:30 → 3SCARD 18:30
PROVIDERS: ADMIT Internal Medicine; ATTEND Internal Medicine
PROC: 3E0F7SF Introduction of Other Gas into Respiratory Tract, Via Natural or Artificial Opening (ICD-10-PCS; principal; 2023-04-11)
PROC: 3E033XZ Introduction of Vasopressor into Peripheral Vein, Percutaneous Approach (ICD-10-PCS; 2023-04-11)
PROC: 3E0336Z Introduction of Nutritional Substance into Peripheral Vein, Percutaneous Approach (ICD-10-PCS; 2023-04-17)
PROC: 0DH67UZ Insertion of Feeding Device into Stomach, Via Natural or Artificial Opening (ICD-10-PCS; 2023-04-17)
DX: A41.51 Sepsis due to Escherichia coli [E. coli] (principal); E43 Unspecified severe protein-calorie malnutrition; J96.01 Acute respiratory failure with hypoxia; R65.21 Severe sepsis with septic shock; N39.0 Urinary tract infection, site not specified; C79.51 Secondary malignant neoplasm of bone; E87.3 Alkalosis; B37.0 Candidal stomatitis; E87.1 Hypo-osmolality and hyponatremia; I50.32 Chronic diastolic (congestive) heart failure; Z68.25 Body mass index [BMI] 25.0-25.9, adult; Z66 Do not resuscitate; Z51.5 Encounter for palliative care; R11.2 Nausea with vomiting, unspecified; E87.8 Other disorders of electrolyte and fluid balance, not elsewhere classified; D69.6 Thrombocytopenia, unspecified; I11.0 Hypertensive heart disease with heart failure; I48.0 Paroxysmal atrial fibrillation; Z79.01 Long term (current) use of anticoagulants; E86.0 Dehydration; I08.3 Combined rheumatic disorders of mitral, aortic and tricuspid valves; R62.7 Adult failure to thrive; R79.1 Abnormal coagulation profile; C76.3 Malignant neoplasm of pelvis; R63.0 Anorexia; D64.9 Anemia, unspecified; E87.6 Hypokalemia; E11.649 Type 2 diabetes mellitus with hypoglycemia without coma; L89.152 Pressure ulcer of sacral region, stage 2; E83.52 Hypercalcemia; F41.9 Anxiety disorder, unspecified; R47.02 Dysphasia; Z79.899 Other long term (current) drug therapy; Z88.2 Allergy status to sulfonamides; Z88.1 Allergy status to other antibiotic agents
CPT/HCPCS: 36415; 51702; 71045; 71046; 74176; 80048; 80053; 80202; 81001; 83605; 83735; 83880; 83930; 83935; 83970; 84100; 84300; 84484; 85025; 85027; 85610; 85730; 87040; 87077; 87086; 87186; 93005; 94760; 96374; 99285

== ENCOUNTER 2023-04-17 15:24 | Inpatient (IN) | payer MEDICAID ==
[2023-04-17] MEDS ORDERED: DRY MOUTH SPRAY 44.3 SPRAY/44.3 ML SPRAY MUCOUS MEM PRN (15:43)
[2023-04-17] MEDS ORDERED: ACETAMINOPHEN SUPPOSITORY 650 MG SUPP RECTAL PRN (15:43)
[2023-04-17] MEDS ORDERED: ATROPINE OPHTH SOLN 1% 5ML BTL SUBLINGUAL PRN (15:43)
[2023-04-17] MEDS ORDERED: ONDANSETRON 4 MG/2 ML VIAL IVP PRN (15:43)
[2023-04-17] MEDS ORDERED: GLYCOPYRROLATE 0.2 MG/ML 2 ML VIAL IVP PRN (15:43)
[2023-04-17] MEDS ORDERED: MORPHINE SULFATE 4 MG/ML SYRINGE IV PRN (15:43)
[2023-04-17] MEDS ORDERED: LORazepam 2 MG/ML INJ IV PRN (15:43)
[2023-04-17] MEDS: MORPHINE SULFATE (100 MG/2 ML) 100 MG in SODIUM CHLORIDE 0.9% 100 ML IV SCH (16:38)
--- NOTE | 2023-04-17 17:17 | P.DS ---
Providers Date of admission: 04/17/23 15:51 Expected date of discharge: 04/17/23 Attending physician: Radha Saul MD Primary care physician: [place] Hospital Course: This document is made in error Patient Condition at Discharge: Serious Plan - Discharge Summary New Discharge Prescriptions: No Action Propafenone [Rythmol] 150 mg PO Q8HR #90 tab Nystatin 100,000 Unit/gm Powd [Mycostatin Powder] 1 applic TOPICAL BID PRN PRN Reason: Rash Ketorolac [Toradol] 10 mg PO Q6HR PRN #15 tab PRN Reason: Pain ondansetron HCL [Zofran] 8 mg PO Q8HR PRN PRN Reason: Nausea Metoprolol Tartrate [Lopressor] 12.5 mg PO BID 30 Days #60 tab Albuterol Inhaler [Ventolin Hfa Inhaler] 2 puff INHALATION RT-Q6H PRN #1 puff PRN Reason: Shortness Of Breath Or Wheezing Morphine Sulfate Ir [MSIR] 15 mg PO Q3H PRN 3 Days #24 tab PRN Reason: Severe Breakthrough Pain Acetaminophen Tab [Tylenol] 650 mg PO Q6HR PRN #60 tab PRN Reason: Fever And/ Or Pain Rivaroxaban [Xarelto] 20 mg PO DAILY Prochlorperazine [Compazine] 5 mg PO Q6HR PRN PRN Reason: Nausea Potassium Chloride [Klor-Con 20 Packets] 20 meq PO DAILY #30 packet Furosemide [Lasix] 20 mg PO BID@0900,1600 PRN 30 Days #60 tab PRN Reason: Edema traZODone HCL [Desyrel] 50 mg PO HS oxyCODONE HCL [oxyCODONE HCL (IR)] 5 - 10 mg PO Q4H PRN PRN Reason: Pain Sennosides/Docusate Sodium [Senna Plus 8.6-50 mg Tablet] 1 - 2 tab PO BID PRN PRN Reason: Constipation Discharge Medication List Propafenone [Rythmol] 150 mg PO Q8HR #90 tab 05/07/16 [Rx] Albuterol Inhaler [Ventolin Hfa Inhaler] 2 puff INHALATION RT-Q6H PRN #1 puff 06/26/20 [Rx] Nystatin 100,000 Unit/gm Powd [Mycostatin Powder] 1 applic TOPICAL BID PRN 11/24/23 [History] Ketorolac [Toradol] 10 mg PO Q6HR PRN #15 tab 02/21/23 [Rx] ondansetron HCL [Zofran] 8 mg PO Q8HR PRN 02/23/23 [History] Acetaminophen Tab [Tylenol] 650 mg PO Q6HR PRN #60 tab 02/27/23 [Rx] Morphine Sulfate Ir [MSIR] 15 mg PO Q3H PRN 3 Days #24 tab 02/27/23 [Rx] Prochlorperazine [Compazine] 5 mg PO Q6HR PRN 02/28/23 [History] Rivaroxaban [Xarelto] 20 mg PO DAILY 02/28/23 [History] Furosemide [Lasix] 20 mg PO BID@0900,1600 PRN 30 Days #60 tab 03/12/23 [Rx] Metoprolol Tartrate [Lopressor] 12.5 mg PO BID 30 Days #60 tab 03/12/23 [Rx] Potassium Chloride [Klor-Con 20 Packets] 20 meq PO DAILY #30 packet 03/12/23 [Rx] Sennosides/Docusate Sodium [Senna Plus 8.6-50 mg Tablet] 1 - 2 tab PO BID PRN 04/11/23 [History] oxyCODONE HCL [oxyCODONE HCL (IR)] 5 - 10 mg PO Q4H PRN 04/11/23 [History] traZODone HCL [Desyrel] 50 mg PO HS 04/11/23 [History]
--- NOTE | 2023-04-17 17:18 | P.HPIM ---
History of Present Illness H&P Date: 04/17/23 Hospital course: Patient is a very pleasant 78-year-old female with a past medical history of recently diagnosed metastatic gynecological squamous cell carcinoma (following with Dr Castellon, receiving radiation), paroxysmal A. fib on Xarelto, diastolic CHF, and hypertension . She initially presented to the emergency department on 04/11/23 with complaints of anorexia and generalized weakness. She was found to have Escherichia vulneris bacteremia and E. coli UTI. During her stay she was also found to have elevated troponins and have recurrent episodes of atrial fibrillation with RVR and her condition progressively worsened and patient stopped eating. She had increasing lethargy and failure to thrive. A Dobbhoff NG tube was placed and patient was started on PEG tube feedings. She was treated aggressively for her above-mentioned conditions. She was evaluated by our hospitalist team, cardiology, infectious disease, and oncology during her admission. Despite treatment efforts patient's condition further deteriorated. She again went into atrial fibrillation with RVR and became severely hypotensive and unresponsive. Due to her critical condition and very poor prognosis with her metastatic squamous cell carcinoma and multiple comorbid conditions, her made the decision to stop all treatment and initiate comfort measures only with hospice care. Patient currently admitted to inpatient hospice and her family remains at bedside. Review of systems: Full review of systems cannot be completed at this time secondary to patient's lethargic and minimally responsive state. Physical exam: General: Nontoxic, appears stated age. Chronically and critically ill- appearing. Derm: Skin warm and dry, normal coloration for ethnicity. Head: Atraumatic, normocephalic and symmetric. Eyes: EOMs intact, no lid lag, and anicteric sclera Mouth: no lip lesions, mucus membranes dry Cardiovascular: irregularly irregular, no murmur, positive posterior tibial pu lses bilaterally, and cap refill < 2 seconds. Lungs: Respirations even, regular, and unlabored on 2L Lungs CTA bilaterally, no rhonchi, no rales, no wheezing, and no accessory muscle usage. Abdominal: soft, nontender to palpation, no guarding, no appreciable organomegaly Ext: No gross muscle atrophy, no edema, no contractures Neuro: Patient lethargic and minimally responsive. Assessment and plan of care: Atrial fibrillation with RVR. Poorly controlled. Severe hypotension with history of hypertension Escherichia vulneris bacteremia E. coli UTI Sepsis, secondary to above Dysphasia, suspected to be due to Thrush Anorexia with failure to thrive Severe protein calorie malnutrition, total protein of 5.4 and albumin of 2.0 Metastatic squamous Cell Carcinoma Diastolic CHF Hypercalcemia Hypokalemia Hypoglycemia Generalized weakness, multifactorial due to above conditions and recently diagnosed gynecological squamous cell carcinoma: Pressure ulcers to coccyx, present on arrival Elevated troponins: Chronically elevated. Bicytopenia with anemia and thrombocytopenia. -Comfort measures only, initiate hospice care -Tylenol suppository as needed every 4 hours for fever and/or mild pain -Atropine drops sublingually every 4 hours for excess secretions -Dry mouth spray as needed for dry mucous membranes -Robinul 0.1 mg IV push every 6 hours as needed for excess secretions -Ativan 1 mg IVP every 6 hours as needed for anxiety or agitation -Morphine infusion 1 mg/hr and titrate as needed for comfort/pain -Morphine 4 mg IVP as needed for severe breakthrough pain -Zofran 4 mg IVP every 8 hours as needed for nausea/vomiting. -Order placed for insertion of urinary catheter and urinary catheter management -Activity order to turn every 2 hours to prevent further breakdown of pressure ulcers CODE STATUS: DNR/DNI. Comfort measures only, Hospice care Patient was seen independently by Nurse Practitioner. This document was prepared using [employer] dictation software. Please allow for errors in supervisor trust accounts while rare they do occur. Vasquez Bhardwaj NP rendered care for this patient independently, reviewed the findings and plan as documented in the note above. I did not physically speak with or examine the patient on this date. Past Medical History Past Medical History: Atrial Fibrillation, Cancer, Hypertension Additional Past Medical History / Comment(s): 02/28/23 pt diagnosed today with a pelvic mass that is cancerous History of Any Multi-Drug Resistant Organisms: None Reported Past Surgical History: No Surgical Hx Reported Past Anesthesia/Blood Transfusion Reactions: No Reported Reaction Past Psychological History: Anxiety Smoking Status: Never smoker Past Alcohol Use History: Rare Past Drug Use History: None Reported - Past Family History Brother(s) Family Medical History: Cancer, Diabetes Mellitus Additional Family Medical History / Comment(s): Colon cancer, at 58 Medications and Allergies Home Medications Medication Instructions Recorded Confirmed Type Propafenone [Rythmol] 150 mg PO Q8HR #90 tab 05/07/16 04/17/23 Rx Albuterol Inhaler [Ventolin Hfa 2 puff INHALATION RT-Q6H PRN #1 06/26/20 04/17/23 Rx Inhaler] puff Nystatin 100,000 Unit/gm Powd 1 applic TOPICAL BID PRN 02/14/23 04/17/23 History [Mycostatin Powder] Ketorolac [Toradol] 10 mg PO Q6HR PRN #15 tab 02/21/23 04/17/23 Rx ondansetron HCL [Zofran] 8 mg PO Q8HR PRN 02/23/23 04/17/23 History Acetaminophen Tab [Tylenol] 650 mg PO Q6HR PRN #60 tab 02/27/23 04/17/23 Rx Morphine Sulfate Ir [MSIR] 15 mg PO Q3H PRN 3 Days #24 tab 02/27/23 04/17/23 Rx Prochlorperazine [Compazine] 5 mg PO Q6HR PRN 02/28/23 04/17/23 History Rivaroxaban [Xarelto] 20 mg PO DAILY 02/28/23 04/17/23 History Furosemide [Lasix] 20 mg PO BID@0900,1600 PRN 30 Days 03/12/23 04/17/23 Rx #60 tab Metoprolol Tartrate [Lopressor] 12.5 mg PO BID 30 Days #60 tab 03/12/23 04/17/23 Rx Potassium Chloride [Klor-Con 20 20 meq PO DAILY #30 packet 03/12/23 04/17/23 Rx Packets] Sennosides/Docusate Sodium [Senna 1 - 2 tab PO BID PRN 04/11/23 04/17/23 History Plus 8.6-50 mg Tablet] oxyCODONE HCL [oxyCODONE HCL (IR)] 5 - 10 mg PO Q4H PRN 04/11/23 04/17/23 History traZODone HCL [Desyrel] 50 mg PO HS 04/11/23 04/17/23 History Allergies Allergy/AdvReac Type Severity Reaction Status Date / Time sulfamethoxazole AdvReac Nausea & Verified 04/11/23 08:01 [From Bactrim] Vomiting & Diarrhea trimethoprim [From Bactrim] AdvReac Nausea & Verified 04/11/23 08:01 Vomiting & Diarrhea Physical Exam Vitals: Intake and Output 04/17/23 04/17/23 04/17/23 06:59 14:59 22:59 Other: Weight 70 kg
[2023-04-18] MEDS: MORPHINE SULFATE (100 MG/2 ML) 100 MG in SODIUM CHLORIDE 0.9% 100 ML IV SCH (12:15)
--- NOTE | 2023-04-18 13:27 | P.PN ---
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 fib on Xarelto, diastolic CHF, and hypertension . She initially presented to the emergency department on 04/11/23 with complaints of anorexia and generalized weakness. She was found to have Escherichia vulneris bacteremia and E. coli UTI. During her stay she was also found to have elevated troponins and have recurrent episodes of atrial fibrillation with RVR and her condition progressively worsened and patient stopped eating. She had increasing lethargy and failure to thrive. A Dobbhoff NG tube was placed and patient was started on PEG tube feedings. She was treated aggressively for her above-mentioned conditions. She was evaluated by our hospitalist team, cardiology, infectious disease, and oncology during her admission. Despite treatment efforts patient's condition further deteriorated. She again went into atrial fibrillation with RVR and became severely hypotensive and unresponsive. Due to her critical condition and very poor prognosis with her metastatic squamous cell carcinoma and multiple comorbid conditions, her made the decision to stop all treatment and initiate comfort measures only with hospice care. Patient currently admitted to inpatient hospice and her family remains at bedside. Physical exam: Patient remains unresponsive. Patient's and other family member at bedside at this time. Patient appears comfortable showing no signs of pain or distress. Respirations agonal. General: Nontoxic, appears stated age. Chronically and critically ill-appearing. Derm: Skin warm and dry, normal coloration for ethnicity. Head: Atraumatic, normocephalic and symmetric. Mouth: no lip lesions, mucus membranes dry Cardiovascular: irregularly irregular, no murmur, positive posterior tibial pulses bilaterally, and cap refill < 2 seconds. Lungs: Respirations agonal. Abdominal: soft, nontender to palpation, no guarding, no appreciable organomegaly Ext: No gross muscle atrophy, no edema, no contractures Neuro: Patient unresponsive Assessment and plan of care: Atrial fibrillation with RVR. Poorly controlled. Severe hypotension with history of hypertension Escherichia vulneris bacteremia E. coli UTI Sepsis, secondary to above Dysphasia, suspected to be due to Thrush Anorexia with failure to thrive Severe protein calorie malnutrition, total protein of 5.4 and albumin of 2.0 Metastatic squamous Cell Carcinoma Diastolic CHF Hypercalcemia Hypokalemia Hypoglycemia Generalized weakness, multifactorial due to above conditions and recently diagnosed gynecological squamous cell carcinoma: Pressure ulcers to coccyx, present on arrival Elevated troponins: Chronically elevated. Bicytopenia with anemia and thrombocytopenia. -Comfort measures only, continue hospice care -Tylenol suppository as needed every 4 hours for fever and/or mild pain -Atropine drops sublingually every 4 hours for excess secretions -Dry mouth spray as needed for dry mucous membranes -Robinul 0.1 mg IV push every 6 hours as needed for excess secretions -Ativan 1 mg IVP every 6 hours as needed for anxiety or agitation -Morphine infusion 1 mg/hr and titrate as needed for comfort/pain -Morphine 4 mg IVP as needed for severe breakthrough pain -Zofran 4 mg IVP every 8 hours as needed for nausea/vomiting. -Order placed for insertion of urinary catheter and urinary catheter management -Activity order to turn every 2 hours to prevent further breakdown of pressure ulcers CODE STATUS: DNR/DNI. Comfort measures only, Hospice care Patient was seen independently by Nurse Practitioner. This document was prepared using [employer] dictation software. Please allow for errors in security systems administrator while rare they do occur. Vasquez Bhardwaj NP rendered care for this patient independently, reviewed the findings and plan as documented in the note above. I did not physically speak w ith or examine the patient on this rafael Objective - Vital Signs Vital signs: Vital Signs Temp Pulse 75 04/18/23 03:35 Resp 5 L 04/18/23 03:35 BP Pulse Ox FiO2 Intake & Output 04/17/23 04/18/23 04/18/23 18:59 06:59 18:59 Intake Total 5.321 14.6 Balance 5.321 14.6 Weight 70 kg Intake: Intake, IV Titration 5.321 14.6 Amount Morphine Sulfate (100 mg/ 5.321 14.6 2 ml) 100 mg In Sodium Chloride 0.9% 100 ml @ 1 MG/HR 1.02 mls/hr IV . Q24H [facility] Rx#:[id number]
--- NOTE | 2023-04-18 14:34 | P.DS ---
Providers Date of admission: 04/17/23 15:51 Expected date of discharge: 04/18/23 Attending physician: Radha Saul MD Primary care physician: Yordan Prescott Hospital Course: Patient . Time of was pronounced on 04/18/2023 at 1:51 PM. Hospital diagnoses: Atrial fibrillation with RVR. Poorly controlled. Severe hypotension with history of hypertension Escherichia vulneris bacteremia E. coli UTI Sepsis, secondary to above Dysphasia, suspected to be due to Thrush Anorexia with failure to thrive Severe protein calorie malnutrition, total protein of 5.4 and albumin of 2.0 Metastatic squamous Cell Carcinoma Diastolic CHF Hypercalcemia Hypokalemia Hypoglycemia Generalized weakness, multifactorial due to above conditions and recently diagnosed gynecological squamous cell carcinoma: Pressure ulcers to coccyx, present on arrival Elevated troponins: Chronically elevated. Bicytopenia with anemia and thrombocytopenia. 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 fib on Xarelto, diastolic CHF, and hypertension . She initially presented to the emergency department on 04/11/23 with complaints of anorexia and generalized weakness. She was found to have Escherichia vulneris bacteremia and E. coli UTI. During her stay she was also found to have elevated troponins and have recurrent episodes of atrial fibrillation with RVR and her condition progressively worsened and patient stopped eating. She had increasing lethargy and failure to thrive. A Dobbhoff NG tube was placed and patient was started on PEG tube feedings. She was treated aggressively for her above-mentioned conditions. She was evaluated by our hospitalist team, cardiology, infectious disease, and oncology during her admission. Despite treatment efforts patient's condition further deteriorated. She again went into atrial fibrillation with RVR and became severely hypotensive and unresponsive. Due to her critical condition and very poor prognosis with her metastatic squamous cell carcinoma and multiple comorbid conditions, her made the decision to stop all treatment and initiate comfort measures only with hospice care. Patient was admitted under our services to inpatient hospice and her family remained at bedside. Was notified by nursing staff that patient peacefully under hospice care with her at bedside. Time of was pronounced on 04/18/2023 at 1:51 PM. Patient . Time of was pronounced on 04/18/2023 at 1:51 PM. Patient was seen independently by Nurse Practitioner. This document was prepared using [employer] e[employer] dictation software. Please allow for errors in molding line operator while rare they do occur. Vasquez Bhardwaj NP rendered care for this patient independently, reviewed the findings and plan as documented in the note above. I did not physically speak with or examine the patient on this rafael Plan - Discharge Summary New Discharge Prescriptions: No Action Propafenone [Rythmol] 150 mg PO Q8HR #90 tab Nystatin 100,000 Unit/gm Powd [Mycostatin Powder] 1 applic TOPICAL BID PRN PRN Reason: Rash Ketorolac [Toradol] 10 mg PO Q6HR PRN #15 tab PRN Reason: Pain ondansetron HCL [Zofran] 8 mg PO Q8HR PRN PRN Reason: Nausea Metoprolol Tartrate [Lopressor] 12.5 mg PO BID 30 Days #60 tab Albuterol Inhaler [Ventolin Hfa Inhaler] 2 puff INHALATION RT-Q6H PRN #1 puff PRN Reason: Shortness Of Breath Or Wheezing Morphine Sulfate Ir [MSIR] 15 mg PO Q3H PRN 3 Days #24 tab PRN Reason: Severe Breakthrough Pain Acetaminophen Tab [Tylenol] 650 mg PO Q6HR PRN #60 tab PRN Reason: Fever And/ Or Pain Rivaroxaban [Xarelto] 20 mg PO DAILY Prochlorperazine [Compazine] 5 mg PO Q6HR PRN PRN Reason: Nausea Potassium Chloride [Klor-Con 20 Packets] 20 meq PO DAILY #30 packet Furosemide [Lasix] 20 mg PO BID@0900,1600 PRN 30 Days #60 tab PRN Reason: Edema traZODone HCL [Desyrel] 50 mg PO HS oxyCODONE HCL [oxyCODONE HCL (IR)] 5 - 10 mg PO Q4H PRN PRN Reason: Pain Sennosides/Docusate Sodium [Senna Plus 8.6-50 mg Tablet] 1 - 2 tab PO BID PRN PRN Reason: Constipation Discharge Medication List Propafenone [Rythmol] 150 mg PO Q8HR #90 tab 05/07/16 [Rx] Albuterol Inhaler [Ventolin Hfa Inhaler] 2 puff INHALATION RT-Q6H PRN #1 puff 06/26/20 [Rx] Nystatin 100,000 Unit/gm Powd [Mycostatin Powder] 1 applic TOPICAL BID PRN 02/14/23 [History] Ketorolac [Toradol] 10 mg PO Q6HR PRN #15 tab 02/21/23 [Rx] ondansetron HCL [Zofran] 8 mg PO Q8HR PRN 02/23/23 [History] Acetaminophen Tab [Tylenol] 650 mg PO Q6HR PRN #60 tab 02/27/23 [Rx] Morphine Sulfate Ir [MSIR] 15 mg PO Q3H PRN 3 Days #24 tab 02/27/23 [Rx] Prochlorperazine [Compazine] 5 mg PO Q6HR PRN 02/28/23 [History] Rivaroxaban [Xarelto] 20 mg PO DAILY 02/28/23 [History] Furosemide [Lasix] 20 mg PO BID@0900,1600 PRN 30 Days #60 tab 03/12/23 [Rx] Metoprolol Tartrate [Lopressor] 12.5 mg PO BID 30 Days #60 tab 03/12/23 [Rx] Potassium Chloride [Klor-Con 20 Packets] 20 meq PO DAILY #30 packet 03/12/23 [Rx] Sennosides/Docusate Sodium [Senna Plus 8.6-50 mg Tablet] 1 - 2 tab PO BID PRN 04/11/23 [History] oxyCODONE HCL [oxyCODONE HCL (IR)] 5 - 10 mg PO Q4H PRN 04/11/23 [History] traZODone HCL [Desyrel] 50 mg PO HS 04/11/23 [History] Discharge Disposition: - Preliminary Cause of Preliminary Cause of : afib RVR
[2023-04-18 16:07] VITALS: PULSE 74; RESP 6
== END 2023-04-18 18:01 | disposition expired | DRG 951 ==
LOC: 3SCARD 15:51
PROVIDERS: ADMIT Internal Medicine; ATTEND Internal Medicine
DX: Z51.5 Encounter for palliative care (principal); A41.51 Sepsis due to Escherichia coli [E. coli]; E43 Unspecified severe protein-calorie malnutrition; B37.0 Candidal stomatitis; C79.9 Secondary malignant neoplasm of unspecified site; I50.32 Chronic diastolic (congestive) heart failure; Z43.1 Encounter for attention to gastrostomy; N39.0 Urinary tract infection, site not specified; D69.6 Thrombocytopenia, unspecified; L89.152 Pressure ulcer of sacral region, stage 2; I11.0 Hypertensive heart disease with heart failure; R62.7 Adult failure to thrive; C55 Malignant neoplasm of uterus, part unspecified; I95.9 Hypotension, unspecified; I48.0 Paroxysmal atrial fibrillation; Z66 Do not resuscitate; D64.9 Anemia, unspecified; R47.02 Dysphasia; E83.52 Hypercalcemia; E87.6 Hypokalemia; F41.9 Anxiety disorder, unspecified; E16.2 Hypoglycemia, unspecified; Z79.01 Long term (current) use of anticoagulants; Z79.891 Long term (current) use of opiate analgesic; Z79.899 Other long term (current) drug therapy; Z88.1 Allergy status to other antibiotic agents; Z88.2 Allergy status to sulfonamides